=== PATIENT | male | born 1970 | race Caucasian/White ===

== ENCOUNTER → 2020-03-25 | Day surgery (SDC) | payer BC ==
[~2020-03-25] MED LIST: GLUCAGON 1 MG/ML VIAL IM STA
[2020-03-25 09:25] VITALS: BP 141/79; PULSE 79; RESP 16; TEMP 98
--- NOTE | 2020-04-01 14:32 | MR ---
EXAMINATION TYPE: MR Enterography DATE OF EXAM: 03/25/2020 COMPARISON: Outside CT abdomen and pelvis October 10, 2017 HISTORY: History of small bowel resection and fistulotomy with pain. CONTRAST: Standard multiplanar, multisequence imaging of the abdomen is performed without and with IV contrast, patient is injected with 10 mL intravenous Gadavist gadolinium contrast. Oral Volumen and Water was given as per enterography protocol. FINDINGS: Bowel: Satisfactory fluid distention of stomach without suspicious eccentric wall thickening or mural enhancement. Suboptimal fluid distention of duodenal sweep without suspicious eccentric wall thicken ing or mural enhancement. Fairly adequate fluid distention of jejunal and ileal small bowel loops. No suspicious eccentric wall thickening or enhancement identified. There is persistent narrowing of the neoterminal ileum at the colonic anastomosis in the right lower quadrant coronal image 10 series 301 . No significant focal dilatation of the distal ileum is noted. Visualized colon unremarkable. Other: The liver, gallbladder, spleen, pancreas, and both adrenal glands are unremarkable. No concern ing renal mass or hydronephrosis. No intra-abdominal ascites or greater than 1 cm abdominal adenopath y. Visualized osseous structures are intact. Overlying vertical scar extending inferior to the umbili cus. Small fat-containing periumbilical hernia. IMPRESSION: Mild stricturing at the neoterminal ileum. No active inflammatory change. No enhancing fi stulous tract.
== END ==
LOC: RADMRIMAIN 08:47
PROVIDERS: ATTEND Internal Medicine Gastroenterology
DX: K50.90 Crohn's disease, unspecified, without complications (principal)
CPT/HCPCS: 72197; 74183; 96372; J1610; A9585

== ENCOUNTER 2020-10-31 16:51 | Inpatient (IN) | payer BC ==
[2020-10-31] MEDS ORDERED: SODIUM CHLORIDE 0.9% 1,000 ML IV STA (17:15)
[2020-10-31 18:31] LABS: Anisocytosis Slight; Basophils % (A) 1 %; Eosinophils # (A) 0.1 k/uL (0-0.7); Eosinophils % (A) 2 %; Hypochromasia Marked; Lymphocytes # (A) 1.4 k/uL (1.0-4.8); Lymphocytes % (A) 24 %; MCH 21.2 pg (25.0-35.0); MCHC 29.9 g/dL (31.0-37.0); MCV 70.8 fL (80.0-100.0); Mean Platelet Volume 6.8; Microcytosis Moderate; Monocytes # (A) 0.4 k/uL (0-1.0); Monocytes % (A) 7 %; Neutrophils # (A) 3.9 k/uL (1.3-7.7); Neutrophils % (A) 65 %; Platelet Count 460 k/uL (150-450); Poikilocytosis Moderate; RBC 3.25 m/uL (4.30-5.90); RDW 16.9 % (11.5-15.5)
[2020-10-31 18:34] LABS: HGB 6.9 gm/dL (13.0-17.5)
[2020-10-31 18:35] LABS: Appearance,Urine Clear (Clear); Bilirubin,Urine Negative (Negative); Blood,Urine Negative (Negative); Color,Urine Yellow; Glucose,Urine (UA) Negative (Negative); Ketones,Urine Trace (Negative); Leukocyte Esterase,Urine Negative (Negative); Nitrite,Urine Negative (Negative); Protein,Urine Trace (Negative); Specific Gravity,Urine 1.035 (1.001-1.035); Urobilinogen,Urine <2.0 mg/dL (<2.0)
[2020-10-31 18:38] LABS: ALT 16 U/L (4-49); AST 37 U/L (17-59); African American GFR (CKD) >90 (>60 ml/min/1.73 sqM); Albumin 4.1 g/dL (3.5-5.0); Alkaline Phosphatase 66 U/L (38-126); Anion Gap 9 mmol/L; Blood Urea Nitrogen 14 mg/dL (9-20); Carbon Dioxide 24 mmol/L (22-30); Chloride 105 mmol/L (98-107); Glucose 88 mg/dL (74-99); Non-African American GFR(CKD) >90 (>60 ml/min/1.73 sqM); Potassium 4.5 mmol/L (3.5-5.1); Sodium 138 mmol/L (137-145); Total Bilirubin 0.3 mg/dL (0.2-1.3); Total Protein 6.6 g/dL (6.3-8.2)
--- NOTE | 2020-10-31 18:40 | ED ---
General Adult HPI - General Chief complaint: Fall Stated complaint: Weak/dizzy/pain Time Seen by Provider: 10/31/20 17:09 Source: patient Mode of arrival: ambulatory Limitations: no limitations - History of Present Illness Initial comments: Patient is a 50-year-old male that presents to the emergency department complaining of dizziness, fatigue and low hemoglobin. He notes that his hemoglobin on routine lab work as primary care was 7.2. He noted that he's been feeling fatigued and weaker lately. He notes that he does have chronic pain and is not experiencing anything new. He was otherwise well-appearing. He denied any chest pain shortness of breath headache nausea vomiting diarrhea constipation fever chills. - Related Data Home Medications Medication Instructions Recorded Confirmed Dicyclomine [Bentyl] 10 mg PO TID 03/25/20 03/25/20 Diphenox-Atrop 2.5-0.025 mg 1 - 2 tab PO QID PRN 03/25/20 03/25/20 [Lomotil] Omeprazole 20 mg PO BID 03/25/20 03/25/20 azaTHIOprine [Imuran] 100 mg PO DAILY 03/25/20 03/25/20 clonazePAM 1 mg PO TID 03/25/20 03/25/20 lamoTRIgine [LaMICtal] 100 mg PO DAILY 03/25/20 03/25/20 Allergies Allergy/AdvReac Type Severity Reaction Status Date / Time No Known Allergies Allergy Verified 10/31/20 16:59 Review of Systems ROS Statement: Those systems with pertinent positive or pertinent negative responses have been documented in the HPI. ROS Other: All systems not noted in ROS Statement are negative. Past Medical History Additional Past Medical History / Comment(s): Crohn's History of Any Multi-Drug Resistant Organisms: None Reported Additional Past Surgical History / Comment(s): bowel resection. Past Psychological History: Anxiety, Bipolar, Depression, PTSD Smoking Status: Never smoker Past Alcohol Use History: None Reported Past Drug Use History: None Reported General Exam Limitations: no limitations General appearance: alert, in no apparent distress Head exam: Present: atraumatic, normocephalic, normal inspection Eye exam: Present: normal appearance, PERRL, EOMI. Absent: scleral icterus, conjunctival injection, periorbital swelling Neck exam: Present: normal inspection Respiratory exam: Present: normal lung sounds bilaterally. Absent: respiratory distress, wheezes, rales, rhonchi, stridor Cardiovascular Exam: Present: regular rate, normal rhythm, normal heart sounds. Absent: systolic murmur, diastolic murmur, rubs, gallop, clicks GI/Abdominal exam: Present: soft, normal bowel sounds. Absent: distended, tenderness, guarding, rebound, rigid Extremities exam: Present: normal inspection, full ROM, normal capillary refill. Absent: tenderness, pedal edema, joint swelling, calf tenderness Neurological exam: Present: alert, oriented X3 Psychiatric exam: Present: normal affect, normal mood Skin exam: Present: warm, dry, intact, normal color. Absent: rash Course Vital Signs 10/31/20 16:52 Temperature 97.6 F Pulse Rate 78 Respiratory 18 Rate Blood Pressure 142/76 O2 Sat by Pulse 100 Oximetry EKG Findings - EKG Comments: EKG Findings:: Ventricular rate 66 bpm, MN interval 182 ms, QRS duration 86 ms, QTC 450 ms, PRT axes 51/38/35. Normal sinus rhythm. Normal ECG. Medical Decision Making - Medical Decision Making 50-year-old male complaining of fatigue, dizziness with history of Crohn's disease. Labs, 1 L normal saline, EKG, cardiac catheterization technician ordered. Patient states that he was told to get a computed tomography scan by his doctor. So computed tomography scan of the brain was ordered. Labs show a hemoglobin of 6.9, rest of labs unremarkable. Case discussed with Dr. Hartman, patient will be admitted for observation for symptomatic anemia. 1 unit of blood ordered with a type and screen. Miryam Pal was consulted and will accept the admit for Dr. Way. - Lab Data Result diagrams: 10/31/20 18:11 10/31/20 18:11 Lab Results 10/31/20 10/31/20 10/31/20 Range/Units 18:11 18:11 18:11 WBC 6.0 (3.8-10.6) k/uL RBC 3.25 L (4.30-5.90) m/uL Hgb 6.9 L* (13.0-17.5) gm/dL Hct 23.0 L (39.0-53.0) % MCV 70.8 L (80.0-100.0) fL MCH 21.2 L (25.0-35.0) pg MCHC 29.9 L (31.0-37.0) g/dL RDW 16.9 H (11.5-15.5) % Plt Count 460 H (150-450) k/uL MPV 6.8 Neutrophils % 65 % Lymphocytes % 24 % Monocytes % 7 % Eosinophils % 2 % Basophils % 1 % Neutrophils # 3.9 (1.3-7.7) k/uL Lymphocytes # 1.4 (1.0-4.8) k/uL Monocytes # 0.4 (0-1.0) k/uL Eosinophils # 0.1 (0-0.7) k/uL Basophils # 0.0 (0-0.2) k/uL Hypochromasia Marked Poikilocytosis Moderate Anisocytosis Slight Microcytosis Moderate PT 10.2 (9.0-12.0) sec INR 1.0 (<1.2) APTT 21.1 L (22.0-30.0) sec Sodium 138 (137-145) mmol/L Potassium 4.5 (3.5-5.1) mmol/L Chloride 105 (98-107) mmol/L Carbon Dioxide 24 (22-30) mmol/L Anion Gap 9 mmol/L BUN 14 (9-20) mg/dL Creatinine 0.81 (0.66-1.25) mg/dL Est GFR (CKD-EPI)AfAm >90 (>60 ml/min/1.73 sqM) Est GFR (CKD-EPI)NonAf >90 (>60 ml/min/1.73 sqM) Glucose 88 (74-99) mg/dL Calcium 9.0 (8.4-10.2) mg/dL Total Bilirubin 0.3 (0.2-1.3) mg/dL AST 37 (17-59) U/L ALT 16 (4-49) U/L Alkaline Phosphatase 66 (38-126) U/L Troponin I (0.000-0.034) ng/mL Total Protein 6.6 (6.3-8.2) g/dL Albumin 4.1 (3.5-5.0) g/dL Urine Color Urine Appearance (Clear) Urine pH (5.0-8.0) Ur Specific [place] (1.001-1.035) Urine Protein (Negative) Urine Glucose (UA) (Negative) Urine Ketones (Negative) Urine Blood (Negative) Urine Nitrite (Negative) Urine Bilirubin (Negative) Urine Urobilinogen (<2.0) mg/dL Ur Leukocyte Esterase (Negative) 10/31/20 10/31/20 Range/Units 18:11 18:22 WBC (3.8-10.6) k/uL RBC (4.30-5.90) m/uL Hgb (13.0-17.5) gm/dL Hct (39.0-53.0) % MCV (80.0-100.0) fL MCH (25.0-35.0) pg MCHC (31.0-37.0) g/dL RDW (11.5-15.5) % Plt Count (150-450) k/uL MPV Neutrophils % % Lymphocytes % % Monocytes % % Eosinophils % % Basophils % % Neutrophils # (1.3-7.7) k/uL Lymphocytes # (1.0-4.8) k/uL Monocytes # (0-1.0) k/uL Eosinophils # (0-0.7) k/uL Basophils # (0-0.2) k/uL Hypochromasia Poikilocytosis Anisocytosis Microcytosis PT (9.0-12.0) sec INR (<1.2) APTT (22.0-30.0) sec Sodium (137-145) mmol/L Potassium (3.5-5.1) mmol/L Chloride (98-107) mmol/L Carbon Dioxide (22-30) mmol/L Anion Gap mmol/L BUN (9-20) mg/dL Creatinine (0.66-1.25) mg/dL Est GFR (CKD-EPI)AfAm (>60 ml/min/1.73 sqM) Est GFR (CKD-EPI)NonAf (>60 ml/min/1.73 sqM) Glucose (74-99) mg/dL Calcium (8.4-10.2) mg/dL Total Bilirubin (0.2-1.3) mg/dL AST (17-59) U/L ALT (4-49) U/L Alkaline Phosphatase (38-126) U/L Troponin I <0.012 (0.000-0.034) ng/mL Total Protein (6.3-8.2) g/dL Albumin (3.5-5.0) g/dL Urine Color Yellow Urine Appearance Clear (Clear) Urine pH 6.0 (5.0-8.0) Ur Specific [place] 1.035 (1.001-1.035) Urine Protein Trace H (Negative) Urine Glucose (UA) Negative (Negative) Urine Ketones Trace H (Negative) Urine Blood Negative (Negative) Urine Nitrite Negative (Negative) Urine Bilirubin Negative (Negative) Urine Urobilinogen <2.0 (<2.0) mg/dL Ur Leukocyte Esterase Negative (Negative) - EKG Data -: EKG Interpreted by Pr EKG shows normal: sinus rhythm Rate: normal EKG Comments: Ventricular rate 66 bpm, MN interval 182 ms, QRS duration 86 ms, QTC 450 ms, PRT axes 51/38/35. Normal sinus rhythm. Normal ECG. - Radiology Data Radiology results: report reviewed, image reviewed CT of the brain: No acute intracranial abnormality. Disposition Clinical Impression: Syncope, Dizziness Disposition: ADMITTED IP TO THIS HOSP Condition: Stable Is patient prescribed a controlled substance at d/c from ED?: No Referrals: Yenny Carreon MD [Primary Care Provider] - 1-2 days Time of Disposition: 18:56
[2020-10-31] MEDS ORDERED: NALOXONE 0.4 MG/ML 1 ML VIAL IV PRN (18:45)
[2020-10-31 18:46] LABS: Partial Thromboplastin Time 21.1 sec (22.0-30.0); Prothrombin Time 10.2 sec (9.0-12.0)
[2020-10-31] MEDS ORDERED: KETOROLAC 15 MG/ML 1 ML VIAL IVP STA (18:52)
--- NOTE | 2020-10-31 18:53 | CT ---
EXAM: CT brain wo con CLINICAL HISTORY: Low hemoglobin, dizziness and fall. COMPARISON: None TECHNIQUE: Contiguous axial noncontrast images of the brain were obtained. Coronal and sagittal refor mats were generated and reviewed. Automated dose control was used for this exam. FINDINGS: There is no evidence for intracranial hemorrhage, mass effect or midline shift. The white matter is g rossly preserved. Ventricular size and configuration is within normal limits for degree of parenchymal volume. The paranasal sinuses demonstrate a small left maxillary sinus mucus retention cyst, otherwise clear. The mastoid air cells are clear. No evidence for calvarial fracture. IMPRESSION: No acute intracranial abnormality.
[2020-10-31] MEDS: SODIUM CHLORIDE 0.9% 1,000 ML IV SCH ×2 (18:57→23:20)
[2020-10-31] MEDS ORDERED: HYDROmorphone 0.5 MG/0.5 ML SYRINGE IVP PRN (20:48)
[2020-10-31] MEDS: HYDROmorphone 1 MG/ML 1 ML SYRINGE IVP PRN (22:57)
[2020-10-31] MEDS: clonazePAM 1 MG TAB PO SCH (22:57)
[2020-10-31] MEDS: PANTOPRAZOLE 40 MG/10 ML VIAL IVP SCH (22:58)
[2020-11-01] MEDS: HYDROmorphone 1 MG/ML 1 ML SYRINGE IVP PRN ×5 (03:14→21:03)
[2020-11-01 06:15] LABS: Anisocytosis Slight; Basophils # (A) 0.1 k/uL (0-0.2); Basophils % (A) 1 %; Eosinophils # (A) 0.2 k/uL (0-0.7); Eosinophils % (A) 4 %; HCT 24.4 % (39.0-53.0); HGB 7.1 gm/dL (13.0-17.5); Hypochromasia Marked; Lymphocytes # (A) 1.6 k/uL (1.0-4.8); Lymphocytes % (A) 29 %; MCH 21.6 pg (25.0-35.0); MCHC 29.1 g/dL (31.0-37.0); MCV 74.2 fL (80.0-100.0); Microcytosis Moderate; Monocytes # (A) 0.4 k/uL (0-1.0); Monocytes % (A) 7 %; Neutrophils # (A) 3.2 k/uL (1.3-7.7); Neutrophils % (A) 56 %; Platelet Count 421 k/uL (150-450); Poikilocytosis Marked; RBC 3.29 m/uL (4.30-5.90); RDW 18.3 % (11.5-15.5); WBC 5.7 k/uL (3.8-10.6)
[2020-11-01] MEDS: clonazePAM 1 MG TAB PO SCH ×3 (07:51→21:02)
[2020-11-01] MEDS: PANTOPRAZOLE 40 MG/10 ML VIAL IVP SCH ×2 (07:51→21:02)
[2020-11-01] MEDS: SODIUM CHLORIDE 0.9% 1,000 ML IV SCH ×3 (07:51→19:58)
--- NOTE | 2020-11-01 10:34 | P.HPIM ---
History of Present Illness This is a pleasant 50 years old male with past medical history of Crohn's disease, anxiety/bipolar and depression and PTSD Presents because of dizziness and low hemoglobin. Patient states that is been having pounding headache with dizzy spells and pain all over his body with dyspnea with simple exertion even for example going up to stairs only. Sleepy than usual. This has been going on for a few weeks so he went to see his PCP Dr. Yenny villarrealed blood test for him and call him back in 3 days on 10/24 telling him that his hemoglobin was low at 72 and iron was low at 60, he asked him to follow-up with GI service for colonoscopy, to collect stool for occult blood, and get him up appointment on 11/[address] Gipson However yesterday he felt more severe dizziness, when he bent over to reach out for his dog he felt dizzy and on straight and up and almost going to pass out and he hit his head with a cushion furniture with no trauma. Also has been having chest pain and exertional dyspnea. He has no history of heart disease. However he has extensive family history of heart disease. Her has heart attack at age 58-59, and he got another heart attack 2 weeks ago at age 83. Call at age 64 and another uncle got his first heart attack in his 40s before he in 60s as well He denies smoking, alcohol or illicit drugs. Patient has history of Crohn's disease on azathiprine and lomotil And at this line he has 6-12 bowel movements which are brown with no blunt although he has history of hemorrhoids as well Vitals are stable and patient is not tachycardic or febrile. Hemoglobin was low at 6.9 on admission, repeat hemoglobin 7.1. WBC and platelet count are normal. INR is 1.0. BMP and liver enzymes are unremarkable. Urinalysis showing only trace protein and ketones. EKG: Showed normal sinus rhythm at [address]-T changes. QTC is 450. CT of the brain: No acute process. And emergency room patient was started on Protonix IV, 1 L of normal saline 1 L and continue it at 1 30 mL/h. In the emergency patient received 1 unit of blood transfusion GI team were consulted from ED Review of Systems CONSTITUTIONAL: No fever, no malaise, no fatigue. HEENT: No recent visual problems or hearing problems. Denied any sore throat. CARDIOVASCULAR: No orthopnea, PND, no palpitations, no syncope. PULMONARY: no cough, no hemoptysis. GASTROINTESTINAL: No diarrhea, no nausea, no vomiting, no abdominal pain. Normoactive bowel sounds. NEUROLOGICAL: No headaches, no weakness, no numbness. HEMATOLOGICAL: Denies any bleeding or petechiae. GENITOURINARY: Denies any burning micturition, frequency, or urgency. MUSCULOSKELETAL/RHEUMATOLOGICAL: Denies any joint pain, swelling, or any muscle pain. ENDOCRINE: Denies any polyuria or polydipsia. Past Medical History Additional Past Medical History / Comment(s): Crohn's History of Any Multi-Drug Resistant Organisms: None Reported Additional Past Surgical History / Comment(s): bowel resection. Smoking Status: Never smoker Medications and Allergies Home Medications Medication Instructions Recorded Confirmed Type Diphenox-Atrop 2.5-0.025 mg 1 tab PO QID 03/25/20 10/31/20 History [Lomotil] Omeprazole 20 mg PO DAILY 03/25/20 10/31/20 History azaTHIOprine [Imuran] 50 mg PO BID 03/25/20 10/31/20 History clonazePAM 1 mg PO TID 03/25/20 10/31/20 History lamoTRIgine [LaMICtal] 100 mg PO DAILY 03/25/20 10/31/20 History Ascorbic Acid [Vitamin C] 250 mg PO DAILY 10/31/20 10/31/20 History Cholecalciferol [Vitamin D3 (10 10 mcg PO DAILY 10/31/20 10/31/20 History Mcg = 400 Iu)] Cholestyramine (with Sugar) 4 gm PO BID 10/31/20 10/31/20 History [Cholestyramine Packet] Chromium Picolinate 200 mcg PO DAILY 10/31/20 10/31/20 History FLUoxetine HCL [PROzac] 10 mg PO DAILY 10/31/20 10/31/20 History Lidocaine 5% Patch [Lidoderm] 1 patch TOPICAL DAILY 10/31/20 10/31/20 History Meloxicam 15 mg PO DAILY 10/31/20 10/31/20 History Multivitamins, Thera [Multivitamin 1 tab PO DAILY 10/31/20 10/31/20 History (formulary)] [place]-3 Fatty Acids/Fish Oil [Fish 1 cap PO DAILY 10/31/20 10/31/20 History Oil 1,000 mg Softgel] Sucralfate [Carafate] 1 gm PO TID 10/31/20 10/31/20 History Vitamin B Complex 1 cap PO DAILY 10/31/20 10/31/20 History Vitamin E (Dl,Tocopheryl Acet) 400 unit PO DAILY 10/31/20 10/31/20 History [Vitamin E (400 Iu = 180 mg)] hydrOXYzine pamoate [Vistaril] 25 mg PO TID PRN 10/31/20 10/31/20 History Allergies Allergy/AdvReac Type Severity Reaction Status Date / Time No Known Allergies Allergy Verified 10/31/20 19:18 Physical Exam Vitals: Vital Signs Temp Pulse Pulse Resp BP BP Pulse Ox 11/01/20 04:55 97.7 F 67 16 114/70 96 10/31/20 23:15 98.3 F 73 16 141/83 10/31/20 20:59 98.2 F 67 16 142/78 10/31/20 20:50 98.2 F 67 18 142/78 100 10/31/20 20:36 98.4 F 86 18 123/74 100 10/31/20 20:29 98.0 F 68 18 128/67 100 10/31/20 20:19 97.7 F 68 18 138/85 100 10/31/20 20:10 97.7 F 70 18 130/78 100 10/31/20 19:02 75 18 124/70 99 10/31/20 16:52 97.6 F 78 18 142/76 100 Intake and Output 10/31/20 11/01/20 11/01/20 22:59 06:59 14:59 Intake Total 0 310 Output Total 200 Balance 0 110 Intake: Blood Product 0 310 Rc As-1 Unit 0 310 [id number] Output: Urine 200 Other: Voiding Method Toilet Urinal Weight 105.233 kg GENERAL: The patient is alert and oriented x3, not in any acute distress. Well developed, well nourished. -HEENT: Pupils are round and equally reacting to light. EOMI. No scleral icterus. No conjunctival pallor. Normocephalic, atraumatic. No pharyngeal erythema. No thyromegaly. Pale CARDIOVASCULAR: S1 and S2 present. No murmurs, rubs, or gallops. PULMONARY: Chest is clear to auscultation, no wheezing or crackles. ABDOMEN: Soft, nontender, nondistended, normoactive bowel sounds. No palpable organomegaly. MUSCULOSKELETAL: No joint swelling or deformity. EXTREMITIES: No cyanosis, clubbing, or pedal edema. NEUROLOGICAL: Gross neurological examination did not reveal any focal deficits. SKIN: No rashes. No petechiae Results CBC & Chem 7: 11/01/20 05:23 10/31/20 18:11 Labs: Abnormal Lab Results - Last 24 Hours (Table) 10/31/20 10/31/20 10/31/20 Range/Units 18:11 18:11 18:22 RBC 3.25 L (4.30-5.90) m/uL Hgb 6.9 L* (13.0-17.5) gm/dL Hct 23.0 L (39.0-53.0) % MCV 70.8 L (80.0-100.0) fL MCH 21.2 L (25.0-35.0) pg MCHC 29.9 L (31.0-37.0) g/dL RDW 16.9 H (11.5-15.5) % Plt Count 460 H (150-450) k/uL APTT 21.1 L (22.0-30.0) sec Urine Protein Trace H (Negative) Urine Ketones Trace H (Negative) Crossmatch 10/31/20 11/01/20 Range/Units 18:45 05:23 RBC 3.29 L (4.30-5.90) m/uL Hgb 7.1 L (13.0-17.5) gm/dL Hct 24.4 L (39.0-53.0) % MCV 74.2 L (80.0-100.0) fL MCH 21.6 L (25.0-35.0) pg MCHC 29.1 L (31.0-37.0) g/dL RDW 18.3 H (11.5-15.5) % Plt Count (150-450) k/uL APTT (22.0-30.0) sec Urine Protein (Negative) Urine Ketones (Negative) Crossmatch See Detail Assessment and Plan Assessment: Anemia. Low Hemoglobin upon admission, most likely acute blood loss anemia Possible acute GI bleed Dizziness and presyncope, secondary to above chest pain and dyspnea, most likely secondary to anemia. Rule out cardiac causes Crohn's disease , rule out acute exacerbation History of bipolar depression, anxiety and PTSD Plan: this is a pleasant 50 years old male who presents with dizziness and low hemoglobin. He is a status post one unit of blood transfusion Continue monitoring hemoglobin. Anemia workup (I called lap to run test on the first CBC sample on admission in the ER ) Continue with Protonix Follow-up GI team . Check ESR and C-reactive protein Telemetry monitoring, cardiology consult. Also positive troponin and proBNP Check chest x-ray and broughtcalcitonin Labs and medication were reviewed.. Continue same treatment. Continue with symptomatic treatment. Resume home medication. Monitor lytes and vitals. DVT and GI prophylaxis. Further recommendations depends on the clinical course of the patient DVT prophylaxis: No anticoagulation in view of suspected GI bleed GI Prophylaxis: Ppi PT/OT: Pending Prognosis is guarded
--- NOTE | 2020-11-01 11:31 | US ---
EXAMINATION TYPE: US venous doppler duplex LE DATE OF EXAM: 11/01/2020 10:35 AM COMPARISON: NONE CLINICAL HISTORY: Rule out DVT. bilat leg pain, no swelling, no h/o dvt SIDE PERFORMED: Bilateral TECHNIQUE: The lower extremity deep venous system is examined utilizing real time linear array sonog scott with graded compression, doppler sonography and color-flow sonography. VESSELS IMAGED: Common Femoral Vein Deep Femoral Vein Greater Saphenous Vein * Femoral Vein - duplicate vein on the left Popliteal Vein Small Saphenous Vein * Proximal Calf Veins (* superficial vessels) Right Leg: Negative for DVT Left Leg: Negative for DVT IMPRESSION: Grayscale, color doppler, spectral doppler imaging performed of the deep veins of the lo wer extremities. There is normal flow, compressibility, vascular waveforms.
--- NOTE | 2020-11-01 11:39 | XR ---
EXAMINATION TYPE: XR chest 1V DATE OF EXAM: 11/01/2020 COMPARISON: NONE HISTORY: Chest pain TECHNIQUE: Single frontal view of the chest is obtained. FINDINGS: There is no focal air space opacity, pleural effusion, or pneumothorax seen. The heart is enlarged but there is no evidence of overt failure. Mild arthropathy AC joints. IMPRESSION: Cardiomegaly
--- NOTE | 2020-11-01 12:45 | P.CONS ---
History of Present Illness - Reason for Consult Consult date: 11/01/20 Anemia Requesting physician: Karthikeyan E Sheet - Chief Complaint Weakness, low hemoglobin - History of Present Illness This 50-year-old white male who presented to the emergency department with complaints of weakness, fatigue, and reports of outpatient labs showing a low hemoglobin. Patient has a past medical history of Crohn's disease diagnosed in 1997. He is followed with Dr. Dunn in the past and currently under the care of Dr. Gipsno. Patient states he was scheduled for outpatient colonoscopy on 11/12/[address] Gipson. He currently takes Imuran, Carafate, Cholestyramine, hydroxyzine, and Bentyl as needed. He states he has not had any blood in his stool or black stool, no hematemesis or coffee-ground emesis. States he has chronic abdominal pain, nausea but no vomiting, and has 6-12 bowel movements a day that are loose which she states is normal for him. He states he has been getting a lot of acid reflux, he does take omeprazole for it. He states he has prior He denies any regular NSAID use. He has a history of a bowel resection and perforation with repair. Also has an abdominal hernia. He's had multiple bowel obstructions, last one he was hospitalized for was in March 2019. However he does state that he has felt that he has had bowel obstructions throughout Covid, however did not come into the emergency department as he was afraid to contract COVID-19. He states his last EGD and colonoscopy was done by Dr. Dunn in 2019. Admission globin was 6.9, he was transfused with 1 unit of PRBCs. Repeat labs today show WBC 5.7, hemoglobin 7.1, hematocrit 24, 421,000, INR 1.0, total bilirubin 0.3, alkaline phosphatase 66, AST 37, ALT 16. CRP 0.6. Review of Systems REVIEW OF SYSTEMS: CARDIOPULMONARY: No chest pain or shortness of breath. Gastrointestinal: Diffuse abdominal pain, chronic. Nausea, no vomiting. No hematemesis, coffee-ground emesis. No rectal bleeding, or melena. Daily diarrhea, 6-12 bowel movements a day. GENITOURINARY: No dysuria or hematuria. MUSCULOSKELETAL: Reports normal range of motion., Leg pain. SKIN: No rashes. No jaundice. ENDOCRINE: No chills, fevers. No excessive weight gain or loss. No polydipsia or polyuria. PSYCHIATRIC: Unremarkable. NEUROLOGY: No change in mental status. Denies dizziness, headache. ENT: Vision unremarkable. CONSTITUTIONAL: No recent weight loss. No fever, chills, night sweats. Past Medical History Additional Past Medical History / Comment(s): Crohn's History of Any Multi-Drug Resistant Organisms: None Reported Additional Past Surgical History / Comment(s): bowel resection. Smoking Status: Never smoker Medications and Allergies Home Medications Medication Instructions Recorded Confirmed Type Diphenox-Atrop 2.5-0.025 mg 1 tab PO QID 03/25/20 10/31/20 History [Lomotil] Omeprazole 20 mg PO DAILY 03/25/20 10/31/20 History azaTHIOprine [Imuran] 50 mg PO BID 03/25/20 10/31/20 History clonazePAM 1 mg PO TID 03/25/20 10/31/20 History lamoTRIgine [LaMICtal] 100 mg PO DAILY 03/25/20 10/31/20 History Ascorbic Acid [Vitamin C] 250 mg PO DAILY 10/31/20 10/31/20 History Cholecalciferol [Vitamin D3 (10 10 mcg PO DAILY 10/31/20 10/31/20 History Mcg = 400 Iu)] Cholestyramine (with Sugar) 4 gm PO BID 10/31/20 10/31/20 History [Cholestyramine Packet] Chromium Picolinate 200 mcg PO DAILY 10/31/20 10/31/20 History FLUoxetine HCL [PROzac] 10 mg PO DAILY 10/31/20 10/31/20 History Lidocaine 5% Patch [Lidoderm] 1 patch TOPICAL DAILY 10/31/20 10/31/20 History Meloxicam 15 mg PO DAILY 10/31/20 10/31/20 History Multivitamins, Thera [Multivitamin 1 tab PO DAILY 10/31/20 10/31/20 History (formulary)] [place]-3 Fatty Acids/Fish Oil [Fish 1 cap PO DAILY 10/31/20 10/31/20 History Oil 1,000 mg Softgel] Sucralfate [Carafate] 1 gm PO TID 10/31/20 10/31/20 History Vitamin B Complex 1 cap PO DAILY 10/31/20 10/31/20 History Vitamin E (Dl,Tocopheryl Acet) 400 unit PO DAILY 10/31/20 10/31/20 History [Vitamin E (400 Iu = 180 mg)] hydrOXYzine pamoate [Vistaril] 25 mg PO TID PRN 10/31/20 10/31/20 History Allergies Allergy/AdvReac Type Severity Reaction Status Date / Time No Known Allergies Allergy Verified 10/31/20 19:18 Physical Exam Vitals: Vital Signs Temp Pulse Pulse Resp BP BP Pulse Ox 11/01/20 04:55 97.7 F 67 16 114/70 96 10/31/20 23:15 98.3 F 73 16 141/83 10/31/20 20:59 98.2 F 67 16 142/78 10/31/20 20:50 98.2 F 67 18 142/78 100 10/31/20 20:36 98.4 F 86 18 123/74 100 10/31/20 20:29 98.0 F 68 18 128/67 100 10/31/20 20:19 97.7 F 68 18 138/85 100 10/31/20 20:10 97.7 F 70 18 130/78 100 10/31/20 19:02 75 18 124/70 99 10/31/20 16:52 97.6 F 78 18 142/76 100 Intake and Output 10/31/20 11/01/20 11/01/20 22:59 06:59 14:59 Intake Total 0 310 Output Total 200 Balance 0 110 Intake: Blood Product 0 310 Rc As-1 Unit 0 310 [id number] Output: Urine 200 Other: Voiding Method Toilet Urinal Weight 105.233 kg General appearance: The patient is alert, oriented, appears in no acute distress. HET: Head is normocephalic and atraumatic. Conjunctiva pink. Sclera anicteric. Neck: Supple without lymphadenopathy. Trachea midline. Heart: S1 S2. Regular rate and rhythm. Lungs: Clear to auscultation. Abdomen: Soft, diffuse tenderness,, nondistended with bowel sounds. No g uarding or rigidity. Skin: No rashes. No jaundice. Extremities: Normal skin color and turgor. No pedal edema. Neurological: No focal deficits. Alert and oriented 3.. Results CBC & Chem 7: 11/01/20 05:23 10/31/20 18:11 Labs: Abnormal Lab Results - Last 24 Hours (Table) 10/31/20 10/31/20 10/31/20 Range/Units 18:11 18:11 18:22 RBC 3.25 L (4.30-5.90) m/uL Hgb 6.9 L* (13.0-17.5) gm/dL Hct 23.0 L (39.0-53.0) % MCV 70.8 L (80.0-100.0) fL MCH 21.2 L (25.0-35.0) pg MCHC 29.9 L (31.0-37.0) g/dL RDW 16.9 H (11.5-15.5) % Plt Count 460 H (150-450) k/uL APTT 21.1 L (22.0-30.0) sec Urine Protein Trace H (Negative) Urine Ketones Trace H (Negative) Crossmatch 10/31/20 11/01/20 Range/Units 18:45 05:23 RBC 3.29 L (4.30-5.90) m/uL Hgb 7.1 L (13.0-17.5) gm/dL Hct 24.4 L (39.0-53.0) % MCV 74.2 L (80.0-100.0) fL MCH 21.6 L (25.0-35.0) pg MCHC 29.1 L (31.0-37.0) g/dL RDW 18.3 H (11.5-15.5) % Plt Count (150-450) k/uL APTT (22.0-30.0) sec Urine Protein (Negative) Urine Ketones (Negative) Crossmatch See Detail Assessment and Plan (1) Microcytic anemia Narrative/Plan: 50-year-old male who presented to the emergency department with complaints of weakness, fatigue, and outpatient low hemoglobin. He has a past medical history of Crohn's disease which he was diagnosed in 1997, he has also had history of small bowel resection and perforation with repair. He has had multiple bowel obstructions. He used to follow with Dr. Dunn and his last EGD and colonoscopy was done by him in 2019. He currently follows with Dr. Gipson and was supposed to have an outpatient colonoscopy on 11/12/2020. The patient states he has chronic abdominal pain, chronic diarrhea 6-12 times a day, which he reports is loose, nonbloody. He denies any melena, states he has nausea but no vomiting. No recent hematemesis or coffee-ground emesis. He states he does suffer from acid reflux and takes Carafate and omeprazole. She states he has a prior history of peptic ulcer disease. It has been worse lately. On admission he was noted to have a hemoglobin of 6.9, he was transfused with 1 unit of PRBCs. His repeat hemoglobin was 7.1 and another order of PRBC transfusion has been ordered. He was noted to have microcytic anemia on presentation, iron studies have been ordered. Likely dealing with a GI source of bleeding, possible etiologies include peptic ulcer disease, gastritis, esophagitis, AVM, or exacerbation of Crohn's disease. Current Visit: Yes Status: Acute Code(s): D50.9 - IRON DEFICIENCY ANEMIA, UNSPECIFIED SNOMED Code(s): 184838781 (2) Crohn's disease Current Visit: Yes Status: Acute Code(s): K50.90 - CROHN'S DISEASE, UNSPECIFIED, WITHOUT COMPLICATIONS SNOMED Code(s): 35947796 Plan: 1. Clear liquid diet, nothing by mouth after midnight 2. Daily CBC, transfuse for hemoglobin less than 7 3. Agree with PRBC transfusion 4. Protonix 40 mg twice a day 5. Bowel prep this evening 6. Will proceed with EGD and colonoscopy tomorrow, risks and benefits discussed with patient and he is agreeable to proceed Thank you for this consultation, we will continue to follow
[2020-11-01 13:21] LABS: African American GFR (CKD) 114.2 (60.0-200.0); Anion Gap 10.3 mmol/L (4.00-12.00); BUN/Creat Ratio 15.56 Ratio (12.00-20.00); Calcium 8.7 mg/dL (8.7-10.3); Carbon Dioxide 24.7 mmol/L (21.6-31.8); Non-African American GFR(CKD) 98.5 (60.0-200.0); Potassium 4.3 mmol/L (3.5-5.5)
[2020-11-01] MEDS ORDERED: PEG 3350-NA SULF,BICARB,CL/KCL 4,000 ML BOTTLE PO ONE (16:00)
[2020-11-01] MEDS: ONDANSETRON 4 MG/2 ML VIAL IVP PRN (16:53)
[2020-11-01 18:22] LABS: % Iron Saturation 9.18 (15.00-50.00); Iron 36 ug/dL (65-175); Total Iron Binding Capacity 392 ug/dL (228-460)
[2020-11-01 18:33] LABS: Ferritin 2.6 ng/mL (22.0-322.0); Folate, Serum >24.0 ng/mL
[2020-11-01 19:51] VITALS: RESP 16
[2020-11-02] MEDS ORDERED: hydrOXYzine pamoate 25 MG CAP PO PRN (00:25)
[2020-11-02] MEDS: HYDROmorphone 1 MG/ML 1 ML SYRINGE IVP PRN ×2 (01:31→06:14)
[2020-11-02] MEDS: CHOLESTYRAMINE (WITH SUGAR) 4 GM PACKET PO SCH ×2 (07:52→21:12)
[2020-11-02] MEDS: FERROUS SULFATE 325 MG TAB PO SCH ×2 (07:52→17:10)
[2020-11-02] MEDS: CYANOCOBALAMIN 1,000 MCG/ML 1 ML VIAL IM SCH ×2 (07:52→09:05)
[2020-11-02] MEDS: DIPHENOX-ATROP 2.5-0.025 MG 1 EACH TAB PO SCH ×5 (07:53→21:11)
[2020-11-02] MEDS: SUCRALFATE 1 GM TAB PO SCH ×3 (07:55→21:12)
[2020-11-02] MEDS: LIDOCAINE 5% PATCH TOPICAL SCH (08:00)
[2020-11-02] MEDS ORDERED: IV FLUID CONTINUATION 500 ML IV ONE (08:02)
[2020-11-02] MEDS ORDERED: LIDOCAINE 1% INJ 10MG/ML (20 ML MDV) ONE (08:02)
[2020-11-02] MEDS ORDERED: PROPOFOL 10 MG/ML 20 ML VIAL IV ONE (08:02)
[2020-11-02 08:21] LABS: Anisocytosis Slight; Basophils % (A) 1 %; Eosinophils # (A) 0.3 k/uL (0-0.7); Eosinophils % (A) 5 %; HCT 27.9 % (39.0-53.0); HGB 8.3 gm/dL (13.0-17.5); Hypochromasia Marked; Lymphocytes # (A) 1.2 k/uL (1.0-4.8); Lymphocytes % (A) 18 %; MCH 22.5 pg (25.0-35.0); MCHC 29.7 g/dL (31.0-37.0); MCV 75.7 fL (80.0-100.0); Mean Platelet Volume 6.8; Microcytosis Slight; Monocytes # (A) 0.4 k/uL (0-1.0); Monocytes % (A) 6 %; Neutrophils # (A) 4.4 k/uL (1.3-7.7); Neutrophils % (A) 68 %; Platelet Count 420 k/uL (150-450); Poikilocytosis Marked; RBC 3.68 m/uL (4.30-5.90); RDW 18.7 % (11.5-15.5); WBC 6.5 k/uL (3.8-10.6)
--- NOTE | 2020-11-02 08:34 | P.PCN ---
Date of Procedure: 11/02/20 Procedure(s) Performed: Brief history: Patient is a pleasant 50-year-old white male admitted hospital with severe symptomatic anemia and hemoglobin of 6.9 requiring unit of PRBC transfusion. He did have iron indices consistent with iron deficiency anemia. He does have history of Crohn's disease diagnosed in 1997 status post terminal ileal resection in 2011. His last colonoscopy was done by Dr. Dunn at [facility] in 2019 which revealed minimal colitis. He is currently maintained on azathioprine 100 mg daily. He scheduled for Upper Endoscopy As Well As Colonoscopy to Evaluate for Iron Deficiency Anemia Procedure performed: Esophagogastroduodenoscopy with biopsy Colonoscopy with biopsy Preoperative diagnosis: Severe iron deficiency anemia Anesthesia: [facility] [place] Procedure: After informed consent was obtained from the patient was brought into the endoscopy unit and IV sedation was administered by anesthesia under continuous monitoring. Initially upper endoscopy was done. The Olympus GF 160 video endoscope was inserted inserted into the mouth and esophagus intubated without any difficulty and was gradually advanced into the stomach and duodenum and carefully examined. The bulb and second part of the duodenum appeared normal. The scope was then withdrawn into the stomach adequately insufflated with air and upon careful examination the antrum and body, cardia and fundus appeared normal. The scope was then withdrawn into the esophagus. The GE junction was located at 40 cm to the incisors. It appeared regular with no erythema erosions or ulcerations. Rest of the esophagus appeared normal. Patient tolerated the procedure well. At this time the patient continued to remain sedation. Initial digital rectal examination was normal. Olympus CF 160 video colonoscope was then inserted into the rectum and gradually advanced to the right colon with ileocolic anastomosis was visualized without any difficulty. Careful examination was performed as the scope was gradually being withdrawn. The prep was excellent. There was tight anastomotic stricture with deformity noted. Adjacent to this area the mucosa had superficial erosions or ulcerations consistent with recurrent Crohn's disease. I was not able to advance the scope into the distal ileum. Multiple biopsies were done from the anastomosis. The ascending colon, transverse colon, descending colon, sigmoid colon and rectum appeared normal. Retroflexion was performed in the rectum and no lesions were noted. Patient tolerated the procedure well. Impression: 1. Upper endoscopy revealed minimal antral gastritis 2. Colonoscopy revealed tight stricture at the age of chronic anastomosis in the right colon with several erosions and ulcerations with deformity, status post multiple biopsies. Rest of the colon appeared normal Recommendations: Findings of this examination were discussed with the patient. He was advised to follow with the biopsy results. Diet will be advanced as tolerated. He will be started on iron supplements twice daily. Continue Imuran 100 mg daily. He can be discharged home today with outpatient follow-up in one to 2 weeks.
[2020-11-02] MEDS: FLUoxetine HCL 10 MG CAP PO SCH (09:04)
[2020-11-02] MEDS: clonazePAM 1 MG TAB PO SCH ×3 (09:04→21:11)
[2020-11-02] MEDS: PANTOPRAZOLE 40 MG/10 ML VIAL IVP SCH ×2 (09:05→21:11)
[2020-11-02] MEDS: lamoTRIgine 100 MG TAB PO SCH (09:05)
[2020-11-02] MEDS ORDERED: HYDROcodone/APAP 5-325MG 1 EACH TAB PO STA (12:14)
[2020-11-02] MEDS: SODIUM CHLORIDE 0.9% 1,000 ML IV SCH (12:19)
[2020-11-02 12:53] LABS: African American GFR (CKD) 119.9 (60.0-200.0); Anion Gap 6.4 mmol/L (4.00-12.00); Calcium 8.8 mg/dL (8.7-10.3); Carbon Dioxide 27.6 mmol/L (21.6-31.8); Non-African American GFR(CKD) 103.4 (60.0-200.0); Potassium 4.1 mmol/L (3.5-5.5)
[2020-11-02] MEDS: SODIUM FERRIC GLUCONAT-SUCROSE 125 MG in SODIUM CHLORIDE 0.9% 100 ML IVPB SCH (13:34)
[2020-11-02] MEDS: ONDANSETRON 4 MG/2 ML VIAL IVP PRN (14:28)
--- NOTE | 2020-11-02 17:22 | P.CRDCN ---
History of Present Illness History of present illness: HISTORY OF PRESENTING ILLNESS Patient is a pleasant 50-year-old male with a history of Crohn's disease status post bowel resection, multiple bowel obstructions, anxiety, PTSD, family history of coronary artery disease, borderline hyperlipidemia previously on some medications and anemia who presents secondary to increased episodes of feeling short of breath with exertion, lightheadedness, fatigue and feeling his heart beating in his ears. He states this has been gradual over the last few weeks. He therefore had workup with hemoglobin noted to be in the sixes and therefore was recommended to come the emergency department to get workup. He was found to be severely iron deficient and has been told he is iron deficient in the past however has not been able to tolerate iron pills. He has been having chest pain and pressure which normally occurs with exertion is improved with rest. This has been better since getting a blood transfusion. He denies any chest pain or now. He did have workup with EKG showing normal sinus rhythm, no significant ST or T wave abnormalities as well as troponins which are normal 3. He does have a family history of coronary artery disease with his father having MS at the age of 59. REVIEW OF SYSTEMS At the time of my exam: CONSTITUTIONAL: Denies fever or chills. CARDIOVASCULAR: +chest pain, + shortness of breath, no orthopnea, PND or palpitations. RESPIRATORY: Denies cough. GASTROINTESTINAL: Denies abdominal pain, diarrhea, constipation, nausea or vomiting. MUSCULOSKELETAL: Denies myalgias. NEUROLOGIC: Denies numbness, tingling or weakness. ENDOCRINE: Denies fatigue, weight change, polydipsia or polyurina. GENITOURINARY: Denies burning, hematuria or urgency with micturation. HEMATOLOGIC: Denies history of anemia or bleeding. PHYSICAL EXAMINATION Vital signs reviewed. CONSTITUTIONAL: No apparent distress. HEENT: Head is normocephalic. Pupils are equal, round. Sclerae anicteric. Mucous membranes of the mouth are moist. No JVD. +L carotid bruit. CHEST EXAMINATION: Lungs are clear to auscultation. No chest wall tenderness is noted on palpation or with deep breathing. HEART EXAMINATION: Regular rate and rhythm. S1, S2 heard. No murmurs, gallops or rub. ABDOMEN: Soft, nontender. Positive bowel sounds. EXTREMITIES: 2+ peripheral pulses, no lower extremity edema and no calf tenderness. NEUROLOGIC EXAMINATION: Patient is awake, alert and oriented x3. ASSESSMENT 1. Chest pain worse with exertion and improves with rest likely related to anemia. No evidence of acute coronary syndrome, troponin normal 3 2. Iron deficiency anemia 3. History of Crohn's status post bowel resection 4. History of multiple bowel obstructions 5. Left carotid bruit 6. Lightheadedness likely related to anemia PLAN Patient with chest pain most likely consistent with his anemia. Patient not a good interventional candidate with chronic blood loss. He did go a EGD and colonoscopy which showed mild gastritis and ulceration of the ileocecal junction without any active bleeding likely consistent with chronic GI loss. GI recommendations. She rated. Continue iron supplementation. If patient has persistent chest pain may consider outpatient stress test. Follow-up in office in 1 week. No further inpatient workup. Likely perform outpatient carotid ultrasound. Past Medical History Additional Past Medical History / Comment(s): Crohn's History of Any Multi-Drug Resistant Organisms: None Reported Additional Past Surgical History / Comment(s): bowel resection. Smoking Status: Never smoker Medications and Allergies Home Medications Medication Instructions Recorded Confirmed Type Diphenox-Atrop 2.5-0.025 mg 1 tab PO QID 03/25/20 10/31/20 History [Lomotil] Omeprazole 20 mg PO DAILY 03/25/20 10/31/20 History azaTHIOprine [Imuran] 50 mg PO BID 03/25/20 10/31/20 History clonazePAM 1 mg PO TID 03/25/20 10/31/20 History lamoTRIgine [LaMICtal] 100 mg PO DAILY 03/25/20 10/31/20 History Ascorbic Acid [Vitamin C] 250 mg PO DAILY 10/31/20 10/31/20 History Cholecalciferol [Vitamin D3 (10 10 mcg PO DAILY 10/31/20 10/31/20 History Mcg = 400 Iu)] Cholestyramine (with Sugar) 4 gm PO BID 10/31/20 10/31/20 History [Cholestyramine Packet] Chromium Picolinate 200 mcg PO DAILY 10/31/20 10/31/20 History FLUoxetine HCL [PROzac] 10 mg PO DAILY 10/31/20 10/31/20 History Lidocaine 5% Patch [Lidoderm] 1 patch TOPICAL DAILY 10/31/20 10/31/20 History Meloxicam 15 mg PO DAILY 10/31/20 10/31/20 History Multivitamins, Thera [Multivitamin 1 tab PO DAILY 10/31/20 10/31/20 History (formulary)] [place]-3 Fatty Acids/Fish Oil [Fish 1 cap PO DAILY 10/31/20 10/31/20 History Oil 1,000 mg Softgel] Sucralfate [Carafate] 1 gm PO TID 10/31/20 10/31/20 History Vitamin B Complex 1 cap PO DAILY 10/31/20 10/31/20 History Vitamin E (Dl,Tocopheryl Acet) 400 unit PO DAILY 10/31/20 10/31/20 History [Vitamin E (400 Iu = 180 mg)] hydrOXYzine pamoate [Vistaril] 25 mg PO TID PRN 10/31/20 10/31/20 History Allergies Allergy/AdvReac Type Severity Reaction Status Date / Time No Known Allergies Allergy Verified 10/31/20 19:18 Physical Exam Vitals: Vital Signs Temp Pulse Pulse Resp BP BP Pulse Ox 11/02/20 11:33 98.4 F 68 16 119/71 96 11/02/20 05:00 98.2 F 95 16 155/84 100 11/01/20 21:00 98.4 F 70 16 124/72 100 11/01/20 19:49 98.4 F 70 16 124/72 100 11/01/20 17:16 98.1 F 66 18 158/91 100 Intake and Output 11/02/20 11/02/20 11/02/20 06:59 14:59 22:59 Intake Total 5560 300 Balance 5560 300 Intake: IV 300 Intake, IV Titration 1560 Amount Sodium Chloride 0.9% 1, 1560 000 ml @ 130 mls/hr IV . Q7H42M [facility] Rx#:[id number] Oral 4000 Other: # Voids 2 # Bowel Movements 2 Results 11/02/20 07:21 11/02/20 07:21 CBC 11/02/20 Range/Units 07: WBC 6.5 (3.8-10.6) k/uL RBC 3.68 L (4.30-5.90) m/uL Hgb 8.3 L (13.0-17.5) gm/dL Hct 27.9 L (39.0-53.0) % Plt Count 420 (150-450) k/uL Comprehensive Metabolic Panel 11/02/20 Range/Units 07:21 Sodium 137 (135-145) mmol/L Potassium 4.1 (3.5-5.5) mmol/L Chloride 103 (96-109) mmol/L Carbon Dioxide 27.6 (21.6-31.8) mmol/L BUN 8.0 L (9.0-27.0) mg/dL Creatinine 0.8 (0.6-1.5) mg/dL Glucose 92 (70-110) mg/dL Calcium 8.8 (8.7-10.3) mg/dL Current Medications Generic Name Dose Route Start Last Admin Trade Name Freq PRN Reason Stop Dose Admin Hydrocodone Bitart/Acetaminophen 1 each 11/02/20 12:39 Hydrocodone/Apap 5-325mg 1 Each Tab PO Q6HR PRN Pain Cholestyramine Resin 4 gm 11/02/20 09:00 11/02/20 07:52 Cholestyramine (With Sugar) 4 Gm Packet PO Not Given BID JAVIER Clonazepam 1 mg 10/31/20 22:45 11/02/20 17:11 Clonazepam 1 Mg Tab PO 1 mg TID JAVIER Administration Cyanocobalamin 1,000 mcg 11/02/20 09:00 11/02/20 09:05 Cyanocobalamin 1,000 Mcg/Ml 1 Ml Vial IM 1,000 mcg DAILY JAVIER Administration Cyanocobalamin 1,000 mcg 11/03/20 09:00 Cyanocobalamin 1,000 Mcg/Ml 1 Ml Vial IM DAILY JAVIER Diphenoxylate HCl/Atropine 1 each 11/02/20 09:00 11/02/20 17:11 Diphenox-Atrop 2.5-0.025 Mg 1 Each Tab PO 1 each QID JAVIER Administration Ferrous Sulfate 325 mg 11/02/20 07:30 11/02/20 17:10 Ferrous Sulfate 325 Mg Tab PO 325 mg BID-W/MEALS JAVIER Administration Fluoxetine HCl 10 mg 11/02/20 09:00 11/02/20 09:04 Fluoxetine Hcl 10 Mg Cap PO 10 mg DAILY JAVIER Administration Hydromorphone HCl 0.5 mg 10/31/20 20:48 10/31/20 21:03 Hydromorphone 0.5 Mg/0.5 Ml Syringe IVP 0.5 mg Q4HR PRN Administration Pain Hydromorphone HCl 1 mg 10/31/20 22:33 11/02/20 06:14 Hydromorphone 1 Mg/Ml 1 Ml Syringe IVP 1 mg Q4HR PRN Administration Pain Hydroxyzine Pamoate 25 mg 11/02/20 00:25 Hydroxyzine Pamoate 25 Mg Cap PO TID PRN Anxiety Ferric Sodium Gluconate 125 mg 110 mls @ 100 mls/hr 11/02/20 13:30 11/02/20 13:34 / Sodium Chloride IVPB 11/05/20 13:31 100 mls/hr DAILY JAVIER Administration Lamotrigine 100 mg 11/02/20 09:00 11/02/20 09:05 Lamotrigine 100 Mg Tab PO 100 mg DAILY JAVIER Administration Lidocaine 1 patch 11/02/20 09:00 11/02/20 08:00 Lidocaine 5% Patch TOPICAL Not Given DAILY [facility] Protocol Naloxone HCl 0.2 mg 10/31/20 18:45 Naloxone 0.4 Mg/Ml 1 Ml Vial IV Q2M PRN Opioid Reversal Ondansetron HCl 4 mg 10/31/20 22:36 11/02/20 14:28 Ondansetron 4 Mg/2 Ml Vial IVP 4 mg Q6HR PRN Administration Nausea And Vomiting Pantoprazole Sodium 40 mg 10/31/20 22:45 11/02/20 09:05 Pantoprazole 40 Mg/10 Ml Vial IVP 40 mg BID JAVIER Administration Sucralfate 1 gm 11/02/20 09:00 11/02/20 17:10 Sucralfate 1 Gm Tab PO 1 gm TID JAVIER Administration Intake and Output 11/02/20 11/02/20 11/02/20 06:59 14:59 22:59 Intake Total 5560 300 Balance 5560 300 Intake: IV 300 Intake, IV Titration 1560 Amount Sodium Chloride 0.9% 1, 1560 000 ml @ 130 mls/hr IV . Q7H42M [facility] Rx#:[id number] Oral 4000 Other: # Voids 2 # Bowel Movements 2 11/02/20 07:21 11/02/20 07:21
[2020-11-02] MEDS: HYDROcodone/APAP 5-325MG 1 EACH TAB PO PRN (21:17)
--- NOTE | 2020-11-02 23:26 | P.PN ---
Subjective This is a pleasant 50 years old male with past medical history of Crohn's disease, anxiety/bipolar and depression and PTSD Presents because of dizziness and low hemoglobin. Patient states that is been having pounding headache with dizzy spells and pain all over his body with dyspnea with simple exertion even for example going up to stairs only. Sleepy than usual. This has been going on for a few weeks so he went to see his PCP Dr. Yenny villarrealed blood test for him and call him back in 3 days on 10/24 telling him that his hemoglobin was low at 72 and iron was low at 60, he asked him to follow-up with GI service for colonoscopy, to collect stool for occult blood, and get him up appointment on 11/[address] Gipson However yesterday he felt more severe dizziness, when he bent over to reach out for his dog he felt dizzy and on straight and up and almost going to pass out and he hit his head with a cushion furniture with no trauma. Also has been having chest pain and exertional dyspnea. He has no history of heart disease. However he has extensive family history of heart disease. Her has heart attack at age 58-59, and he got another heart attack 2 weeks ago at age 83. Call at age 64 and another uncle got his first heart attack in his 40s before he in 60s as well He denies smoking, alcohol or illicit drugs. Patient has history of Crohn's disease on azathiprine and lomotil And at this line he has 6-12 bowel movements which are brown with no blunt although he has history of hemorrhoids as well Vitals are stable and patient is not tachycardic or febrile. Hemoglobin was low at 6.9 on admission, repeat hemoglobin 7.1. WBC and platelet count are normal. INR is 1.0. BMP and liver enzymes are unremarkable. Urinalysis showing only trace protein and ketones. EKG: Showed normal sinus rhythm at [address]-T changes. QTC is 450. CT of the brain: No acute process. And emergency room patient was started on Protonix IV, 1 L of normal saline 1 L and continue it at 1 30 mL/h. In the emergency patient received 1 unit of blood transfusion GI team were consulted from ED 11/02/2020 Patient still complains from exertional chest pain and dyspnea, could be related to his anemia although his hemoglobin improved to 8.3 today. Given his extensive family history of cardiac disease with consulted cardiology who recommended stress test as an outpatient in 1 week. Today also has been complaining of from some headache with no neurological deficits, no weakness or numbness, no slurred speech or blurred vision. Hemodynamically stable. Patient status post EGD and colonoscopy yesterday showing mild gastritis and stricture at the chronic anastomosis site of the right colon with several erosions and ulceration with deformity. Status post multiple biopsy Patient states that he had surgery in 2011 for small bowel resection and repair related to his Crohn disease -Patient informed about vitamin B12 deficiency and the need to be replaced and checked in 1-2 months with his doctor, risk of vitamin B12 deficiency including but not limited to anemia, neurological deficits which could be permanent and irreversible black dementia, paralysis, numbness or any other neurological deficit, patient verbalized understanding and acceptance. He agrees to take IV vitamin B12 now Patient also says that iron pills give constipation and he prefers to take IV iron Objective - Vital Signs Vital signs: Vital Signs Temp 98.4 F 11/02/20 11:33 Pulse 68 11/02/20 11:33 Resp 16 11/02/20 11:33 BP 119/71 11/02/20 11:33 Pulse Ox 96 11/02/20 11:33 Intake & Output 11/01/20 11/02/20 11/02/20 18:59 06:59 18:59 Intake Total 2760 5870 300 Balance 2760 5870 300 Intake: IV 300 Intake, IV Titration 1560 1560 Amount Sodium Chloride 0.9% 1, 1560 1560 000 ml @ 130 mls/hr IV . Q7H42M [facility] Rx#:[id number] Oral 1200 4000 Blood Product 0 310 Rc As-1 Unit 0 310 [id number] Other: Voiding Method Toilet Urinal # Voids 3 2 # Bowel Movements 2 - Exam GENERAL: The patient is alert and oriented x3, not in any acute distress. Well developed, well nourished. HEENT: Pupils are round and equally reacting to light. EOMI. No scleral icterus. No conjunctival pallor. Normocephalic, atraumatic. No pharyngeal erythema. No thyromegaly. CARDIOVASCULAR: S1 and S2 present. No murmurs, rubs, or gallops. PULMONARY: Chest is clear to auscultation, no wheezing or crackles. ABDOMEN: Soft, nontender, nondistended, normoactive bowel sounds. No palpable organomegaly. MUSCULOSKELETAL: No joint swelling or deformity. EXTREMITIES: No cyanosis, clubbing, or pedal edema. NEUROLOGICAL: Gross neurological examination did not reveal any focal deficits. SKIN: No rashes. no petechiae. - Labs CBC & Chem 7: 11/02/20 07:21 11/02/20 07:21 Labs: Abnormal Lab Results - Last 24 Hours (Table) 10/31/20 11/01/20 11/02/20 Range/Units 18:45 05:23 07:21 RBC 3.68 L (4.30-5.90) m/uL Hgb 8.3 L (13.0-17.5) gm/dL Hct 27.9 L (39.0-53.0) % MCV 75.7 L (80.0-100.0) fL MCH 22.5 L (25.0-35.0) pg MCHC 29.7 L (31.0-37.0) g/dL RDW 18.7 H (11.5-15.5) % BUN (9.0-27.0) mg/dL BUN/Creatinine Ratio (12.00-20.00) Ratio Iron 36 L (65-175) ug/dL % Saturation 9.18 L (15.00-50.00) Ferritin 2.6 L (22.0-322.0) ng/mL Vitamin B12 195.0 L (200.0-944.0) pg/mL Crossmatch See Detail 11/02/20 Range/Units 07:21 RBC (4.30-5.90) m/uL Hgb (13.0-17.5) gm/dL Hct (39.0-53.0) % MCV (80.0-100.0) fL MCH (25.0-35.0) pg MCHC (31.0-37.0) g/dL RDW (11.5-15.5) % BUN 8.0 L (9.0-27.0) mg/dL BUN/Creatinine Ratio 10.00 L (12.00-20.00) Ratio Iron (65-175) ug/dL % Saturation (15.00-50.00) Ferritin (22.0-322.0) ng/mL Vitamin B12 (200.0-944.0) pg/mL Crossmatch Assessment and Plan Assessment: Anemia. Low Hemoglobin upon admission, most likely acute blood loss anemia Possible acute GI bleed Multiple erosions at the right colonic stricture from previous surgery. Follow- up: Biopsy Vitamin B12 deficiency Iron deficiency anemia Dizziness and presyncope, secondary to above chest pain and dyspnea, most likely secondary to anemia. 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 He is a status post one unit of blood transfusion Continue monitoring hemoglobin. Anemia workup (I called lap to run test on the first CBC sample on admission in the ER ) Continue with Protonix GI team. The patient for discharge and follow-up in one week [employer] Mixer recommended stress test as an outpatient Continue with IV iron, Patient prefers IV iron over oral iron as it gives him more constipation. Vitamin B-12 for placement, continue with injection while inpatient Labs and medication were reviewed.. Continue same treatment. Continue with symptomatic treatment. Resume home medication. Monitor lytes and vitals. DVT and GI prophylaxis. Further recommendations depends on the clinical course of the patient DVT prophylaxis: No anticoagulation in view of suspected GI bleed GI Prophylaxis: Ppi
[2020-11-03 06:29] LABS: Anisocytosis Slight; HCT 27.1 % (39.0-53.0); Hypochromasia Marked; MCH 22.2 pg (25.0-35.0); MCHC 29.7 g/dL (31.0-37.0); MCV 74.9 fL (80.0-100.0); Mean Platelet Volume 6.8; Microcytosis Moderate; Platelet Count 412 k/uL (150-450); Poikilocytosis Marked; RBC 3.62 m/uL (4.30-5.90); RDW 19.1 % (11.5-15.5); WBC 7.1 k/uL (3.8-10.6)
[2020-11-03 06:59] LABS: Anisocytosis (M) Present; Eosinophils # (M) 0.21 k/uL (0-0.7); Lymphocytes # (M) 1.56 k/uL (1.0-4.8); Monocytes # (M) 0.57 k/uL (0-1.0); Neutrophils # (M) 4.76 k/uL (1.3-7.7); Neutrophils % (M) 67 %; Nucleated Red Blood Cells 0 /100 WBC (0-0); Ovalocytes Present; Poikilocytosis (M) Present; Polychromasia Present; Total Cells Counted 100
[2020-11-03 07:00] LABS: Stomatocytes Present
[2020-11-03] MEDS: CHOLESTYRAMINE (WITH SUGAR) 4 GM PACKET PO SCH ×2 (08:14→21:31)
[2020-11-03] MEDS: LIDOCAINE 5% PATCH TOPICAL SCH (08:14)
[2020-11-03] MEDS: SUCRALFATE 1 GM TAB PO SCH ×3 (08:15→21:31)
[2020-11-03] MEDS: CYANOCOBALAMIN 1,000 MCG/ML 1 ML VIAL IM SCH (08:15)
[2020-11-03] MEDS: lamoTRIgine 100 MG TAB PO SCH (08:15)
[2020-11-03] MEDS: clonazePAM 1 MG TAB PO SCH ×3 (08:15→21:31)
[2020-11-03] MEDS: PANTOPRAZOLE 40 MG/10 ML VIAL IVP SCH ×2 (08:15→21:32)
[2020-11-03] MEDS: DIPHENOX-ATROP 2.5-0.025 MG 1 EACH TAB PO SCH ×4 (08:15→21:31)
[2020-11-03] MEDS: FLUoxetine HCL 10 MG CAP PO SCH (08:15)
[2020-11-03] MEDS: HYDROcodone/APAP 5-325MG 1 EACH TAB PO PRN ×3 (08:22→21:31)
[2020-11-03] MEDS ORDERED: CYANOCOBALAMIN 1,000 MCG/ML 1 ML VIAL IM SCH (09:00)
[2020-11-03] MEDS: SODIUM FERRIC GLUCONAT-SUCROSE 125 MG in SODIUM CHLORIDE 0.9% 100 ML IVPB SCH (09:16)
[2020-11-03] MEDS ORDERED: traMADol 50 MG TAB PO STA (12:12)
--- NOTE | 2020-11-03 12:36 | PN ---
PROGRESS NOTE DATE OF SERVICE: 11/03/2020. HISTORY: Patient is a 50-year-old pleasant white male with history of Crohn's ileitis, admitted to hospital with iron deficiency anemia. He underwent an EGD and colonoscopy yesterday. Upper endoscopy showed mild gastritis. Colonoscopy revealed erosions and ulcerations at the ileocolic anastomosis with significant narrowing of the anastomosis noted. Biopsies were done which are still pending. The patient denies any new complaints. He is complaining of severe headaches. He has 1-2 bowel movements daily. No blood or mucus in the stool. PHYSICAL EXAMINATION: GENERAL: Appears comfortable. VITAL SIGNS: Stable, blood pressure is 154/74, pulse rate 80, temperature 98.7. HEENT: Examination unremarkable. Conjunctivae pink. Sclerae anicteric. Oral cavity no lesions. NECK: No JVD or lymph node enlargement. CHEST: Clear auscultation. HEART: Regular rate and rhythm. ABDOMEN: Soft, bowel sounds are positive. No organomegaly. EXTREMITIES: No pedal edema. NEURO: He is alert and oriented x3. No focal deficits. LABS: WBC 7.1, hemoglobin 8, platelets 412. IMPRESSION: 1. Iron deficiency anemia, status post EGD and colonoscopy yesterday. Colonoscopy revealed narrowing of the ileocolic anastomosis with superficial erosions and ulcerations consistent with recurrent Crohn disease. The patient is maintained on Imuran 100 mg daily on outpatient basis. Currently has no GI symptoms. 2. Severe headaches. 3. History of anxiety. RECOMMENDATIONS: I had a lengthy discussion with the patient regarding EGD and colonoscopy findings. At this time we will await the biopsy results. He will continue on Imuran 100 mg daily. Advance diet as tolerated. Continue with iron supplements. He can be discharged home. He was advised to follow up in the office in 1 week and patient has an appointment on November 12. We will discuss about biologic therapy as part of treatment for active Crohn disease. The patient understands and he is agreeable with the plan. Thank you for this consultation. MMODL / JUJUN: [id number] /
--- NOTE | 2020-11-03 14:06 | XR ---
EXAMINATION TYPE: XR ankle complete RT DATE OF EXAM: 11/03/2020 COMPARISON: NONE HISTORY: FINDINGS: Three views of the ankle demonstrate the ankle mortise to be intact and symmetric. The joint spaces are preserved. The osseous structures are intact. IMPRESSION: 1. No definite acute fracture or dislocation, if symptoms persist follow-up study in 7 to 10 days wou ld be suggested.
--- NOTE | 2020-11-03 15:54 | P.PN ---
Subjective HISTORY OF PRESENTING ILLNESS Patient is a pleasant 50-year-old male with a history of Crohn's disease status post bowel resection, multiple bowel obstructions, anxiety, PTSD, family history of coronary artery disease, borderline hyperlipidemia previously on some medications and anemia who presents secondary to increased episodes of feeling short of breath with exertion, lightheadedness, fatigue and feeling his heart beating in his ears. He states this has been gradual over the last few weeks. He therefore had workup with hemoglobin noted to be in the sixes and therefore was recommended to come the emergency department to get workup. He was found to be severely iron deficient and has been told he is iron deficient in the past however has not been able to tolerate iron pills. He has been having chest pain and pressure which normally occurs with exertion is improved with rest. This has been better since getting a blood transfusion. He denies any chest pain or now. He did have workup with EKG showing normal sinus rhythm, no significant ST or T wave abnormalities as well as troponins which are normal 3. He does have a family history of coronary artery disease with his father having [place] at the age of 59. 11/03 Patient states he was discharged and had his Cozaar and getting ready to go when he was standing and became lightheaded and fell. This is somewhat similar to his prior episode of department of the hospital. He admits to normally not feeling lightheaded. He was not hooked up to the telemetry at this time. Orthostatic vitals were checked without any significant change. He denies any chest pain other than old bit of pain from swallowing likely related to the EGD he performed. REVIEW OF SYSTEMS At the time of my exam: CONSTITUTIONAL: Denies fever or chills. CARDIOVASCULAR: +chest pain, + shortness of breath, no orthopnea, PND or palpitations. RESPIRATORY: Denies cough. GASTROINTESTINAL: Denies abdominal pain, diarrhea, constipation, nausea or vomiting. MUSCULOSKELETAL: Denies myalgias. NEUROLOGIC: Denies numbness, tingling or weakness. ENDOCRINE: Denies fatigue, weight change, polydipsia or polyurina. GENITOURINARY: Denies burning, hematuria or urgency with micturation. HEMATOLOGIC: Denies history of anemia or bleeding. PHYSICAL EXAMINATION Vital signs reviewed. CONSTITUTIONAL: No apparent distress. HEENT: Head is normocephalic. Pupils are equal, round. Sclerae anicteric. Mucous membranes of the mouth are moist. No JVD. +L carotid bruit. CHEST EXAMINATION: Lungs are clear to auscultation. No chest wall tenderness is noted on palpation or with deep breathing. HEART EXAMINATION: Regular rate and rhythm. S1, S2 heard. No murmurs, gallops or rub. ABDOMEN: Soft, nontender. Positive bowel sounds. EXTREMITIES: 2+ peripheral pulses, no lower extremity edema and no calf tenderness. NEUROLOGIC EXAMINATION: Patient is awake, alert and oriented x3. ASSESSMENT 1. Chest pain worse with exertion and improves with rest likely related to anemia. No evidence of acute coronary syndrome, troponin normal 3 2. Iron deficiency anemia 3. History of Crohn's status post bowel resection 4. History of multiple bowel obstructions 5. Left carotid bruit 6. Lightheadedness likely related to anemia PLAN Patient with another fall of unclear etiology. May be related to his anemia. He was not hooked up to telemetry however monitor telemetry for another 24 hours. Check repeat blood work. His only chest pain is chest pain with swallowing, throat pain. Does not appear typical of angina. Check 2-D echo tomorrow and if normal, patient may likely be discharged from a cardiology standpoint. Objective - Vital Signs Vital signs: Vital Signs Temp 97.8 F 11/03/20 11:23 Pulse 63 11/03/20 14:24 Resp 16 11/03/20 13:34 BP 131/73 11/03/20 14:24 Pulse Ox 100 11/03/20 13:34 Intake & Output 11/02/20 11/03/20 11/03/20 18:59 06:59 18:59 Intake Total 660 480 Balance 660 480 Intake: IV 300 Intake, IV Titration 360 Amount Sodium Chloride 0.9% 1, 260 000 ml @ 130 mls/hr IV . Q7H42M [facility] Rx#:[id number] Sodium Ferric Gluconat- 100 Sucrose 125 mg In Sodium Chloride 0.9% 100 ml @ 100 mls/hr IVPB DAILY [facility] Rx#:[id number] Oral 480 Other: # Voids 3 # Bowel Movements 2 - Labs CBC & Chem 7: 11/03/20 05:36 11/02/20 07:21 Labs: Abnormal Lab Results - Last 24 Hours (Table) 11/03/20 Range/Units 05:36 RBC 3.62 L (4.30-5.90) m/uL Hgb 8.0 L (13.0-17.5) gm/dL Hct 27.1 L (39.0-53.0) % MCV 74.9 L (80.0-100.0) fL MCH 22.2 L (25.0-35.0) pg MCHC 29.7 L (31.0-37.0) g/dL RDW 19.1 H (11.5-15.5) %
--- NOTE | 2020-11-03 22:20 | P.PN ---
Subjective This is a pleasant 50 years old male with past medical history of Crohn's disease, anxiety/bipolar and depression and PTSD Presents because of dizziness and low hemoglobin. Patient states that is been having pounding headache with dizzy spells and pain all over his body with dyspnea with simple exertion even for example going up to stairs only. Sleepy than usual. This has been going on for a few weeks so he went to see his PCP Dr. Yenny villarrealed blood test for him and call him back in 3 days on 10/24 telling him that his hemoglobin was low at 72 and iron was low at 60, he asked him to follow-up with GI service for colonoscopy, to collect stool for occult blood, and get him up appointment on 11/[address] Gipson However yesterday he felt more severe dizziness, when he bent over to reach out for his dog he felt dizzy and on straight and up and almost going to pass out and he hit his head with a cushion furniture with no trauma. Also has been having chest pain and exertional dyspnea. He has no history of heart disease. However he has extensive family history of heart disease. Her has heart attack at age 58-59, and he got another heart attack 2 weeks ago at age 82. Call at age 64 and another uncle got his first heart attack in his 40s before he in 60s as well He denies smoking, alcohol or illicit drugs. Patient has history of Crohn's disease on azathiprine and lomotil And at this line he has 6-12 bowel movements which are brown with no blunt although he has history of hemorrhoids as well Vitals are stable and patient is not tachycardic or febrile. Hemoglobin was low at 6.9 on admission, repeat hemoglobin 7.1. WBC and platelet count are normal. INR is 1.0. BMP and liver enzymes are unremarkable. Urinalysis showing only trace protein and ketones. EKG: Showed normal sinus rhythm at [address]-T changes. QTC is 450. CT of the brain: No acute process. And emergency room patient was started on Protonix IV, 1 L of normal saline 1 L and continue it at 1 30 mL/h. In the emergency patient received 1 unit of blood transfusion GI team were consulted from ED 11/02/2020 Patient still complains from exertional chest pain and dyspnea, could be related to his anemia although his hemoglobin improved to 8.3 today. Given his extensive family history of cardiac disease with consulted cardiology who recommended stress test as an outpatient in 1 week. Today also has been complaining of from some headache with no neurological deficits, no weakness or numbness, no slurred speech or blurred vision. Hemodynamically stable. Patient status post EGD and colonoscopy yesterday showing mild gastritis and stricture at the chronic anastomosis site of the right colon with several erosions and ulceration with deformity. Status post multiple biopsy Patient states that he had surgery in 2011 for small bowel resection and repair related to his Crohn disease -Patient informed about vitamin B12 deficiency and the need to be replaced and checked in 1-2 months with his doctor, risk of vitamin B12 deficiency including but not limited to anemia, neurological deficits which could be permanent and irreversible black dementia, paralysis, numbness or any other neurological deficit, patient verbalized understanding and acceptance. He agrees to take IV vitamin B12 now Patient also says that iron pills give constipation and he prefers to take IV iron 11/03/2020 Patient today was feeling better with minimal chest pain ATYPICAL and some headache with no stroke symptoms, no weakness or numbness. Hemodynamically was stable, hemoglobin was 8. I talked to the patient if he wants to stay sensitive given IV vitamin B12 and IV iron, however he wanted to leave and follow-up outpatient after discussing the discharge recommendation with him, before he leaves he felt dizzy and he was on his knees and sprained his ankle, then discharge was canceled and telemetry initiated, Actonel x-ray was negative. Orthostatic vitals were negative. Brushing Operator evaluated the patient and recommended repeat echocardiogram Repeat labs in the morning Continue with vitamin B12 and iron intravenously Also I have elected discussion with the patient and at bedside upon his request about the importance of proper placement of vitamin B12, with close monitoring in one month with his PCP. Risk of low vitamin B12 including but not limited to anemia, reversible nerve damage are explained to him extensively, he verbalized understanding and acceptance Patient also intestinal surgical consult which can be done as inpatient or outpatient for his ongoing colon problem, as per discussion with Dr. Gipson will give him up for off continue medical treatment or significant surgical consult for possible colectomy, he told me he tried all the medication and his more interested with surgery, I explained for him the need for follow-up with Dr. Gipson, PCP and the surgeon as outpatient and he agrees Objective - Vital Signs Vital signs: Vital Signs Temp 97.8 F 11/03/20 11:23 Pulse 63 11/03/20 14:24 Resp 16 11/03/20 13:34 BP 131/73 11/03/20 14:24 Pulse Ox 100 11/03/20 13:34 Intake & Output 11/02/20 11/03/20 11/03/20 18:59 06:59 18:59 Intake Total 660 480 Balance 660 480 Intake: IV 300 Intake, IV Titration 360 Amount Sodium Chloride 0.9% 1, 260 000 ml @ 130 mls/hr IV . Q7H42M [facility] Rx#:[id number] Sodium Ferric Gluconat- 100 Sucrose 125 mg In Sodium Chloride 0.9% 100 ml @ 100 mls/hr IVPB DAILY [facility] Rx#:[id number] Oral 480 Other: # Voids 3 # Bowel Movements 2 - Exam GENERAL: The patient is alert and oriented x3, not in any acute distress. Well developed, well nourished. HEENT: Pupils are round and equally reacting to light. EOMI. No scleral icterus. No conjunctival pallor. Normocephalic, atraumatic. No pharyngeal erythema. No thyromegaly. CARDIOVASCULAR: S1 and S2 present. No murmurs, rubs, or gallops. PULMONARY: Chest is clear to auscultation, no wheezing or crackles. ABDOMEN: Soft, nontender, nondistended, normoactive bowel sounds. No palpable organomegaly. MUSCULOSKELETAL: No joint swelling or deformity. EXTREMITIES: No cyanosis, clubbing, or pedal edema. NEUROLOGICAL: Gross neurological examination did not reveal any focal deficits. SKIN: No rashes. no petechiae. - Labs CBC & Chem 7: 11/03/20 05:36 11/02/20 07:21 Labs: Abnormal Lab Results - Last 24 Hours (Table) 11/03/20 Range/Units 05:36 RBC 3.62 L (4.30-5.90) m/uL Hgb 8.0 L (13.0-17.5) gm/dL Hct 27.1 L (39.0-53.0) % MCV 74.9 L (80.0-100.0) fL MCH 22.2 L (25.0-35.0) pg MCHC 29.7 L (31.0-37.0) g/dL RDW 19.1 H (11.5-15.5) % Assessment and Plan Assessment: Anemia. Low Hemoglobin upon admission, most likely acute blood loss anemia Possible acute GI bleed Multiple erosions at the right colonic stricture from previous surgery. Follow- up: Biopsy Vitamin B12 deficiency Iron deficiency anemia Dizziness and presyncope, secondary to above chest pain and dyspnea, most likely secondary to anemia. Brushing Operator recommended stress test as an outpatient Crohn's disease , acute exacerbation ruled out History of bipolar depression, anxiety and PTSD, no connective tissue Plan: this is a pleasant 50 years old male who presents with dizziness and low hemoglobin. He is a status post one unit of blood transfusion Continue monitoring hemoglobin. Continue with Protonix GI tea cleared The patient for discharge and follow-up in one week Brushing Operator recommended stress test as an outpatient Continue with IV iron, Patient prefers IV iron over oral iron as it gives him more constipation. Intravenous Vitamin B-12 for placement, continue with injection while inpatient Patient wants to follow up with his surgeon as an outpatient rather than inpatient regarding his recurrent/ongoing colon disease Labs and medication were reviewed.. Continue same treatment. Continue with symptomatic treatment. Resume home medication. Monitor lytes and vitals. DVT and GI prophylaxis. Further recommendations depends on the clinical course of the patient DVT prophylaxis: No anticoagulation in view of suspected GI bleed GI Prophylaxis: Ppi
[2020-11-03] MEDS ORDERED: amLODIPine 5 MG TAB PO SCH (22:45)
[2020-11-04 05:25] LABS: Anisocytosis Moderate; HCT 28.1 % (39.0-53.0); HGB 8.3 gm/dL (13.0-17.5); Hypochromasia Marked; MCH 22.5 pg (25.0-35.0); MCHC 29.4 g/dL (31.0-37.0); MCV 76.6 fL (80.0-100.0); Microcytosis Slight; Platelet Count 414 k/uL (150-450); Poikilocytosis Marked; RBC 3.67 m/uL (4.30-5.90); RDW 20.1 % (11.5-15.5); WBC 6.9 k/uL (3.8-10.6)
[2020-11-04 05:34] LABS: ALT 19 U/L (4-49); AST 21 U/L (17-59); African American GFR (CKD) >90 (>60 ml/min/1.73 sqM); Albumin 3.8 g/dL (3.5-5.0); Albumin/Globulin Ratio 1.7; Alkaline Phosphatase 57 U/L (38-126); Anion Gap 7 mmol/L; Blood Urea Nitrogen 10 mg/dL (9-20); Calcium 9.5 mg/dL (8.4-10.2); Carbon Dioxide 30 mmol/L (22-30); Chloride 105 mmol/L (98-107); Globulin 2.3 g/dL; Glucose 109 mg/dL (74-99); Non-African American GFR(CKD) >90 (>60 ml/min/1.73 sqM); Potassium 4.5 mmol/L (3.5-5.1); Sodium 142 mmol/L (137-145); Total Bilirubin 0.2 mg/dL (0.2-1.3); Total Protein 6.1 g/dL (6.3-8.2)
[2020-11-04] MEDS: SUCRALFATE 1 GM TAB PO SCH (07:52)
[2020-11-04] MEDS: SODIUM FERRIC GLUCONAT-SUCROSE 125 MG in SODIUM CHLORIDE 0.9% 100 ML IVPB SCH (07:53)
[2020-11-04] MEDS: lamoTRIgine 100 MG TAB PO SCH (07:53)
[2020-11-04] MEDS: clonazePAM 1 MG TAB PO SCH (07:53)
[2020-11-04] MEDS: DIPHENOX-ATROP 2.5-0.025 MG 1 EACH TAB PO SCH ×2 (07:53→15:02)
[2020-11-04] MEDS: FLUoxetine HCL 10 MG CAP PO SCH (07:53)
[2020-11-04] MEDS: CYANOCOBALAMIN 1,000 MCG/ML 1 ML VIAL IM SCH (07:53)
[2020-11-04] MEDS: CHOLESTYRAMINE (WITH SUGAR) 4 GM PACKET PO SCH (07:53)
[2020-11-04] MEDS: PANTOPRAZOLE 40 MG/10 ML VIAL IVP SCH (07:54)
[2020-11-04] MEDS: LIDOCAINE 5% PATCH TOPICAL SCH (07:54)
[2020-11-04] MEDS: HYDROcodone/APAP 5-325MG 1 EACH TAB PO PRN (08:06)
[2020-11-04 12:24] VITALS: BP 119/75; PULSE 66; TEMP 98
--- NOTE | 2020-11-04 12:48 | ECHOF ---
Referral Reason:re: LV function MEASUREMENTS -------- HEIGHT: 180.3 cm WEIGHT: 105.2 kg BP: RVIDd: 2.8 cm (< 3.3) IVSd: 1.3 cm (0.6 - 1.1) LVIDd: 3.9 cm (3.9 - 5.3) LVPWd: 1.6 cm (0.6 - 1.1) IVSs: 1.8 cm LVIDs: 2.4 cm LVPWs: 1.8 cm LAESV Index (A-L): 29.03 ml/m Ao Diam: 3.1 cm (2.0 - 3.7) AV Cusp: 2.4 cm (1.5 - 2.6) LA Diam: 3.4 cm (2.7 - 3.8) MV EXCURSION: 14.577 mm (> 18.000) MV EF SLOPE: 148 mm/s (70 - 150) EPSS: 0.9 cm MV E Claus: 0.87 m/s MV DecT: 177 ms MV A Claus: 0.68 m/s MV E/A Ratio: 1.27 RAP: 5.00 mmHg RVSP: 9.94 mmHg FINDINGS -------- Sinus rhythm. This was a technically adequate study. The left ventricular size is normal. There is mild concentric left ventricular hypertrophy. Overa ll left ventricular systolic function is normal with, an EF between 55 - 60 %. The diastolic fillin g pattern is normal for the age of the patient 11.63. The right ventricle is normal in size. Normal LA size by volume 22+/-6 ml/m2. The right atrial size is normal. The aortic valve is trileaflet, and appears structurally normal. No aortic stenosis or regurgitation. The mitral valve is normal. There is trace mitral regurgitation. The tricuspid valve appears structurally normal. Trace tricuspid regurgitation present. Right mo tricular systolic pressure is normal at < 35 mmHg. There is no pulmonic regurgitation present. The aortic root size is normal. Normal inferior vena cava with normal inspiratory collapse consistent with estimated right atrial pre ssure of 5 mmHg. There is no pericardial effusion. CONCLUSIONS -------- 1. There is mild concentric left ventricular hypertrophy. 2. Overall left ventricular systolic function is normal with, an EF between 55 - 60 %. 3. Normal LA size by volume 22+/-6 ml/m2. 4. The aortic valve is trileaflet, and appears structurally normal. No aortic stenosis or regurgitati on. 5. There is trace mitral regurgitation. 6. Trace tricuspid regurgitation present. 7. There is no pericardial effusion. IT APPLICATIONS DEVELOPER: Karla Lemus RDCS
--- NOTE | 2020-11-04 14:04 | P.PN ---
Subjective Progress Note Date: 11/04/20 HISTORY OF PRESENT ILLNESS: Patient is a pleasant 50-year-old male with a history of Crohn's disease status post bowel resection, multiple bowel obstructions, anxiety, PTSD, family history of coronary artery disease, borderline hyperlipidemia previously on some medications and anemia who presents secondary to increased episodes of feeling short of breath with exertion, lightheadedness, fatigue and feeling his heart beating in his ears. He states this has been gradual over the last few weeks. He therefore had workup with hemoglobin noted to be in the sixes and therefore was recommended to come the emergency department to get workup. He was found to be severely iron deficient and has been told he is iron deficient in the past however has not been able to tolerate iron pills. He has been having chest pain and pressure which normally occurs with exertion is improved with rest. This has been better since getting a blood transfusion. He denies any chest pain or now. He did have workup with EKG showing normal sinus rhythm, no significant ST or T wave abnormalities as well as troponins which are normal 3. He does have a family history of coronary artery disease with his father having IL at the age of 59. 11/03 Patient states he was discharged and had his Cozaar and getting ready to go when he was standing and became lightheaded and fell. This is somewhat similar to his prior episode of department of the hospital. He admits to normally not feeling lightheaded. He was not hooked up to the telemetry at this time. Orthostatic vitals were checked without any significant change. He denies any chest pain other than old bit of pain from swallowing likely related to the EGD he performed. 11/04/2020 Patient examined at the bedside. Patient denies chest pain or pressure. He denies shortness of breath. Vital signs are stable. Blood pressure 119/75. Heart rate in the 60s. Echocardiogram completed reveals ejection fraction 55- 60%. Trace mitral regurgitation. Trace tricuspid regurgitation. PHYSICAL EXAM: VITAL SIGNS: Reviewed. GENERAL: Well-developed in no acute distress. NECK: Supple. No JVD or thyromegaly LUNGS: Respirations even and unlabored. Lungs essentially clear to auscultation bilaterally. HEART: Regular rate and rhythm. S1 and S2 heard. EXTREMITIES: Normal range of motion. No clubbing or cyanosis. Peripheral pulses intact. No lower extremity edema ASSESSMENT: 1. Chest pain worse with exertion and improves with rest likely related to anemia. No evidence of acute coronary syndrome, troponin normal 3 2. Iron deficiency anemia 3. History of Crohn's status post bowel resection 4. History of multiple bowel obstructions 5. Left carotid bruit 6. Lightheadedness likely related to anemia PLAN: Patient is currently stable from a cardiac standpoint He is to follow up on an outpatient basis with Dr. Lopes Will consider outpatient stress testing We will sign off. Please reconsult if needed Nurse practitioner note has been reviewed by physician. Signing provider agrees with the documented findings, assessment, and plan of care. Objective - Vital Signs Vital signs: Vital Signs Temp 98.0 F 11/04/20 12:02 Pulse 66 11/04/20 12:02 Resp 16 11/04/20 12:02 BP 119/75 11/04/20 12:02 Pulse Ox 92 L 11/04/20 12:02 Intake & Output 11/03/20 11/04/20 11/04/20 18:59 06:59 18:59 Intake Total 360 Output Total 600 Balance -240 Intake: Oral 360 Output: Urine 600 Other: Voiding Method Toilet Toilet Urinal Urinal # Voids 4 2 # Bowel Movements 1 - Labs CBC & Chem 7: 11/04/20 04:51 11/04/20 04:51 Labs: Abnormal Lab Results - Last 24 Hours (Table) 11/04/20 11/04/20 Range/Units 04:51 04:51 RBC 3.67 L (4.30-5.90) m/uL Hgb 8.3 L (13.0-17.5) gm/dL Hct 28.1 L (39.0-53.0) % MCV 76.6 L (80.0-100.0) fL MCH 22.5 L (25.0-35.0) pg MCHC 29.4 L (31.0-37.0) g/dL RDW 20.1 H (11.5-15.5) % Glucose 109 H (74-99) mg/dL Total Protein 6.1 L (6.3-8.2) g/dL
--- NOTE | 2020-11-04 21:42 | P.DS ---
Providers Date of admission: 11/02/20 17:38 Attending physician: Ilya Way Consults: 10/31/20 18:45 Consult Physician Stat Consulting Provider: Martha Gipson Consult Reason/Comments: symptomatic anemia, hx of crohns Do you want consulting provider notified?: Yes Primary care physician: Yenny Carreon MD Hospital Course: Diagnoses Anemia. 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 Follow- up: Biopsy Vitamin B12 deficiency Iron deficiency anemia Dizziness and presyncope, secondary to above, resolved chest pain and dyspnea, most likely secondary to anemia. Currently resolved. Yard Supervisor Cotton Gin recommended stress test as an outpatient dizziness and lying on his knee on with sprain to the right ankle. X-ray is negative for fracture Crohn's disease , acute exacerbation ruled out History of bipolar depression, anxiety and PTSD, no connective tissue Hospital course: This is a pleasant 50 years old male with past medical history of Crohn's disease, anxiety/bipolar and depression and PTSD Presents because of dizziness and low hemoglobin. Some chest pain and dyspnea on exertion. Patient was found to have low hemoglobin at 6.8, he received 2 units of blood transfusion and his hemoglobin improved to 8.3 upon discharge. Anemia workup showed iron deficiency anemia and vitamin B12 deficiency. This has been replaced parenterally and pills a provided for the patient upon discharge with recommendation to recheck levels as an outpatient and he agrees. GI team evaluated the patient. He underwent EGD and colonoscopy yesterday showing mild gastritis and stricture at the chronic anastomosis site of the ri ght colon with several erosions and ulceration with deformity. Status post multiple biopsies. Patient was instructed to follow up with biopsies and he agrees. Risk of cancer explained to him and he understands Because of strong family history of premature coronary artery disease, tie tape machine operator evaluated the patient with no strong evidence of coronary artery disease and echocardiogram was normal. Recommended outpatient stress test with close outpatient follow-up in one week. Patient instructed and he agrees to call and make appointment Crohn's disease activity was checked with ESR and C-reactive protein are not elevated. Imuran was resumed per GI team. She was instructed to follow up as an outpatient Importance of checking vitamin B12 level is discussed with the patient several times, risk of reversible and permanent nerve damage is explained to the patient extensively and he agrees with these recommendations. On the day of discharge patient denies chest pain or dyspnea, he has mild chronic lower abdominal pain from his Crohn's disease, no nausea vomiting. No diarrhea. No fever. He walks with physical therapy team today and found he can go home. Patient feels that her and agrees to him being discharged today. Patient was cleared for discharge by all consultants including GI and cardiology services Problems and management plan were discussed with the patient and he verbalized understanding and acceptance Patient was found stable and can be discharged home however he needs follow-up as an outpatient. Patient was instructed to follow up with PCP Dr. Diaz within one week and patient agrees And he agrees with the appointments made for him on 11/06. Also I called Dr. Kirkland discussed the case with him including the need to recheck vitamin B12 level, check and supple, may need parenteral replacement of vitamin B12, stress test as an outpatient and follow-up with colonic biopsy and he kindly took note of these. Also patient was instructed to follow up with tie tape machine operator Dr. Lopes in 1 week and he agrees, and with Dr. napoleon MATHEWS on 12/[address] Gipson since patient has chronic colonic pain and erosions and problems he May be considered for surgery evaluation, patient asked me to provide him with need for surgeons, trending suggested for him Dr. Santos and Dr. Dela Cruz to follow up as an outpatient upon his request Physical exam Gen: patient is a AAOx3, no distress CVS: S1-S2, RRR, no murmur Lungs: B/L CTA, no wheezing Abdomen: soft, no distention, no tenderness, positive bowel sounds -Extremity: no leg edema or induration. Right ankle sprain wrapped in Mikey bandage Time spent more than 35 minutes Patient Condition at Discharge: Stable Plan - Discharge Summary New Discharge Prescriptions: New Pantoprazole Sodium [Protonix] 40 mg PO BID #60 tablet. Ferrous Sulfate [Feosol] 325 mg PO DAILY 15 Days #15 tab Cyanocobalamin [Vitamin B-12] 1,000 mcg PO DAILY #60 tablet Pantoprazole Sodium [Protonix] 40 mg PO BID 14 Days #28 tablet. Continue Diphenox-Atrop 2.5-0.025 mg [Lomotil] 1 tab PO QID azaTHIOprine [Imuran] 50 mg PO BID lamoTRIgine [LaMICtal] 100 mg PO DAILY clonazePAM 1 mg PO TID Vitamin E (Dl,Tocopheryl Acet) [Vitamin E (400 Iu = 180 mg)] 400 unit PO DAILY Vitamin B Complex 1 cap PO DAILY Multivitamins, Thera [Multivitamin (formulary)] 1 tab PO DAILY hydrOXYzine pamoate [Vistaril] 25 mg PO TID PRN PRN Reason: Anxiety Lidocaine 5% Patch [Lidoderm 5% Patch] 1 patch TOPICAL DAILY Chromium Picolinate 200 mcg PO DAILY Cholecalciferol [Vitamin D3 (10 Mcg = 400 Iu)] 10 mcg PO DAILY Bruce-3 Fatty Acids/Fish Oil [Fish Oil 1,000 mg Softgel] 1 cap PO DAILY Cholestyramine (with Sugar) [Cholestyramine Packet] 4 gm PO BID Sucralfate [Carafate] 1 gm PO TID FLUoxetine HCL [PROzac] 10 mg PO DAILY Ascorbic Acid [Vitamin C] 250 mg PO DAILY Discontinued Omeprazole 20 mg PO DAILY Meloxicam 15 mg PO DAILY Discharge Medication List Diphenox-Atrop 2.5-0.025 mg [Lomotil] 1 tab PO QID 03/25/20 [History] azaTHIOprine [Imuran] 50 mg PO BID 03/25/20 [History] clonazePAM 1 mg PO TID 03/25/20 [History] lamoTRIgine [LaMICtal] 100 mg PO DAILY 03/25/20 [History] Ascorbic Acid [Vitamin C] 250 mg PO DAILY 10/31/20 [History] Cholecalciferol [Vitamin D3 (10 Mcg = 400 Iu)] 10 mcg PO DAILY 10/31/20 [History] Cholestyramine (with Sugar) [Cholestyramine Packet] 4 gm PO BID 10/31/20 [History] Chromium Picolinate 200 mcg PO DAILY 10/31/20 [History] FLUoxetine HCL [PROzac] 10 mg PO DAILY 10/31/20 [History] Lidocaine 5% Patch [Lidoderm 5% Patch] 1 patch TOPICAL DAILY 10/31/20 [History] Multivitamins, Thera [Multivitamin (formulary)] 1 tab PO DAILY 10/31/20 [History] Bruce-3 Fatty Acids/Fish Oil [Fish Oil 1,000 mg Softgel] 1 cap PO DAILY 10/31/20 [History] Sucralfate [Carafate] 1 gm PO TID 10/31/20 [History] Vitamin B Complex 1 cap PO DAILY 10/31/20 [History] Vitamin E (Dl,Tocopheryl Acet) [Vitamin E (400 Iu = 180 mg)] 400 unit PO DAILY 10/31/20 [History] hydrOXYzine pamoate [Vistaril] 25 mg PO TID PRN 10/31/20 [History] Cyanocobalamin [Vitamin B-12] 1,000 mcg PO DAILY #60 tablet 11/03/20 [Rx] Ferrous Sulfate [Feosol] 325 mg PO DAILY 15 Days #15 tab 11/03/20 [Rx] Pantoprazole Sodium [Protonix] 40 mg PO BID #60 tablet. 11/04/20 [Rx] Pantoprazole Sodium [Protonix] 40 mg PO BID 14 Days #28 tablet. 11/04/20 [Rx] Follow up Appointment(s)/Referral(s): Stuart Lopes DO [STAFF PHYSICIAN] - 1 Week (patient to call on Wednesday for follow up appt) Martha Gipson MD [STAFF PHYSICIAN] - 12/10/20 3:00 pm () Goyo Santos DO [Doctor of Osteopathic Medicine] - 1 Week ( surgeon) Yenny Carreon MD [Primary Care Provider] - 11/06/20 11:00 am () Vel Dela Cruz MD [STAFF PHYSICIAN] - 1 Week (surgeon) Patient Instructions/Handouts: Iron Supplements (By mouth), Vitamin B-12 (By mouth), Gastritis (DC), Syncope (DC), Anemia (DC) Activity/Diet/Wound Care/Special Instructions: heart healthy diet , recommend iron rich food activity is restricted till you see your doctor we recommend to recheck your vitamin B12 level in one month after keep taking vitamin B12 prescription for your Vitamin B12, iron pills, and protonix pills were called to your pharmacy at the number you provided [phone] Discharge Disposition: HOME SELF-CARE
== END 2020-11-04 16:30 | disposition home or self-care (01) | DRG 386 ==
LOC: EC 16:51 → 6NMEDSUR 19:09 → 5NMEDONC 20:04 → OBSVTOIN 11-02 17:38
PROVIDERS: ADMIT Hospitalist; ATTEND Hospitalist
PROC: 30233N1 Transfusion of Nonautologous Red Blood Cells into Peripheral Vein, Percutaneous Approach (ICD-10-PCS; 2020-10-31)
PROC: 0DBF8ZX Excision of Right Large Intestine, Via Natural or Artificial Opening Endoscopic, Diagnostic (ICD-10-PCS; principal; 2020-11-02 07:45)
PROC: 0DB78ZX Excision of Stomach, Pylorus, Via Natural or Artificial Opening Endoscopic, Diagnostic (ICD-10-PCS; principal; 2020-11-02 07:45)
PROC: 0DB98ZX Excision of Duodenum, Via Natural or Artificial Opening Endoscopic, Diagnostic (ICD-10-PCS; principal; 2020-11-02 07:45)
DX: K50.018 Crohn's disease of small intestine with other complication (principal); K63.3 Ulcer of intestine; K92.2 Gastrointestinal hemorrhage, unspecified; D62 Acute posthemorrhagic anemia; F31.30 Bipolar disorder, current episode depressed, mild or moderate severity, unspecified; D50.9 Iron deficiency anemia, unspecified; K29.70 Gastritis, unspecified, without bleeding; K46.9 Unspecified abdominal hernia without obstruction or gangrene; E53.8 Deficiency of other specified B group vitamins; F43.10 Post-traumatic stress disorder, unspecified; F41.9 Anxiety disorder, unspecified; G89.29 Other chronic pain; K59.00 Constipation, unspecified; K21.9 Gastro-esophageal reflux disease without esophagitis; E78.5 Hyperlipidemia, unspecified; R51.9 Headache, unspecified; M79.606 Pain in leg, unspecified; R09.89 Other specified symptoms and signs involving the circulatory and respiratory systems; I25.2 Old myocardial infarction; Z79.1 Long term (current) use of non-steroidal anti-inflammatories (NSAID); Z79.899 Other long term (current) drug therapy; Z87.11 Personal history of peptic ulcer disease; Z87.19 Personal history of other diseases of the digestive system; Z82.49 Family history of ischemic heart disease and other diseases of the circulatory system
CPT/HCPCS: 36415; 43239; 45380; 70450; 71045; 80048; 80053; 81003; 82607; 82728; 82746; 83540; 83550; 83880; 84145; 84484; 85025; 85027; 85610; 85652; 85730; 86140; 86850; 86900; 86901; 86920; 88305; 93005; 93306; 93970; 99285

== ENCOUNTER 2021-01-15 04:52 | Inpatient (IN) | payer BC ==
[2021-01-15 05:51] LABS: Anisocytosis Marked; Basophils % (A) 0 %; Eosinophils # (A) 0.1 k/uL (0-0.7); Eosinophils % (A) 1 %; HGB 12.4 gm/dL (13.0-17.5); Hypochromasia Marked; Lymphocytes # (A) 0.7 k/uL (1.0-4.8); Lymphocytes % (A) 8 %; MCHC 30.4 g/dL (31.0-37.0); MCV 85.7 fL (80.0-100.0); Mean Platelet Volume 7.2; Microcytosis Slight; Monocytes # (A) 0.4 k/uL (0-1.0); Monocytes % (A) 5 %; Neutrophils # (A) 7.4 k/uL (1.3-7.7); Neutrophils % (A) 85 %; Platelet Count 470 k/uL (150-450); Poikilocytosis Slight; RBC 4.78 m/uL (4.30-5.90); RDW 24.7 % (11.5-15.5); WBC 8.7 k/uL (3.8-10.6)
--- NOTE | 2021-01-15 06:03 | XR ---
EXAMINATION TYPE: XR KUB DATE OF EXAM: 01/15/2021 COMPARISON: NONE HISTORY: Abdominal pain TECHNIQUE: 2 views FINDINGS: 2 views upright show no sign of intestinal obstruction or pneumoperitoneum. Fecal pattern i s normal. There is no evidence of a mass. Lung bases are clear. There are no pathologic calcification s. IMPRESSION: Nonacute abdomen.
[2021-01-15 06:14] LABS: ALT 21 U/L (4-49); AST 26 U/L (17-59); African American GFR (CKD) >90 (>60 ml/min/1.73 sqM); Albumin 4.8 g/dL (3.5-5.0); Alkaline Phosphatase 71 U/L (38-126); Amylase 63 U/L (30-110); Anion Gap 8 mmol/L; Blood Urea Nitrogen 16 mg/dL (9-20); Calcium 10.3 mg/dL (8.4-10.2); Carbon Dioxide 29 mmol/L (22-30); Chloride 102 mmol/L (98-107); Glucose 134 mg/dL (74-99); Lipase 76 U/L (23-300); Non-African American GFR(CKD) >90 (>60 ml/min/1.73 sqM); Potassium 4.5 mmol/L (3.5-5.1); Sodium 139 mmol/L (137-145); Total Bilirubin 0.5 mg/dL (0.2-1.3); Total Protein 7.7 g/dL (6.3-8.2)
[2021-01-15] MEDS ORDERED: HYDROmorphone 1 MG/ML 1 ML SYRINGE IVP STA ×2 (06:16→07:13)
[2021-01-15] MEDS ORDERED: SODIUM CHLORIDE 0.9% 1,000 ML IV STA (06:17)
[2021-01-15 06:35] LABS: Appearance,Urine Clear (Clear); Bilirubin,Urine Negative (Negative); Blood,Urine Negative (Negative); Color,Urine Yellow; Glucose,Urine (UA) Negative (Negative); Ketones,Urine Negative (Negative); Leukocyte Esterase,Urine Negative (Negative); Nitrite,Urine Negative (Negative); PH, Urine 5.5 (5.0-8.0); Protein,Urine Trace (Negative); Specific Gravity,Urine 1.035 (1.001-1.035); Urobilinogen,Urine <2.0 mg/dL (<2.0)
--- NOTE | 2021-01-15 06:44 | ED ---
Abdominal Pain HPI - General Chief Complaint: Abdominal Pain Stated Complaint: Abd Pain Time Seen by Provider: 01/15/21 06:01 Source: patient, RN notes reviewed Mode of arrival: ambulatory Limitations: no limitations - History of Present Illness Initial Comments: Patient is a 50-year-old male that presents to emergency room complaining of abdominal pain and distention. He notes that he does have a history of bowel obstructions. He notes that he was seen approximately 4 months ago at the same facility for different complaints. He notes that he does have a surgeon Dr. shaw that he follows up with out of trouble moderate. He notes that this morni ng he became increasingly more painful and distended. He noted that movement was negative factory noted that his pain was approximately a 10 out of 10 with no relief. He noted no alleviating factors at home. He notes the pain is constant. He notes that he has decreased appetite. He denied any chest pain shortness of breath headache vomiting diarrhea constipation fever fatigue chills. - Related Data Home Medications Medication Instructions Recorded Confirmed Diphenox-Atrop 2.5-0.025 mg 1 tab PO QID 03/25/20 10/31/20 [Lomotil] azaTHIOprine [Imuran] 50 mg PO BID 03/25/20 10/31/20 clonazePAM 1 mg PO TID 03/25/20 10/31/20 lamoTRIgine [LaMICtal] 100 mg PO DAILY 03/25/20 10/31/20 Ascorbic Acid [Vitamin C] 250 mg PO DAILY 10/31/20 10/31/20 Cholecalciferol [Vitamin D3 (10 10 mcg PO DAILY 10/31/20 10/31/20 Mcg = 400 Iu)] Cholestyramine (with Sugar) 4 gm PO BID 10/31/20 10/31/20 [Cholestyramine Packet] Chromium Picolinate 200 mcg PO DAILY 10/31/20 10/31/20 FLUoxetine HCL [PROzac] 10 mg PO DAILY 10/31/20 10/31/20 Lidocaine 5% Patch [Lidoderm 5% 1 patch TOPICAL DAILY 10/31/20 10/31/20 Patch] Multivitamins, Thera [Multivitamin 1 tab PO DAILY 10/31/20 10/31/20 (formulary)] Casco-3 Fatty Acids/Fish Oil [Fish 1 cap PO DAILY 10/31/20 10/31/20 Oil 1,000 mg Softgel] Sucralfate [Carafate] 1 gm PO TID 10/31/20 10/31/20 Vitamin B Complex 1 cap PO DAILY 10/31/20 10/31/20 Vitamin E (Dl,Tocopheryl Acet) 400 unit PO DAILY 10/31/20 10/31/20 [Vitamin E (400 Iu = 180 mg)] hydrOXYzine pamoate [Vistaril] 25 mg PO TID PRN 10/31/20 10/31/20 Previous Rx's Medication Instructions Recorded Cyanocobalamin [Vitamin B-12] 1,000 mcg PO DAILY #60 tablet 11/03/20 Ferrous Sulfate [Feosol] 325 mg PO DAILY 15 Days #15 tab 11/03/20 Pantoprazole Sodium [Protonix] 40 mg PO BID #60 tablet. 11/04/20 Pantoprazole Sodium [Protonix] 40 mg PO BID 14 Days #28 tablet. 11/04/20 Allergies Allergy/AdvReac Type Severity Reaction Status Date / Time No Known Allergies Allergy Verified 01/15/21 05:02 Review of Systems ROS Statement: Those systems with pertinent positive or pertinent negative responses have been documented in the HPI. ROS Other: All systems not noted in ROS Statement are negative. Past Medical History Additional Past Medical History / Comment(s): Crohn's History of Any Multi-Drug Resistant Organisms: None Reported Additional Past Surgical History / Comment(s): bowel resection. Past Psychological History: Anxiety, Bipolar, Depression, PTSD Smoking Status: Never smoker Past Alcohol Use History: None Reported Past Drug Use History: None Reported General Exam Limitations: no limitations General appearance: alert, in no apparent distress Head exam: Present: atraumatic, normocephalic, normal inspection Eye exam: Present: normal appearance, PERRL, EOMI. Absent: scleral icterus, conjunctival injection, periorbital swelling ENT exam: Present: normal exam, mucous membranes moist Neck exam: Present: normal inspection Respiratory exam: Present: normal lung sounds bilaterally. Absent: respiratory distress, wheezes, rales, rhonchi, stridor Cardiovascular Exam: Present: regular rate, normal rhythm, normal heart sounds. Absent: systolic murmur, diastolic murmur, rubs, gallop, clicks GI/Abdominal exam: Present: soft, distended, tenderness (All quadrants), hyperactive bowel sounds. Absent: guarding, rebound, rigid Extremities exam: Present: normal inspection, full ROM, normal capillary refill. Absent: tenderness, pedal edema, joint swelling, calf tenderness Neurological exam: Present: alert, oriented X3 Psychiatric exam: Present: normal affect, normal mood Skin exam: Present: warm, dry, intact, normal color. Absent: rash Course Vital Signs 01/15/21 01/15/21 01/15/21 04:59 08:00 09:00 Temperature 98.3 F Pulse Rate 80 Respiratory 18 18 18 Rate Blood Pressure 136/86 O2 Sat by Pulse 96 Oximetry Medical Decision Making - Medical Decision Making 50-year-old male complaining of abdominal distention and pain, history of bowel obstructions per patient. Labs, 1 mg of Dilaudid, 1 L normal saline, CT of the abdomen and pelvis, KUB ordered. Labs: Improved from previous baseline studies. KUB shows nonacute abdomen. Due to patient's discomfort and distention CT the abdomen and pelvis ordered. Computed tomography scan of the abdomen shows mechanical small bowel obstruction at the ileocecal valve unchanged from 3 years ago. Case discussed with Dr. Lopez, given patient's level of discomfort distention and computed tomography scan results patient will be admitted with surgical consult. - Lab Data Result diagrams: 01/15/21 05:20 01/15/21 05:20 Lab Results 01/15/21 01/15/21 01/15/21 Range/Units 05:20 05:20 06:15 WBC 8.7 (3.8-10.6) k/uL RBC 4.78 (4.30-5.90) m/uL Hgb 12.4 L (13.0-17.5) gm/dL Hct 41.0 (39.0-53.0) % MCV 85.7 (80.0-100.0) fL MCH 26.0 (25.0-35.0) pg MCHC 30.4 L (31.0-37.0) g/dL RDW 24.7 H (11.5-15.5) % Plt Count 470 H (150-450) k/uL MPV 7.2 Neutrophils % 85 % Lymphocytes % 8 % Monocytes % 5 % Eosinophils % 1 % Basophils % 0 % Neutrophils # 7.4 (1.3-7.7) k/uL Lymphocytes # 0.7 L (1.0-4.8) k/uL Monocytes # 0.4 (0-1.0) k/uL Eosinophils # 0.1 (0-0.7) k/uL Basophils # 0.0 (0-0.2) k/uL Hypochromasia Marked Poikilocytosis Slight Anisocytosis Marked Microcytosis Slight Sodium 139 (137-145) mmol/L Potassium 4.5 (3.5-5.1) mmol/L Chloride 102 (98-107) mmol/L Carbon Dioxide 29 (22-30) mmol/L Anion Gap 8 mmol/L BUN 16 (9-20) mg/dL Creatinine 0.80 (0.66-1.25) mg/dL Est GFR (CKD-EPI)AfAm >90 (>60 ml/min/1.73 sqM) Est GFR (CKD-EPI)NonAf >90 (>60 ml/min/1.73 sqM) Glucose 134 H (74-99) mg/dL Calcium 10.3 H (8.4-10.2) mg/dL Total Bilirubin 0.5 (0.2-1.3) mg/dL AST 26 (17-59) U/L ALT 21 (4-49) U/L Alkaline Phosphatase 71 (38-126) U/L Total Protein 7.7 (6.3-8.2) g/dL Albumin 4.8 (3.5-5.0) g/dL Amylase 63 (30-110) U/L Lipase 76 (23-300) U/L Urine Color Yellow Urine Appearance Clear (Clear) Urine pH 5.5 (5.0-8.0) Ur Specific Wayne 1.035 (1.001-1.035) Urine Protein Trace H (Negative) Urine Glucose (UA) Negative (Negative) Urine Ketones Negative (Negative) Urine Blood Negative (Negative) Urine Nitrite Negative (Negative) Urine Bilirubin Negative (Negative) Urine Urobilinogen <2.0 (<2.0) mg/dL Ur Leukocyte Esterase Negative (Negative) - Radiology Data Radiology results: report reviewed, image reviewed CT of the abdomen and pelvis: There is a mechanical small bowel obstruction due to an apparent stricture at the ileocecal valve. I do not see a mass this is chronic and appears not significantly different than the exam 3 years ago. There is previous small bowel surgery follow-up is recommended. KUB overall nonacute abdomen. Disposition Clinical Impression: Small bowel obstruction, Abdominal distention, Abdominal pain Disposition: ADMITTED IP TO THIS HOSP Condition: Stable Is patient prescribed a controlled substance at d/c from ED?: No Referrals: Yenny Carreon MD [Medical Doctor] - 1-2 days Time of Disposition: 09:10
--- NOTE | 2021-01-15 06:59 | CT ---
EXAMINATION TYPE: CT abdomen pelvis w con DATE OF EXAM: 01/15/2021 COMPARISON: 10/10/2017 HISTORY: Abd pain CT DLP: 1725.2 mGycm Automated exposure control for dose reduction was used. CONTRAST: Performed with IV Contrast, patient injected with 100 mL of Isovue 300. Images obtained from the diaphragm to the floor the pelvis with IV contrast. Lung bases are clear. There is no pleural effusion. Heart size is normal. There is no pericardial eff usion. Liver spleen stomach pancreas gallbladder appear intact. Bile ducts are not dilated. There is probabl y a tiny gallstone. There is no adrenal mass. Kidneys show satisfactory contrast opacification. There is no hydronephrosi s. Ureters are not dilated. There is no retroperitoneal adenopathy. Appendix appears normal. There is dilated terminal ileum with fecal material. Terminal ileum measures 5.5 cm in diameter. The cecum is empty. There are multiple dilated fluid and air-filled small bowel loops in the mid abdomen. Lumbar vertebra have normal alignment. Posterior elements are intact. The bony pelvis is intact. Hip joints are intact. There is previous small bowel surgery with surgical clips in the lower mid abdomen . IMPRESSION: There is a mechanical small bowel obstruction due to an apparent stricture at the ileocecal valve. I do not see a mass. This is chronic and appears not significantly different than the exam 3 years ago. There is previous small bowel surgery. Follow-up is recommended.
[2021-01-15] MEDS: ONDANSETRON 4 MG/2 ML VIAL IVP PRN ×3 (07:59→20:03)
[2021-01-15] MEDS ORDERED: NALOXONE 0.4 MG/ML 1 ML VIAL IV PRN (08:00)
--- NOTE | 2021-01-15 09:03 | XR ---
Abdomen HISTORY: NG tube placement Single frontal view the abdomen correlated to prior KUB 01/15/2021 There is been interval NG tube placement. The NG tube is overlying the stomach. Probable calcificatio ns are present in the kidneys. Lung bases are clear. No pneumoperitoneum. There are air-fluid levels without bowel distention. Entire abdomen is not included on exam. IMPRESSION: NG tube placement in appropriate position. Correlate for arthritis or ileus. Bilateral ne phrolithiasis.
[2021-01-15] MEDS: HYDROmorphone 1 MG/ML 1 ML SYRINGE IVP SCH ×5 (09:48→20:03)
[2021-01-15] MEDS: SODIUM CHLORIDE 0.9% 1,000 ML IV SCH ×3 (10:11→20:03)
[2021-01-15] MEDS ORDERED: TEMAZEPAM 15 MG CAP PO PRN (15:41)
[2021-01-15] MEDS: clonazePAM 1 MG TAB PO SCH ×2 (16:44→21:40)
--- NOTE | 2021-01-15 17:35 | HP ---
HISTORY AND PHYSICAL DATE OF SERVICE: 01/15/2021 CHIEF COMPLAINT: Abdominal pain. HISTORY OF PRESENT ILLNESS: This 50-year-old gentleman with a past medical history of multiple medical problems including Crohn's disease, history of anxiety, bipolar depression, PTSD, history of previous bowel obstruction, bowel surgery, was living in [place]. The patient has been followed by surgery elsewhere and was scheduled for surgery soon for distal small- bowel obstruction with some stricture and the currently the patient has significant abdominal pain and abdominal distention with severe pain 10 out of 10 with no relief. Patient came to [facility] and admitted for further evaluation and treatment. There is no history of any fever, rigors or chills. No history of headache, loss of consciousness, seizures. A CT scan of the abdomen and pelvis was done which showed evidence of small bowel obstruction with possibly transition point with stricture at the ileocecal valve and the patient admitted for further evaluation and treatment. There is no history of fever, rigors or chills. No history of headache, loss of consciousness, seizures. PAST MEDICAL HISTORY: History of Crohn's disease with multiple bowel obstructions, history of bowel resection, anxiety, bipolar depression and PTSD. MEDICATIONS: Home medications are vitamin E, omega-3, multivitamins, vitamin B12, chromium, calciferol, vitamin C, Protonix, Vistaril, Lamictal, Imuran, Prozac, Lomotil, and Ecotrin. ALLERGIES: None. FAMILY HISTORY: No history of heart disease or strokes in the family. SOCIAL HISTORY: No history of smoking. No history of alcohol. REVIEW OF SYSTEMS: ENT: No diminished vision. No diminished hearing. CARDIOVASCULAR: No angina or palpitations. RESPIRATION: As mentioned earlier. GI: As mentioned earlier. : No dysuria. NERVOUS SYSTEM: No numbness, weakness. ALLERGY/IMMUNOLOGY: No asthma or hayfever. MUSCULOSKELETAL as mentioned earlier. HEMATOLOGY/ONCOLOGY: No history of anemia. ENDOCRINE: No history of diabetes or hypothyroidism. CONSTITUTIONAL: As mentioned earlier. DERMATOLOGY: Negative. RHEUMATOLOGY: Negative. PSYCHIATRIC: As mentioned earlier. PHYSICAL EXAMINATION: Alert and oriented times three. Pulse 80. Blood pressure 133/86. Respiration 18. Temperature 98.4. Pulse ox 97% on room air. HEENT: Conjunctivae normal. NECK: No JVD. CARDIOVASCULAR: S1, S2. RESPIRATION: Breath sounds diminished in the bases. A few scattered rhonchi and crackles. ABDOMEN: Soft, nontender. No mass palpable. LEGS are no edema. No swelling. NERVOUS SYSTEM: Higher functions as mentioned earlier. Moves all 4 limbs. No focal motor or sensory deficits. LYMPHATICS: No lymph nodes palpable in the neck, axillae or groin. SKIN: No ulcer. No rash. No bleeding. JOINTS: No active deforming arthropathy. LABS: WBC 8.6, hemoglobin 12.4, otherwise calcium is 10.3. ASSESSMENT: 1. Abdominal pain with acute small-bowel obstruction possibly secondary to stricture at the ileocecal valve. 2. History of previous bowel resection. 3. History of previous bowel obstruction. 4. History of Crohn's disease. 5. Anxiety, bipolar depression, PTSD. RECOMMENDATIONS AND DISCUSSION: This 50-year-old gentleman who presented with multiple complex medical issues, we will monitor the patient closely. I would recommend surgical evaluation. The patient will resume the home medications. The patient has NG tube inserted at this time. Symptomatic treatment will be provided. Prognosis guarded because of multiple complex medical issues. Further recommendations to follow. MMODL / IJN: [id number] / [email or web address]
--- NOTE | 2021-01-15 19:58 | P.GSCN ---
History of Present Illness Consult date: 01/15/21 Reason for Consult: Small bowel obstruction History of present illness: Is a 50-year-old male admitted through the emergency room with complaints of small bowel obstruction. Patient has a history of chronic small obstruction. He was recently here in November with the same problem. His CAT scan shows a stricture of the small bowel near the ileocecal valve. Past Medical History Additional Past Medical History / Comment(s): Crohn's History of Any Multi-Drug Resistant Organisms: None Reported Past Surgical History: Bowel Resection Additional Past Surgical History / Comment(s): bowel resection. Past Psychological History: Anxiety, Bipolar, Depression, PTSD Smoking Status: Never smoker Past Alcohol Use History: None Reported Past Drug Use History: None Reported Medications and Allergies Home Medications Medication Instructions Recorded Confirmed Type azaTHIOprine [Imuran] 50 mg PO BID 03/25/20 01/15/21 History clonazePAM 1 mg PO TID 03/25/20 01/15/21 History lamoTRIgine [LaMICtal] 100 mg PO DAILY 03/25/20 01/15/21 History Ascorbic Acid [Vitamin C] 250 mg PO DAILY 10/31/20 01/15/21 History Cholecalciferol [Vitamin D3 (10 10 mcg PO DAILY 10/31/20 01/15/21 History Mcg = 400 Iu)] Chromium Picolinate 200 mcg PO DAILY 10/31/20 01/15/21 History FLUoxetine HCL [PROzac] 10 mg PO DAILY 10/31/20 01/15/21 History Multivitamins, Thera [Multivitamin 1 tab PO DAILY 10/31/20 01/15/21 History (formulary)] [place]-3 Fatty Acids/Fish Oil [Fish 1 cap PO DAILY 10/31/20 01/15/21 History Oil 1,000 mg Softgel] Vitamin B Complex 1 cap PO DAILY 10/31/20 01/15/21 History hydrOXYzine pamoate [Vistaril] 25 mg PO TID PRN 10/31/20 01/15/21 History Cyanocobalamin [Vitamin B-12] 1,000 mcg PO DAILY #60 tablet 11/03/20 01/15/21 Rx Pantoprazole Sodium [Protonix] 40 mg PO BID 14 Days #28 tablet. 11/04/20 01/15/21 Rx Aspirin EC [Ecotrin] 325 mg PO DAILY 01/15/21 01/15/21 History Diphenoxylate HCl/Atropine 1 tab PO QID PRN MDD 8 tabs 01/15/21 01/15/21 History [Lomotil 2.5-0.025 mg Tablet] Vitamin E 400 unit PO DAILY 01/15/21 01/15/21 History Allergies Allergy/AdvReac Type Severity Reaction Status Date / Time No Known Allergies Allergy Verified 01/15/21 11:45 Surgical - Exam Vital Signs Temp Pulse Resp BP Pulse Ox 98.3 F 80 18 136/86 96 01/15/21 04:59 01/15/21 04:59 01/15/21 04:59 01/15/21 04:59 01/15/21 04:59 - General well developed, well nourished, no distress - Eyes PERRL - ENT normal pinna - Neck no masses - Respiratory normal expansion - Cardiovascular Rhythm: regular - Abdomen Abdomen: soft, tender, distended Results - Labs 01/15/21 05:20 01/15/21 05:20 Abnormal Lab Results - Last 24 Hours (Table) 01/15/21 01/15/21 01/15/21 Range/Units 05:20 05:20 06:15 Hgb 12.4 L (13.0-17.5) gm/dL MCHC 30.4 L (31.0-37.0) g/dL RDW 24.7 H (11.5-15.5) % Plt Count 470 H (150-450) k/uL Lymphocytes # 0.7 L (1.0-4.8) k/uL Glucose 134 H (74-99) mg/dL Calcium 10.3 H (8.4-10.2) mg/dL Urine Protein Trace H (Negative) Diabetes panel 01/15/21 Range/Units 05:20 Sodium 139 (137-145) mmol/L Potassium 4.5 (3.5-5.1) mmol/L Chloride 102 (98-107) mmol/L Carbon Dioxide 29 (22-30) mmol/L BUN 16 (9-20) mg/dL Creatinine 0.80 (0.66-1.25) mg/dL Glucose 134 H (74-99) mg/dL Calcium 10.3 H (8.4-10.2) mg/dL AST 26 (17-59) U/L ALT 21 (4-49) U/L Alkaline Phosphatase 71 (38-126) U/L Total Protein 7.7 (6.3-8.2) g/dL Albumin 4.8 (3.5-5.0) g/dL Calcium panel 01/15/21 Range/Units 05:20 Calcium 10.3 H (8.4-10.2) mg/dL Albumin 4.8 (3.5-5.0) g/dL Pituitary panel 01/15/21 Range/Units 05:20 Sodium 139 (137-145) mmol/L Potassium 4.5 (3.5-5.1) mmol/L Chloride 102 (98-107) mmol/L Carbon Dioxide 29 (22-30) mmol/L BUN 16 (9-20) mg/dL Creatinine 0.80 (0.66-1.25) mg/dL Glucose 134 H (74-99) mg/dL Calcium 10.3 H (8.4-10.2) mg/dL Adrenal panel 01/15/21 Range/Units 05:20 Sodium 139 (137-145) mmol/L Potassium 4.5 (3.5-5.1) mmol/L Chloride 102 (98-107) mmol/L Carbon Dioxide 29 (22-30) mmol/L BUN 16 (9-20) mg/dL Creatinine 0.80 (0.66-1.25) mg/dL Glucose 134 H (74-99) mg/dL Calcium 10.3 H (8.4-10.2) mg/dL Total Bilirubin 0.5 (0.2-1.3) mg/dL AST 26 (17-59) U/L ALT 21 (4-49) U/L Alkaline Phosphatase 71 (38-126) U/L Total Protein 7.7 (6.3-8.2) g/dL Albumin 4.8 (3.5-5.0) g/dL Assessment and Plan Assessment: Chronic small bowel obstruction. Patient will have nasogastric tube decompression. He will be closely observed.
[2021-01-15] MEDS: HEPARIN SODIUM,PORCINE/PF 5,000 UNIT/0.5 ML SYRINGE SQ SCH (20:04)
[2021-01-16] MEDS ORDERED: HYDROmorphone 1 MG/ML 1 ML SYRINGE ONE (00:30)
[2021-01-16] MEDS: HYDROmorphone 1 MG/ML 1 ML SYRINGE IVP SCH ×8 (03:50→21:53)
[2021-01-16] MEDS: ONDANSETRON 4 MG/2 ML VIAL IVP PRN ×3 (03:52→18:11)
[2021-01-16 08:02] LABS: Anisocytosis Marked; Basophils % (A) 0 %; Eosinophils # (A) 0.1 k/uL (0-0.7); Eosinophils % (A) 2 %; HCT 40.1 % (39.0-53.0); HGB 11.6 gm/dL (13.0-17.5); Hypochromasia Marked; Lymphocytes # (A) 0.8 k/uL (1.0-4.8); Lymphocytes % (A) 15 %; MCH 25.9 pg (25.0-35.0); MCHC 28.9 g/dL (31.0-37.0); MCV 89.4 fL (80.0-100.0); Macrocytosis Slight; Microcytosis Slight; Monocytes # (A) 0.5 k/uL (0-1.0); Monocytes % (A) 9 %; Neutrophils # (A) 3.9 k/uL (1.3-7.7); Neutrophils % (A) 71 %; Platelet Count 380 k/uL (150-450); RBC 4.48 m/uL (4.30-5.90); RDW 24.2 % (11.5-15.5); WBC 5.4 k/uL (3.8-10.6)
[2021-01-16 08:23] LABS: African American GFR (CKD) >90 (>60 ml/min/1.73 sqM); Anion Gap 4 mmol/L; Blood Urea Nitrogen 12 mg/dL (9-20); Calcium 8.8 mg/dL (8.4-10.2); Carbon Dioxide 29 mmol/L (22-30); Chloride 106 mmol/L (98-107); Glucose 100 mg/dL (74-99); Non-African American GFR(CKD) >90 (>60 ml/min/1.73 sqM); Potassium 4.1 mmol/L (3.5-5.1); Sodium 139 mmol/L (137-145)
[2021-01-16] MEDS: HEPARIN SODIUM,PORCINE/PF 5,000 UNIT/0.5 ML SYRINGE SQ SCH ×3 (09:32→21:50)
[2021-01-16] MEDS: clonazePAM 1 MG TAB PO SCH ×3 (09:33→21:51)
[2021-01-16] MEDS: lamoTRIgine 100 MG TAB PO SCH (09:33)
[2021-01-16] MEDS: FLUoxetine HCL 10 MG CAP PO SCH (09:33)
[2021-01-16] MEDS ORDERED: PANTOPRAZOLE 40 MG/10 ML VIAL IVP SCH (12:30)
--- NOTE | 2021-01-16 14:27 | P.PN ---
Subjective Progress Note Date: 01/16/21 CHIEF COMPLAINT: Abdominal pain HISTORY OF PRESENT ILLNESS: Surgical service is following for patient's small bowel obstruction. He has history of chronic small bowel obstruction. CAT scan shows stricture of small bowel near ileocecal valve. Patient has had bowel resection in the past. Patient's NG tube has small amount of blood present in it. However, patient has been adjusting the NG tube himself. He is having flatus. He reports as abdominal pain is getting better. He denies any bowel movement. Patient is very eager to have the NG tube removed. Afebrile. WBC is 5.4 PHYSICAL EXAM: VITAL SIGNS: Reviewed. GENERAL: Well-developed in no acute distress. HEENT: No sclera icterus. Extraocular movements grossly intact. Moist buccal mucosa. Head is atraumatic, normocephalic. ABDOMEN: Soft. Mildly distended. NEUROLOGIC: Alert and oriented. Cranial nerves II through XII grossly intact. ASSESSMENT: 1. 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 Signing provider agrees with the documented findings, assessment, and plan of care. Objective - Vital Signs Vital signs: Vital Signs Temp 98.7 F 01/16/21 12:41 Pulse 83 01/16/21 12:41 Resp 18 01/16/21 12:41 BP 155/77 01/16/21 12:41 Pulse Ox 97 01/16/21 12:41 Intake & Output 01/15/21 01/16/21 01/16/21 18:59 06:59 18:59 Output Total 300 Balance -300 Weight 106.594 kg Output: Urine 300 Other: Voiding Method Toilet Toilet Urinal Urinal # Voids 1 - Labs CBC & Chem 7: 01/16/21 07:42 01/16/21 07:42 Labs: Abnormal Lab Results - Last 24 Hours (Table) 01/16/21 01/16/21 Range/Units 07:42 07:42 Hgb 11.6 L (13.0-17.5) gm/dL MCHC 28.9 L (31.0-37.0) g/dL RDW 24.2 H (11.5-15.5) % Lymphocytes # 0.8 L (1.0-4.8) k/uL Glucose 100 H (74-99) mg/dL
[2021-01-16] MEDS: SODIUM CHLORIDE 0.9% 1,000 ML IV SCH ×3 (15:42→18:11)
[2021-01-16 16:45] LABS: Prothrombin Time 10.7 sec (9.0-12.0)
--- NOTE | 2021-01-16 17:11 | PN ---
PROGRESS NOTE DATE OF SERVICE: 01/16/2021. This 50-year-old gentleman admitted with acute small-bowel obstruction is being closely monitored. Surgery is following the patient closely. The patient apparently was scheduled to have surgery elsewhere. No chest pain. No palpitations. No fever. PHYSICAL EXAMINATION: Alert and oriented x3. Pulse 83, blood pressure 155/77, respiration 18, temperature 98.7, pulse ox 97% on room air. HEENT: Conjunctivae normal. NECK: No jugular venous distention. CARDIOVASCULAR: S1, S2 muffled. RESPIRATION: Breath sounds diminished at the bases. A few scattered rhonchi and crackles. ABDOMEN: Soft, nontender. No mass palpable. Mildly distended. Mild diffuse discomfort. No guarding. No rigidity. Bowel sounds present. LEGS: No edema. No swelling. NERVOUS SYSTEM: No focal deficit. LYMPHATICS: No lymph node palpable in neck, axillae or groin. LABS: WBC 5.5, hemoglobin 11.6. Other labs are noted. ASSESSMENT: 1. Abdominal pain with acute small-bowel obstruction, possibly secondary to stricture of the ileocecal valve area. 2. History of previous bowel resection. 3. History of previous bowel obstruction. 4. History of Crohn's disease. 5. Anemia, normocytic. 6. Anxiety, bipolar, depression, posttraumatic stress disorder. RECOMMENDATIONS AND DISCUSSION: I recommend to continue current medications, continue with symptomatic treatment. Continue with NG tube. Closely follow with Surgery. Guarded prognosis because of multiple complex medical issues. Further recommendations to follow. MMODL / IJN: [id number] /
[2021-01-17] MEDS: HYDROmorphone 1 MG/ML 1 ML SYRINGE IVP SCH ×8 (02:07→21:09)
[2021-01-17] MEDS: ONDANSETRON 4 MG/2 ML VIAL IVP PRN ×3 (02:22→21:12)
[2021-01-17] MEDS: HEPARIN SODIUM,PORCINE/PF 5,000 UNIT/0.5 ML SYRINGE SQ SCH ×2 (08:39→21:09)
[2021-01-17] MEDS: FLUoxetine HCL 10 MG CAP PO SCH (08:39)
[2021-01-17] MEDS: lamoTRIgine 100 MG TAB PO SCH (08:39)
[2021-01-17] MEDS: clonazePAM 1 MG TAB PO SCH ×3 (08:39→21:09)
[2021-01-17] MEDS: PANTOPRAZOLE 40 MG TABLET PO SCH (08:39)
[2021-01-17] MEDS: DOCUSATE 100 MG CAP PO SCH ×2 (13:41→21:12)
--- NOTE | 2021-01-17 14:49 | P.PN ---
Subjective Progress Note Date: 01/17/21 CHIEF COMPLAINT: Abdominal pain HISTORY OF PRESENT ILLNESS: Surgical service is following for patient's small bowel obstruction. He has history of chronic small bowel obstruction. CAT scan shows stricture of small bowel near ileocecal valve. Patient is scheduled for small bowel resection on 01/28/2021 with physician at [facility]. Patient did contact his physician at [facility]. Per patient at this time they're unable to move up his surgical date. Patient did start having bowel movements. He reports it is very hard. He is having some flatus. Still having a lot of nausea and using the Zofran. Complaining of left sided abdominal pain. NG tube was discontinued yesterday. Afebrile. Patient seen and examined with Dr. callaway PHYSICAL EXAM: VITAL SIGNS: Reviewed. GENERAL: Well-developed in no acute distress. HEENT: No sclera icterus. Extraocular movements grossly intact. Moist buccal mucosa. Head is atraumatic, normocephalic. ABDOMEN: Soft. Mildly distended. Tenderness on palpation of the left side of the abdomen NEUROLOGIC: Alert and oriented. Cranial nerves II through XII grossly intact. ASSESSMENT: 1. 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 If patient has increase in abdominal pain recommend to go back to nothing by mouth -Start Colace 100 mg twice a day -Continue pain medication as needed -Continue to observe patient -Encourage patient to ambulate Physician [employer] note has been reviewed by physician. Signing provider agrees with the documented findings, assessment, and plan of care. Objective - Vital Signs Vital signs: Vital Signs Temp 98.8 F 01/17/21 12:24 Pulse 72 01/17/21 12:24 Resp 17 01/17/21 12:24 BP 114/74 01/17/21 12:24 Pulse Ox 94 L 01/17/21 12:24 Intake & Output 01/16/21 01/17/21 01/17/21 18:59 06:59 18:59 Intake Total 60 1610 Balance 60 1610 Intake: Intake, IV Titration 60 660 Amount Sodium Chloride 0.9% 1, 60 660 000 ml @ 60 mls/hr IV . [id number] Rx#:[id number] Oral 950 Other: Voiding Method Toilet Toilet Urinal Urinal # Voids 2 - Labs CBC & Chem 7: 01/16/21 07:42 01/16/21 07:42
--- NOTE | 2021-01-17 16:56 | PN ---
PROGRESS NOTE DATE OF SERVICE: 01/17/2021 This 50-year-old gentleman who was admitted with abdominal pain, acute small-bowel obstruction possibly secondary to stricture of the terminal ileum is being closely monitored. NG tube is out. The patient is closely monitored at this time. Surgery is following the patient closely. PHYSICAL EXAMINATION: Alert and oriented times three. Pulse 72. Blood pressure 114/75, respiration 17, temperature 98.8, pulse ox 94% on room air. HEENT: Conjunctivae normal. Neck: No JVD. Cardiovascular: S1, S2 muffled. Respiration: Breath sounds diminished in the bases. No rhonchi. No crackles. Abdomen: Soft, nontender. Nervous system: No focal deficits. LABORATORY DATA: WBC 5.7, hemoglobin 11.6. Other labs are noted and glucose 100. ASSESSMENT: 1. Abdominal pain with acute small-bowel obstruction possibly secondary to stricture of the ileocecal valve area. 2. History of previous bowel resection. 3. History of previous bowel obstruction. 4. History of Crohn's disease. 5. Anemia, normocytic. 6. Anxiety, bipolar depression, PTSD history. 7. History of anemia, was on iron transfusions previously. RECOMMENDATIONS AND DISCUSSION: Recommend to continue medications, management and symptomatic treatment. Otherwise, at this time, closely follow with surgery. We will repeat the labs. Guarded prognosis. Further recommendations to follow. MMODL / IJN: [id number] /
[2021-01-17] MEDS: SODIUM CHLORIDE 0.9% 1,000 ML IV SCH (17:03)
[2021-01-18] MEDS: HYDROmorphone 1 MG/ML 1 ML SYRINGE IVP SCH ×5 (00:09→12:24)
[2021-01-18] MEDS: SODIUM CHLORIDE 0.9% 1,000 ML IV SCH ×2 (00:11→23:57)
[2021-01-18 06:02] LABS: Anisocytosis Moderate; Basophils # (A) 0.1 k/uL (0-0.2); Basophils % (A) 1 %; Eosinophils # (A) 0.3 k/uL (0-0.7); Eosinophils % (A) 5 %; HCT 37.1 % (39.0-53.0); HGB 10.9 gm/dL (13.0-17.5); Hypochromasia Marked; Lymphocytes # (A) 1.1 k/uL (1.0-4.8); Lymphocytes % (A) 23 %; MCH 26.3 pg (25.0-35.0); MCHC 29.5 g/dL (31.0-37.0); MCV 89.2 fL (80.0-100.0); Macrocytosis Slight; Mean Platelet Volume 7.4; Microcytosis Slight; Monocytes # (A) 0.5 k/uL (0-1.0); Monocytes % (A) 9 %; Neutrophils # (A) 2.9 k/uL (1.3-7.7); Neutrophils % (A) 59 %; Platelet Count 311 k/uL (150-450); Poikilocytosis Slight; RBC 4.16 m/uL (4.30-5.90); RDW 23.3 % (11.5-15.5)
[2021-01-18 07:14] LABS: African American GFR (CKD) >90 (>60 ml/min/1.73 sqM); Anion Gap 8 mmol/L; Blood Urea Nitrogen 5 mg/dL (9-20); Calcium 8.9 mg/dL (8.4-10.2); Carbon Dioxide 25 mmol/L (22-30); Chloride 101 mmol/L (98-107); Glucose 85 mg/dL (74-99); Non-African American GFR(CKD) >90 (>60 ml/min/1.73 sqM); Potassium 4.3 mmol/L (3.5-5.1); Sodium 134 mmol/L (137-145)
[2021-01-18] MEDS: HEPARIN SODIUM,PORCINE/PF 5,000 UNIT/0.5 ML SYRINGE SQ SCH ×2 (08:26→22:41)
[2021-01-18] MEDS: PANTOPRAZOLE 40 MG TABLET PO SCH (08:33)
[2021-01-18] MEDS: DOCUSATE 100 MG CAP PO SCH ×2 (08:33→22:44)
[2021-01-18] MEDS: clonazePAM 1 MG TAB PO SCH ×3 (08:33→22:44)
[2021-01-18] MEDS: lamoTRIgine 100 MG TAB PO SCH (08:33)
[2021-01-18] MEDS: FLUoxetine HCL 10 MG CAP PO SCH (08:33)
[2021-01-18] MEDS: ONDANSETRON 4 MG/2 ML VIAL IVP PRN ×2 (08:34→22:44)
[2021-01-18] MEDS ORDERED: HYDROcodone/APAP 10-325MG 1 EACH TAB PO PRN (13:02)
[2021-01-18] MEDS: methylPREDNISolone SOD SUCCI 40 MG/ML 1 ML VIAL IV SCH ×3 (13:56→23:56)
[2021-01-18] MEDS: HYDROcodone/APAP 10-325MG 1 EACH TAB PO PRN ×2 (14:05→22:44)
--- NOTE | 2021-01-18 15:03 | PN ---
PROGRESS NOTE DATE OF SERVICE: 01/18/2021 This 50-year-old gentleman admitted with abdominal pain, distention, has abdominal obstruction, had possibly narrowing of the ileocecal valve. Patient has multiple episodes of previous bowel obstruction similarly and the patient has responded to IV steroids according to him. The patient is scheduled to have surgery in the near future. PAST MEDICAL HISTORY: Reviewed. REVIEW OF SYSTEMS: Cardiovascular: No angina. No palpitations. Respiration: As mentioned earlier. GI: No nausea or vomiting. : No nausea or vomiting. Nervous system: No numbness, weakness. CURRENT MEDICATIONS: Reviewed and include: Robert Lee 10 mg, Klonopin, Colace, Prozac, Dilaudid, NovoLog, doses reviewed. PHYSICAL EXAMINATION: Patient is alert and oriented times three. Pulse 72. Blood pressure 111/69, respirations 16, temperature 99 degrees, pulse ox 94% on room air. HEENT: Conjunctivae normal. NECK: No JVD. CARDIOVASCULAR: S1, S2 muffled. RESPIRATORY: Breath sounds diminished in the bases. A few scattered rhonchi. ABDOMEN: Soft, mild diffuse distention. Mild diffuse discomfort also. No guarding. No rebound. No mass palpable. Bowel sounds diminished. LEGS: No edema. NERVOUS SYSTEM: Higher functions as mentioned earlier. Moves all four extremities. No focal deficits. LYMPHATICS: No lymph nodes palpable in the neck, axillae or groin. SKIN: No ulcer, rash or bleeding. JOINTS: No active deforming arthropathy. LABS: WBC 5, hemoglobin 10.9, sodium 132, potassium 4.3. UA noted. Covid 19 negative. ASSESSMENT: 1. Abdominal pain and acute small-bowel obstruction possibly secondary to stricture of the ileocecal valve secondary to Crohn's disease. 2. History of previous bowel resection. 3. History of previous bowel obstruction. 4. History of Crohn's disease. 5. Anemia, normocytic. 6. Anxiety, bipolar depression, PTSD history. 7. History of anemia, was on iron transfusion previously. 8. Hyponatremia. RECOMMENDATIONS AND DISCUSSION: I recommend to continue current medications, symptomatic treatment. I recommend repeat labs tomorrow. I would also recommend a sedimentation rate and CRP. Otherwise, initiate IV steroids empirically and monitor blood sugars closely. Closely follow with surgery. There is no evidence of any infection currently. The prognosis guarded. Further recommendations to follow. See orders for details. MMODL / IJN: [id number] / JOE
--- NOTE | 2021-01-18 16:13 | P.PN ---
Subjective Progress Note Date: 01/18/21 CHIEF COMPLAINT: Small bowel obstruction due to Crohn HISTORY OF PRESENT ILLNESS: The patient is a 50-year-old male with complications of Crohn's disease including small bowel stricture at the ileocecal valve who is scheduled for elective resection at [facility]. Patient was admitted due to abdominal pain. He is resting comfortably. ROS: No reports of nausea and vomiting. No bowel movements. No fevers or chills. No new chest pain. No productive sputum PHYSICAL EXAM: VITAL SIGNS: Reviewed CONSTITUTIONAL: Well developed and in no acute distress. HEAD, EARS, NOSE, THROAT: Moist buccal mucosa. Head is atraumatic, normocephalic. No nasal drainage. NECK: No gross thyroidomegaly. No jugular venous distention. RESPIRATORY: Non-labored respirations and equal bilateral excursions. CARDIOVASCULAR: Regular rate. Regular rhythm. ABDOMEN: No peritonitis. MUSCULOSKELETAL: No clubbing. No cyanosis. SKIN: Well perfused. NEUROLOGIC: Cranial nerves II through XII grossly intact. No focal or lateralizing signs. PSYCH: Appropriate affect. Alert and oriented to person, place and time. CLINICAL LABS: Reviewed. WBC normal at 5.0. Hemoglobin with anemia at 10.6 down from 11.6 STUDIES: CT of the abdomen and pelvis with IV contrast in the peritoneal reviewed demonstrating presence of gallstones. Fecal his age along the small bowel at the right lower quadrant identified consistent with chronic stricture. Small bowel including stomach dilation identified consistent with small bowel obstruction. This is my independent interpretation ASSESSMENT: 1. Crohn's disease with stricture 2. Gallstones PLAN: 1. Recommend conservative management with transfer to [facility] patient is scheduled to undergo elective surgery with his provider. 2. In the interim, management of Crohn's flare per medicine team Objective - Vital Signs Vital signs: Vital Signs Temp 99 F 01/18/21 11:33 Pulse 72 01/18/21 11:33 Resp 16 01/18/21 11:33 BP 111/69 01/18/21 11:33 Pulse Ox 94 L 01/18/21 11:33 Intake & Output 01/17/21 01/18/21 01/18/21 18:59 06:59 18:59 Intake Total 1680 Balance 1680 Intake: Intake, IV Titration 720 Amount Sodium Chloride 0.9% 1, 720 000 ml @ 60 mls/hr IV . [id number] [facility] Rx#:[id number] Oral 960 Other: Voiding Method Toilet Urinal # Voids 3 2 2 - Labs CBC & Chem 7: 01/18/21 04:54 01/18/21 04:54 Labs: Abnormal Lab Results - Last 24 Hours (Table) 01/18/21 01/18/21 Range/Units 04:54 04:54 RBC 4.16 L (4.30-5.90) m/uL Hgb 10.9 L (13.0-17.5) gm/dL Hct 37.1 L (39.0-53.0) % MCHC 29.5 L (31.0-37.0) g/dL RDW 23.3 H (11.5-15.5) % Sodium 134 L (137-145) mmol/L BUN 5 L (9-20) mg/dL Assessment and Plan (1) Abdominal pain Current Visit: Yes Status: Acute Code(s): R10.9 - UNSPECIFIED ABDOMINAL PAIN SNOMED Code(s): 98641676 (2) Small bowel obstruction Current Visit: Yes Status: Acute Code(s): K56.609 - UNSP INTESTNL OBST, UNSP TO PARTIAL VERSUS COMPLETE OBST SNOMED Code(s): 085627386 (3) Crohn's disease Current Visit: No Status: Acute Code(s): K50.90 - CROHN'S DISEASE, UNSPECIFIED, WITHOUT COMPLICATIONS SNOMED Code(s): 95338391 (4) Microcytic anemia Current Visit: No Status: Acute Code(s): D50.9 - IRON DEFICIENCY ANEMIA, UNSPECIFIED SNOMED Code(s): 557215426
[2021-01-18 18:24] LABS: Glucose,Whole Blood 124 mg/dL (75-99)
[2021-01-18] MEDS: INSULIN ASPART (NovoLOG) 100 UNIT/ML VIAL SQ SCH ×2 (18:25→22:41)
[2021-01-18 21:15] LABS: Glucose,Whole Blood 137 mg/dL (75-99)
[2021-01-19 05:12] LABS: Anisocytosis Moderate; Basophils % (A) 0 %; Eosinophils % (A) 0 %; HCT 37.3 % (39.0-53.0); HGB 11.2 gm/dL (13.0-17.5); Hypochromasia Marked; Lymphocytes # (A) 0.3 k/uL (1.0-4.8); Lymphocytes % (A) 11 %; MCH 26.4 pg (25.0-35.0); MCHC 30.1 g/dL (31.0-37.0); MCV 87.7 fL (80.0-100.0); Mean Platelet Volume 7.8; Microcytosis Slight; Monocytes # (A) 0.1 k/uL (0-1.0); Monocytes % (A) 2 %; Neutrophils # (A) 2.5 k/uL (1.3-7.7); Neutrophils % (A) 85 %; Platelet Count 391 k/uL (150-450); RBC 4.25 m/uL (4.30-5.90); RDW 22.9 % (11.5-15.5)
[2021-01-19] MEDS: HYDROcodone/APAP 10-325MG 1 EACH TAB PO PRN ×2 (06:01→14:21)
[2021-01-19] MEDS: methylPREDNISolone SOD SUCCI 40 MG/ML 1 ML VIAL IV SCH ×3 (06:02→17:37)
[2021-01-19] MEDS: HEPARIN SODIUM,PORCINE/PF 5,000 UNIT/0.5 ML SYRINGE SQ SCH ×2 (07:19→20:40)
[2021-01-19] MEDS: clonazePAM 1 MG TAB PO SCH ×3 (07:23→20:44)
[2021-01-19] MEDS: DOCUSATE 100 MG CAP PO SCH ×2 (07:23→20:44)
[2021-01-19] MEDS: lamoTRIgine 100 MG TAB PO SCH (07:23)
[2021-01-19] MEDS: FLUoxetine HCL 10 MG CAP PO SCH (07:23)
[2021-01-19] MEDS: PANTOPRAZOLE 40 MG TABLET PO SCH (07:23)
[2021-01-19] MEDS: INSULIN ASPART (NovoLOG) 100 UNIT/ML VIAL SQ SCH ×4 (07:24→20:44)
[2021-01-19 07:26] LABS: Glucose,Whole Blood 135 mg/dL (75-99)
[2021-01-19 08:44] LABS: Erythrocyte Sedimentation Rate 8 mm/hr (0-15)
[2021-01-19 10:48] LABS: African American GFR (CKD) 134.9 (60.0-200.0); Anion Gap 11.4 mmol/L (4.00-12.00); BUN/Creat Ratio 9.33 Ratio (12.00-20.00); Blood Urea Nitrogen 5.6 mg/dL (9.0-27.0); Calcium 9.6 mg/dL (8.7-10.3); Carbon Dioxide 24.6 mmol/L (21.6-31.8); Non-African American GFR(CKD) 116.4 (60.0-200.0); Potassium 4.7 mmol/L (3.5-5.5)
[2021-01-19] MEDS: HYDROmorphone 1 MG/ML 1 ML SYRINGE IVP PRN ×3 (12:09→20:45)
--- NOTE | 2021-01-19 12:29 | P.PN ---
Subjective Progress Note Date: 01/19/21 CHIEF COMPLAINT: Small bowel obstruction due to Crohn HISTORY OF PRESENT ILLNESS: The patient is a 50-year-old male with complications of Crohn's disease including small bowel stricture at the ileocecal valve who is scheduled for elective resection at [facility]. He reports his abdominal pain has improved from yesterday was limited to needs for pain meds. Reports at home being placed on a high fiber diet with spinach which is contraindicated for Crohn's with stricture. He is tolerating clear liquid diet. ROS: No reports of nausea and vomiting. No fevers or chills. No new chest pain. No productive sputum PHYSICAL EXAM: VITAL SIGNS: Reviewed CONSTITUTIONAL: Well developed and in no acute distress. HEAD, EARS, NOSE, THROAT: Moist buccal mucosa. Head is atraumatic, normocephal ic. No nasal drainage. NECK: No gross thyroidomegaly. No jugular venous distention. RESPIRATORY: Non-labored respirations and equal bilateral excursions. CARDIOVASCULAR: Regular rate. Regular rhythm. ABDOMEN: No peritonitis. Palpable hernia along the epigastrium reducible. Well-healed lower midline incision. MUSCULOSKELETAL: No clubbing. No cyanosis. SKIN: Well perfused. NEUROLOGIC: Cranial nerves II through XII grossly intact. No focal or lateralizing signs. PSYCH: Appropriate affect. Alert and oriented to person, place and time. CLINICAL LABS: Reviewed. WBC normal at 5.0 now 3.0. Hemoglobin with anemia at 10.6 down from 11.6, increased to 11.2 today. ASSESSMENT: 1. Crohn's disease with stricture 2. Gallstones PLAN: 1. I had extensive discussion including dietary restrictions with stricture due to Crohn's. May have full liquid diet and be discharged on full liquid diet. Avoiding vegetables including spinach and broccoli reviewed. 2. Patient advised that any additional recurrence is best treated at his institution at [place] where he is scheduled for elective surgery. Objective - Vital Signs Vital signs: Vital Signs Temp 97.7 F 01/19/21 04:40 Pulse 60 01/19/21 08:00 Resp 18 01/19/21 08:00 BP 128/72 01/19/21 04:40 Pulse Ox 93 L 01/19/21 04:40 Intake & Output 01/18/21 01/19/21 01/19/21 18:59 06:59 18:59 Intake Total 2160 1160 360 Output Total 300 Balance 2160 1160 60 Intake: Intake, IV Titration 720 720 Amount Sodium Chloride 0.9% 1, 720 720 000 ml @ 60 mls/hr IV . [id number] [facility] Rx#:[id number] Oral 1440 440 360 Output: Urine 300 Other: Voiding Method Toilet Toilet Toilet Urinal Urinal Urinal # Voids 4 1 1 - Labs CBC & Chem 7: 01/19/21 03:57 01/19/21 03:57 Labs: Abnormal Lab Results - Last 24 Hours (Table) 01/18/21 01/18/21 01/18/21 Range/Units 15:17 18:22 21:10 WBC (3.8-10.6) k/uL RBC (4.30-5.90) m/uL Hgb (13.0-17.5) gm/dL Hct (39.0-53.0) % MCHC (31.0-37.0) g/dL RDW (11.5-15.5) % Lymphocytes # (1.0-4.8) k/uL BUN (9.0-27.0) mg/dL BUN/Creatinine Ratio (12.00-20.00) Ratio Glucose (70-110) mg/dL POC Glucose (mg/dL) 124 H 137 H (75-99) mg/dL C-Reactive Protein 2.4 H (<1.0) mg/dL 01/19/21 01/19/21 01/19/21 Range/Units 03:57 03:57 07:24 WBC 3.0 L (3.8-10.6) k/uL RBC 4.25 L (4.30-5.90) m/uL Hgb 11.2 L (13.0-17.5) gm/dL Hct 37.3 L (39.0-53.0) % MCHC 30.1 L (31.0-37.0) g/dL RDW 22.9 H (11.5-15.5) % Lymphocytes # 0.3 L (1.0-4.8) k/uL BUN 5.6 L (9.0-27.0) mg/dL BUN/Creatinine Ratio 9.33 L (12.00-20.00) Ratio Glucose 126 H (70-110) mg/dL POC Glucose (mg/dL) 135 H (75-99) mg/dL C-Reactive Protein (<1.0) mg/dL Assessment and Plan (1) Abdominal pain Current Visit: Yes Status: Acute Code(s): R10.9 - UNSPECIFIED ABDOMINAL PAIN SNOMED Code(s): 42012766 (2) Small bowel obstruction Current Visit: Yes Status: Acute Code(s): K56.609 - UNSP INTESTNL OBST, UNSP TO PARTIAL VERSUS COMPLETE OBST SNOMED Code(s): 906030924 (3) Crohn's disease Current Visit: No Status: Acute Code(s): K50.90 - CROHN'S DISEASE, UNSPECIFIED, WITHOUT COMPLICATIONS SNOMED Code(s): 20038428 (4) Microcytic anemia Current Visit: No Status: Acute Code(s): D50.9 - IRON DEFICIENCY ANEMIA, UNSPECIFIED SNOMED Code(s): 512099591
[2021-01-19 12:53] LABS: Glucose,Whole Blood 109 mg/dL (75-99)
[2021-01-19] MEDS: SODIUM CHLORIDE 0.9% 1,000 ML IV SCH ×2 (16:37→21:40)
[2021-01-19 17:20] LABS: Glucose,Whole Blood 111 mg/dL (75-99)
[2021-01-19] MEDS: ONDANSETRON 4 MG/2 ML VIAL IVP PRN (17:38)
--- NOTE | 2021-01-19 18:51 | PN ---
PROGRESS NOTE DATE OF SERVICE: 01/19/2021 This 50-year-old gentleman who was admitted with acute bowel obstruction is improving significantly. No chest pain. No palpitations. No fever. The patient is complaining of hard stools. PHYSICAL EXAMINATION: Alert and oriented x3. Pulse 80, blood pressure 126/34, respirations 13, temperature 98.2, pulse ox 98% on room air. HEENT: Conjunctivae normal. Oral mucosa moist. NECK: No jugular venous distention. No lymph node enlargement. CARDIOVASCULAR: S1, S2, muffled. No S3, no S4, RESPIRATORY: Diminished breath sounds at the bases. No rhonchi, no crackles. ABDOMEN: Soft. No guarding, no rigidity. No mass palpable.. LEGS: No edema, no swelling. NERVOUS SYSTEM: No focal deficits. LAB STUDIES: Hemoglobin 11.2. ASSESSMENT: 1. Abdominal pain with acute small-bowel obstruction possibly secondary to stricture of the ileocecal valve secondary to Crohn's disease, on empiric IV steroids. 2. History of previous bowel resection. 3. History of previous bowel obstruction. 4. History of Crohn's disease. 5. History anemia, normocytic. 6. Anxiety, bipolar depression, PTSD. 7. History of anemia on transfusion previously. 8. Hyponatremia. 9. Leukopenia. RECOMMENDATION: Continue current management, continue symptomatic treatment. The patient has responded to IV steroids previously according to him and will be monitored closely. Closely follow with surgery. Pain medications. Repeat labs tomorrow. The patient has minimal leukopenia of undetermined significance. Continue to monitor. The patient would like to go back to the patient's own surgeons which has been scheduled for definitive procedure. MMODL / IJN: [id number] /
[2021-01-19 20:23] LABS: Glucose,Whole Blood 158 mg/dL (75-99)
[2021-01-20] MEDS: methylPREDNISolone SOD SUCCI 40 MG/ML 1 ML VIAL IV SCH ×3 (00:42→12:15)
[2021-01-20] MEDS: HYDROmorphone 1 MG/ML 1 ML SYRINGE IVP PRN ×6 (00:42→22:05)
[2021-01-20] MEDS: HYDROcodone/APAP 10-325MG 1 EACH TAB PO PRN ×3 (02:43→22:08)
[2021-01-20 07:31] LABS: Glucose,Whole Blood 113 mg/dL (75-99)
[2021-01-20] MEDS: INSULIN ASPART (NovoLOG) 100 UNIT/ML VIAL SQ SCH ×4 (07:42→20:17)
[2021-01-20 07:43] LABS: Anisocytosis Moderate; Basophils % (A) 0 %; Eosinophils % (A) 0 %; HCT 35.4 % (39.0-53.0); HGB 10.6 gm/dL (13.0-17.5); Hypochromasia Marked; Lymphocytes # (A) 0.5 k/uL (1.0-4.8); Lymphocytes % (A) 7 %; MCH 26.5 pg (25.0-35.0); MCV 88.3 fL (80.0-100.0); Mean Platelet Volume 7.2; Microcytosis Slight; Monocytes # (A) 0.3 k/uL (0-1.0); Monocytes % (A) 5 %; Neutrophils # (A) 6.1 k/uL (1.3-7.7); Neutrophils % (A) 87 %; Platelet Count 398 k/uL (150-450); RBC 4.01 m/uL (4.30-5.90); RDW 23.2 % (11.5-15.5)
[2021-01-20] MEDS: PANTOPRAZOLE 40 MG TABLET PO SCH (07:59)
[2021-01-20] MEDS: clonazePAM 1 MG TAB PO SCH ×3 (07:59→20:39)
[2021-01-20] MEDS: lamoTRIgine 100 MG TAB PO SCH (08:00)
[2021-01-20] MEDS: FLUoxetine HCL 10 MG CAP PO SCH (08:00)
[2021-01-20] MEDS: HEPARIN SODIUM,PORCINE/PF 5,000 UNIT/0.5 ML SYRINGE SQ SCH ×2 (08:00→20:17)
[2021-01-20] MEDS: DOCUSATE 100 MG CAP PO SCH ×2 (08:00→20:39)
[2021-01-20] MEDS: ONDANSETRON 4 MG/2 ML VIAL IVP PRN ×3 (08:12→22:04)
--- NOTE | 2021-01-20 11:08 | P.PN ---
Subjective Progress Note Date: 01/20/21 CHIEF COMPLAINT: Abdominal pain HISTORY OF PRESENT ILLNESS: Surgical service is following for patient's small bowel obstruction. He has history of chronic small bowel obstruction. CAT scan shows stricture of small bowel near ileocecal valve. Patient is scheduled for small bowel resection on 01/28/2021 with physician at [facility]. Patient did contact his physician at [facility]. Patient is complaining of very hard stools and painful bowel movements. Yesterday he had 5 BMs and the last bowel movement had blood with mucus. He is currently on a full liquid diet. Afebrile. He has been having nausea. No vomiting. WBC is 7 hemoglobin down from 11.2-10.6 Patient is on steroids for his Crohn's disease PHYSICAL EXAM: VITAL SIGNS: Reviewed. GENERAL: Well-developed in no acute distress. HEENT: No sclera icterus. Extraocular movements grossly intact. Moist buccal mucosa. Head is atraumatic, normocephalic. ABDOMEN: Soft. Mildly distended. Palpable hernia along the epigastrium. Reducible. NEUROLOGIC: Alert and oriented. Cranial nerves II through XII grossly intact. ASSESSMENT: 1. 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 Crohn's disease PLAN: -Continue full liquid diet -Continue Colace 100 mg twice a day -Continue pain medication as needed -Encourage patient to ambulate -Patient has elective surgery scheduled on 01/28/2021 for bowel resection at [facility] Physician Cable Splicer Assistant note has been reviewed by physician. Signing provider agrees with the documented findings, assessment, and plan of care. Objective - Vital Signs Vital signs: Vital Signs Temp 97.4 F L 01/20/21 05:00 Pulse 65 01/20/21 07:56 Resp 16 01/20/21 05:00 BP 117/74 01/20/21 07:56 Pulse Ox 100 01/20/21 07:56 Intake & Output 01/19/21 01/20/21 01/20/21 18:59 06:59 18:59 Intake Total 2040 720 Output Total 300 Balance 1740 720 Intake: Intake, IV Titration 720 720 Amount Sodium Chloride 0.9% 1, 720 720 000 ml @ 60 mls/hr IV . [id number] [facility] Rx#:[id number] Oral 1320 Output: Urine 300 Other: Voiding Method Toilet Toilet Urinal # Voids 5 - Labs CBC & Chem 7: 01/20/21 07:16 01/20/21 07:16 Labs: Abnormal Lab Results - Last 24 Hours (Table) 01/19/21 01/19/21 01/19/21 Range/Units 12:51 17:17 20:21 RBC (4.30-5.90) m/uL Hgb (13.0-17.5) gm/dL Hct (39.0-53.0) % MCHC (31.0-37.0) g/dL RDW (11.5-15.5) % Lymphocytes # (1.0-4.8) k/uL POC Glucose (mg/dL) 109 H 111 H 158 H (75-99) mg/dL 01/20/21 01/20/21 Range/Units 07:16 07:29 RBC 4.01 L (4.30-5.90) m/uL Hgb 10.6 L (13.0-17.5) gm/dL Hct 35.4 L (39.0-53.0) % MCHC 30.0 L (31.0-37.0) g/dL RDW 23.2 H (11.5-15.5) % Lymphocytes # 0.5 L (1.0-4.8) k/uL POC Glucose (mg/dL) 113 H (75-99) mg/dL
[2021-01-20 11:49] LABS: African American GFR (CKD) 126.6 (60.0-200.0); Anion Gap 10.4 mmol/L (4.00-12.00); BUN/Creat Ratio 13.43 Ratio (12.00-20.00); Blood Urea Nitrogen 9.4 mg/dL (9.0-27.0); Calcium 9.7 mg/dL (8.7-10.3); Carbon Dioxide 24.6 mmol/L (21.6-31.8); Non-African American GFR(CKD) 109.3 (60.0-200.0); Potassium 4.5 mmol/L (3.5-5.5)
[2021-01-20 12:11] LABS: Glucose,Whole Blood 111 mg/dL (75-99)
[2021-01-20 18:01] LABS: Glucose,Whole Blood 111 mg/dL (75-99)
[2021-01-20 20:01] LABS: Glucose,Whole Blood 139 mg/dL (75-99)
--- NOTE | 2021-01-21 00:04 | P.PN ---
<Miryam Pal - Last Filed: 01/20/21 23:40> Subjective Progress Note Date: 01/20/21 This is a 50-year-old male who was recently admitted with acute bowel obstruction and being closely monitored. Surgery following closely and patient is maintained on full liquid diet and tolerating with no reports of nausea or vomiting noted. Hemoglobin is 10.6 today. Surgery is planned at [place] next week on 01/29 for possible resection and possible colostomy per patient. Patient is continued on large dose IV steroids. Review of systems: Constitutional: reports of fatigue, no reports of fever, or chills Cardiovascular: No reports of chest pain or palpitations Respiratory: no reports of shortness of breath GI: No reports of nausea, vomiting, or diarrhea, reporting continued abdominal pain and blood in stools this morning : No reports of dysuria or retention Neurovascular: no reports of weakness Labs: White blood count is 7.0, hemoglobin is 10.6, platelets are 398 All medications have been reviewed Active Medications Hydrocodone Bitart/Acetaminophen (Hydrocodone/Apap 10-325mg 1 Each Tab) 1 each PO Q6H PRN PRN Reason: Pain 1-5 Clonazepam (Clonazepam 1 Mg Tab) 1 mg PO TID [facility] Last Admin: 01/20/21 07:59 Dose: 1 mg Documented by: Docusate Sodium (Docusate 100 Mg Cap) 100 mg PO BID [facility] Last Admin: 01/20/21 08:00 Dose: 100 mg Documented by: Fluoxetine HCl (Fluoxetine Hcl 10 Mg Cap) 10 mg PO DAILY [facility] Last Admin: 01/20/21 08:00 Dose: 10 mg Documented by: Heparin Sodium (Porcine) (Heparin Sodium,Porcine/Pf 5,000 Unit/0.5 Ml Syringe) 5,000 unit SQ Q12HR [facility] Last Admin: 01/20/21 08:00 Dose: Not Given Documented by: Hydromorphone HCl (Hydromorphone 1 Mg/Ml 1 Ml Syringe) 1 mg IVP Q3HR PRN PRN Reason: Pain Scale 6 to 10 Last Admin: 01/20/21 12:14 Dose: 1 mg Documented by: Sodium Chloride (Saline 0.9%) 1,000 mls @ 60 mls/hr IV .[id number] [facility] Last Admin: 01/19/21 21:40 Dose: 60 mls/hr Documented by: Insulin Aspart (Insulin Aspart (Novolog) 100 Unit/Ml Vial) 0 unit SQ ACHS [facility]; Protocol Last Admin: 01/20/21 12:18 Dose: Not Given Documented by: Lamotrigine (Lamotrigine 100 Mg Tab) 100 mg PO DAILY [facility] Last Admin: 01/20/21 08:00 Dose: 100 mg Documented by: Methylprednisolone Sodium Succinate (Methylprednisolone Sod Succi 40 Mg/Ml 1 Ml Vial) 40 mg IV Q6HR [facility] Last Admin: 01/20/21 12:15 Dose: 40 mg Documented by: Naloxone HCl (Naloxone 0.4 Mg/Ml 1 Ml Vial) 0.2 mg IV Q2M PRN PRN Reason: Opioid Reversal Ondansetron HCl (Ondansetron 4 Mg/2 Ml Vial) 4 mg IVP Q6HR PRN PRN Reason: Nausea And Vomiting Last Admin: 01/20/21 08:12 Dose: 4 mg Documented by: Pantoprazole Sodium (Pantoprazole 40 Mg Tablet) 40 mg PO [id number]-[id number] [facility] Last Admin: 01/20/21 07:59 Dose: 40 mg Documented by: Temazepam (Temazepam 15 Mg Cap) 15 mg PO HS PRN PRN Reason: Insomnia Physical exam: Gen: This is a 50-year-old male awake, alert and oriented 3, no acute distress. Currently sitting up in the chair HEENT: Head is atraumatic, normocephalic. Pupils equal, round. Sclerae is anicteric. NECK: Supple. No JVD. No lymphadenopathy. No thyromegaly. LUNGS: Chest is clear to auscultation with no wheezing or rhonchi noted. No intercostal retractions. HEART: S1, S2 are muffled ABDOMEN: Soft. mildly tender on palpation. Bowel sounds are present. No masses. some guarding noted on the lower abdomen on palpation. EXTREMITIES: No pedal edema. No calf tenderness. NEUROLOGICAL: Patient is awake, alert and oriented x3. no focal deficits noted Assessment: Abdominal pain with acute small bowel obstruction possibly secondary to stricture of the ileocecal valve secondary to Crohn's disease, on empiric IV steroids History of previous bowel resection History of previous bowel obstruction history of Crohn's disease history of anemia, normocytic Anxiety, bipolar depression, PTSD History of anemia requiring transfusion previously hyponatremia Leukopenia Full code Plan: Recommend to continue with current medications, management, and symptomatic treatment. Patient continued on high dose IV steroids and being discontinued. Patient continues to require IV pain medication and discussed with him in detail about avoiding IV pain medications if possible and continue with oral medications. Patient continues to have lower abdominal pain and pain at the umbilicial site and states he had blood in the stool this morning after sitting on the toilet for about an hour. Patient states he has history of hemorrhoid in the past and sees GI Dr. Gipson. No coverage for GI for two weeks here and will attempt transfer to [facility] for GI evaluation and patient is also tentatively scheduled for surgery there on January 29. Hemoglobin is stable at 10.6 today. Encouraged increased activity as tolerated. Patient maintained on full liquid diet with surgery recommending continuing until surgical follow up with [place]. Due to the multiple complex medical issues, prognosis is guarded. Will repeat labs in continue to monitor closely. Objective - Vital Signs Vital signs: Vital Signs Temp 97.4 F L 01/20/21 05:00 Pulse 65 01/20/21 07:56 Resp 16 01/20/21 05:00 BP 117/74 01/20/21 07:56 Pulse Ox 100 01/20/21 07:56 Intake & Output 01/19/21 01/20/21 01/20/21 18:59 06:59 18:59 Intake Total 2040 720 Output Total 300 Balance 1740 720 Intake: Intake, IV Titration 720 720 Amount Sodium Chloride 0.9% 1, 720 720 000 ml @ 60 mls/hr IV . [id number] [facility] Rx#:[id number] Oral 1320 Output: Urine 300 Other: Voiding Method Toilet Toilet Urinal # Voids 5 - Labs CBC & Chem 7: 01/20/21 07:16 01/20/21 07:16 Labs: Abnormal Lab Results - Last 24 Hours (Table) 01/19/21 01/19/21 01/19/21 Range/Units 03:57 12:51 17:17 RBC (4.30-5.90) m/uL Hgb (13.0-17.5) gm/dL Hct (39.0-53.0) % MCHC (31.0-37.0) g/dL RDW (11.5-15.5) % Lymphocytes # (1.0-4.8) k/uL BUN 5.6 L (9.0-27.0) mg/dL BUN/Creatinine Ratio 9.33 L (12.00-20.00) Ratio Glucose 126 H (70-110) mg/dL POC Glucose (mg/dL) 109 H 111 H (75-99) mg/dL 01/19/21 01/20/21 01/20/21 Range/Units 20:21 07:16 07:29 RBC 4.01 L (4.30-5.90) m/uL Hgb 10.6 L (13.0-17.5) gm/dL Hct 35.4 L (39.0-53.0) % MCHC 30.0 L (31.0-37.0) g/dL RDW 23.2 H (11.5-15.5) % Lymphocytes # 0.5 L (1.0-4.8) k/uL BUN (9.0-27.0) mg/dL BUN/Creatinine Ratio (12.00-20.00) Ratio Glucose (70-110) mg/dL POC Glucose (mg/dL) 158 H 113 H (75-99) mg/dL <Sheet,Karthikeyan E - Last Filed: 01/21/21 08:08> Subjective I have reviewed the note and plan with the nurse practitioner Miryam and agree with it except was mentioned below Patient is seen and examined by me at bedside Although The patient is been evaluated by surgery team, no surgical intervention. However today patient is still have continued symptoms. He still has abdominal pain and tenderness on the right side, patient was on Dilaudid on admission 68, however yesterday he is back to IV Dilaudid. He still reports bl oody stool. There is no GI service the hospital during this week. Because of this I talked to the patient to be transferred to [facility], after lengthy discussion with the patient and risks and benefits he agreed for the transfer. I spoke with his surgeon Dr. Ware at [facility] who currently accepted the patient, also he asked me to stop IV steroids will keep monitoring for now. Patient updated and still agrees with the plan. Continue with Dilaudid and pain management Patient is medically stable for transfer to [facility] in guarded prognosis Objective - Vital Signs Vital signs: Vital Signs Temp 97.4 F L 01/21/21 04:55 Pulse 58 L 01/21/21 07:46 Resp 16 01/21/21 04:55 BP 115/70 01/21/21 04:55 Pulse Ox 98 01/21/21 04:55 Intake & Output 01/20/21 01/21/21 01/21/21 18:59 06:59 18:59 Other: Voiding Method Toilet Toilet # Voids 2 2 - Labs CBC & Chem 7: 01/20/21 07:16 01/20/21 07:16 Labs: Abnormal Lab Results - Last 24 Hours (Table) 01/20/21 01/20/21 01/20/21 Range/Units 07:16 12:10 17:57 Glucose 118 H (70-110) mg/dL POC Glucose (mg/dL) 111 H 111 H (75-99) mg/dL 01/20/21 Range/Units 19:59 Glucose (70-110) mg/dL POC Glucose (mg/dL) 139 H (75-99) mg/dL
[2021-01-21] MEDS: SODIUM CHLORIDE 0.9% 1,000 ML IV SCH (04:50)
[2021-01-21 04:58] VITALS: RESP 16
[2021-01-21] MEDS: HYDROcodone/APAP 10-325MG 1 EACH TAB PO PRN ×2 (05:33→14:25)
[2021-01-21] MEDS: HYDROmorphone 1 MG/ML 1 ML SYRINGE IVP PRN ×4 (05:34→16:26)
[2021-01-21] MEDS: ONDANSETRON 4 MG/2 ML VIAL IVP PRN ×2 (05:38→12:23)
[2021-01-21 07:03] LABS: Glucose,Whole Blood 83 mg/dL (75-99)
[2021-01-21] MEDS: INSULIN ASPART (NovoLOG) 100 UNIT/ML VIAL SQ SCH (07:26)
[2021-01-21] MEDS: PANTOPRAZOLE 40 MG TABLET PO SCH (07:48)
[2021-01-21] MEDS: lamoTRIgine 100 MG TAB PO SCH (07:48)
[2021-01-21] MEDS: clonazePAM 1 MG TAB PO SCH ×2 (07:48→16:30)
[2021-01-21] MEDS: DOCUSATE 100 MG CAP PO SCH (07:48)
[2021-01-21] MEDS: FLUoxetine HCL 10 MG CAP PO SCH (07:48)
[2021-01-21] MEDS: HEPARIN SODIUM,PORCINE/PF 5,000 UNIT/0.5 ML SYRINGE SQ SCH (07:49)
--- NOTE | 2021-01-21 11:31 | P.PN ---
Subjective Progress Note Date: 01/21/21 CHIEF COMPLAINT: Abdominal pain HISTORY OF PRESENT ILLNESS: Surgical service is following for patient's small bowel obstruction. He has history of chronic small bowel obstruction. CAT scan shows stricture of small bowel near ileocecal valve. Patient is scheduled for small bowel resection on 01/28/2021 with physician at [facility]. Patient has been having bowel movements. He reports that there is still very painful and occasionally has blood present. He denies any nausea or vomiting. He is tolerating full liquid diet. He is awaiting transfer to [facility] when bed is available. Afebrile. No new labs for today PHYSICAL EXAM: VITAL SIGNS: Reviewed. GENERAL: Well-developed in no acute distress. HEENT: No sclera icterus. Extraocular movements grossly intact. Moist buccal mucosa. Head is atraumatic, normocephalic. ABDOMEN: Soft. Mildly distended. Palpable hernia along the epigastrium. Reducible. NEUROLOGIC: Alert and oriented. Cranial nerves II through XII grossly intact. ASSESSMENT: 1. 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 Crohn's disease PLAN: -Awaiting transfer to [facility] -Continue full liquid diet -Continue Colace 100 mg twice a day -Continue pain medication as needed -Encourage patient to ambulate Physician Research Environmental Engineer note has been reviewed by physician. Signing provider agrees with the documented findings, assessment, and plan of care. Objective - Vital Signs Vital signs: Vital Signs Temp 97.4 F L 01/21/21 04:55 Pulse 58 L 01/21/21 07:46 Resp 16 01/21/21 04:55 BP 115/70 01/21/21 04:55 Pulse Ox 98 01/21/21 04:55 Intake & Output 01/20/21 01/21/21 01/21/21 18:59 06:59 18:59 Other: Voiding Method Toilet Toilet # Voids 2 2 - Labs CBC & Chem 7: 01/20/21 07:16 01/20/21 07:16 Labs: Abnormal Lab Results - Last 24 Hours (Table) 01/20/21 01/20/21 01/20/21 Range/Units 07:16 12:10 17:57 Glucose 118 H (70-110) mg/dL POC Glucose (mg/dL) 111 H 111 H (75-99) mg/dL 01/20/21 Range/Units 19:59 Glucose (70-110) mg/dL POC Glucose (mg/dL) 139 H (75-99) mg/dL
[2021-01-21 12:12] VITALS: TEMP 97.5
[2021-01-21 12:58] VITALS: BMI 32.8
--- NOTE | 2021-01-21 12:59 | P.PN ---
<Mckenna Palica - Last Filed: 01/21/21 12:47> Subjective Progress Note Date: 01/21/21 This is a 50-year-old male who was recently admitted with acute bowel obstruction and being closely monitored. Surgery following closely and patient is maintained on full liquid diet and tolerating with no reports of nausea or vomiting noted. Hemoglobin is 10.6 today. Surgery is planned at [place] next week on 01/29 for possible resection and possible colostomy per patient. Patient is continued on large dose IV steroids. 01/21/2021 Patient was seen and evaluated and follow-up continues to have abdominal discomfort and pain with bowel movements and states his bowel movements continue to be hard although is having them daily. Patient states he had another episode blood noted in the stool and this morning's bowel movements had no blood in them. Patient is continued on IV pain medications and continue to encourage limited use. Encouraged ambulation and patient states he has been walking the halls. Case management following closely and working on transfer to [facility] for GI evaluation and also as patient is scheduled to have surgery there. IV steroids have been discontinued and we'll discontinue insulin and sliding scale as blood sugars have been within normal limits. Patient has no history of diabetes. Review of systems: Constitutional: reports of fatigue, no reports of fever, or chills Cardiovascular: No reports of chest pain or palpitations Respiratory: no reports of shortness of breath GI: No reports of nausea, vomiting, or diarrhea, reporting continued abdominal pain and blood in stools last night and none so far this morning : No reports of dysuria or retention Neurovascular: no reports of weakness All medications have been reviewed Active Medications Hydrocodone Bitart/Acetaminophen (Hydrocodone/Apap 10-325mg 1 Each Tab) 1 each PO Q6H PRN PRN Reason: Pain 1-5 Last Admin: 01/21/21 05:33 Dose: 1 each Documented by: Clonazepam (Clonazepam 1 Mg Tab) 1 mg PO TID [facility] Last Admin: 01/21/21 07:48 Dose: 1 mg Documented by: Docusate Sodium (Docusate 100 Mg Cap) 100 mg PO BID [facility] Last Admin: 01/21/21 07:48 Dose: 100 mg Documented by: Fluoxetine HCl (Fluoxetine Hcl 10 Mg Cap) 10 mg PO DAILY [facility] Last Admin: 01/21/21 07:48 Dose: 10 mg Documented by: Heparin Sodium (Porcine) (Heparin Sodium,Porcine/Pf 5,000 Unit/0.5 Ml Syringe) 5,000 unit SQ Q12HR [facility] Last Admin: 01/21/21 07:49 Dose: Not Given Documented by: Hydromorphone HCl (Hydromorphone 1 Mg/Ml 1 Ml Syringe) 1 mg IVP Q3HR PRN PRN Reason: Pain Scale 6 to 10 Last Admin: 01/21/21 12:23 Dose: 1 mg Documented by: Sodium Chloride (Saline 0.9%) 1,000 mls @ 60 mls/hr IV .[id number] [facility] Last Admin: 01/21/21 04:50 Dose: 60 mls/hr Documented by: Lamotrigine (Lamotrigine 100 Mg Tab) 100 mg PO DAILY [facility] Last Admin: 01/21/21 07:48 Dose: 100 mg Documented by: Naloxone HCl (Naloxone 0.4 Mg/Ml 1 Ml Vial) 0.2 mg IV Q2M PRN PRN Reason: Opioid Reversal Ondansetron HCl (Ondansetron 4 Mg/2 Ml Vial) 4 mg IVP Q6HR PRN PRN Reason: Nausea And Vomiting Last Admin: 01/21/21 12:23 Dose: 4 mg Documented by: Pantoprazole Sodium (Pantoprazole 40 Mg Tablet) 40 mg PO -BRKFST [facility] Last Admin: 01/21/21 07:48 Dose: 40 mg Documented by: Temazepam (Temazepam 15 Mg Cap) 15 mg PO HS PRN PRN Reason: Insomnia Physical exam: Gen: This is a 50-year-old male awake, alert and oriented 3, no acute distress. Currently sitting up in the chair HEENT: Head is atraumatic, normocephalic. Pupils equal, round. Sclerae is anicteric. NECK: Supple. No JVD. No lymphadenopathy. No thyromegaly. LUNGS: Chest is clear to auscultation with no wheezing or rhonchi noted. No intercostal retractions. HEART: S1, S2 are muffled ABDOMEN: Soft. mildly tender on palpation. Bowel sounds are present. No masses. some guarding noted on the lower abdomen on palpation. EXTREMITIES: No pedal edema. No calf tenderness. NEUROLOGICAL: Patient is awake, alert and oriented x3. no focal deficits noted Assessment: Abdominal pain with acute small bowel obstruction possibly secondary to stricture of the ileocecal valve secondary to Crohn's disease History of previous bowel resection History of previous bowel obstruction history of Crohn's disease history of anemia, normocytic Anxiety, bipolar depression, PTSD History of anemia requiring transfusion previously hyponatremia, improved Leukopenia Full code Plan: Recommend to continue with current medications, management, and symptomatic treatment. Patient high dose IV steroids discontinued and was maintained on insulin sliding scale along with Accu-Cheks and have been within normal limits and patient has no history of diabetes and will discontinue. Patient continues to require IV pain medication and discussed with him again in detail about avoiding IV pain medications if possible and continue with oral medications. Patient continues to have lower abdominal pain and pain at the umbilicial site and states he had another episode of blood in the stool last night and no further episodes this morning. Patient states he has history of hemorrhoid in the past and sees GI Dr. Gipson. No coverage for GI for two weeks here and will continue to attempt transfer to [facility] for GI evaluation and patient is also tentatively scheduled for surgery there on January 29 and once a bed becomes available. Encouraged increased activity as tolerated. Patient maintained on full liquid diet with surgery recommending continuing until surgical follow up with [place]. Due to the multiple complex medical issues, prognosis is guarded. Will repeat labs in continue to monitor closely. Objective - Vital Signs Vital signs: Vital Signs Temp 97.4 F L 01/21/21 04:55 Pulse 58 L 01/21/21 07:46 Resp 16 01/21/21 04:55 BP 115/70 01/21/21 04:55 Pulse Ox 98 01/21/21 04:55 Intake & Output 01/20/21 01/21/21 01/21/21 18:59 06:59 18:59 Other: Voiding Method Toilet Toilet # Voids 2 2 - Labs CBC & Chem 7: 01/20/21 07:16 01/20/21 07:16 Labs: Abnormal Lab Results - Last 24 Hours (Table) 01/20/21 01/20/21 01/20/21 Range/Units 07:16 12:10 17:57 Glucose 118 H (70-110) mg/dL POC Glucose (mg/dL) 111 H 111 H (75-99) mg/dL 01/20/21 Range/Units 19:59 Glucose (70-110) mg/dL POC Glucose (mg/dL) 139 H (75-99) mg/dL <Karthikeyan Jefferson - Last Filed: 01/21/21 21:46> Subjective Attestation: Please consider this note as discharge summary I have discussed the plan and I have reviewed the notes with BIJAN Witt and I agree with it except was mentioned below Patient is seen and examined by me at bedside Patient today was walking in the room, fully awake and oriented, no abdominal pain or tenderness however his abdomen is still distended and hard. Patient states that still have difficulty during defecation and it is painful requiring Dilaudid. Patient agrees to be transferred to [facility], and he told me this morning he thinks he needs to be evaluated by the surgeon at [facility] so he agreed for transfer. Patient is medically stable for transport Sacha gutierrez. Case or the discussed with his surgeon Dr. Ware yesterday and he accepted the patient. Prognosis remains guarded Objective - Vital Signs Vital signs: Vital Signs Temp 97.5 F L 01/21/21 12:11 Pulse 64 01/21/21 14:25 Resp 16 01/21/21 12:11 BP 132/75 01/21/21 14:25 Pulse Ox 95 01/21/21 14:25 Intake & Output 01/21/21 01/21/21 01/22/21 06:59 18:59 06:59 Weight 106.594 kg Other: Voiding Method Toilet Toilet # Voids 2 - Labs CBC & Chem 7: 01/20/21 07:16 01/20/21 07:16
[2021-01-21 14:25] VITALS: BP 132/75; PULSE 64
--- NOTE | 2021-01-21 21:47 | P.DS ---
Providers Date of admission: 01/15/21 07:08 Attending physician: Ilya Way Consults: 01/15/21 08:01 Consult Physician Urgent Consulting Provider: Vel Dela Cruz Consult Reason/Comments: small bowel obstruction Do you want consulting provider notified?: Yes Primary care physician: AUNDREA [facility] Hospital Course: Please refer to progress note from today Patient Condition at Discharge: Stable Plan - Discharge Summary Discharge Rx Participant: No New Discharge Prescriptions: No Action RX: azaTHIOprine [Imuran] 50 mg PO BID RX: lamoTRIgine [LaMICtal] 100 mg PO DAILY RX: clonazePAM 1 mg PO TID RX: Vitamin B Complex 1 cap PO DAILY RX: Multivitamins, Thera [Multivitamin (formulary)] 1 tab PO DAILY RX: hydrOXYzine pamoate [Vistaril] 25 mg PO TID PRN PRN Reason: sleep/itching RX: Chromium Picolinate 200 mcg PO DAILY RX: Cholecalciferol [Vitamin D3 (10 Mcg = 400 Iu)] 10 mcg PO DAILY RX: [place]-3 Fatty Acids/Fish Oil [Fish Oil 1,000 mg Softgel] 1 cap PO DAILY RX: Vitamin E 400 unit PO DAILY Diphenoxylate HCl/Atropine [Lomotil 2.5-0.025 mg Tablet] 1 tab PO QID PRN MDD 8 tabs PRN Reason: Diarrhea Aspirin EC [Ecotrin] 325 mg PO DAILY RX: FLUoxetine HCL [PROzac] 10 mg PO DAILY RX: Ascorbic Acid [Vitamin C] 250 mg PO DAILY RX: Cyanocobalamin [Vitamin B-12] 1,000 mcg PO DAILY #60 tablet Pantoprazole Sodium [Protonix] 40 mg PO BID 14 Days #28 tablet.dr Discharge Medication List RX: azaTHIOprine [Imuran] 50 mg PO BID 03/25/20 [History] RX: clonazePAM 1 mg PO TID 03/25/20 [History] RX: lamoTRIgine [LaMICtal] 100 mg PO DAILY 03/25/20 [History] RX: Ascorbic Acid [Vitamin C] 250 mg PO DAILY 10/31/20 [History] RX: Cholecalciferol [Vitamin D3 (10 Mcg = 400 Iu)] 10 mcg PO DAILY 10/31/20 [History] RX: Chromium Picolinate 200 mcg PO DAILY 10/31/20 [History] RX: FLUoxetine HCL [PROzac] 10 mg PO DAILY 10/31/20 [History] RX: Multivitamins, Thera [Multivitamin (formulary)] 1 tab PO DAILY 10/31/20 [History] RX: [place]-3 Fatty Acids/Fish Oil [Fish Oil 1,000 mg Softgel] 1 cap PO DAILY 10/31/20 [History] RX: Vitamin B Complex 1 cap PO DAILY 10/31/20 [History] RX: hydrOXYzine pamoate [Vistaril] 25 mg PO TID PRN 10/31/20 [History] RX: Cyanocobalamin [Vitamin B-12] 1,000 mcg PO DAILY #60 tablet 11/03/20 [Rx] Pantoprazole Sodium [Protonix] 40 mg PO BID 14 Days #28 tablet. 11/04/20 [Rx] Aspirin EC [Ecotrin] 325 mg PO DAILY 01/15/21 [History] Diphenoxylate HCl/Atropine [Lomotil 2.5-0.025 mg Tablet] 1 tab PO QID PRN MDD 8 tabs 01/15/21 [History] RX: Vitamin E 400 unit PO DAILY 01/15/21 [History] Follow up Appointment(s)/Referral(s): Danielle Adamson NPC [Primary Care Provider] - 1-2 Days [facility] [REFERRING] - 1 Week Discharge Disposition: TRANSFER TO [facility]
== END 2021-01-21 18:25 | disposition short-term general hospital (02) | DRG 386 ==
LOC: EC 04:52 → 5NMEDONC 07:08 → 1SOBS 18:11 → 5NMEDONC 01-16 16:10
PROVIDERS: ADMIT Hospitalist; ATTEND Hospitalist
DX: K50.012 Crohn's disease of small intestine with intestinal obstruction (principal); F31.30 Bipolar disorder, current episode depressed, mild or moderate severity, unspecified; E87.1 Hypo-osmolality and hyponatremia; K80.20 Calculus of gallbladder without cholecystitis without obstruction; F43.10 Post-traumatic stress disorder, unspecified; Z90.49 Acquired absence of other specified parts of digestive tract; Z79.899 Other long term (current) drug therapy; Z20.822 Contact with and (suspected) exposure to COVID-19; D72.819 Decreased white blood cell count, unspecified; D50.9 Iron deficiency anemia, unspecified; Z79.82 Long term (current) use of aspirin
CPT/HCPCS: 36415; 74018; 74177; 80048; 80053; 81003; 82150; 83690; 85025; 85610; 85652; 86140; 87635; 96374; 96376; 99285

== ENCOUNTER 2021-01-27 12:38 | Inpatient (IN) | payer BC ==
[2021-01-27] MEDS ORDERED: IOPAMIDOL CONTRAST (ORAL USE) VIAL PO PRN (14:08)
[2021-01-27 15:04] LABS: Anisocytosis Moderate; Basophils % (A) 1 %; Eosinophils # (A) 0.1 k/uL (0-0.7); Eosinophils % (A) 1 %; HCT 42.9 % (39.0-53.0); HGB 13.2 gm/dL (13.0-17.5); Hypochromasia Moderate; Lymphocytes % (A) 14 %; MCH 26.2 pg (25.0-35.0); MCHC 30.8 g/dL (31.0-37.0); Mean Platelet Volume 7.4; Microcytosis Slight; Monocytes # (A) 0.4 k/uL (0-1.0); Monocytes % (A) 6 %; Neutrophils % (A) 77 %; Platelet Count 334 k/uL (150-450); Poikilocytosis Slight; RBC 5.05 m/uL (4.30-5.90); RDW 21.8 % (11.5-15.5); WBC 6.6 k/uL (3.8-10.6)
[2021-01-27 15:09] LABS: ALT 14 U/L (4-49); AST 20 U/L (17-59); African American GFR (CKD) >90 (>60 ml/min/1.73 sqM); Albumin 4.7 g/dL (3.5-5.0); Alkaline Phosphatase 57 U/L (38-126); Amylase 52 U/L (30-110); Anion Gap 9 mmol/L; Blood Urea Nitrogen 8 mg/dL (9-20); Calcium 10.1 mg/dL (8.4-10.2); Carbon Dioxide 26 mmol/L (22-30); Chloride 105 mmol/L (98-107); Glucose 100 mg/dL (74-99); Lipase 134 U/L (23-300); Non-African American GFR(CKD) >90 (>60 ml/min/1.73 sqM); Potassium 4.3 mmol/L (3.5-5.1); Sodium 140 mmol/L (137-145); Total Bilirubin 0.4 mg/dL (0.2-1.3); Total Protein 7.5 g/dL (6.3-8.2)
[2021-01-27 15:13] LABS: Partial Thromboplastin Time 23.3 sec (22.0-30.0); Prothrombin Time 10.4 sec (9.0-12.0)
[2021-01-27] MEDS ORDERED: HYDROmorphone 1 MG/ML 1 ML SYRINGE IVP STA (16:36)
[2021-01-27] MEDS ORDERED: FAMOTIDINE 20 MG/2 ML VIAL IV STA (16:36)
[2021-01-27] MEDS ORDERED: SODIUM CHLORIDE 0.9% 1,000 ML IV STA (16:36)
[2021-01-27] MEDS ORDERED: ONDANSETRON 4 MG/2 ML VIAL IVP STA (16:36)
--- NOTE | 2021-01-27 16:38 | ED ---
General Adult HPI - General Chief complaint: Recheck/Abnormal Lab/Rx Stated complaint: bowel problems-sent by Jhonathan Time Seen by Provider: 01/27/21 16:04 Source: patient, RN notes reviewed Mode of arrival: ambulatory Limitations: no limitations - History of Present Illness Initial comments: Patient is a pleasant 50-year-old male presenting to the emergency department with concerns for follow-up suction. Patient has had similar symptoms 3 times previously. Patient has known ileocecal stricture. Patient was recently in the hospital and decided not to have surgery however now he believes he does want to have it done. He did speak with the surgeon who recommended he come back to the emergency department. Patient states discomfort is currently 6/10. Patient does have associated nausea. No fevers. - Related Data Home Medications Medication Instructions Recorded Confirmed azaTHIOprine [Imuran] 50 mg PO BID 03/25/20 01/15/21 clonazePAM 1 mg PO TID 03/25/20 01/15/21 lamoTRIgine [LaMICtal] 100 mg PO DAILY 03/25/20 01/15/21 Ascorbic Acid [Vitamin C] 250 mg PO DAILY 10/31/20 01/15/21 Cholecalciferol [Vitamin D3 (10 10 mcg PO DAILY 10/31/20 01/15/21 Mcg = 400 Iu)] Chromium Picolinate 200 mcg PO DAILY 10/31/20 01/15/21 FLUoxetine HCL [PROzac] 10 mg PO DAILY 10/31/20 01/15/21 Multivitamins, Thera [Multivitamin 1 tab PO DAILY 10/31/20 01/15/21 (formulary)] [place]-3 Fatty Acids/Fish Oil [Fish 1 cap PO DAILY 10/31/20 01/15/21 Oil 1,000 mg Softgel] Vitamin B Complex 1 cap PO DAILY 10/31/20 01/15/21 hydrOXYzine pamoate [Vistaril] 25 mg PO TID PRN 10/31/20 01/15/21 Aspirin EC [Ecotrin] 325 mg PO DAILY 01/15/21 01/15/21 Diphenoxylate HCl/Atropine 1 tab PO QID PRN MDD 8 tabs 01/15/21 01/15/21 [Lomotil 2.5-0.025 mg Tablet] Vitamin E 400 unit PO DAILY 01/15/21 01/15/21 Previous Rx's Medication Instructions Recorded Cyanocobalamin [Vitamin B-12] 1,000 mcg PO DAILY #60 tablet 11/03/20 Pantoprazole Sodium [Protonix] 40 mg PO BID 14 Days #28 tablet. 11/04/20 Allergies Allergy/AdvReac Type Severity Reaction Status Date / Time No Known Allergies Allergy Verified 01/27/21 14:31 Review of Systems ROS Statement: Those systems with pertinent positive or pertinent negative responses have been documented in the HPI. ROS Other: All systems not noted in ROS Statement are negative. Constitutional: Denies: fever Eyes: Denies: eye pain ENT: Denies: ear pain Respiratory: Denies: cough Cardiovascular: Denies: chest pain Endocrine: Denies: fatigue Gastrointestinal: Reports: abdominal pain, nausea Musculoskeletal: Denies: back pain Skin: Denies: rash Neurological: Denies: weakness Past Medical History Additional Past Medical History / Comment(s): Crohn's History of Any Multi-Drug Resistant Organisms: None Reported Past Surgical History: Bowel Resection Additional Past Surgical History / Comment(s): bowel resection. Past Psychological History: Anxiety, Bipolar, Depression, PTSD Smoking Status: Never smoker Past Alcohol Use History: None Reported Past Drug Use History: None Reported General Exam Limitations: no limitations General appearance: alert, in no apparent distress Head exam: Present: normocephalic Eye exam: Present: normal appearance Neck exam: Present: normal inspection Respiratory exam: Present: normal lung sounds bilaterally Cardiovascular Exam: Present: regular rate, normal rhythm GI/Abdominal exam: Present: soft, tenderness (Mild diffuse tenderness), diminished bowel sounds. Absent: distended, pulsatile mass Extremities exam: Present: normal inspection Neurological exam: Present: alert Psychiatric exam: Present: normal affect, normal mood Skin exam: Present: normal color Course Vital Signs 01/27/21 14:31 Temperature 97.7 F Pulse Rate 74 Respiratory 18 Rate Blood Pressure 121/75 O2 Sat by Pulse 99 Oximetry Medical Decision Making - Medical Decision Making Patient was updated on plan. Case was discussed with Dr. Rice who is familiar with this patient and made aware of CT results. Patient would like to move forward having surgery done. Dr. Dela Cruz is also aware of this and states patient has had multiple previous bowel obstructions like patient admitted for procedure. - Lab Data Result diagrams: 01/27/21 14:56 01/27/21 14:56 Lab Results 01/27/21 01/27/21 01/27/21 Range/Units 14:56 14:56 14:56 WBC 6.6 (3.8-10.6) k/uL RBC 5.05 (4.30-5.90) m/uL Hgb 13.2 (13.0-17.5) gm/dL Hct 42.9 (39.0-53.0) % MCV 85.0 (80.0-100.0) fL MCH 26.2 (25.0-35.0) pg MCHC 30.8 L (31.0-37.0) g/dL RDW 21.8 H (11.5-15.5) % Plt Count 334 (150-450) k/uL MPV 7.4 Neutrophils % 77 % Lymphocytes % 14 % Monocytes % 6 % Eosinophils % 1 % Basophils % 1 % Neutrophils # 5.0 (1.3-7.7) k/uL Lymphocytes # 1.0 (1.0-4.8) k/uL Monocytes # 0.4 (0-1.0) k/uL Eosinophils # 0.1 (0-0.7) k/uL Basophils # 0.0 (0-0.2) k/uL Hypochromasia Moderate Poikilocytosis Slight Anisocytosis Moderate Microcytosis Slight PT 10.4 (9.0-12.0) sec INR 1.0 (<1.2) APTT 23.3 (22.0-30.0) sec Sodium 140 (137-145) mmol/L Potassium 4.3 (3.5-5.1) mmol/L Chloride 105 (98-107) mmol/L Carbon Dioxide 26 (22-30) mmol/L Anion Gap 9 mmol/L BUN 8 L (9-20) mg/dL Creatinine 0.76 (0.66-1.25) mg/dL Est GFR (CKD-EPI)AfAm >90 (>60 ml/min/1.73 sqM) Est GFR (CKD-EPI)NonAf >90 (>60 ml/min/1.73 sqM) Glucose 100 H (74-99) mg/dL Plasma Lactic Acid Sukumar (0.7-2.0) mmol/L Calcium 10.1 (8.4-10.2) mg/dL Total Bilirubin 0.4 (0.2-1.3) mg/dL AST 20 (17-59) U/L ALT 14 (4-49) U/L Alkaline Phosphatase 57 (38-126) U/L Total Protein 7.5 (6.3-8.2) g/dL Albumin 4.7 (3.5-5.0) g/dL Amylase 52 (30-110) U/L Lipase 134 (23-300) U/L 01/27/ Range/Units 14:56 WBC (3.8-10.6) k/uL RBC (4.30-5.90) m/uL Hgb (13.0-17.5) gm/dL Hct (39.0-53.0) % MCV (80.0-100.0) fL MCH (25.0-35.0) pg MCHC (31.0-37.0) g/dL RDW (11.5-15.5) % Plt Count (150-450) k/uL MPV Neutrophils % % Lymphocytes % % Monocytes % % Eosinophils % % Basophils % % Neutrophils # (1.3-7.7) k/uL Lymphocytes # (1.0-4.8) k/uL Monocytes # (0-1.0) k/uL Eosinophils # (0-0.7) k/uL Basophils # (0-0.2) k/uL Hypochromasia Poikilocytosis Anisocytosis Microcytosis PT (9.0-12.0) sec INR (<1.2) APTT (22.0-30.0) sec Sodium (137-145) mmol/L Potassium (3.5-5.1) mmol/L Chloride (98-107) mmol/L Carbon Dioxide (22-30) mmol/L Anion Gap mmol/L BUN (9-20) mg/dL Creatinine (0.66-1.25) mg/dL Est GFR (CKD-EPI)AfAm (>60 ml/min/1.73 sqM) Est GFR (CKD-EPI)NonAf (>60 ml/min/1.73 sqM) Glucose (74-99) mg/dL Plasma Lactic Acid Sukumar 1.1 (0.7-2.0) mmol/L Calcium (8.4-10.2) mg/dL Total Bilirubin (0.2-1.3) mg/dL AST (17-59) U/L ALT (4-49) U/L Alkaline Phosphatase (38-126) U/L Total Protein (6.3-8.2) g/dL Albumin (3.5-5.0) g/dL Amylase (30-110) U/L Lipase (23-300) U/L - Radiology Data Radiology results: report reviewed (Ct scan does not show evidence of acute bowel obstruction) Disposition Clinical Impression: Abdominal pain Disposition: ADMITTED IP TO THIS HOSP Is patient prescribed a controlled substance at d/c from ED?: No Referrals: John Cevallos DO [Primary Care Provider] - 1-2 days Decision Time: 17:15
[2021-01-27] MEDS ORDERED: LIDOCAINE 1% (10MG/ML) FOR IV START INTRADERMA PRN (16:44)
--- NOTE | 2021-01-27 16:48 | CT ---
EXAMINATION TYPE: CT abdomen pelvis w con DATE OF EXAM: 01/27/2021 COMPARISON: 01/15/2021 INDICATION: generalized abdominal pain, history of recent bowel blockage DLP: 1588.2 mGycm, Automated exposure control for dose reduction was used. CONTRAST: 100 mL of Isovue 300. Study performed with Oral Contrast TECHNIQUE: Axial images were obtained from above the diaphragm to the pubic rami in the axial plane a t 5 mm thick sections. Reconstructed images are reviewed on the computer in the coronal plane. FINDINGS: Limited CT sections are obtained the lung bases. The lung bases are clear. CT ABDOMEN: Liver: Normal Spleen: Normal Pancreas: Normal Adrenal glands: The adrenal glands are normal. Gallbladder: Normal Kidneys: No masses are evident. No hydronephrosis is present. No cysts are present. Delayed images were obtained through the kidneys, which remain unremarkable. Aorta: Vascular calcification is within the aorta. Inferior vena cava: Normal. CT PELVIS: Loops of bowel within the abdomen and pelvis are normal. Terminal ileum appears somewhat prominent. N o adjacent inflammatory change evident. There are loops of bowel which are incompletely distended or lack oral contrast limiting their evaluation. Appendix: Normal as visualized Urinary bladder: Normal. Genitourinary structures: Prostate appears normal Osseous structures: No suspicious lytic or sclerotic lesions. IMPRESSIONS: 1. No suspicious changes to suggest bowel obstruction. Oral contrast extends to the distal transvers e colon.
[2021-01-27] MEDS: ONDANSETRON 4 MG/2 ML VIAL IVP ONE (16:57)
[2021-01-27] MEDS: DEXAMETHASONE SOD PHOSPHATE 4 MG/ML 1 ML VIAL IV ONE (16:59)
[2021-01-27] MEDS ORDERED: NALOXONE 0.4 MG/ML 1 ML VIAL IV PRN (17:15)
[2021-01-27] MEDS: LACTATED RINGERS 1,000 ML IV SCH (17:50)
[2021-01-27] MEDS: SODIUM CHLORIDE 0.9% 1,000 ML IV SCH (20:41)
[2021-01-27] MEDS: HYDROmorphone 1 MG/ML 1 ML SYRINGE IVP PRN ×2 (20:42→23:45)
[2021-01-28] MEDS: SODIUM CHLORIDE 0.9% 1,000 ML IV SCH ×3 (03:45→21:13)
[2021-01-28] MEDS: HYDROmorphone 1 MG/ML 1 ML SYRINGE IVP PRN ×2 (03:46→07:11)
[2021-01-28] MEDS: ONDANSETRON 4 MG/2 ML VIAL IVP PRN (03:54)
[2021-01-28] MEDS ORDERED: HYDROmorphone 0.5 MG/0.5 ML SYRINGE IVP PRN ×2 (07:00→07:26)
[2021-01-28] MEDS: PANTOPRAZOLE 40 MG/10 ML VIAL IV SCH (07:13)
[2021-01-28] MEDS ORDERED: DEXAMETHASONE SOD PHOSPHATE 4 MG/ML 1 ML VIAL IV ONE (07:26)
[2021-01-28] MEDS ORDERED: LACTATED RINGERS 1,000 ML IV SCH (07:26)
[2021-01-28] MEDS ORDERED: ONDANSETRON 4 MG/2 ML VIAL IVP ONE (07:26)
[2021-01-28] MEDS ORDERED: LIDOCAINE 1% (10MG/ML) FOR IV START INTRADERMA PRN (07:26)
--- NOTE | 2021-01-28 09:46 | P.GSHP ---
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 Patient was just recently hospitalized earlier in January for small bowel obstruction. Patient initially scheduled to have surgery at [facility] tomorrow. However, his surgery date is postponed again. Patient chronically has been doing with this right l ower quadrant abdominal pain. He reports that it's painful to have bowel movements. He is no longer having the blood in his stools. He denies any nausea or vomiting. CAT scan of the abdomen shows no evidence of bowel obstruction at this time. Patient presents to the hospital for surgical interv ention. Denies any fever chills or sweats. 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 ALLERGIES: See list. SOCIAL HISTORY: No illicit drug use. REVIEW OF SYSTEMS: CONSTITUTIONAL: Denies fever or chills. HEENT: Denies blurred vision, vision changes, or eye pain. Denies hemoptysis CARDIOVASCULAR: Denies chest pain or pressure. RESPIRATORY: No shortness of breath. GASTROINTESTINAL: See HPI for pertinent findings HEMATOLOGIC: Denies bleeding disorders. GENITOURINARY: Denies any blood in urine or increased urinary frequency. SKIN: Denies pruitis. Denies rash. PHYSICAL EXAM: VITAL SIGNS: Reviewed GENERAL: Well-developed in no acute distress. HEENT: No sclera icterus. Extraocular movements grossly intact. Moist buccal mucosa. Head is atraumatic, normocephalic. No nasal drainage. ABDOMEN: Soft. Nondistended. Right lower quadrant tenderness NEUROLOGIC: Alert and oriented. Cranial nerves II through XII grossly intact. LABORATORY DATA: WBC 6.6 hemoglobin 13.2 platelets 334 Sodium 140 potassium 4.3 BUN 8 creatinine 0.76 Lactic 1.1 IMAGING: Computed tomography scan no suspicious changes suggest bowel obstruction. Oral contrast extends to the distal transverse colon. ASSESSMENT: 1. Ilealocecal valve stricture with history of recurrent small bowel obstruction PLAN: -Patient scheduled for exploratory laparotomy today with Dr. callaway -Keep patient nothing by mouth -Continue IV fluids -Continue pain medication as needed Physician Voice Over Artist note has been reviewed by physician. Signing provider agrees with the documented findings, assessment, and plan of care. Past Medical History Additional Past Medical History / Comment(s): Crohn's History of Any Multi-Drug Resistant Organisms: None Reported Past Surgical History: Bowel Resection Additional Past Surgical History / Comment(s): bowel resection. Past Anesthesia/Blood Transfusion Reactions: No Reported Reaction Past Psychological History: Anxiety, Bipolar, Depression, PTSD Smoking Status: Never smoker Past Alcohol Use History: None Reported Past Drug Use History: None Reported Medications and Allergies Home Medications Medication Instructions Recorded Confirmed Type azaTHIOprine [Imuran] 50 mg PO BID 03/25/20 01/27/21 History clonazePAM 1 mg PO TID 03/25/20 01/27/21 History lamoTRIgine [LaMICtal] 100 mg PO DAILY 03/25/20 01/27/21 History Ascorbic Acid [Vitamin C] 250 mg PO DAILY 10/31/20 01/27/21 History Cholecalciferol [Vitamin D3 (10 10 mcg PO DAILY 10/31/20 01/27/21 History Mcg = 400 Iu)] Chromium Picolinate 200 mcg PO DAILY 10/31/20 01/27/21 History FLUoxetine HCL [PROzac] 10 mg PO DAILY 10/31/20 01/27/21 History Multivitamins, Thera [Multivitamin 1 tab PO DAILY 10/31/20 01/27/21 History (formulary)] [place]-3 Fatty Acids/Fish Oil [Fish 1 cap PO DAILY 10/31/20 01/27/21 History Oil 1,000 mg Softgel] Vitamin B Complex 1 cap PO DAILY 10/31/20 01/27/21 History hydrOXYzine pamoate [Vistaril] 25 mg PO TID PRN 10/31/20 01/27/21 History Cyanocobalamin [Vitamin B-12] 1,000 mcg PO DAILY #60 tablet 11/03/20 01/27/21 Rx Pantoprazole Sodium [Protonix] 40 mg PO BID 14 Days #28 tablet.dr 11/04/20 01/27/21 Rx Aspirin EC [Ecotrin] 325 mg PO DAILY 01/15/21 01/27/21 History Diphenoxylate HCl/Atropine 1 tab PO QID PRN MDD 8 tabs 01/15/21 01/27/21 History [Lomotil 2.5-0.025 mg Tablet] Vitamin E 400 unit PO DAILY 01/15/21 01/27/21 History Acetaminophen Tab [Tylenol Tab] 500 mg PO Q6H PRN 01/27/21 01/27/21 History Dicyclomine HCl 20 mg PO TID PRN 01/27/21 01/27/21 History Ondansetron [Zofran] 4 mg PO QID PRN 01/27/21 01/27/21 History Sucralfate [Carafate] 1 gm PO ACHS PRN 01/27/21 01/27/21 History Allergies Allergy/AdvReac Type Severity Reaction Status Date / Time No Known Allergies Allergy Verified 01/27/21 18:42 Surgical - Exam Vital Signs Temp Pulse Resp BP Pulse Ox 97.7 F 74 18 121/75 99 01/27/21 14:31 01/27/21 14:31 01/27/21 14:31 01/27/21 14:31 01/27/21 14:31 Results - Labs 01/27/21 14:56 01/27/21 14:56 Abnormal Lab Results - Last 24 Hours (Table) 01/27/21 01/27/21 Range/Units 14:56 14:56 MCHC 30.8 L (31.0-37.0) g/dL RDW 21.8 H (11.5-15.5) % BUN 8 L (9-20) mg/dL Glucose 100 H (74-99) mg/dL Diabetes panel 01/27/21 Range/Units 14:56 Sodium 140 (137-145) mmol/L Potassium 4.3 (3.5-5.1) mmol/L Chloride 105 (98-107) mmol/L Carbon Dioxide 26 (22-30) mmol/L BUN 8 L (9-20) mg/dL Creatinine 0.76 (0.66-1.25) mg/dL Glucose 100 H (74-99) mg/dL Calcium 10.1 (8.4-10.2) mg/dL AST 20 (17-59) U/L ALT 14 (4-49) U/L Alkaline Phosphatase 57 (38-126) U/L Total Protein 7.5 (6.3-8.2) g/dL Albumin 4.7 (3.5-5.0) g/dL Calcium panel 01/27/21 Range/Units 14:56 Calcium 10.1 (8.4-10.2) mg/dL Albumin 4.7 (3.5-5.0) g/dL Pituitary panel 01/27/21 Range/Units 14:56 Sodium 140 (137-145) mmol/L Potassium 4.3 (3.5-5.1) mmol/L Chloride 105 (98-107) mmol/L Carbon Dioxide 26 (22-30) mmol/L BUN 8 L (9-20) mg/dL Creatinine 0.76 (0.66-1.25) mg/dL Glucose 100 H (74-99) mg/dL Calcium 10.1 (8.4-10.2) mg/dL Adrenal panel 01/27/21 Range/Units 14:56 Sodium 140 (137-145) mmol/L Potassium 4.3 (3.5-5.1) mmol/L Chloride 105 (98-107) mmol/L Carbon Dioxide 26 (22-30) mmol/L BUN 8 L (9-20) mg/dL Creatinine 0.76 (0.66-1.25) mg/dL Glucose 100 H (74-99) mg/dL Calcium 10.1 (8.4-10.2) mg/dL Total Bilirubin 0.4 (0.2-1.3) mg/dL AST 20 (17-59) U/L ALT 14 (4-49) U/L Alkaline Phosphatase 57 (38-126) U/L Total Protein 7.5 (6.3-8.2) g/dL Albumin 4.7 (3.5-5.0) g/dL <Vel Callaway - Last Filed: 01/28/21 11:15> History of Present Illness The patient has had persistent problems of abdominal pain cramping nausea and some vomiting. Patient will undergo exploratory laparotomy with resection of ileocolonic anastomosis due to stricture. He also has an incisional hernia which will be repaired incidentally Surgical - Exam Vital Signs Temp Pulse Resp BP Pulse Ox 97.7 F 74 18 121/75 99 01/27/21 14:31 01/27/21 14:31 01/27/21 14:31 01/27/21 14:31 01/27/21 14:31 Results - Labs 01/27/21 14:56 01/27/21 14:56 Abnormal Lab Results - Last 24 Hours (Table) 01/27/21 01/27/21 Range/Units 14:56 14:56 MCHC 30.8 L (31.0-37.0) g/dL RDW 21.8 H (11.5-15.5) % BUN 8 L (9-20) mg/dL Glucose 100 H (74-99) mg/dL Diabetes panel 01/27/21 Range/Units 14:56 Sodium 140 (137-145) mmol/L Potassium 4.3 (3.5-5.1) mmol/L Chloride 105 (98-107) mmol/L Carbon Dioxide 26 (22-30) mmol/L BUN 8 L (9-20) mg/dL Creatinine 0.76 (0.66-1.25) mg/dL Glucose 100 H (74-99) mg/dL Calcium 10.1 (8.4-10.2) mg/dL AST 20 (17-59) U/L ALT 14 (4-49) U/L Alkaline Phosphatase 57 (38-126) U/L Total Protein 7.5 (6.3-8.2) g/dL Albumin 4.7 (3.5-5.0) g/dL Calcium panel 01/27/21 Range/Units 14:56 Calcium 10.1 (8.4-10.2) mg/dL Albumin 4.7 (3.5-5.0) g/dL Pituitary panel 01/27/21 Range/Units 14:56 Sodium 140 (137-145) mmol/L Potassium 4.3 (3.5-5.1) mmol/L Chloride 105 (98-107) mmol/L Carbon Dioxide 26 (22-30) mmol/L BUN 8 L (9-20) mg/dL Creatinine 0.76 (0.66-1.25) mg/dL Glucose 100 H (74-99) mg/dL Calcium 10.1 (8.4-10.2) mg/dL Adrenal panel 01/27/21 Range/Units 14:56 Sodium 140 (137-145) mmol/L Potassium 4.3 (3.5-5.1) mmol/L Chloride 105 (98-107) mmol/L Carbon Dioxide 26 (22-30) mmol/L BUN 8 L (9-20) mg/dL Creatinine 0.76 (0.66-1.25) mg/dL Glucose 100 H (74-99) mg/dL Calcium 10.1 (8.4-10.2) mg/dL Total Bilirubin 0.4 (0.2-1.3) mg/dL AST 20 (17-59) U/L ALT 14 (4-49) U/L Alkaline Phosphatase 57 (38-126) U/L Total Protein 7.5 (6.3-8.2) g/dL Albumin 4.7 (3.5-5.0) g/dL
[2021-01-28] MEDS ORDERED: HEPARIN SODIUM,PORCINE/PF 5,000 UNIT/0.5 ML SYRINGE SQ ONE (09:53)
[2021-01-28] MEDS ORDERED: IV FLUID CONTINUATION 1,000 ML IV ONE (10:01)
[2021-01-28 10:23] LABS: Glucose,Whole Blood 80 mg/dL (75-99)
[2021-01-28] MEDS: ONDANSETRON 4 MG/2 ML VIAL IVP ONE (10:25)
[2021-01-28] MEDS: DEXAMETHASONE SOD PHOSPHATE 4 MG/ML 1 ML VIAL IV ONE (10:25)
[2021-01-28] MEDS ORDERED: HYDROCORTISONE SUCCINATE 100 MG/2 ML VIAL IVP ONE (10:58)
[2021-01-28] MEDS ORDERED: MIDAZOLAM 2 MG/2 ML VIAL IVP ONE ×3 (11:14→14:17)
[2021-01-28] MEDS: LACTATED RINGERS 1,000 ML IV SCH ×2 (11:35→11:51)
[2021-01-28] MEDS ORDERED: GLYCOPYRROLATE 0.2 MG/ML 2 ML VIAL ONE (11:49)
[2021-01-28] MEDS ORDERED: HEPARIN SODIUM,PORCINE 5,000 UNIT/ML 1 ML VIAL ONE (11:49)
[2021-01-28] MEDS ORDERED: PROPOFOL 10 MG/ML 20 ML VIAL IV ONE (11:49)
[2021-01-28] MEDS ORDERED: MIDAZOLAM 2 MG/2 ML VIAL ONE (11:49)
[2021-01-28] MEDS ORDERED: LIDOCAINE 1% INJ 10MG/ML (20 ML MDV) ONE (11:49)
[2021-01-28] MEDS ORDERED: SUCCINYLCHOLINE CHLORIDE 100 MG/5 ML SYR IV ONE (11:49)
[2021-01-28] MEDS ORDERED: ROCURONIUM 10 MG/ML (5 ML VIAL) IV ONE (11:49)
[2021-01-28] MEDS ORDERED: fentaNYL (PF) 50 MCG/ML 2 ML AMP ONE (11:49)
[2021-01-28] MEDS ORDERED: NEOSTIGMINE 1 MG/ML 10 ML VIAL ONE (11:49)
[2021-01-28] MEDS ORDERED: ePHEDrine 50 MG/ML 1 ML AMP ONE (11:49)
[2021-01-28] MEDS ORDERED: NALOXONE 0.4 MG/ML 1 ML VIAL IV PRN (12:15)
[2021-01-28] MEDS ORDERED: SODIUM CHLORIDE 0.9% 100 ML with ceFAZolin 2,000 MG IV ONE ×2 (12:16)
--- NOTE | 2021-01-28 12:18 | P.ANPRN ---
Procedure Note - Anesthesia - Epidural/Spinal Epidural Continuous Time Out Performed: Yes Date of Procedure: 01/28/21 Procedure Start Time: 11:13 Procedure Stop Time: 11:20 Location of Patient: PreOp Indication: Acute Post-Operative Pain Sedation Type: Sedate with meaningful contact maintained Preparation: Sterile Dressing Position: Sitting Catheter: Indwelling Needle Guage: 18 Blood Aspirated: No Pain Paresthesia on Injection Noted: No Events: Uneventful and Well Tolerated (test dose xylo with epi 3cc given no adverse effects)
[2021-01-28] MEDS ORDERED: ROPIVACAINE 250 MG, HYDROMORPHONE (PF) 5 MG in SODIUM CHLORIDE 0.9% 200 ML EPIDURAL PRN (13:00)
[2021-01-28] MEDS ORDERED: METOCLOPRAMIDE 5 MG/ML 2 ML VIAL IVP PRN (13:11)
[2021-01-28] MEDS ORDERED: ONDANSETRON 4 MG/2 ML VIAL IVP PRN (13:11)
[2021-01-28] MEDS ORDERED: BENZOCAINE/MENTHOL LOZENG 1 EACH LOZENGE MUCOUS MEM PRN (13:11)
--- NOTE | 2021-01-28 13:14 | P.OP ---
Date of Procedure: 01/28/21 Preoperative Diagnosis: Small bowel obstruction due to ileocolonic anastomosis stricture Postoperative Diagnosis: Same Procedure(s) Performed: Right colectomy Omentectomy Repair of incisional hernia Lysis of adhesions Anesthesia: GUMARO Surgeon: Vel Dela Cruz Estimated Blood Loss (ml): 50 Pathology: other (Colon, small bowel) Condition: stable Disposition: PACU
[2021-01-28] MEDS ORDERED: LACTATED RINGERS 1,000 ML IV ONE ×2 (13:31)
[2021-01-28 13:34] VITALS: BMI 30.5
[2021-01-28] MEDS ORDERED: fentaNYL (PF) 50 MCG/ML 2 ML AMP MISCELLANE ONE (13:56)
[2021-01-29] MEDS: SODIUM CHLORIDE 0.9% 1,000 ML IV SCH ×4 (04:15→20:00)
[2021-01-29] MEDS: HYDROmorphone 1 MG/ML 1 ML SYRINGE IVP PRN ×6 (05:12→21:05)
[2021-01-29 06:22] LABS: Anisocytosis Moderate; Basophils % (A) 0 %; Eosinophils % (A) 0 %; HGB 10.8 gm/dL (13.0-17.5); Hypochromasia Marked; Lymphocytes # (A) 1.2 k/uL (1.0-4.8); Lymphocytes % (A) 13 %; MCH 26.7 pg (25.0-35.0); MCHC 29.9 g/dL (31.0-37.0); MCV 89.1 fL (80.0-100.0); Mean Platelet Volume 7.9; Microcytosis Slight; Monocytes # (A) 0.7 k/uL (0-1.0); Monocytes % (A) 8 %; Neutrophils # (A) 7.1 k/uL (1.3-7.7); Neutrophils % (A) 78 %; Platelet Count 267 k/uL (150-450); RBC 4.04 m/uL (4.30-5.90); RDW 21.8 % (11.5-15.5); WBC 9.1 k/uL (3.8-10.6)
[2021-01-29] MEDS: PANTOPRAZOLE 40 MG/10 ML VIAL IV SCH (07:57)
[2021-01-29] MEDS: ONDANSETRON 4 MG/2 ML VIAL IVP PRN ×2 (08:33→18:05)
[2021-01-29 09:42] LABS: African American GFR (CKD) 119.9 (60.0-200.0); Anion Gap 10.1 mmol/L (4.00-12.00); BUN/Creat Ratio 11.88 Ratio (12.00-20.00); Blood Urea Nitrogen 9.5 mg/dL (9.0-27.0); Calcium 8.7 mg/dL (8.7-10.3); Carbon Dioxide 23.9 mmol/L (21.6-31.8); Non-African American GFR(CKD) 103.4 (60.0-200.0); Potassium 4.1 mmol/L (3.5-5.5)
[2021-01-29] MEDS: clonazePAM 1 MG TAB PO SCH ×3 (10:08→21:05)
[2021-01-29] MEDS: KETOROLAC 15 MG/ML 1 ML VIAL IVP SCH ×3 (10:08→23:14)
[2021-01-29] MEDS: FLUoxetine HCL 10 MG CAP PO SCH (10:08)
[2021-01-29] MEDS: lamoTRIgine 100 MG TAB PO SCH (10:11)
--- NOTE | 2021-01-29 11:55 | P.PN ---
Subjective Progress Note Date: 01/29/21 CHIEF COMPLAINT: Small bowel obstruction due to ileocolonic anastomosis stricture HISTORY OF PRESENT ILLNESS: Patient is status post right colectomy, omentectomy, repair of incisional hernia and lysis of adhesions. Postop day #1. Per nursing staff patient pulled out his epidural. He had some confusion during the night. Currently he is sitting at bedside chair. He reports that the Dilaudid does not last long enough. He has been having some nausea. No vomiting. No flatus or BM. Afebrile. WBC is 9.1 hemoglobin is down from 13-10.8. Creatinine 0.8 PHYSICAL EXAM: VITAL SIGNS: Reviewed. GENERAL: Well-developed in no acute distress. HEENT: No sclera icterus. Extraocular movements grossly intact. Moist buccal mucosa. Head is atraumatic, normocephalic. ABDOMEN: Soft. Distended. In's incisional dressing does have blood saturation NEUROLOGIC: Alert and oriented. Cranial nerves II through XII grossly intact. ASSESSMENT: 1. Small bowel obstruction due to ileocolonic anastomosis stricture status post right colectomy, omentectomy, repair of incisional hernia and lysis of adhesions PLAN: -Continue clear liquid diet. Patient educated to go slowly with diet -Continue IV Dilaudid when necessary for pain control. -Add IV Toradol to help with pain control -Encouraged patient to increase activity -Encouraged patient to use incentive spirometer -Resume home psychiatric medication -Medical service consults for medical management -Nursing staff to change incisional dressing -GI prophylaxis Protonix and DVT prophylaxis subcu heparin Physician Rotor Casting Machine Setup Operator note has been reviewed by physician. Signing provider agrees with the documented findings, assessment, and plan of care. Objective - Vital Signs Vital signs: Vital Signs Temp 98.1 F 01/29/21 04:30 Pulse 76 01/29/21 04:30 Resp 16 01/29/21 04:30 BP 102/62 01/29/21 04:30 Pulse Ox 98 01/29/21 04:30 Intake & Output 01/28/21 01/29/21 01/29/21 18:59 06:59 18:59 Intake Total 1657 1420 Output Total 625 900 Balance 1032 520 Weight 99.337 kg Intake: IV 1657 Intake, IV Titration 1420 Amount Ropivacaine 250 mg 120 Hydromorphone (Pf) 5 mg In Sodium Chloride 0.9% 200 ml @ Per Protocol EPIDURAL .Q0M PRN Rx#: [id number] Sodium Chloride 0.9% 1, 1300 000 ml @ 130 mls/hr IV . Q7H42M [facility] Rx#:[id number] Output: Urine 475 900 Uretheral ([place]iera) 900 Estimated Blood Loss 150 Other: Voiding Method Indwelling Catheter Indwelling Catheter - Labs CBC & Chem 7: 01/29/21 05:36 01/29/21 05:36 Labs: Abnormal Lab Results - Last 24 Hours (Table) 01/29/21 01/29/21 Range/Units 05:36 05:36 RBC 4.04 L (4.30-5.90) m/uL Hgb 10.8 L (13.0-17.5) gm/dL Hct 36.0 L (39.0-53.0) % MCHC 29.9 L (31.0-37.0) g/dL RDW 21.8 H (11.5-15.5) % BUN/Creatinine Ratio 11.88 L (12.00-20.00) Ratio
--- NOTE | 2021-01-29 15:40 | P.CONS ---
History of Present Illness - Reason for Consult Consult date: 01/29/21 Medical management - Chief Complaint Right colectomy, omentectomy, repair of incisional hernia with lysis of adh - History of Present Illness This is a 50-year-old male who was recently admitted under surgical services and presented to the ER with continued abdominal pain and concern for possible bowel obstruction. CT of the abdomen is showing no suspicious changes to suggest bowel obstruction. Patient was recently admitted with this and ultimately transferred to [place] for further surgical evaluation as he was scheduled on 01/29/2021. Reportedly patient left [place] AGAINST MEDICAL ADVICE as he felt his pain was not being managed properly and also opted to not have surgery. Patient continued with abdominal discomfort and was instructed to report to the ER for further evaluation. She does have an extensive past medical history of Crohn's disease along with known ileocecal stricture and per patient has had multiple bowel surgeries. Patient was admitted to surgery and underwent right colectomy, omentectomy, repair of incisional hernia, and lysis of adhesions with Dr. Dela Cruz. We are consulted for medical management. Review of Systems Constitutional: Denies chills, Denies fever Ears, nose, mouth and throat: Denies headache, Denies sore throat Cardiovascular: Denies chest pain, Denies shortness of breath Respiratory: Reports dyspnea Gastrointestinal: Reports abdominal pain, Reports bloating, Reports nausea, Reports vomiting Musculoskeletal: Denies myalgias Integumentary: Denies pruritus, Denies rash Neurological: Denies numbness, Denies weakness Psychiatric: Denies anxiety, Denies depression Endocrine: Denies fatigue, Denies weight change Past Medical History Additional Past Medical History / Comment(s): Crohn's History of Any Multi-Drug Resistant Organisms: None Reported Past Surgical History: Bowel Resection Additional Past Surgical History / Comment(s): bowel resection. Past Anesthesia/Blood Transfusion Reactions: No Reported Reaction Past Psychological History: Anxiety, Bipolar, Depression, PTSD Smoking Status: Never smoker Past Alcohol Use History: None Reported Past Drug Use History: None Reported Medications and Allergies Home Medications Medication Instructions Recorded Confirmed Type azaTHIOprine [Imuran] 50 mg PO BID 03/25/20 01/27/21 History clonazePAM 1 mg PO TID 03/25/20 01/27/21 History lamoTRIgine [LaMICtal] 100 mg PO DAILY 03/25/20 01/27/21 History Ascorbic Acid [Vitamin C] 250 mg PO DAILY 10/31/20 01/27/21 History Cholecalciferol [Vitamin D3 (10 10 mcg PO DAILY 10/31/20 01/27/21 History Mcg = 400 Iu)] Chromium Picolinate 200 mcg PO DAILY 10/31/20 01/27/21 History FLUoxetine HCL [PROzac] 10 mg PO DAILY 10/31/20 01/27/21 History Multivitamins, Thera [Multivitamin 1 tab PO DAILY 10/31/20 01/27/21 History (formulary)] [place]-3 Fatty Acids/Fish Oil [Fish 1 cap PO DAILY 10/31/20 01/27/21 History Oil 1,000 mg Softgel] Vitamin B Complex 1 cap PO DAILY 10/31/20 01/27/21 History hydrOXYzine pamoate [Vistaril] 25 mg PO TID PRN 10/31/20 01/27/21 History Cyanocobalamin [Vitamin B-12] 1,000 mcg PO DAILY #60 tablet 11/03/20 01/27/21 Rx Pantoprazole Sodium [Protonix] 40 mg PO BID 14 Days #28 tablet. 11/04/20 01/27/21 Rx Aspirin EC [Ecotrin] 325 mg PO DAILY 01/15/21 01/27/21 History Diphenoxylate HCl/Atropine 1 tab PO QID PRN MDD 8 tabs 01/15/21 01/27/21 History [Lomotil 2.5-0.025 mg Tablet] Vitamin E 400 unit PO DAILY 01/15/21 01/27/21 History Acetaminophen Tab [Tylenol Tab] 500 mg PO Q6H PRN 01/27/21 01/27/21 History Dicyclomine HCl 20 mg PO TID PRN 01/27/21 01/27/21 History Ondansetron [Zofran] 4 mg PO QID PRN 01/27/21 01/27/21 History Sucralfate [Carafate] 1 gm PO ACHS PRN 01/27/21 01/27/21 History Allergies Allergy/AdvReac Type Severity Reaction Status Date / Time No Known Allergies Allergy Verified 01/27/21 18:42 Physical Exam Vitals: Vital Signs Temp Pulse Pulse Resp BP Pulse Ox 01/29/21 04:30 98.1 F 76 16 102/62 98 01/28/21 20:18 98.5 F 101 H 16 115/71 97 01/28/21 19:03 100 16 01/28/21 15:47 98.1 F 78 18 147/74 96 01/28/21 15:00 74 16 126/68 99 01/28/21 14:45 75 16 124/73 99 01/28/21 14:30 78 18 123/77 100 01/28/21 14:11 79 18 128/65 100 01/28/21 13:56 72 20 156/84 100 01/28/21 13:41 70 20 152/66 100 01/28/21 13:26 97.2 F L 66 18 170/87 100 01/28/21 11:36 65 18 132/71 99 Intake and Output 01/28/21 01/29/21 01/29/21 22:59 06:59 14:59 Intake Total 1420 Output Total 275 900 Balance -275 520 Intake: Intake, IV Titration 1420 Amount Ropivacaine 250 mg 120 Hydromorphone (Pf) 5 mg In Sodium Chloride 0.9% 200 ml @ Per Protocol EPIDURAL .Q0M PRN Rx#: [id number] Sodium Chloride 0.9% 1, 1300 000 ml @ 130 mls/hr IV . Q7H42M [facility] Rx#:[id number] Output: Urine 275 900 Uretheral ([place]iera) 900 Other: Voiding Method Indwelling Catheter Indwelling Catheter Weight 99.337 kg Gen: This is a 50 year old male, awake, alert and oriented x3. sitting up in the chair HEENT: Head is atraumatic, normocephalic. Pupils equal, round. Sclerae is anicte rayne. NECK: Supple. No JVD. No lymphadenopathy. No thyromegaly. LUNGS: Clear to auscultation. No wheezes or rhonchi. No intercostal retractions. HEART: Regular rate and rhythm. No murmur. ABDOMEN: Soft. extremely tender on palpation. surgical site is currently covered with surgical dressing EXTREMITIES: No pedal edema. No calf tenderness. NEUROLOGICAL: Patient is awake, alert and oriented x3. Cranial nerves 2 through 12 are grossly intact. Results Results: abdominal pain status post right colectomy, omentectomy, repair of incisional hernia, and lysis of adhesions Crohns disease History of ileocolonic anastomosis stricture History of anxiety/depression, bipolar, PTSD GI prophylaxis DVT prophylaxis Full code Plan: Recommend to continue with current medications. Apparently patient had some agitation and confusion after the surgery yesterday on the epidural pain pump was compromised and discontinued by anesthesia and patient quite upset. Patient continues to request IV pain medications and asking for it to be more frequently and a higher dosage. Pain management per primary service. Toradol added for pain. Patient is continued on clear liquids with no reports of passing flatus or bowel movements. Patient having some mild nausea and will continue Zofran. Patient also takes antidepressants and will resume and consider oral narcotics once less nauseated and passing gas with bowel activity. CBC and BMP within normal limits and will repeat labs and continue to monitor closely along with surgery. Thank you for this consultation. CBC & Chem 7: 01/29/21 05:36 01/29/21 05:36 Labs: Abnormal Lab Results - Last 24 Hours (Table) 01/29/21 01/29/21 Range/Units 05:36 05:36 RBC 4.04 L (4.30-5.90) m/uL Hgb 10.8 L (13.0-17.5) gm/dL Hct 36.0 L (39.0-53.0) % MCHC 29.9 L (31.0-37.0) g/dL RDW 21.8 H (11.5-15.5) % BUN/Creatinine Ratio 11.88 L (12.00-20.00) Ratio
[2021-01-29] MEDS: HEPARIN SODIUM,PORCINE/PF 5,000 UNIT/0.5 ML SYRINGE SQ SCH (21:07)
[2021-01-30] MEDS: HYDROmorphone 1 MG/ML 1 ML SYRINGE IVP PRN ×8 (00:14→22:19)
[2021-01-30] MEDS: ONDANSETRON 4 MG/2 ML VIAL IVP PRN ×3 (03:09→21:15)
[2021-01-30] MEDS: SODIUM CHLORIDE 0.9% 1,000 ML IV SCH ×3 (05:04→19:02)
[2021-01-30] MEDS: KETOROLAC 15 MG/ML 1 ML VIAL IVP SCH ×4 (05:04→23:31)
[2021-01-30] MEDS: lamoTRIgine 100 MG TAB PO SCH (08:10)
[2021-01-30] MEDS: FLUoxetine HCL 10 MG CAP PO SCH (08:13)
[2021-01-30] MEDS: clonazePAM 1 MG TAB PO SCH ×3 (08:14→21:10)
[2021-01-30] MEDS: PANTOPRAZOLE 40 MG/10 ML VIAL IV SCH (08:46)
[2021-01-30] MEDS: HEPARIN SODIUM,PORCINE/PF 5,000 UNIT/0.5 ML SYRINGE SQ SCH ×3 (08:46→21:10)
[2021-01-30 09:04] LABS: Anisocytosis Moderate; Basophils % (A) 1 %; Eosinophils # (A) 0.2 k/uL (0-0.7); Eosinophils % (A) 3 %; HCT 35.4 % (39.0-53.0); HGB 10.5 gm/dL (13.0-17.5); Hypochromasia Marked; Lymphocytes % (A) 14 %; MCH 26.5 pg (25.0-35.0); MCHC 29.5 g/dL (31.0-37.0); MCV 89.8 fL (80.0-100.0); Mean Platelet Volume 7.7; Microcytosis Slight; Monocytes # (A) 0.5 k/uL (0-1.0); Monocytes % (A) 8 %; Neutrophils # (A) 4.9 k/uL (1.3-7.7); Neutrophils % (A) 74 %; Platelet Count 211 k/uL (150-450); RBC 3.94 m/uL (4.30-5.90); RDW 21.2 % (11.5-15.5); WBC 6.7 k/uL (3.8-10.6)
--- NOTE | 2021-01-30 12:38 | P.PN ---
Subjective Progress Note Date: 01/30/21 - Reason for Consult Consult date: 01/29/21 Medical management - Chief Complaint Right colectomy, omentectomy, repair of incisional hernia with lysis of adh - History of Present Illness This is a 50-year-old male who was recently admitted under surgical services and presented to the ER with continued abdominal pain and concern for possible bowel obstruction. CT of the abdomen is showing no suspicious changes to suggest bowel obstruction. Patient was recently admitted with this and ultimately transferred to [place] for further surgical evaluation as he was scheduled on 01/29/2021. Reportedly patient left [place] AGAINST MEDICAL ADVICE as he felt his pain was not being managed properly and also opted to not have surgery. Patient continued with abdominal discomfort and was instructed to report to the ER for further evaluation. She does have an extensive past medical history of Crohn's disease along with known ileocecal stricture and per patient has had multiple bowel surgeries. Patient was admitted to surgery and underwent right colectomy, omentectomy, repair of incisional hernia, and lysis of adhesions with Dr. Dela Cruz. We are consulted for medical management. 01/30/2021 Patient is seen and evaluated and follow-up this morning currently walking the halls and appears to be in no acute distress. Patient continues on clear liquids as he denies passing gas or having bowel movements as of yet. Patient reports to rumbling in the abdomen this morning. No further reports of nausea or vomiting noted. Denies chest pain or shortness of breath. Patient is afebrile. Labs: White blood count is 6.7, hemoglobin is 10.5, platelets are 211 Review of systems: Constitutional: No reports of fatigue, fever, or chills Cardiovascular: No reports of chest pain or palpitations Respiratory: No reports of shortness of breath or cough GI: No reports of nausea, vomiting, no reports of passing gas or bowel movements as of yet and continues with some abdominal tenderness : No reports of dysuria or retention Neurovascular: No reports of weakness or numbness All medications have been reviewed Active Medications Benzocaine/Menthol (Benzocaine/Menthol Lozeng 1 Each Lozenge) 1 each MUCOUS MEM Q1HR PRN PRN Reason: Sore Throat Clonazepam (Clonazepam 1 Mg Tab) 1 mg PO TID [facility] Last Admin: 01/30/21 08:14 Dose: 1 mg Documented by: Fluoxetine HCl (Fluoxetine Hcl 10 Mg Cap) 10 mg PO DAILY [facility] Last Admin: 01/30/21 08:13 Dose: 10 mg Documented by: Heparin Sodium (Porcine) (Heparin Sodium,Porcine/Pf 5,000 Unit/0.5 Ml Syringe) 5,000 unit SQ Q12HR [facility] Last Admin: 01/30/21 08:50 Dose: Not Given Documented by: Hydromorphone HCl (Hydromorphone 0.5 Mg/0.5 Ml Syringe) 0.5 mg IVP Q3HR PRN PRN Reason: Moderate Pain Stop: 02/26/21 17:16 Hydromorphone HCl (Hydromorphone 1 Mg/Ml 1 Ml Syringe) 1 mg IVP Q3HR PRN PRN Reason: Severe Pain Stop: 02/26/21 17:16 Last Admin: 01/30/21 09:39 Dose: 1 mg Documented by: Sodium Chloride (Saline 0.9%) 1,000 mls @ 130 mls/hr IV .Q7H42M [facility] Stop: 02/26/21 17:16 Last Admin: 01/30/21 12:03 Dose: 130 mls/hr Documented by: Ropivacaine 250 mg/Hydromorphone HCl 5 mg/ Sodium Chloride 250 mls @ 0 mls/hr EPIDURAL .Q0M PRN; Protocol PRN Reason: Pain Control Last Admin: 01/28/21 14:15 Dose: 7 mls Documented by: Ketorolac Tromethamine (Ketorolac 15 Mg/Ml 1 Ml Vial) 15 mg IVP Q6HR [facility] Stop: 02/01/21 09:27 Last Admin: 01/30/21 12:01 Dose: 15 mg Documented by: Lamotrigine (Lamotrigine 100 Mg Tab) 100 mg PO DAILY [facility] Last Admin: 01/30/21 08:10 Dose: 100 mg Documented by: Naloxone HCl (Naloxone 0.4 Mg/Ml 1 Ml Vial) 0.2 mg IV Q2M PRN PRN Reason: Opioid Reversal Ondansetron HCl (Ondansetron 4 Mg/2 Ml Vial) 4 mg IVP Q8HR PRN PRN Reason: Nausea And Vomiting Stop: 02/26/21 17:16 Last Admin: 01/30/21 12:00 Dose: 4 mg Documented by: Pantoprazole Sodium (Pantoprazole 40 Mg/10 Ml Vial) 40 mg IV DAILY [facility] Stop: 02/27/21 09:01 Last Admin: 01/30/21 08:46 Dose: 40 mg Documented by: Physical exam: Gen: This is a 50 year old male, awake, alert and oriented x3. sitting up in the chair HEENT: Head is atraumatic, normocephalic. Pupils equal, round. Sclerae is anicteric. NECK: Supple. No JVD. No lymphadenopathy. No thyromegaly. LUNGS: Clear to auscultation. No wheezes or rhonchi. No intercostal retractions. HEART: Regular rate and rhythm. No murmur. ABDOMEN: Soft. extremely tender on palpation. surgical site is currently covered with surgical dressing EXTREMITIES: No pedal edema. No calf tenderness. NEUROLOGICAL: Patient is awake, alert and oriented x3. Cranial nerves 2 through 12 are grossly intact. Assessment: abdominal pain status post right colectomy, omentectomy, repair of incisional hernia, and lysis of adhesions Crohns disease History of ileocolonic anastomosis stricture History of anxiety/depression, bipolar, PTSD GI prophylaxis DVT prophylaxis Full code Plan: Recommend to continue with current medications. Pain management per primary service. Per nursing staff patient was able to change surgical dressings and current are dry and intact. Patient is up and walking the halls multiple times with no reports of passing gas or bowel movements as of yet. Patient continued on clear liquids and to advance per surgery recommendations. Patient is wearing 2 L of oxygen at 99% oxygen saturation and does not wear oxygen in the outpatient setting. Discussed with nursing staff about weaning and apparently patient places the oxygen back on himself. Patient states it helps him. Patient encouraged to continue with incentive spirometer at least 10 times every hour while awake and encouraged increased activity as tolerated. Will continue to monitor closely along with surgery. Thank you for this consultation. Objective - Vital Signs Vital signs: Vital Signs Temp 98.8 F 01/30/21 04:32 Pulse 79 01/30/21 04:32 Resp 18 01/30/21 04:32 BP 121/74 01/30/21 04:32 Pulse Ox 100 01/30/21 04:32 Intake & Output 01/29/21 01/30/21 01/30/21 18:59 06:59 18:59 Intake Total 1800 Balance 1800 Intake: Intake, IV Titration 1500 Amount Sodium Chloride 0.9% 1, 1500 000 ml @ 130 mls/hr IV . Q7H42M [facility] Rx#:[id number] Oral 300 Other: Voiding Method Indwelling Catheter Toilet Urinal # Voids 2 - Labs CBC & Chem 7: 01/30/21 08:30 01/29/21 05:36 Labs: Abnormal Lab Results - Last 24 Hours (Table) 01/29/21 Range/Units 05:36 BUN/Creatinine Ratio 11.88 L (12.00-20.00) Ratio
--- NOTE | 2021-01-30 14:57 | P.PN ---
Subjective Progress Note Date: 01/30/21 CHIEF COMPLAINT: Small bowel obstruction due to ileocolonic anastomosis stricture HISTORY OF PRESENT ILLNESS: Patient is status post right colectomy, omentectomy, repair of incisional hernia and lysis of adhesions. Postop day #2. Patient is sitting in bedside chair. He does report abdominal pain. His pain is controlled pain medication. He has had some nausea no vomiting. Denies any flatus or bowel movement. He is tolerating clear liquids. Afebrile. WBC is 6.7 hemoglobin 10.5 platelets 211 PHYSICAL EXAM: VITAL SIGNS: Reviewed. GENERAL: Well-developed in no acute distress. HEENT: No sclera icterus. Extraocular movements grossly intact. Moist buccal mucosa. Head is atraumatic, normocephalic. ABDOMEN: Soft. Distended. Incisional dressing clean dry and intact NEUROLOGIC: Alert and oriented. Cranial nerves II through XII grossly intact. ASSESSMENT: 1. Small bowel obstruction due to ileocolonic anastomosis stricture status post right colectomy, omentectomy, repair of incisional hernia and lysis of adhesions PLAN: -Continue clear liquid diet. Patient educated to go slowly with diet -Pain medication as needed -Encouraged patient to ambulate -Encouraged patient to use incentive spirometer -GI prophylaxis Protonix and DVT prophylaxis subcu heparin Physician Classified Copy Control Clerk note has been reviewed by physician. Signing provider agrees with the documented findings, assessment, and plan of care. Objective - Vital Signs Vital signs: Vital Signs Temp 98.8 F 01/30/21 12:28 Pulse 91 01/30/21 12:28 Resp 17 01/30/21 12:28 BP 125/83 01/30/21 12:28 Pulse Ox 97 01/30/21 12:28 Intake & Output 01/29/21 01/30/21 01/30/21 18:59 06:59 18:59 Intake Total 1800 Balance 1800 Intake: Intake, IV Titration 1500 Amount Sodium Chloride 0.9% 1, 1500 000 ml @ 130 mls/hr IV . Q7H42M [facility] Rx#:[id number] Oral 300 Other: Voiding Method Indwelling Catheter Toilet Toilet Urinal # Voids 2 - Labs CBC & Chem 7: 01/30/21 08:30 01/29/21 05:36 Labs: Abnormal Lab Results - Last 24 Hours (Table) 01/30/21 Range/Units 08:30 RBC 3.94 L (4.30-5.90) m/uL Hgb 10.5 L (13.0-17.5) gm/dL Hct 35.4 L (39.0-53.0) % MCHC 29.5 L (31.0-37.0) g/dL RDW 21.2 H (11.5-15.5) %
[2021-01-31] MEDS: HYDROmorphone 1 MG/ML 1 ML SYRINGE IVP PRN ×6 (01:41→21:10)
[2021-01-31] MEDS: SODIUM CHLORIDE 0.9% 1,000 ML IV SCH ×3 (01:43→23:35)
[2021-01-31] MEDS: ONDANSETRON 4 MG/2 ML VIAL IVP PRN ×3 (04:56→21:18)
[2021-01-31] MEDS: KETOROLAC 15 MG/ML 1 ML VIAL IVP SCH ×4 (06:09→23:32)
[2021-01-31] MEDS: PANTOPRAZOLE 40 MG/10 ML VIAL IV SCH (09:12)
[2021-01-31] MEDS: HEPARIN SODIUM,PORCINE/PF 5,000 UNIT/0.5 ML SYRINGE SQ SCH ×2 (09:12→18:48)
[2021-01-31] MEDS: FLUoxetine HCL 10 MG CAP PO SCH (10:06)
[2021-01-31] MEDS: clonazePAM 1 MG TAB PO SCH ×3 (10:06→21:10)
[2021-01-31] MEDS: lamoTRIgine 100 MG TAB PO SCH (10:06)
--- NOTE | 2021-01-31 13:30 | P.PN ---
Subjective Progress Note Date: 01/31/21 CHIEF COMPLAINT: Small bowel obstruction due to ileocolonic anastomosis stricture HISTORY OF PRESENT ILLNESS: Patient is status post right colectomy, omentectomy, repair of incisional hernia and lysis of adhesions. Postop day #3. Patient reports that his abdominal pain is about the same. He reports that pain medication does help but does not last long enough. However, patient does always appear comfortable in the room. He is up and ambulating. Tolerating diet. He is having flatus. No bowel movement. Denies any nausea or vomiting. Afebrile. WBC 6.7 hemoglobin 10.5 platelets 211 Patient seen and examined with Dr. Dela Cruz PHYSICAL EXAM: VITAL SIGNS: Reviewed. GENERAL: Well-developed in no acute distress. HEENT: No sclera icterus. Extraocular movements grossly intact. Moist buccal mucosa. Head is atraumatic, normocephalic. ABDOMEN: Soft. Distended. Incisional dressing clean dry and intact NEUROLOGIC: Alert and oriented. Cranial nerves II through XII grossly intact. ASSESSMENT: 1. Small bowel obstruction due to ileocolonic anastomosis stricture status post right colectomy, omentectomy, repair of incisional hernia and lysis of adhesions PLAN: -Advance diet to full liquids -Add [place] to help with pain control -Pain medication as needed -Encouraged patient to ambulate -Encouraged patient to use incentive spirometer -GI prophylaxis Protonix and DVT prophylaxis subcu heparin Physician Human Relations Professor note has been reviewed by physician. Signing provider agrees with the documented findings, assessment, and plan of care. Objective - Vital Signs Vital signs: Vital Signs Temp 99.1 F 01/31/21 12:27 Pulse 81 01/31/21 12:27 Resp 18 01/31/21 12:27 BP 127/74 01/31/21 12:27 Pulse Ox 96 01/31/21 12:27 Intake & Output 01/30/21 01/31/21 01/31/21 18:59 06:59 18:59 Intake Total 1560 1800 Balance 1560 1800 Weight 99.337 kg Intake: Intake, IV Titration 1560 1500 Amount Sodium Chloride 0.9% 1, 1500 000 ml @ 130 mls/hr IV . Q7H42M [facility] Rx#:[id number] Sodium Chloride 0.9% 100 1560 ml @ 0 mls/hr IV .STK-MED ONE with ceFAZolin 2,000 mg Rx#:[id number] Oral 300 Other: Voiding Method Toilet Toilet Toilet # Voids 2 - Labs CBC & Chem 7: 01/30/21 08:30 01/29/21 05:36
--- NOTE | 2021-01-31 13:52 | P.PN ---
Subjective Progress Note Date: 01/31/21 - Reason for Consult Consult date: 01/29/21 Medical management - Chief Complaint Right colectomy, omentectomy, repair of incisional hernia with lysis of adh - History of Present Illness This is a 50-year-old male who was recently admitted under surgical services and presented to the ER with continued abdominal pain and concern for possible bowel obstruction. CT of the abdomen is showing no suspicious changes to suggest bowel obstruction. Patient was recently admitted with this and ultimately transferred to [place] for further surgical evaluation as he was scheduled on 01/29/2021. Reportedly patient left [place] AGAINST MEDICAL ADVICE as he felt his pain was not being managed properly and also opted to not have surgery. Patient continued with abdominal discomfort and was instructed to report to the ER for further evaluation. She does have an extensive past medical history of Crohn's disease along with known ileocecal stricture and per patient has had multiple bowel surgeries. Patient was admitted to surgery and underwent right colectomy, omentectomy, repair of incisional hernia, and lysis of adhesions with Dr. Dela Cruz. We are consulted for medical management. 01/30/2021 Patient is seen and evaluated and follow-up this morning currently walking the halls and appears to be in no acute distress. Patient continues on clear liquids as he denies passing gas or having bowel movements as of yet. Patient reports to rumbling in the abdomen this morning. No further reports of nausea or vomiting noted. Denies chest pain or shortness of breath. Patient is afebrile. 01/31/2021 Patient is seen and evaluated and follow-up this morning again walking the halls stating that he feels better when he is up and about and continues to have rumbling noted in the abdomen and possibly could've had some flatus although not sure and denies bowel movement. Patient continues to request IV pain medication and nausea medication [id number] and will add oral [place] and discussed with the patient about limiting use of Dilaudid as he is not being sent home on this. Surgery has also made this known. Encouraged incentive spirometer use along with increased activity as tolerated. Patient is tolerating diet and being advanced to full liquids. Will repeat labs in the a.m. Review of systems: Constitutional: No reports of fatigue, fever, or chills Cardiovascular: No reports of chest pain or palpitations Respiratory: No reports of shortness of breath or cough GI: No reports of nausea, vomiting, reports might have been passing gas during sleep but no reports of bowel movements as of yet : No reports of dysuria or retention Neurovascular: No reports of weakness or numbness All medications have been reviewed Active Medications Hydrocodone Bitart/Acetaminophen (Hydrocodone/Apap 5-325mg 1 Each Tab) 1 each PO Q4HR PRN PRN Reason: Pain Benzocaine/Menthol (Benzocaine/Menthol Lozeng 1 Each Lozenge) 1 each MUCOUS MEM Q1HR PRN PRN Reason: Sore Throat Clonazepam (Clonazepam 1 Mg Tab) 1 mg PO TID REPLACED BY [facility] Last Admin: 01/31/21 10:06 Dose: 1 mg Documented by: Fluoxetine HCl (Fluoxetine Hcl 10 Mg Cap) 10 mg PO DAILY [facility] Last Admin: 01/31/21 10:06 Dose: 10 mg Documented by: Heparin Sodium (Porcine) (Heparin Sodium,Porcine/Pf 5,000 Unit/0.5 Ml Syringe) 5,000 unit SQ Q12HR REPLACED [facility] Last Admin: 01/31/21 09:12 Dose: Not Given Documented by: Hydromorphone HCl (Hydromorphone 0.5 Mg/0.5 Ml Syringe) 0.5 mg IVP Q3HR PRN PRN Reason: Moderate Pain Stop: 02/26/21 17:16 Hydromorphone HCl (Hydromorphone 1 Mg/Ml 1 Ml Syringe) 1 mg IVP Q3HR PRN PRN Reason: Severe Pain Stop: 02/26/21 17:16 Last Admin: 01/31/21 12:29 Dose: 1 mg Documented by: Sodium Chloride (Saline 0.9%) 1,000 mls @ 130 mls/hr IV .Q7H42M REPLACED BY [facility] Stop: 02/26/21 17:16 Last Admin: 01/31/21 01:43 Dose: 130 mls/hr Documented by: Ropivacaine 250 mg/Hydromorphone HCl 5 mg/ Sodium Chloride 250 mls @ 0 mls/hr EPIDURAL .Q0M PRN; Protocol PRN Reason: Pain Control Last Admin: 01/28/21 14:15 Dose: 7 mls Documented by: Ketorolac Tromethamine (Ketorolac 15 Mg/Ml 1 Ml Vial) 15 mg IVP Q6HR [facility]PLACED [facility] Stop: 02/01/21 09:27 Last Admin: 01/31/21 12:29 Dose: 15 mg Documented by: Lamotrigine (Lamotrigine 100 Mg Tab) 100 mg PO DAILY [facility]PL[facility] Last Admin: 01/31/21 10:06 Dose: 100 mg Documented by: Naloxone HCl (Naloxone 0.4 Mg/Ml 1 Ml Vial) 0.2 mg IV Q2M PRN PRN Reason: Opioid Reversal Ondansetron HCl (Ondansetron 4 Mg/2 Ml Vial) 4 mg IVP Q8HR PRN PRN Reason: Nausea And Vomiting Stop: 02/26/21 17:16 Last Admin: 01/31/21 12:29 Dose: 4 mg Documented by: Pantoprazole Sodium (Pantoprazole 40 Mg/10 Ml Vial) 40 mg IV DAILY [facility] Stop: 02/27/21 09:01 Last Admin: 01/31/21 09:12 Dose: 40 mg Documented by: Physical exam: Gen: This is a 50 year old male, awake, alert and oriented x3. Currently walking the halls HEENT: Head is atraumatic, normocephalic. Pupils equal, round. Sclerae is anicteric. NECK: Supple. No JVD. No lymphadenopathy. No thyromegaly. LUNGS: Clear to auscultation. No wheezes or rhonchi. No intercostal retractions. HEART: Regular rate and rhythm. No murmur. ABDOMEN: Soft. Mildly tender on palpation. surgical site is currently covered with surgical dressing EXTREMITIES: No pedal edema. No calf tenderness. NEUROLOGICAL: Patient is awake, alert and oriented x3. Cranial nerves 2 through 12 are grossly intact. Assessment: abdominal pain status post right colectomy, omentectomy, repair of incisional hernia, and lysis of adhesions Crohns disease History of ileocolonic anastomosis stricture History of anxiety/depression, bipolar, PTSD GI prophylaxis DVT prophylaxis Full code Plan: Recommend to continue with current medications. Pain management per primary service. Oral narcotics being added and discussed with the patient about limiting use of IV Dilaudid. Patient is up and walking the halls multiple times with no reports of passing gas or bowel movements as of yet. Patient states he may have passed some gas at night although unsure as he was dreaming. Patient continued on full liquids and to advance per surgery recommendations. Patient encouraged to continue with incentive spirometer at least 10 times every hour while awake and encouraged increased activity as tolerated. Will continue to monitor closely along with surgery. Repeat a.m. labs. Thank you for this consultation. Objective - Vital Signs Vital signs: Vital Signs Temp 98.8 F 01/31/21 04:46 Pulse 69 01/31/21 04:46 Resp 18 01/31/21 06:13 BP 120/70 01/31/21 06:13 Pulse Ox 95 01/31/21 06:13 Intake & Output 01/30/21 01/31/21 01/31/21 18:59 06:59 18:59 Intake Total 1560 1800 Balance 1560 1800 Intake: Intake, IV Titration 1560 1500 Amount Sodium Chloride 0.9% 1, 1500 000 ml @ 130 mls/hr IV . Q7H42M REPLACED BY [facility] Rx#:[id number] Sodium Chloride 0.9% 100 1560 ml @ 0 mls/hr IV .STK-MED ONE with ceFAZolin 2,000 mg Rx#:[id number] Oral 300 Other: Voiding Method Toilet Toilet # Voids 2 - Labs CBC & Chem 7: 01/30/21 08:30 01/29/21 05:36 Labs: Abnormal Lab Results - Last 24 Hours (Table) 01/30/21 Range/Units 08:30 RBC 3.94 L (4.30-5.90) m/uL Hgb 10.5 L (13.0-17.5) gm/dL Hct 35.4 L (39.0-53.0) % MCHC 29.5 L (31.0-37.0) g/dL RDW 21.2 H (11.5-15.5) %
[2021-01-31] MEDS: HYDROcodone/APAP 5-325MG 1 EACH TAB PO PRN ×2 (18:20→23:33)
[2021-02-01] MEDS: HYDROmorphone 1 MG/ML 1 ML SYRINGE IVP PRN ×5 (03:16→23:37)
[2021-02-01] MEDS: KETOROLAC 15 MG/ML 1 ML VIAL IVP SCH (05:17)
[2021-02-01] MEDS: HYDROcodone/APAP 5-325MG 1 EACH TAB PO PRN ×2 (05:18→12:55)
[2021-02-01] MEDS: SODIUM CHLORIDE 0.9% 1,000 ML IV SCH ×3 (05:19→19:26)
[2021-02-01 08:39] LABS: Anisocytosis Moderate; Basophils % (A) 1 %; Eosinophils # (A) 0.2 k/uL (0-0.7); Eosinophils % (A) 4 %; HCT 31.7 % (39.0-53.0); Hypochromasia Marked; Lymphocytes # (A) 0.5 k/uL (1.0-4.8); Lymphocytes % (A) 13 %; MCHC 31.6 g/dL (31.0-37.0); MCV 88.8 fL (80.0-100.0); Mean Platelet Volume 7.7; Microcytosis Slight; Monocytes # (A) 0.4 k/uL (0-1.0); Monocytes % (A) 9 %; Neutrophils % (A) 73 %; Platelet Count 193 k/uL (150-450); RBC 3.58 m/uL (4.30-5.90); RDW 20.9 % (11.5-15.5); WBC 4.2 k/uL (3.8-10.6)
[2021-02-01] MEDS: HEPARIN SODIUM,PORCINE/PF 5,000 UNIT/0.5 ML SYRINGE SQ SCH ×2 (08:47→19:26)
[2021-02-01] MEDS: FLUoxetine HCL 10 MG CAP PO SCH (08:48)
[2021-02-01] MEDS: lamoTRIgine 100 MG TAB PO SCH (08:48)
[2021-02-01] MEDS: clonazePAM 1 MG TAB PO SCH ×3 (08:48→21:23)
[2021-02-01] MEDS: ONDANSETRON 4 MG/2 ML VIAL IVP PRN ×2 (09:09→18:21)
[2021-02-01] MEDS: PANTOPRAZOLE 40 MG/10 ML VIAL IV SCH (09:10)
[2021-02-01 13:14] LABS: African American GFR (CKD) 134.9 (60.0-200.0); Anion Gap 10.6 mmol/L (4.00-12.00); BUN/Creat Ratio 9.5 Ratio (12.00-20.00); Blood Urea Nitrogen 5.7 mg/dL (9.0-27.0); Calcium 8.4 mg/dL (8.7-10.3); Carbon Dioxide 24.4 mmol/L (21.6-31.8); Non-African American GFR(CKD) 116.4 (60.0-200.0); Potassium 3.8 mmol/L (3.5-5.5)
--- NOTE | 2021-02-01 16:07 | P.PN ---
Subjective Progress Note Date: 02/01/21 CHIEF COMPLAINT: Crohn's disease HISTORY OF PRESENT ILLNESS: The patient is a 50-year-old male status post ileocolectomy for obstructive Crohn's disease, 01/28/2021. He complains of moderate distention of the abdomen. "They fed me too fast." He reports abdominal pain. His dressing was changed earlier from moderate drainage. He complains of abrupt change in pain medications. "I was having bowel movements and passing gas, now its stopped/" ROS: He reports decreased appetite. No fevers or chills. No new chest pain. No productive sputum PHYSICAL EXAM: VITAL SIGNS: Reviewed CONSTITUTIONAL: Well developed and in no acute distress. EYES: Conjuctivae without sclera icterus. Extraocular movements grossly intact. HEAD, EARS, NOSE, THROAT: Moist buccal mucosa. Head is atraumatic, normocepha lic. Hears conversational speech. No nasal drainage. NECK: No gross thyroidomegaly. No jugular venous distention. RESPIRATORY: Non-labored respirations and equal bilateral excursions. CARDIOVASCULAR: Palpable 2+ radial pulses. ABDOMEN: Moderate abdominal distention. New midline dressing with shadowing lower abdomen, 4-cm. MUSCULOSKELETAL: No clubbing. No cyanosis. SKIN: Good skin turgor. Well perfused. NEUROLOGIC: Cranial nerves II through XII grossly intact. No focal or lateralizing signs. PSYCH: Appropriate affect. Alert and oriented to person, place and time. CLINICAL LABS: Reviewed. WBC normal at 4.2. Hemoglobin stable 10.5 to 10.0. ASSESSMENT: 1. Crohn's disease with obstruction status post ileocolectomy PLAN: 1. Will obtain stat AXR for acute clinical change, likely ileus. 2. NGT placement for acute abdominal distention. 3. Simethicone gas drops for distention. 4. Downgrade diet to ice chips and popsicles. Objective - Vital Signs Vital signs: Vital Signs Temp 98.6 F 02/01/21 12:44 Pulse 72 02/01/21 12:44 Resp 16 02/01/21 12:44 BP 130/81 02/01/21 12:44 Pulse Ox 97 02/01/21 12:44 Intake & Output 01/31/21 02/01/21 02/01/21 18:59 06:59 18:59 Intake Total 2300 1900 Output Total 700 Balance 1600 1900 Weight 99.337 kg Intake: Intake, IV Titration 1500 1500 Amount Sodium Chloride 0.9% 1, 1500 1500 000 ml @ 130 mls/hr IV . Q7H42M [facility] Rx#:[id number] Oral 800 400 Output: Urine 700 Other: Voiding Method Toilet Toilet Toilet # Voids 3 # Bowel Movements 2 - Labs CBC & Chem 7: 02/01/21 07:19 02/01/21 07:19 Labs: Abnormal Lab Results - Last 24 Hours (Table) 02/01/21 02/01/21 Range/Units 07:19 07:19 RBC 3.58 L (4.30-5.90) m/uL Hgb 10.0 L (13.0-17.5) gm/dL Hct 31.7 L (39.0-53.0) % RDW 20.9 H (11.5-15.5) % Lymphocytes # 0.5 L (1.0-4.8) k/uL BUN 5.7 L (9.0-27.0) mg/dL BUN/Creatinine Ratio 9.50 L (12.00-20.00) Ratio Calcium 8.4 L (8.7-10.3) mg/dL Assessment and Plan (1) Crohn's disease Current Visit: No Status: Acute Code(s): K50.90 - CROHN'S DISEASE, UNSPECIFIED, WITHOUT COMPLICATIONS SNOMED Code(s): 72637441 (2) Small bowel obstruction Current Visit: No Status: Acute Code(s): K56.609 - UNSP INTESTNL OBST, UNSP TO PARTIAL VERSUS COMPLETE OBST SNOMED Code(s): 530971997 (3) Ileus following gastrointestinal surgery Current Visit: Yes Status: Acute Code(s): K91.89 - OTH POSTPROCEDURAL COMPLICATIONS AND DISORDERS OF DGSTV SYS; K56.7 - ILEUS, UNSPECIFIED SNOMED Code(s): 914645530
--- NOTE | 2021-02-01 17:30 | XR ---
EXAMINATION TYPE: XR abdomen 2V DATE OF EXAM: 02/01/2021 COMPARISON: 01/15/2021 HISTORY: Abdominal pain TECHNIQUE: 2 views supine FINDINGS: There is no sign of intestinal obstruction or pneumoperitoneum. Fecal pattern is normal. Th ere is no evidence of a mass. There is some contrast material in the large bowel. Lung bases are amanda r. IMPRESSION: Nonacute abdomen.
--- NOTE | 2021-02-01 21:45 | P.PN ---
Subjective Progress Note Date: 02/01/21 This is a 50-year-old male who was recently admitted under surgical services and presented to the ER with continued abdominal pain and concern for possible bowel obstruction. CT of the abdomen is showing no suspicious changes to suggest bowel obstruction. Patient was recently admitted with this and ultimately transferred to [place] for further surgical evaluation as he was scheduled on 01/29/2021. Reportedly patient left [place] AGAINST MEDICAL ADVICE as he felt his pain was not being managed properly and also opted to not have surgery. Patient continued with abdominal discomfort and was instructed to report to the ER for further evaluation. She does have an extensive past medical history of Crohn's disease along with known ileocecal stricture and per patient has had multiple bowel surgeries. Patient was admitted to surgery and underwent right colectomy, omentectomy, repair of incisional hernia, and lysis of adhesions with Dr. Dela Cruz. We are consulted for medical management. 01/30/2021 Patient is seen and evaluated and follow-up this morning currently walking the halls and appears to be in no acute distress. Patient continues on clear liquids as he denies passing gas or having bowel movements as of yet. Patient reports to rumbling in the abdomen this morning. No further reports of nausea or vomiting noted. Denies chest pain or shortness of breath. Patient is afebrile. 01/31/2021 Patient is seen and evaluated and follow-up this morning again walking the halls stating that he feels better when he is up and about and continues to have rumbling noted in the abdomen and possibly could've had some flatus although not sure and denies bowel movement. Patient continues to request IV pain medication and nausea medication [id number] and will add oral [place] and discussed with the patient about limiting use of Dilaudid as he is not being sent home on this. Surgery has also made this known. Encouraged incentive spirometer use along with increased activity as tolerated. Patient is tolerating diet and being advanced to full liquids. Will repeat labs in the a.m. 02/01/2021 Patient states that he has never been in a situation where he has never had his pain controlled before. He is requesting an increase in his dilaudid. Patient is tolerating a full liquid diet. He denies any nausea, vomiting. Reports looser stools. He states that his abdomen is increasing in pain around his surgical incisional daily. There is some distention, what appears to be some purulent drainage shadowing from the surgical incisional dressing with some surrounding erythema. Pt states that he is only able to ambulate and use the IS shortly after receiving pain medication. He is receiving dilaudid 1 mg q3, norco 5 mg q4hr and toradol every 6 hours. Vital signs are stable today. WBC count within normal limits as well. Awaiting surgical input today. Review of systems: Constitutional: No reports of fatigue, fever, or chills Cardiovascular: No reports of chest pain or palpitations Respiratory: No reports of shortness of breath or cough GI: No reports of nausea, vomiting, reports abdominal pain, has had 2 bowel movements, loose. denies blood in the stool. : No reports of dysuria or retention Neurovascular: No reports of weakness or numbness All medications have been reviewed PHYSICAL EXAMINATION: GENERAL: The patient is alert and oriented x3, not in any acute distress. Well developed, well nourished. HEENT: Pupils are round and equally reacting to light. EOMI. No scleral icterus. No conjunctival pallor. Normocephalic, atraumatic. No pharyngeal erythema. No thyromegaly. CARDIOVASCULAR: S1 and S2 present. No murmurs, rubs, or gallops. PULMONARY: Chest is clear to auscultation, no wheezing or crackles. ABDOMEN: Soft, tender, distended, normoactive bowel sounds. No palpable organomegaly. MUSCULOSKELETAL: No joint swelling or deformity. EXTREMITIES: No cyanosis, clubbing, or pedal edema. NEUROLOGICAL: Gross neurological examination did not reveal any focal deficits. SKIN: No rashes. Assessment: abdominal pain status post right colectomy, omentectomy, repair of incisional hernia, and lysis of adhesions Crohns disease History of ileocolonic anastomosis stricture History of anxiety/depression, bipolar, PTSD GI prophylaxis DVT prophylaxis Full code Plan: Recommend to continue with current medications. Pain management per primary service. Oral narcotics being added and discussed with the patient about limiting use of IV Dilaudid. Although he is stating that his abdominal pain is increasing. Patient is up and walking the halls multiples times and is having bowel movements. Patient continued on full liquids and to advance per surgery recommendations. Patient encouraged to continue with incentive spirometer at least 10 times every hour while awake and encouraged increased activity as tolerated. Will continue to monitor closely along with surgery. Repeat a.m. labs. Thank you for this consultation. Objective - Vital Signs Vital signs: Vital Signs Temp 99 F 02/01/21 05:00 Pulse 85 02/01/21 08:40 Resp 20 02/01/21 08:40 BP 122/72 02/01/21 05:00 Pulse Ox 96 02/01/21 05:00 Intake & Output 01/31/21 02/01/21 02/01/21 18:59 06:59 18:59 Intake Total 2300 1900 Output Total 700 Balance 1600 1900 Weight 99.337 kg Intake: Intake, IV Titration 1500 1500 Amount Sodium Chloride 0.9% 1, 1500 1500 000 ml @ 130 mls/hr IV . Q7H42M [facility] Rx#:[id number] Oral 800 400 Output: Urine 700 Other: Voiding Method Toilet Toilet Toilet # Voids 3 # Bowel Movements 2 - Gastrointestinal General gastrointestinal: Present: decreased bowel sounds, distended, tenderness - Integumentary Integumentary Comment(s): midline surgical dressing displays some shadowing, appears purulent in color with some surrounding erythema - Labs CBC & Chem 7: 02/01/21 07:19 02/01/21 07:19 Labs: Abnormal Lab Results - Last 24 Hours (Table) 02/01/21 Range/Units 07:19 RBC 3.58 L (4.30-5.90) m/uL Hgb 10.0 L (13.0-17.5) gm/dL Hct 31.7 L (39.0-53.0) % RDW 20.9 H (11.5-15.5) % Lymphocytes # 0.5 L (1.0-4.8) k/uL Assessment and Plan Time with Patient: Greater than 30
[2021-02-01] MEDS: SIMETHICONE 40 MG/0.6 ML DROPS 2,000 MG/30 ML BOTTLE PO SCH (22:37)
[2021-02-02] MEDS: HYDROmorphone 1 MG/ML 1 ML SYRINGE IVP PRN ×7 (03:01→22:58)
[2021-02-02] MEDS: ONDANSETRON 4 MG/2 ML VIAL IVP PRN ×3 (03:01→19:53)
[2021-02-02] MEDS: SODIUM CHLORIDE 0.9% 1,000 ML IV SCH ×2 (03:05→11:16)
--- NOTE | 2021-02-02 08:26 | XR ---
Abdomen HISTORY: Ileus Frontal view the abdomen submitted on 2 images, correlation prior exam 02/01/2021 Contrast material is present within the colon. Surgical kenny are present over the midline. Phlebol iths are noted in the pelvis. Is no evident bowel obstruction or pneumoperitoneum. IMPRESSION: Nonobstructive bowel gas pattern.
[2021-02-02] MEDS: clonazePAM 1 MG TAB PO SCH ×3 (09:38→21:46)
[2021-02-02] MEDS: HEPARIN SODIUM,PORCINE/PF 5,000 UNIT/0.5 ML SYRINGE SQ SCH ×2 (09:38→19:50)
[2021-02-02] MEDS: lamoTRIgine 100 MG TAB PO SCH (09:38)
[2021-02-02] MEDS: SIMETHICONE 40 MG/0.6 ML DROPS 2,000 MG/30 ML BOTTLE PO SCH ×4 (09:38→21:46)
[2021-02-02] MEDS: PANTOPRAZOLE 40 MG/10 ML VIAL IV SCH (09:38)
[2021-02-02] MEDS: FLUoxetine HCL 10 MG CAP PO SCH (09:38)
--- NOTE | 2021-02-02 11:43 | P.PN ---
Subjective Progress Note Date: 02/02/21 This is a 50-year-old male who was recently admitted under surgical services and presented to the ER with continued abdominal pain and concern for possible bowel obstruction. CT of the abdomen is showing no suspicious changes to suggest bowel obstruction. Patient was recently admitted with this and ultimately transferred to [place] for further surgical evaluation as he was scheduled on 01/29/2021. Reportedly patient left [place] AGAINST MEDICAL ADVICE as he felt his pain was not being managed properly and also opted to not have surgery. Patient continued with abdominal discomfort and was instructed to report to the ER for further evaluation. She does have an extensive past medical history of Crohn's disease along with known ileocecal stricture and per patient has had multiple bowel surgeries. Patient was admitted to surgery and underwent right colectomy, omentectomy, repair of incisional hernia, and lysis of adhesions with Dr. Dela Cruz. We are consulted for medical management. 01/30/2021 Patient is seen and evaluated and follow-up this morning currently walking the halls and appears to be in no acute distress. Patient continues on clear liquids as he denies passing gas or having bowel movements as of yet. Patient reports to rumbling in the abdomen this morning. No further reports of nausea or vomiting noted. Denies chest pain or shortness of breath. Patient is afebrile. 01/31/2021 Patient is seen and evaluated and follow-up this morning again walking the halls stating that he feels better when he is up and about and continues to have rumbling noted in the abdomen and possibly could've had some flatus although not sure and denies bowel movement. Patient continues to request IV pain medication and nausea medication [id number] and will add oral [place] and discussed with the patient about limiting use of Dilaudid as he is not being sent home on this. Surgery has also made this known. Encouraged incentive spirometer use along with increased activity as tolerated. Patient is tolerating diet and being advanced to full liquids. Will repeat labs in the a.m. 02/01/2021 Patient states that he has never been in a situation where he has never had his pain controlled before. He is requesting an increase in his dilaudid. Patient is tolerating a full liquid diet. He denies any nausea, vomiting. Reports looser stools. He states that his abdomen is increasing in pain around his surgical incisional daily. There is some distention, what appears to be some purulent drainage shadowing from the surgical incisional dressing with some surrounding erythema. Pt states that he is only able to ambulate and use the IS shortly after receiving pain medication. He is receiving dilaudid 1 mg q3, norco 5 mg q4hr and toradol every 6 hours. Vital signs are stable today. WBC count within normal limits as well. Awaiting surgical input today. 02/02/2021 Patient is evaluated today, sitting in the chair. Toradol has been discontinued from surgical services. He had a acute abdominal x-ray yesterday and today which revealed nonobstructive bowel gas pattern. Patient denied an NG tube yesterday evening, however states today that he would try anything at this point to have some pain relief. He is still complaining of some severe abdominal pain around the incision. 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 My[place] was added from surgical services. Diet was downgraded to ice chips and popsicles. Review of systems: Constitutional: No reports of fatigue, fever, or chills Cardiovascular: No reports of chest pain or palpitations Respiratory: No reports of shortness of breath or cough GI: No reports of nausea, vomiting, reports abdominal pain. Denies BM Denies passing gas. : No reports of dysuria or retention Neurovascular: No reports of weakness or numbness All medications have been reviewed PHYSICAL EXAMINATION: GENERAL: The patient is alert and oriented x3, not in any acute distress. Well developed, well nourished. HEENT: Pupils are round and equally reacting to light. EOMI. No scleral icterus. No conjunctival pallor. Normocephalic, atraumatic. No pharyngeal erythema. No thyromegaly. CARDIOVASCULAR: S1 and S2 present. No murmurs, rubs, or gallops. PULMONARY: Chest is clear to auscultation, no wheezing or crackles. ABDOMEN: Soft, tender, distended, normoactive bowel sounds. No palpable organomegaly. MUSCULOSKELETAL: No joint swelling or deformity. EXTREMITIES: No cyanosis, clubbing, or pedal edema. NEUROLOGICAL: Gross neurological examination did not reveal any focal deficits. SKIN: No rashes. Assessment: abdominal pain with abdominal distention - Xray shows nonobstrucive gas patter status post right colectomy, omentectomy, repair of incisional hernia, and lysis of adhesions Crohns disease History of ileocolonic anastomosis stricture History of anxiety/depression, bipolar, PTSD GI prophylaxis DVT prophylaxis Full code Plan: Ambulate Encourge incentive spirometer [place] drops for gas Downgraded diet to ice chips and popsicles by surgery [place] and Dilaudid for pain GI Prophylaxis: Protonix Thank You for this consultation. Objective - Vital Signs Vital signs: Vital Signs Temp 98.6 F 02/02/21 03:08 Pulse 72 02/02/21 03:08 Resp 18 02/02/21 03:08 BP 142/86 02/02/21 03:08 Pulse Ox 98 02/02/21 09:04 Intake & Output 02/01/21 02/02/21 02/02/21 18:59 06:59 18:59 Intake Total 160 1500 Output Total 1200 Balance 160 300 Intake: Intake, IV Titration 1500 Amount Sodium Chloride 0.9% 1, 1500 000 ml @ 130 mls/hr IV . Q7H42M [facility] Rx#:[id number] Oral 160 Output: Urine 1200 Other: Voiding Method Toilet Toilet # Voids 3 - Labs CBC & Chem 7: 02/01/21 07:19 02/01/21 07:19 Labs: Abnormal Lab Results - Last 24 Hours (Table) 02/01/21 Range/Units 07:19 BUN 5.7 L (9.0-27.0) mg/dL BUN/Creatinine Ratio 9.50 L (12.00-20.00) Ratio Calcium 8.4 L (8.7-10.3) mg/dL
--- NOTE | 2021-02-02 14:49 | P.PN ---
Subjective Progress Note Date: 02/02/21 CHIEF COMPLAINT: Crohn's disease HISTORY OF PRESENT ILLNESS: The patient is a 50-year-old male status post ileocolectomy for obstructive Crohn's disease, 01/28/2021. He complains of chronic abdominal pain. Yesterday, patient reported increased abdominal distention. He reports his abdomen is more soft today. Multiple abdominal films were obtained. He has chosen to be nothing by mouth. He is nothing by mouth except ice chips and popsicles. ROS: No fevers or chills. No new chest pain. No productive sputum PHYSICAL EXAM: VITAL SIGNS: Reviewed CONSTITUTIONAL: Well developed and in no acute distress. EYES: Conjuctivae without sclera icterus. Extraocular movements grossly intact. HEAD, EARS, NOSE, THROAT: Moist buccal mucosa. Head is atraumatic, normocephalic. Hears conversational speech. No nasal drainage. NECK: No gross thyroidomegaly. No jugular venous distention. RESPIRATORY: Non-labored respirations and equal bilateral excursions. CARDIOVASCULAR: Palpable 2+ radial pulses. ABDOMEN: Decreased abdominal distention. Midline dressing intact. No active drainage. MUSCULOSKELETAL: No clubbing. No cyanosis. SKIN: Good skin turgor. Well perfused. NEUROLOGIC: Cranial nerves II through XII grossly intact. No focal or lateralizing signs. PSYCH: Appropriate affect. Alert and oriented to person, place and time. CLINICAL LABS: Reviewed. No new labs. STUDIES: Abdominal x-ray 02/01/2021 demonstrates gas throughout the colon. This is my independent interpretation. Abdominal x-ray 02/02/2021 reviewed without bowel obstruction pattern. It is my independent interpretation. ASSESSMENT: 1. Crohn's disease with obstruction status post ileocolectomy 2. Chronic abdominal pain PLAN: 1. Continuation of of limited diet ice chips and popsicles. 2. Adjustment of pain management. Objective - Vital Signs Vital signs: Vital Signs Temp 98.4 F 02/02/21 13:00 Pulse 80 02/02/21 13:00 Resp 19 02/02/21 13:00 BP 124/77 02/02/21 13:00 Pulse Ox 96 02/02/21 13:00 Intake & Output 02/01/21 02/02/21 02/02/21 18:59 06:59 18:59 Intake Total 160 1500 Output Total 1200 Balance 160 300 Intake: Intake, IV Titration 1500 Amount Sodium Chloride 0.9% 1, 1500 000 ml @ 130 mls/hr IV . Q7H42M [facility] Rx#:[id number] Oral 160 Output: Urine 1200 Other: Voiding Method Toilet Toilet Toilet # Voids 3 - Labs CBC & Chem 7: 02/01/21 07:19 02/01/21 07:19 Assessment and Plan (1) Crohn's disease Current Visit: No Status: Acute Code(s): K50.90 - CROHN'S DISEASE, UNSPECIFIED, WITHOUT COMPLICATIONS SNOMED Code(s): 10364772 (2) Small bowel obstruction Current Visit: No Status: Acute Code(s): K56.609 - UNSP INTESTNL OBST, UNSP TO PARTIAL VERSUS COMPLETE OBST SNOMED Code(s): 292336600 (3) Ileus following gastrointestinal surgery Current Visit: Yes Status: Acute Code(s): K91.89 - OTH POSTPROCEDURAL COMPLICATIONS AND DISORDERS OF DGSTV SYS; K56.7 - ILEUS, UNSPECIFIED SNOMED Code(s): 628118164 (4) Chronic abdominal pain Current Visit: Yes Status: Acute Code(s): R10.9 - UNSPECIFIED ABDOMINAL PAIN; G89.29 - OTHER CHRONIC PAIN SNOMED Code(s): 204733883
[2021-02-03] MEDS: HYDROmorphone 1 MG/ML 1 ML SYRINGE IVP PRN ×7 (01:51→23:43)
[2021-02-03] MEDS: SODIUM CHLORIDE 0.9% 1,000 ML IV SCH ×4 (01:52→22:28)
[2021-02-03] MEDS: ONDANSETRON 4 MG/2 ML VIAL IVP PRN ×3 (05:04→23:37)
[2021-02-03] MEDS: FLUoxetine HCL 10 MG CAP PO SCH (08:29)
[2021-02-03] MEDS: clonazePAM 1 MG TAB PO SCH ×3 (08:29→20:00)
[2021-02-03] MEDS: SIMETHICONE 40 MG/0.6 ML DROPS 2,000 MG/30 ML BOTTLE PO SCH ×4 (08:30→22:28)
[2021-02-03] MEDS: lamoTRIgine 100 MG TAB PO SCH (08:30)
[2021-02-03] MEDS: PANTOPRAZOLE 40 MG/10 ML VIAL IV SCH (08:30)
[2021-02-03] MEDS: HEPARIN SODIUM,PORCINE/PF 5,000 UNIT/0.5 ML SYRINGE SQ SCH ×2 (08:30→20:01)
[2021-02-03 09:05] LABS: Anisocytosis Moderate; Basophils % (A) 1 %; Eosinophils # (A) 0.2 k/uL (0-0.7); Eosinophils % (A) 3 %; HCT 36.1 % (39.0-53.0); HGB 10.7 gm/dL (13.0-17.5); Hypochromasia Marked; Lymphocytes # (A) 0.5 k/uL (1.0-4.8); Lymphocytes % (A) 8 %; MCH 26.6 pg (25.0-35.0); MCHC 29.5 g/dL (31.0-37.0); MCV 90.3 fL (80.0-100.0); Mean Platelet Volume 7.7; Monocytes # (A) 0.4 k/uL (0-1.0); Monocytes % (A) 5 %; Neutrophils # (A) 5.4 k/uL (1.3-7.7); Neutrophils % (A) 82 %; Platelet Count 234 k/uL (150-450); RBC 4.01 m/uL (4.30-5.90); RDW 20.4 % (11.5-15.5); WBC 6.6 k/uL (3.8-10.6)
--- NOTE | 2021-02-03 13:26 | P.PN ---
Subjective Progress Note Date: 02/03/21 CHIEF COMPLAINT: Small bowel obstruction due to ileocolonic anastomosis stricture HISTORY OF PRESENT ILLNESS: Patient is status post right colectomy, omentectomy, repair of incisional hernia and lysis of adhesions. Postop day #6. Patient continues to complain of abdominal pain. He has been using the IV Dilaudid every 3 hours. Patient reports having difficulty getting out of bed. However, he is able to ambulate in the hallways. He is having flatus. He reports no bowel movement. Nursing staff did report a bowel movement on 02/01/2021. Abdominal x-rays have been negative. Showing a nonspecific small bowel gas pattern. Afebrile. WBC is 6.6 hemoglobin 10.7 platelets 234 patient has been nothing by mouth. Patient seen and examined with Dr. Dela Cruz PHYSICAL EXAM: VITAL SIGNS: Reviewed. GENERAL: Well-developed in no acute distress. HEENT: No sclera icterus. Extraocular movements grossly intact. Moist buccal mucosa. Head is atraumatic, normocephalic. ABDOMEN: Soft. Distended. Incisional dressing area of saturation noted at the distal aspect of the dressing NEUROLOGIC: Alert and oriented. Cranial nerves II through XII grossly intact. ASSESSMENT: 1. Small bowel obstruction due to ileocolonic anastomosis stricture status post right colectomy, omentectomy, repair of incisional hernia and lysis of adhesions PLAN: -Advance diet to clear liquids -Encouraged patient to use [place] -Consult physical therapy -Encouraged patient to ambulate -Encouraged patient to use incentive spirometer -GI prophylaxis Protonix and DVT prophylaxis subcu heparin Physician Repairer Shoe Sticks note has been reviewed by physician. Signing provider agrees with the documented findings, assessment, and plan of care. Objective - Vital Signs Vital signs: Vital Signs Temp 98.3 F 02/03/21 13:00 Pulse 78 02/03/21 13:00 Resp 19 02/03/21 13:00 BP 154/79 02/03/21 13:00 Pulse Ox 100 02/03/21 13:00 Intake & Output 02/02/21 02/03/21 02/03/21 18:59 06:59 18:59 Intake Total 60 100 Balance 60 100 Intake: Oral 60 100 Other: Voiding Method Toilet Toilet Toilet # Voids 3 3 - Labs CBC & Chem 7: 02/03/21 08:29 02/01/21 07:19 Labs: Abnormal Lab Results - Last 24 Hours (Table) 02/03/21 Range/Units 08:29 RBC 4.01 L (4.30-5.90) m/uL Hgb 10.7 L (13.0-17.5) gm/dL Hct 36.1 L (39.0-53.0) % MCHC 29.5 L (31.0-37.0) g/dL RDW 20.4 H (11.5-15.5) % Lymphocytes # 0.5 L (1.0-4.8) k/uL
--- NOTE | 2021-02-03 23:44 | P.PN ---
Subjective Progress Note Date: 02/03/21 - Reason for Consult Consult date: 01/29/21 Medical management - Chief Complaint Right colectomy, omentectomy, repair of incisional hernia with lysis of adh - History of Present Illness This is a 50-year-old male who was recently admitted under surgical services and presented to the ER with continued abdominal pain and concern for possible bowel obstruction. CT of the abdomen is showing no suspicious changes to suggest bowel obstruction. Patient was recently admitted with this and ultimately transferred to [place] for further surgical evaluation as he was scheduled on 01/29/2021. Reportedly patient left [place] AGAINST MEDICAL ADVICE as he felt his pain was not being managed properly and also opted to not have surgery. Patient continued with abdominal discomfort and was instructed to report to the ER for further evaluation. She does have an extensive past medical history of Crohn's disease along with known ileocecal stricture and per patient has had multiple bowel surgeries. Patient was admitted to surgery and underwent right colectomy, omentectomy, repair of incisional hernia, and lysis of adhesions with Dr. Dela Cruz. We are consulted for medical management. 01/30/2021 Patient is seen and evaluated and follow-up this morning currently walking the halls and appears to be in no acute distress. Patient continues on clear liquids as he denies passing gas or having bowel movements as of yet. Patient reports to rumbling in the abdomen this morning. No further reports of nausea or vomiting noted. Denies chest pain or shortness of breath. Patient is afebrile. 01/31/2021 Patient is seen and evaluated and follow-up this morning again walking the halls stating that he feels better when he is up and about and continues to have rumbling noted in the abdomen and possibly could've had some flatus although not sure and denies bowel movement. Patient continues to request IV pain medication and nausea medication [id number] and will add oral [place] and discussed with the patient about limiting use of Dilaudid as he is not being sent home on this. Surgery has also made this known. Encouraged incentive spirometer use along with increased activity as tolerated. Patient is tolerating diet and being advanced to full liquids. Will repeat labs in the a.m. 02/01/2021 Patient states that he has never been in a situation where he has never had his pain controlled before. He is requesting an increase in his dilaudid. Patient is tolerating a full liquid diet. He denies any nausea, vomiting. Reports looser stools. He states that his abdomen is increasing in pain around his surgical incisional daily. There is some distention, what appears to be some purulent drainage shadowing from the surgical incisional dressing with some surrounding erythema. Pt states that he is only able to ambulate and use the IS shortly after receiving pain medication. He is receiving dilaudid 1 mg q3, norco 5 mg q4hr and toradol every 6 hours. Vital signs are stable today. WBC count within normal limits as well. Awaiting surgical input today. 02/02/2021 Patient is evaluated today, sitting in the chair. Toradol has been discontinued from surgical services. He had a acute abdominal x-ray yesterday and today which revealed nonobstructive bowel gas pattern. Patient denied an NG tube y evening, however states today that he would try anything at this point to have some pain relief. He is still complaining of some severe abdominal pain around the incision. Yesterday he did tell the RN and writing AIRCRAFT MAINTENANCE DIRECTOR that he was having bowel movements, however he denies any BMs today and states that he has not had any in 3 days. Mylicon was added from surgical services. Diet was downgraded to ice chips and popsicles. 02/03/2021 Patient is seen and evaluated today and continues with abdominal pain and requesting an increase in medications. Patient states he is not having any bowel movements although staff reported him having BM x2. Patient's pain and increase in abdominal distention is causing him to have trouble getting up from the bed. Patient continues to walk the halls. PT/OT consulted. CBC within normal limits and will repeat labs. Patient diet being advanced to clear liquids. Review of systems: Constitutional: No reports of fatigue, fever, or chills Cardiovascular: No reports of chest pain or palpitations Respiratory: No reports of shortness of breath or cough GI: No reports of nausea, vomiting, reports passing gas but denies bowel movements, increase in abdominal incisional site pain : No reports of dysuria or retention Neurovascular: reports of weakness getting up from lying or sitting All medications have been reviewed Active Medications Hydrocodone Bitart/Acetaminophen (Hydrocodone/Apap 5-325mg 1 Each Tab) 1 each PO Q4HR PRN PRN Reason: Pain Last Admin: 02/01/21 12:55 Dose: 1 each Documented by: Benzocaine/Menthol (Benzocaine/Menthol Lozeng 1 Each Lozenge) 1 each MUCOUS MEM Q1HR PRN PRN Reason: Sore Throat Clonazepam (Clonazepam 1 Mg Tab) [address] [facility] Last Admin: 02/03/21 08:29 Dose: 1 mg Documented by: Fluoxetine HCl (Fluoxetine Hcl 10 Mg Cap) [address] [facility] Last Admin: 02/03/21 08:29 Dose: 10 mg Documented by: Heparin Sodium (Porcine) (Heparin Sodium,Porcine/Pf 5,000 Unit/0.5 Ml Syringe) 5,[address] [facility] Last Admin: 02/03/21 08:30 Dose: Not Given Documented by: Hydromorphone HCl (Hydromorphone 0.5 Mg/0.5 Ml Syringe) 0.5 mg IVP Q3HR PRN PRN Reason: Moderate Pain Stop: 02/26/21 17:16 Hydromorphone HCl (Hydromorphone 1 Mg/Ml 1 Ml Syringe) 1 mg IVP Q3HR PRN PRN Reason: Severe Pain Stop: 02/26/21 17:16 Last Admin: 02/03/21 12:14 Dose: 1 mg Documented by: Sodium Chloride (Saline 0.9%) 1,000 mls @ 130 mls/hr IV .Q7H42M [facility] Stop: 02/26/21 17:16 Last Admin: 02/03/21 07:57 Dose: 130 mls/hr Documented by: Ropivacaine 250 mg/Hydromorphone HCl 5 mg/ Sodium Chloride 250 mls @ 0 mls/hr EPIDURAL .Q0M PRN; Protocol PRN Reason: Pain Control Last Admin: 01/28/21 14:15 Dose: 7 mls Documented by: Lamotrigine (Lamotrigine 100 Mg Tab) [address] [facility] Last Admin: 02/03/21 08:30 Dose: 100 mg Documented by: Naloxone HCl (Naloxone 0.4 Mg/Ml 1 Ml Vial) 0.2 mg IV Q2M PRN PRN Reason: Opioid Reversal Ondansetron HCl (Ondansetron 4 Mg/2 Ml Vial) 4 mg IVP Q8HR PRN PRN Reason: Nausea And Vomiting Stop: 02/26/21 17:16 Last Admin: 02/03/21 05:04 Dose: 4 mg Documented by: Pantoprazole Sodium (Pantoprazole 40 Mg/10 Ml Vial) [address] [facility] Stop: 02/27/21 09:01 Last Admin: 02/03/21 08:30 Dose: 40 mg Documented by: Simethicone (Simethicone 40 Mg/0.6 Ml Drops 2,000 Mg/30 Ml Bottle) [address] [facility] Last Admin: 02/03/21 13:40 Dose: 40 mg Documented by: Physical exam: Gen: This is a 50 year old male, awake, alert and oriented x3. sitting up in bed HEENT: Head is atraumatic, normocephalic. Pupils equal, round. Sclerae is ani cteric. NECK: Supple. No JVD. No lymphadenopathy. No thyromegaly. LUNGS: Clear to auscultation. No wheezes or rhonchi. No intercostal retractions. HEART: Regular rate and rhythm. No murmur. ABDOMEN: Soft. Mildly tender on palpation. surgical site is currently covered with surgical dressing EXTREMITIES: No pedal edema. No calf tenderness. NEUROLOGICAL: Patient is awake, alert and oriented x3. Cranial nerves 2 through 12 are grossly intact. Assessment: abdominal pain with abdominal distention, x-ray showed non-obstructive bowel gas pattern status post right colectomy, omentectomy, repair of incisional hernia, and lysis of adhesions Crohns disease History of ileocolonic anastomosis stricture History of anxiety/depression, bipolar, PTSD GI prophylaxis DVT prophylaxis Full code Plan: Recommend to continue with current medications. Pain management per primary service. Patient reports of passing gas but no bowel movements. Nursing staff reports bowel movements. Patient to have PT/OT evaluate the patient as he is stating he is having difficulty getting up. Patient diet being advanced to clear liquids and to advance per surgery recommendations. Patient encouraged to continue with incentive spirometer at least 10 times every hour while awake and encouraged increased activity as tolerated. Will continue to monitor closely along with surgery. Repeat a.m. labs. Thank you for this consultation. Objective - Vital Signs Vital signs: Vital Signs Temp 97.8 F 02/03/21 05:00 Pulse 77 02/03/21 08:28 Resp 20 02/03/21 05:00 BP 148/81 02/03/21 08:28 Pulse Ox 96 02/03/21 08:28 Intake & Output 02/02/21 02/03/21 02/03/21 18:59 06:59 18:59 Intake Total 60 100 Balance 60 100 Intake: Oral 60 100 Other: Voiding Method Toilet Toilet # Voids 3 3 - Labs CBC & Chem 7: 02/03/21 08:29 02/01/21 07:19
[2021-02-04 04:34] LABS: Anisocytosis Moderate; Basophils % (A) 0 %; Eosinophils # (A) 0.1 k/uL (0-0.7); Eosinophils % (A) 3 %; HCT 30.9 % (39.0-53.0); HGB 9.5 gm/dL (13.0-17.5); Hypochromasia Moderate; Lymphocytes # (A) 0.8 k/uL (1.0-4.8); Lymphocytes % (A) 15 %; MCH 26.9 pg (25.0-35.0); MCHC 30.8 g/dL (31.0-37.0); MCV 87.3 fL (80.0-100.0); Microcytosis Slight; Monocytes # (A) 0.5 k/uL (0-1.0); Monocytes % (A) 9 %; Neutrophils # (A) 3.9 k/uL (1.3-7.7); Neutrophils % (A) 73 %; Platelet Count 259 k/uL (150-450); Poikilocytosis Slight; RBC 3.55 m/uL (4.30-5.90); RDW 20.4 % (11.5-15.5); WBC 5.3 k/uL (3.8-10.6)
[2021-02-04] MEDS: SODIUM CHLORIDE 0.9% 1,000 ML IV SCH ×2 (05:44→13:39)
[2021-02-04] MEDS: HYDROmorphone 1 MG/ML 1 ML SYRINGE IVP PRN (05:46)
[2021-02-04] MEDS: lamoTRIgine 100 MG TAB PO SCH (08:10)
[2021-02-04] MEDS: HEPARIN SODIUM,PORCINE/PF 5,000 UNIT/0.5 ML SYRINGE SQ SCH ×2 (08:10→20:50)
[2021-02-04] MEDS: SIMETHICONE 40 MG/0.6 ML DROPS 2,000 MG/30 ML BOTTLE PO SCH ×4 (08:10→20:50)
[2021-02-04] MEDS: PANTOPRAZOLE 40 MG/10 ML VIAL IV SCH (08:10)
[2021-02-04] MEDS: FLUoxetine HCL 10 MG CAP PO SCH (08:10)
[2021-02-04] MEDS: clonazePAM 1 MG TAB PO SCH ×3 (08:10→20:50)
[2021-02-04] MEDS: HYDROcodone/APAP 5-325MG 1 EACH TAB PO PRN (08:34)
[2021-02-04 10:22] LABS: Magnesium 1.7 mg/dL (1.5-2.4)
[2021-02-04] MEDS: HYDROcodone/APAP 7.5-325MG 1 EACH TAB PO PRN ×3 (12:16→20:49)
[2021-02-04] MEDS: PIPERACILLIN-TAZOBACTAM 3.375 GM in SODIUM CHLORIDE 0.9% 100 ML IVPB SCH ×2 (12:17→18:19)
--- NOTE | 2021-02-04 12:31 | P.PN ---
Subjective Progress Note Date: 02/04/21 - Reason for Consult Consult date: 01/29/21 Medical management - Chief Complaint Right colectomy, omentectomy, repair of incisional hernia with lysis of adh - History of Present Illness This is a 50-year-old male who was recently admitted under surgical services and presented to the ER with continued abdominal pain and concern for possible bowel obstruction. CT of the abdomen is showing no suspicious changes to suggest bowel obstruction. Patient was recently admitted with this and ultimately transferred to [place] for further surgical evaluation as he was scheduled on 01/29/2021. Reportedly patient left [place] AGAINST MEDICAL ADVICE as he felt his pain was not being managed properly and also opted to not have surgery. Patient continued with abdominal discomfort and was instructed to report to the ER for further evaluation. She does have an extensive past medical history of Crohn's disease along with known ileocecal stricture and per patient has had multiple bowel surgeries. Patient was admitted to surgery and underwent right colectomy, omentectomy, repair of incisional hernia, and lysis of adhesions with Dr. Dela Cruz. We are consulted for medical management. 01/30/2021 Patient is seen and evaluated and follow-up this morning currently walking the halls and appears to be in no acute distress. Patient continues on clear liquids as he denies passing gas or having bowel movements as of yet. Patient reports to rumbling in the abdomen this morning. No further reports of nausea or vomiting noted. Denies chest pain or shortness of breath. Patient is afebrile. 01/31/2021 Patient is seen and evaluated and follow-up this morning again walking the halls stating that he feels better when he is up and about and continues to have rumbling noted in the abdomen and possibly could've had some flatus although not sure and denies bowel movement. Patient continues to request IV pain medication and nausea medication [id number] and will add oral [place] and discussed with the patient about limiting use of Dilaudid as he is not being sent home on this. Surgery has also made this known. Encouraged incentive spirometer use along with increased activity as tolerated. Patient is tolerating diet and being advanced to full liquids. Will repeat labs in the a.m. 02/01/2021 Patient states that he has never been in a situation where he has never had his pain controlled before. He is requesting an increase in his dilaudid. Patient is tolerating a full liquid diet. He denies any nausea, vomiting. Reports looser stools. He states that his abdomen is increasing in pain around his surgical incisional daily. There is some distention, what appears to be some purulent drainage shadowing from the surgical incisional dressing with some surrounding erythema. Pt states that he is only able to ambulate and use the IS shortly after receiving pain medication. He is receiving dilaudid 1 mg q3, norco 5 mg q4hr and toradol every 6 hours. Vital signs are stable today. WBC count within normal limits as well. Awaiting surgical input today. 02/02/2021 Patient is evaluated today, sitting in the chair. Toradol has been discontinued from surgical services. He had a acute abdominal x-ray yesterday and today which revealed nonobstructive bowel gas pattern. Patient denied an NG tube y ester evening, however states today that he would try anything at this point to have some pain relief. He is still complaining of some severe abdominal pain around the incision. Yesterday he did tell the RN and writing SCOURING TRAIN OPERATOR that he was having bowel movements, however he denies any BMs today and states that he has not had any in 3 days. Mylicon was added from surgical services. Diet was downgraded to ice chips and popsicles. 02/03/2021 Patient is seen and evaluated today and continues with abdominal pain and requesting an increase in medications. Patient states he is not having any bowel movements although staff reported him having BM x2. Patient's pain and increase in abdominal distention is causing him to have trouble getting up from the bed. Patient continues to walk the halls. PT/OT consulted. CBC within normal limits and will repeat labs. Patient diet being advanced to clear liquids. 02/04/2021 Patient is seen and evaluated this morning states he had a bowel movement and is passing gas. Patient has been up and walking and continues to have some discomfort noted at the site with surrounding tenderness and being placed on IV Zosyn and will monitor for improvement. Patient strongly encouraged to avoid IV narcotics and states he is attempting to continue with oral pain medications and avoid IV Dilaudid if possible. Patient is currently tolerating diet with no reports of increasing abdominal pain and diet being advanced to full liquids. Patient remains afebrile and will monitor closely with possible discharge in 24 hours per surgery recommendations. Labs: White blood count is 5.3, hemoglobin is 9.5, platelets are 259, repeat potassium is 4.0, magnesium is 1.7. Review of systems: Constitutional: No reports of fatigue, fever, or chills Cardiovascular: No reports of chest pain or palpitations Respiratory: No reports of shortness of breath or cough GI: No reports of nausea, vomiting, reports passing gas and had a bowel movement. Increased abdominal tenderness at the surgical site with some redness and surrounding inflammation noted at the site : No reports of dysuria or retention Neurovascular: reports of generalized weakness All medications have been reviewed Active Medications Hydrocodone Bitart/Acetaminophen (Hydrocodone/Apap 7.5-325mg 1 Each Tab) 1 each PO Q4HR PRN PRN Reason: MILD Pain Benzocaine/Menthol (Benzocaine/Menthol Lozeng 1 Each Lozenge) 1 each MUCOUS MEM Q1HR PRN PRN Reason: Sore Throat Clonazepam (Clonazepam 1 Mg Tab) 1 mg PO TID [facility] Last Admin: 02/04/21 08:10 Dose: 1 mg Documented by: Fluoxetine HCl (Fluoxetine Hcl 10 Mg Cap) 10 mg PO DAILY [facility] Last Admin: 02/04/21 08:10 Dose: 10 mg Documented by: Heparin Sodium (Porcine) (Heparin Sodium,Porcine/Pf 5,000 Unit/0.5 Ml Syringe) 5,000 unit SQ Q12HR [facility] Last Admin: 02/04/21 08:10 Dose: Not Given Documented by: Hydromorphone HCl (Hydromorphone 0.5 Mg/0.5 Ml Syringe) 0.5 mg IVP Q3HR PRN PRN Reason: Moderate Pain Stop: 02/26/21 17:16 Hydromorphone HCl (Hydromorphone 1 Mg/Ml 1 Ml Syringe) 1 mg IVP Q3HR PRN PRN Reason: Severe Pain Stop: 02/26/21 17:16 Last Admin: 02/04/21 05:46 Dose: 1 mg Documented by: Sodium Chloride (Saline 0.9%) 1,000 mls @ 130 mls/hr IV .Q7H42M [facility] Stop: 02/26/21 17:16 Last Admin: 02/04/21 05:44 Dose: Not Given Documented by: Ropivacaine 250 mg/Hydromorphone HCl 5 mg/ Sodium Chloride 250 mls @ 0 mls/hr EPIDURAL .Q0M PRN; Protocol PRN Reason: Pain Control Last Admin: 01/28/21 14:15 Dose: 7 mls Documented by: Piperacillin Sod/Tazobactam (Sod 3.375 gm/ Sodium Chloride) 100 mls @ 25 mls/hr IVPB Q8H [facility] Lamotrigine (Lamotrigine 100 Mg Tab) 100 mg PO DAILY [facility] Last Admin: 02/04/21 08:10 Dose: 100 mg Documented by: Naloxone HCl (Naloxone 0.4 Mg/Ml 1 Ml Vial) 0.2 mg IV Q2M PRN PRN Reason: Opioid Reversal Ondansetron HCl (Ondansetron 4 Mg/2 Ml Vial) 4 mg IVP Q8HR PRN PRN Reason: Nausea And Vomiting Stop: 02/26/21 17:16 Last Admin: 02/03/21 23:37 Dose: 4 mg Documented by: Pantoprazole Sodium (Pantoprazole 40 Mg/10 Ml Vial) 40 mg IV DAILY [facility] Stop: 02/27/21 09:01 Last Admin: 02/04/21 08:10 Dose: 40 mg Documented by: Simethicone (Simethicone 40 Mg/0.6 Ml Drops 2,000 Mg/30 Ml Bottle) 40 mg PO QID [facility] Last Admin: 02/04/21 08:10 Dose: 40 mg Documented by: Physical exam: Gen: This is a 50 year old male, awake, alert and oriented x3. sitting up in the chair HEENT: Head is atraumatic, normocephalic. Pupils equal, round. Sclerae is anicteric. NECK: Supple. No JVD. No lymphadenopathy. No thyromegaly. LUNGS: Clear to auscultation. No wheezes or rhonchi. No intercostal retractions. HEART: Regular rate and rhythm. No murmur. ABDOMEN: Soft. Mildly tender on palpation. surgical site is currently covered with surgical dressing EXTREMITIES: No pedal edema. No calf tenderness. NEUROLOGICAL: Patient is awake, alert and oriented x3. Cranial nerves 2 through 12 are grossly intact. Assessment: abdominal pain with abdominal distention, x-ray showed non-obstructive bowel gas pattern, patient is having bowel movements and passing gas status post right colectomy, omentectomy, repair of incisional hernia, and lysis of adhesions Crohns disease History of ileocolonic anastomosis stricture History of anxiety/depression, bipolar, PTSD GI prophylaxis DVT prophylaxis Full code Plan: Recommend to continue with current medications. Pain management per primary service. Patient strongly encouraged to avoid Dilaudid use and surgery services have increased [place]. Patient is having some tenderness with increased redness and swelling at the surgical site and being started on IV Zosyn. Patient is afebrile and white blood count is 5.3. Patient states he is passing gas and had a bowel movement this morning. Patient continues to walk the halls and is ambulatory and hopeful for possible discharge in 24 hours. Diet being advanced to full liquids per surgical services and will monitor for tolerance. Patient encouraged to continue with incentive spirometer at least 10 times every hour while awake and encouraged increased activity as tolerated. Will continue to monitor closely along with surgery. Repeat a.m. labs. Thank you for this consultation. Objective - Vital Signs Vital signs: Vital Signs Temp 98.9 F 02/04/21 04:44 Pulse 69 02/04/21 04:44 Resp 18 02/04/21 04:44 BP 150/86 02/04/21 04:44 Pulse Ox 99 02/04/21 04:44 Intake & Output 02/03/21 02/04/21 02/04/21 18:59 06:59 18:59 Intake Total 1560 Balance 1560 Intake: Intake, IV Titration 1560 Amount Sodium Chloride 0.9% 1, 1560 000 ml @ 130 mls/hr IV . Q7H42M [facility] Rx#:[id number] Other: Voiding Method Toilet Toilet # Voids 1 3 # Bowel Movements 1 - Labs CBC & Chem 7: 02/04/21 03:24 02/04/21 03:24 Labs: Abnormal Lab Results - Last 24 Hours (Table) 02/04/21 Range/Units 03:24 RBC 3.55 L (4.30-5.90) m/uL Hgb 9.5 L (13.0-17.5) gm/dL Hct 30.9 L (39.0-53.0) % MCHC 30.8 L (31.0-37.0) g/dL RDW 20.4 H (11.5-15.5) % Lymphocytes # 0.8 L (1.0-4.8) k/uL
[2021-02-04] MEDS: ONDANSETRON 4 MG/2 ML VIAL IVP PRN (13:39)
--- NOTE | 2021-02-04 14:51 | P.PN ---
Subjective Progress Note Date: 02/04/21 CHIEF COMPLAINT: Small bowel obstruction due to ileocolonic anastomosis stricture HISTORY OF PRESENT ILLNESS: Patient is status post right colectomy, omentectomy, repair of incisional hernia and lysis of adhesions. Postop day #7. Patient continues to complain of abdominal pain. Patient reports that he would like something stronger than [place] 5. He reports that he is no longer taking the IV Dilaudid. But per nursing staff he did receive a dose at 6:00 this morning. Patient is having bowel movements and flatus. He feels ready to advance his diet. He has been up and ambulating. He does have some redness along the incision site. There is minimal drainage noted on the bandage. He is afebrile. White count normal at 5.3 hemoglobin 9.5. Patient seen and examined with Dr. Dela Cruz PHYSICAL EXAM: VITAL SIGNS: Reviewed. GENERAL: Well-developed in no acute distress. HEENT: No sclera icterus. Extraocular movements grossly intact. Moist buccal mucosa. Head is atraumatic, normocephalic. ABDOMEN: Soft. Distended. Incision with erythema around the edges NEUROLOGIC: Alert and oriented. Cranial nerves II through XII grossly intact. ASSESSMENT: 1. 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 Incisional cellulitis PLAN: -Advance diet to full liquids -Patient can have a chopped diet at dinner -Increase [place] to 7.5 every 4 hours as needed for pain -Zosyn added for incisional cellulitis -Encouraged patient to ambulate -Encouraged patient to use incentive spirometer -GI prophylaxis Protonix and DVT prophylaxis subcu heparin Physician Cancellation Clerk note has been reviewed by physician. Signing provider agrees with the documented findings, assessment, and plan of care. Objective - Vital Signs Vital signs: Vital Signs Temp 98.5 F 02/04/21 12:25 Pulse 69 02/04/21 12:25 Resp 20 02/04/21 12:25 BP 140/98 02/04/21 12:25 Pulse Ox 99 02/04/21 12:25 Intake & Output 02/03/21 02/04/21 02/04/21 18:59 06:59 18:59 Intake Total 1560 Balance 1560 Weight 99.337 kg Intake: Intake, IV Titration 1560 Amount Sodium Chloride 0.9% 1, 1560 000 ml @ 130 mls/hr IV . Q7H42M [facility] Rx#:[id number] Other: Voiding Method Toilet Toilet # Voids 1 3 # Bowel Movements 1 - Labs CBC & Chem 7: 02/04/21 03:24 02/04/21 03:24 Labs: Abnormal Lab Results - Last 24 Hours (Table) 02/04/21 Range/Units 03:24 RBC 3.55 L (4.30-5.90) m/uL Hgb 9.5 L (13.0-17.5) gm/dL Hct 30.9 L (39.0-53.0) % MCHC 30.8 L (31.0-37.0) g/dL RDW 20.4 H (11.5-15.5) % Lymphocytes # 0.8 L (1.0-4.8) k/uL
[2021-02-05] MEDS: SODIUM CHLORIDE 0.9% 1,000 ML IV SCH ×3 (00:39→14:21)
[2021-02-05] MEDS: PIPERACILLIN-TAZOBACTAM 3.375 GM in SODIUM CHLORIDE 0.9% 100 ML IVPB SCH ×3 (02:02→18:10)
[2021-02-05] MEDS: HYDROcodone/APAP 7.5-325MG 1 EACH TAB PO PRN ×2 (03:58→09:10)
[2021-02-05 07:22] LABS: Anisocytosis Moderate; Basophils % (A) 1 %; Eosinophils # (A) 0.2 k/uL (0-0.7); Eosinophils % (A) 3 %; HCT 34.3 % (39.0-53.0); HGB 10.7 gm/dL (13.0-17.5); Hypochromasia Marked; Lymphocytes # (A) 0.6 k/uL (1.0-4.8); Lymphocytes % (A) 12 %; MCH 27.5 pg (25.0-35.0); MCHC 31.3 g/dL (31.0-37.0); MCV 87.9 fL (80.0-100.0); Mean Platelet Volume 7.5; Microcytosis Slight; Monocytes # (A) 0.3 k/uL (0-1.0); Monocytes % (A) 6 %; Neutrophils # (A) 4.1 k/uL (1.3-7.7); Neutrophils % (A) 76 %; Platelet Count 296 k/uL (150-450); Poikilocytosis Slight; RDW 20.1 % (11.5-15.5); WBC 5.4 k/uL (3.8-10.6)
[2021-02-05] MEDS: PANTOPRAZOLE 40 MG/10 ML VIAL IV SCH (08:52)
[2021-02-05] MEDS: clonazePAM 1 MG TAB PO SCH ×3 (09:09→22:02)
[2021-02-05] MEDS: lamoTRIgine 100 MG TAB PO SCH (09:09)
[2021-02-05] MEDS: FLUoxetine HCL 10 MG CAP PO SCH (09:10)
[2021-02-05] MEDS: SIMETHICONE 40 MG/0.6 ML DROPS 2,000 MG/30 ML BOTTLE PO SCH ×3 (09:11→18:09)
[2021-02-05] MEDS: HEPARIN SODIUM,PORCINE/PF 5,000 UNIT/0.5 ML SYRINGE SQ SCH ×2 (09:11→22:02)
[2021-02-05] MEDS: ONDANSETRON 4 MG/2 ML VIAL IVP PRN ×2 (10:09→18:14)
[2021-02-05] MEDS: HYDROmorphone 1 MG/ML 1 ML SYRINGE IVP PRN ×3 (13:30→22:01)
--- NOTE | 2021-02-05 15:02 | P.PN ---
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 Postop day #8. Patient continues to complain of abdominal pain. Patient's pain is mostly along the incision site. He is having erythema at the incision and was started on antibiotics yesterday. Dr. callaway did remove a few kenny at bedside. There was no significant drainage noted. Patient's white count remains normal at 5.4 he is afebrile. He is tolerating a chopped diet. Patient seen and examined with Dr. Callaway PHYSICAL EXAM: VITAL SIGNS: Reviewed. GENERAL: Well-developed in no acute distress. HEENT: No sclera icterus. Extraocular movements grossly intact. Moist buccal mucosa. Head is atraumatic, normocephalic. ABDOMEN: Soft. Distended. Incision with erythema around the edges and swelling at incision site NEUROLOGIC: Alert and oriented. Cranial nerves II through XII grossly intact. ASSESSMENT: 1. 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 Incisional cellulitis, unexpected PLAN: -Continue chopped diet -Continue [place] 7.5 -Continue Zosyn for incisional cellulitis -Encouraged patient to ambulate -Encouraged patient to use incentive spirometer -GI prophylaxis Protonix and DVT prophylaxis subcu heparin Physician Creel Selector note has been reviewed by physician. Signing provider agrees with the documented findings, assessment, and plan of care. Objective - Vital Signs Vital signs: Vital Signs Temp 98.1 F 02/05/21 13:18 Pulse 56 L 02/05/21 13:18 Resp 18 02/05/21 13:18 BP 167/80 02/05/21 13:18 Pulse Ox 95 02/05/21 13:18 Intake & Output 02/04/21 02/05/21 02/05/21 18:59 06:59 18:59 Intake Total 580 2060 Output Total 1400 Balance 580 660 Weight 99.337 kg Intake: Intake, IV Titration 1560 Amount Sodium Chloride 0.9% 1, 1560 000 ml @ 130 mls/hr IV . Q7H42M [facility] Rx#:[id number] Oral 580 500 Output: Urine 1400 Other: Voiding Method Toilet # Voids 2 - Labs CBC & Chem 7: 02/05/21 06:44 02/04/21 03:24 Labs: Abnormal Lab Results - Last 24 Hours (Table) 02/05/21 Range/Units 06:44 RBC 3.90 L (4.30-5.90) m/uL Hgb 10.7 L (13.0-17.5) gm/dL Hct 34.3 L (39.0-53.0) % RDW 20.1 H (11.5-15.5) % Lymphocytes # 0.6 L (1.0-4.8) k/uL
--- NOTE | 2021-02-05 15:28 | P.PN ---
Subjective Progress Note Date: 02/05/21 - Reason for Consult Consult date: 01/29/21 Medical management - Chief Complaint Right colectomy, omentectomy, repair of incisional hernia with lysis of adh - History of Present Illness This is a 50-year-old male who was recently admitted under surgical services and presented to the ER with continued abdominal pain and concern for possible bowel obstruction. CT of the abdomen is showing no suspicious changes to suggest bowel obstruction. Patient was recently admitted with this and ultimately transferred to [place] for further surgical evaluation as he was scheduled on 01/29/2021. Reportedly patient left [place] AGAINST MEDICAL ADVICE as he felt his pain was not being managed properly and also opted to not have surgery. Patient continued with abdominal discomfort and was instructed to report to the ER for further evaluation. She does have an extensive past medical history of Crohn's disease along with known ileocecal stricture and per patient has had multiple bowel surgeries. Patient was admitted to surgery and underwent right colectomy, omentectomy, repair of incisional hernia, and lysis of adhesions with Dr. Dela Cruz. We are consulted for medical management. 01/30/2021 Patient is seen and evaluated and follow-up this morning currently walking the halls and appears to be in no acute distress. Patient continues on clear liquids as he denies passing gas or having bowel movements as of yet. Patient reports to rumbling in the abdomen this morning. No further reports of nausea or vomiting noted. Denies chest pain or shortness of breath. Patient is afebrile. 01/31/2021 Patient is seen and evaluated and follow-up this morning again walking the halls stating that he feels better when he is up and about and continues to have rumbling noted in the abdomen and possibly could've had some flatus although not sure and denies bowel movement. Patient continues to request IV pain medication and nausea medication [id number] and will add oral Farson and discussed with the patient about limiting use of Dilaudid as he is not being sent home on this. Surgery has also made this known. Encouraged incentive spirometer use along with increased activity as tolerated. Patient is tolerating diet and being advanced to full liquids. Will repeat labs in the a.m. 02/01/2021 Patient states that he has never been in a situation where he has never had his pain controlled before. He is requesting an increase in his dilaudid. Patient is tolerating a full liquid diet. He denies any nausea, vomiting. Reports looser stools. He states that his abdomen is increasing in pain around his surgical incisional daily. There is some distention, what appears to be some purulent drainage shadowing from the surgical incisional dressing with some surrounding erythema. Pt states that he is only able to ambulate and use the IS shortly after receiving pain medication. He is receiving dilaudid 1 mg q3, norco 5 mg q4hr and toradol every 6 hours. Vital signs are stable today. WBC count within normal limits as well. Awaiting surgical input today. 02/02/2021 Patient is evaluated today, sitting in the chair. Toradol has been discontinued from surgical services. He had a acute abdominal x-ray yesterday and today which revealed nonobstructive bowel gas pattern. Patient denied an NG tube y ester evening, however states today that he would try anything at this point to have some pain relief. He is still complaining of some severe abdominal pain around the incision. Yesterday he did tell the RN and writing SENIOR MECHANICAL DESIGNER that he was having bowel movements, however he denies any BMs today and states that he has not had any in 3 days. Mylicon was added from surgical services. Diet was downgraded to ice chips and popsicles. 02/03/2021 Patient is seen and evaluated today and continues with abdominal pain and requesting an increase in medications. Patient states he is not having any bowel movements although staff reported him having BM x2. Patient's pain and increase in abdominal distention is causing him to have trouble getting up from the bed. Patient continues to walk the halls. PT/OT consulted. CBC within normal limits and will repeat labs. Patient diet being advanced to clear liquids. 02/04/2021 Patient is seen and evaluated this morning states he had a bowel movement and is passing gas. Patient has been up and walking and continues to have some discomfort noted at the site with surrounding tenderness and being placed on IV Zosyn and will monitor for improvement. Patient strongly encouraged to avoid IV narcotics and states he is attempting to continue with oral pain medications and avoid IV Dilaudid if possible. Patient is currently tolerating diet with no reports of increasing abdominal pain and diet being advanced to full liquids. Patient remains afebrile and will monitor closely with possible discharge in 24 hours per surgery recommendations. 02/05/2021 Patient is seen this morning continues to have some redness and tenderness with some drainage noted on the dressing changes and continued on IV Zosyn. Patient is afebrile and white blood count within normal limits at 5.4. Encouraged increased activity and continued oral intake with diet being advanced by surgery. Will repeat some a.m. labs and continue to follow along with surgery. Patient states he is not receiving adequate pain control and has been trying to avoid Dilaudid but the pain is unbearable. Labs: White blood count is 5.3, hemoglobin is 10.7, platelets are 296 Review of systems: Constitutional: No reports of fatigue, fever, or chills Cardiovascular: No reports of chest pain or palpitations Respiratory: No reports of shortness of breath or cough GI: No reports of nausea, vomiting, reports passing gas and having bowel movements. Increased abdominal tenderness at the surgical site with some redness and surrounding inflammation noted at the site, purulent drainage noted on the dressing : No reports of dysuria or retention Neurovascular: reports of generalized weakness All medications have been reviewed Active Medications Hydrocodone Bitart/Acetaminophen (Hydrocodone/Apap 7.5-325mg 1 Each Tab) 1 each PO Q4HR PRN PRN Reason: MILD Pain Last Admin: 02/05/21 09:10 Dose: 1 each Documented by: Benzocaine/Menthol (Benzocaine/Menthol Lozeng 1 Each Lozenge) 1 each MUCOUS MEM Q1HR PRN PRN Reason: Sore Throat Clonazepam (Clonazepam 1 Mg Tab) 1 mg PO TID [facility] Last Admin: 02/05/21 09:09 Dose: 1 mg Documented by: Fluoxetine HCl (Fluoxetine Hcl 10 Mg Cap) 10 mg PO DAILY [facility] Last Admin: 02/05/21 09:10 Dose: 10 mg Documented by: Heparin Sodium (Porcine) (Heparin Sodium,Porcine/Pf 5,000 Unit/0.5 Ml Syringe) 5,000 unit SQ Q12HR [facility] Last Admin: 02/05/21 09:11 Dose: Not Given Documented by: Hydromorphone HCl (Hydromorphone 0.5 Mg/0.5 Ml Syringe) 0.5 mg IVP Q3HR PRN PRN Reason: Moderate Pain Stop: 02/26/21 17:16 Hydromorphone HCl (Hydromorphone 1 Mg/Ml 1 Ml Syringe) 1 mg IVP Q3HR PRN PRN Reason: Severe Pain Stop: 02/26/21 17:16 Last Admin: 02/05/21 13:30 Dose: 1 mg Documented by: Sodium Chloride (Saline 0.9%) 1,000 mls @ 130 mls/hr IV .Q7H42M [facility] Stop: 02/26/21 17:16 Last Admin: 02/05/21 14:21 Dose: Not Given Documented by: Ropivacaine 250 mg/Hydromorphone HCl 5 mg/ Sodium Chloride 250 mls @ 0 mls/hr EPIDURAL .Q0M PRN; Protocol PRN Reason: Pain Control Last Admin: 01/28/21 14:15 Dose: 7 mls Documented by: Piperacillin Sod/Tazobactam (Sod 3.375 gm/ Sodium Chloride) 100 mls @ 25 mls/hr IVPB Q8H [facility] Last Admin: 02/05/21 08:42 Dose: 25 mls/hr Documented by: Lamotrigine (Lamotrigine 100 Mg Tab) 100 mg PO DAILY [facility] Last Admin: 02/05/21 09:09 Dose: 100 mg Documented by: Naloxone HCl (Naloxone 0.4 Mg/Ml 1 Ml Vial) 0.2 mg IV Q2M PRN PRN Reason: Opioid Reversal Ondansetron HCl (Ondansetron 4 Mg/2 Ml Vial) 4 mg IVP Q8HR PRN PRN Reason: Nausea And Vomiting Stop: 02/26/21 17:16 Last Admin: 02/05/21 10:09 Dose: 4 mg Documented by: Pantoprazole Sodium (Pantoprazole 40 Mg/10 Ml Vial) 40 mg IV DAILY [facility] Stop: 02/27/21 09:01 Last Admin: 02/05/21 08:52 Dose: 40 mg Documented by: Simethicone (Simethicone 40 Mg/0.6 Ml Drops 2,000 Mg/30 Ml Bottle) 40 mg PO QID [facility] Last Admin: 02/05/21 14:26 Dose: 40 mg Documented by: Physical exam: Gen: This is a 50 year old male, awake, alert and oriented x3. sitting up in the chair HEENT: Head is atraumatic, normocephalic. Pupils equal, round. Sclerae is anicteric. NECK: Supple. No JVD. No lymphadenopathy. No thyromegaly. LUNGS: Clear to auscultation. No wheezes or rhonchi. No intercostal retractions. HEART: Regular rate and rhythm. No murmur. ABDOMEN: Soft. Mildly tender on palpation. surgical site is has some surrounding redness at the kenny with some swelling and purulent drainage noted on the dressing EXTREMITIES: No pedal edema. No calf tenderness. NEUROLOGICAL: Patient is awake, alert and oriented x3. Cranial nerves 2 through 12 are grossly intact. Assessment: abdominal pain with abdominal distention, x-ray showed non-obstructive bowel gas pattern, patient is having bowel movements and passing gas status post right colectomy, omentectomy, repair of incisional hernia, and lysis of adhesions Possible surgical site cellulitis with some surrounding redness and swelling and purulent drainage noted, patient remains afebrile and white blood count is within normal limits and patient is maintained on IV Zosyn Crohns disease History of ileocolonic anastomosis stricture History of anxiety/depression, bipolar, PTSD GI prophylaxis DVT prophylaxis Full code Plan: Recommend to continue with current medications. Pain management per primary service. Patient strongly encouraged to avoid Dilaudid use and surgery services have increased Farson. Patient is having some tenderness with increased redness and swelling at the surgical site with some surrounding cellulitis and maintained on IV Zosyn. Patient remains afebrile and white blood count is 5.4. Patient states he is passing gas and having bowel movements and tolerating diet which is being advanced to dysphagia chopped diet per surgical services. Patient encouraged to continue with incentive spirometer at least 10 times every hour while awake and encouraged increased activity as tolerated. Will continue to monitor closely along with surgery. Repeat a.m. labs. Thank you for this consultation. Objective - Vital Signs Vital signs: Vital Signs Temp 97.8 F 02/05/21 04:51 Pulse 68 02/05/21 04:51 Resp 16 02/05/21 04:51 BP 144/78 02/05/21 04:51 Pulse Ox 98 02/05/21 04:51 Intake & Output 02/04/21 02/05/21 02/05/21 18:59 06:59 18:59 Intake Total 580 2060 Output Total 1400 Balance 580 660 Weight 99.337 kg Intake: Intake, IV Titration 1560 Amount Sodium Chloride 0.9% 1560 000 ml @ 130 mls/hr IV . Q7H42M [facility] Rx#:[id number] Oral 580 500 Output: Urine 1400 Other: Voiding Method Toilet # Voids 2 - Labs CBC & Chem 7: 02/05/21 06:44 02/04/21 03:24 Labs: Abnormal Lab Results - Last 24 Hours (Table) 02/05/21 Range/Units 06:44 RBC 3.90 L (4.30-5.90) m/uL Hgb 10.7 L (13.0-17.5) gm/dL Hct 34.3 L (39.0-53.0) % RDW 20.1 H (11.5-15.5) % Lymphocytes # 0.6 L (1.0-4.8) k/uL
[2021-02-06] MEDS: SODIUM CHLORIDE 0.9% 1,000 ML IV SCH ×2 (00:36→13:26)
[2021-02-06] MEDS: SIMETHICONE 40 MG/0.6 ML DROPS 2,000 MG/30 ML BOTTLE PO SCH ×5 (00:36→23:26)
[2021-02-06] MEDS: PIPERACILLIN-TAZOBACTAM 3.375 GM in SODIUM CHLORIDE 0.9% 100 ML IVPB SCH ×3 (02:26→18:03)
[2021-02-06] MEDS: HYDROmorphone 1 MG/ML 1 ML SYRINGE IVP PRN ×4 (02:46→21:13)
[2021-02-06] MEDS: ONDANSETRON 4 MG/2 ML VIAL IVP PRN ×3 (03:37→21:13)
[2021-02-06] MEDS: HYDROmorphone 0.5 MG/0.5 ML SYRINGE IVP PRN ×2 (03:37→13:11)
[2021-02-06 06:16] LABS: Anisocytosis Moderate; Basophils % (A) 0 %; Eosinophils # (A) 0.2 k/uL (0-0.7); Eosinophils % (A) 5 %; HCT 31.7 % (39.0-53.0); HGB 9.4 gm/dL (13.0-17.5); Hypochromasia Marked; Lymphocytes # (A) 0.7 k/uL (1.0-4.8); Lymphocytes % (A) 16 %; MCH 26.3 pg (25.0-35.0); MCHC 29.5 g/dL (31.0-37.0); Mean Platelet Volume 7.2; Monocytes # (A) 0.3 k/uL (0-1.0); Monocytes % (A) 7 %; Neutrophils # (A) 3.2 k/uL (1.3-7.7); Neutrophils % (A) 69 %; Platelet Count 302 k/uL (150-450); RBC 3.56 m/uL (4.30-5.90); RDW 20.1 % (11.5-15.5); WBC 4.6 k/uL (3.8-10.6)
[2021-02-06] MEDS: PANTOPRAZOLE 40 MG/10 ML VIAL IV SCH (08:23)
[2021-02-06] MEDS: HYDROcodone/APAP 7.5-325MG 1 EACH TAB PO PRN ×3 (09:53→18:03)
[2021-02-06] MEDS: FLUoxetine HCL 10 MG CAP PO SCH (10:03)
[2021-02-06] MEDS: lamoTRIgine 100 MG TAB PO SCH (10:03)
[2021-02-06] MEDS: clonazePAM 1 MG TAB PO SCH ×3 (10:04→23:26)
[2021-02-06] MEDS: HEPARIN SODIUM,PORCINE/PF 5,000 UNIT/0.5 ML SYRINGE SQ SCH ×3 (10:05→22:02)
--- NOTE | 2021-02-06 11:19 | P.PN ---
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 Postop day #9. Patient continues to complain of abdominal pain. Patient reports that he did have to take IV Dilaudid yesterday. He is trying again today did not take it. He is having flatus. He denies any nausea or vomiting. Tolerating a chopped diet. Afebrile. WBC 4.6 hemoglobin 9.4 He does have yellowish drainage from his incision. Dr. Loza did remove a few kenny yesterday from the incision. PHYSICAL EXAM: VITAL SIGNS: Reviewed. GENERAL: Well-developed in no acute distress. HEENT: No sclera icterus. Extraocular movements grossly intact. Moist buccal mucosa. Head is atraumatic, normocephalic. ABDOMEN: Soft. Distended. Incision with decreased erythema around the edges. Patient does have swelling at the incision site. There is yellowish drainage noted at the middle of the incision. NEUROLOGIC: Alert and oriented. Cranial nerves II through XII grossly intact. ASSESSMENT: 1. 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 Incisional cellulitis, unexpected 3. Crohns history PLAN: -Continue chopped diet -Continue [place] 7.5 -Continue Zosyn for incisional cellulitis -Encouraged patient to ambulate -Encouraged patient to use incentive spirometer -Continue to observe -GI prophylaxis Protonix and DVT prophylaxis subcu heparin Physician Wraparound Facilitator note has been reviewed by physician. Signing provider agrees with the documented findings, assessment, and plan of care. Objective - Vital Signs Vital signs: Vital Signs Temp 97.8 F 02/06/21 07:25 Pulse 64 02/06/21 07:25 Resp 15 02/06/21 07:25 BP 164/85 02/06/21 07:25 Pulse Ox 97 02/06/21 07:25 Intake & Output 02/05/21 02/06/21 02/06/21 18:59 06:59 18:59 Intake Total 100 400 Balance 100 400 Intake: Intake, IV Titration 100 Amount Piperacillin-Tazobactam 3 100 .375 gm In Sodium Chloride 0.9% 100 ml @ 25 mls/hr IVPB Q8H [facility] Rx#: [id number] Oral 400 Other: Voiding Method Toilet # Voids 2 - Labs CBC & Chem 7: 02/06/21 05:42 02/04/21 03:24 Labs: Abnormal Lab Results - Last 24 Hours (Table) 02/06/21 Range/Units 05:42 RBC 3.56 L (4.30-5.90) m/uL Hgb 9.4 L (13.0-17.5) gm/dL Hct 31.7 L (39.0-53.0) % MCHC 29.5 L (31.0-37.0) g/dL RDW 20.1 H (11.5-15.5) % Lymphocytes # 0.7 L (1.0-4.8) k/uL <Hima Jolly - Last Filed: 02/06/21 13:58> Subjective As above. Patient is afebrile with normal white blood cell count. Small amount of erythema along the incision. Some serosanguineous drainage noted. Continue antibiotics. Reevaluate incision tomorrow. Objective - Vital Signs Vital signs: Vital Signs Temp 98.5 F 02/06/21 12:58 Pulse 60 02/06/21 12:58 Resp 18 02/06/21 12:58 BP 167/62 02/06/21 12:58 Pulse Ox 98 02/06/21 12:58 Intake & Output 02/05/21 02/06/21 02/06/21 18:59 06:59 18:59 Intake Total 100 400 Balance 100 400 Weight 99.337 kg Intake: Intake, IV Titration 100 Amount Piperacillin-Tazobactam 3 100 .375 gm In Sodium Chloride 0.9% 100 ml @ 25 mls/hr IVPB Q8H [facility] Rx#: [id number] Oral 400 Other: Voiding Method Toilet # Voids 2 - Labs CBC & Chem 7: 02/06/21 05:42 02/04/21 03:24 Labs: Abnormal Lab Results - Last 24 Hours (Table) 02/06/21 Range/Units 05:42 RBC 3.56 L (4.30-5.90) m/uL Hgb 9.4 L (13.0-17.5) gm/dL Hct 31.7 L (39.0-53.0) % MCHC 29.5 L (31.0-37.0) g/dL RDW 20.1 H (11.5-15.5) % Lymphocytes # 0.7 L (1.0-4.8) k/uL
--- NOTE | 2021-02-06 14:35 | P.PN ---
Subjective Progress Note Date: 02/06/21 - Reason for Consult Consult date: 01/29/21 Medical management - Chief Complaint Right colectomy, omentectomy, repair of incisional hernia with lysis of adh - History of Present Illness This is a 50-year-old male who was recently admitted under surgical services and presented to the ER with continued abdominal pain and concern for possible bowel obstruction. CT of the abdomen is showing no suspicious changes to suggest bowel obstruction. Patient was recently admitted with this and ultimately transferred to [facility] for further surgical evaluation as he was scheduled on 01/29/2021. Reportedly patient left [facility] AGAINST MEDICAL ADVICE as he felt his pain was not being managed properly and also opted to not have surgery. Patient continued with abdominal discomfort and was instructed to report to the ER for further evaluation. She does have an extensive past medical history of Crohn's disease along with known ileocecal stricture and per patient has had multiple bowel surgeries. Patient was admitted to surgery and underwent right colectomy, omentectomy, repair of incisional hernia, and lysis of adhesions with Dr. Dela Cruz. We are consulted for medical management. 01/30/2021 Patient is seen and evaluated and follow-up this morning currently walking the halls and appears to be in no acute distress. Patient continues on clear liquids as he denies passing gas or having bowel movements as of yet. Patient reports to rumbling in the abdomen this morning. No further reports of nausea or vomiting noted. Denies chest pain or shortness of breath. Patient is afebrile. 01/31/2021 Patient is seen and evaluated and follow-up this morning again walking the halls stating that he feels better when he is up and about and continues to have rumbling noted in the abdomen and possibly could've had some flatus although not sure and denies bowel movement. Patient continues to request IV pain medication and nausea medication [id number] and will add oral [place] and discussed with the patient about limiting use of Dilaudid as he is not being sent home on this. Surgery has also made this known. Encouraged incentive spirometer use along with increased activity as tolerated. Patient is tolerating diet and being advanced to full liquids. Will repeat labs in the a.m. 02/01/2021 Patient states that he has never been in a situation where he has never had his pain controlled before. He is requesting an increase in his dilaudid. Patient is tolerating a full liquid diet. He denies any nausea, vomiting. Reports looser stools. He states that his abdomen is increasing in pain around his surgical incisional daily. There is some distention, what appears to be some purulent drainage shadowing from the surgical incisional dressing with some surrounding erythema. Pt states that he is only able to ambulate and use the IS shortly after receiving pain medication. He is receiving dilaudid 1 mg q3, norco 5 mg q4hr and toradol every 6 hours. Vital signs are stable today. WBC count within normal limits as well. Awaiting surgical input today. 02/02/2021 Patient is evaluated today, sitting in the chair. Toradol has been discontinued from surgical services. He had a acute abdominal x-ray yesterday and today which revealed nonobstructive bowel gas pattern. Patient denied an NG tube y ester evening, however states today that he would try anything at this point to have some pain relief. He is still complaining of some severe abdominal pain around the incision. Yesterday he did tell the RN and writing [employer] that he was having bowel movements, however he denies any BMs today and states that he has not had any in 3 days. Mylicon was added from surgical services. Diet was downgraded to ice chips and popsicles. 02/03/2021 Patient is seen and evaluated today and continues with abdominal pain and requesting an increase in medications. Patient states he is not having any bowel movements although staff reported him having BM x2. Patient's pain and increase in abdominal distention is causing him to have trouble getting up from the bed. Patient continues to walk the halls. PT/OT consulted. CBC within normal limits and will repeat labs. Patient diet being advanced to clear liquids. 02/04/2021 Patient is seen and evaluated this morning states he had a bowel movement and is passing gas. Patient has been up and walking and continues to have some discomfort noted at the site with surrounding tenderness and being placed on IV Zosyn and will monitor for improvement. Patient strongly encouraged to avoid IV narcotics and states he is attempting to continue with oral pain medications and avoid IV Dilaudid if possible. Patient is currently tolerating diet with no reports of increasing abdominal pain and diet being advanced to full liquids. Patient remains afebrile and will monitor closely with possible discharge in 24 hours per surgery recommendations. 02/05/2021 Patient is seen this morning continues to have some redness and tenderness with some drainage noted on the dressing changes and continued on IV Zosyn. Patient is afebrile and white blood count within normal limits at 5.4. Encouraged increased activity and continued oral intake with diet being advanced by surgery. Will repeat some a.m. labs and continue to follow along with surgery. Patient states he is not receiving adequate pain control and has been trying to avoid Dilaudid but the pain is unbearable. 02/06/2021 Patient is seen and evaluated this morning continues on IV Zosyn with some minimal redness and sensitivity noted at the surgical site. Surgery removed some kenny and small amount of purulent drainage noted. Per nursing staff during dressing change no drainage was noted on the dressings. Patient to continue with abdominal binder. Patient reports passing gas today although no bowel movement. Patient remains afebrile and white blood count is normal at 4.6. Labs: White blood count is 4.6, hemoglobin is 9.4, platelets are 302 Review of systems: Constitutional: No reports of fatigue, fever, or chills Cardiovascular: No reports of chest pain or palpitations Respiratory: No reports of shortness of breath or cough GI: No reports of nausea, vomiting, reports passing gas no bowel movement today. Continued abdominal tenderness at the surgical site with some redness and noted at the site, some kenny were removed : No reports of dysuria or retention Neurovascular: reports of generalized weakness All medications have been reviewed Active Medications Hydrocodone Bitart/Acetaminophen (Hydrocodone/Apap 7.5-325mg 1 Each Tab) 1 each PO Q4HR PRN PRN Reason: MILD Pain Last Admin: 02/06/21 14:05 Dose: 1 each Documented by: Benzocaine/Menthol (Benzocaine/Menthol Lozeng 1 Each Lozenge) 1 each MUCOUS MEM Q1HR PRN PRN Reason: Sore Throat Clonazepam (Clonazepam 1 Mg Tab) 1 mg PO TID [facility] Last Admin: 02/06/21 10:04 Dose: 1 mg Documented by: Fluoxetine HCl (Fluoxetine Hcl 10 Mg Cap) 10 mg PO DAILY [facility] Last Admin: 02/06/21 10:03 Dose: 10 mg Documented by: Heparin Sodium (Porcine) (Heparin Sodium,Porcine/Pf 5,000 Unit/0.5 Ml Syringe) 5,000 unit SQ Q12HR [facility] Last Admin: 02/06/21 10:05 Dose: Not Given Documented by: Hydromorphone HCl (Hydromorphone 0.5 Mg/0.5 Ml Syringe) 0.5 mg IVP Q3HR PRN PRN Reason: Moderate Pain Stop: 02/26/21 17:16 Last Admin: 02/06/21 13:11 Dose: 0.5 mg Documented by: Hydromorphone HCl (Hydromorphone 1 Mg/Ml 1 Ml Syringe) 1 mg IVP Q3HR PRN PRN Reason: Severe Pain Stop: 02/26/21 17:16 Last Admin: 02/06/21 05:59 Dose: 1 mg Documented by: Ropivacaine 250 mg/Hydromorphone HCl 5 mg/ Sodium Chloride 250 mls @ 0 mls/hr EPIDURAL .Q0M PRN; Protocol PRN Reason: Pain Control Last Admin: 01/28/21 14:15 Dose: 7 mls Documented by: Piperacillin Sod/Tazobactam (Sod 3.375 gm/ Sodium Chloride) 100 mls @ 25 mls/hr IVPB Q8H [facility] Last Admin: 02/06/21 10:41 Dose: 25 mls/hr Documented by: Lamotrigine (Lamotrigine 100 Mg Tab) 100 mg PO DAILY [facility] Last Admin: 02/06/21 10:03 Dose: 100 mg Documented by: Naloxone HCl (Naloxone 0.4 Mg/Ml 1 Ml Vial) 0.2 mg IV Q2M PRN PRN Reason: Opioid Reversal Ondansetron HCl (Ondansetron 4 Mg/2 Ml Vial) 4 mg IVP Q8HR PRN PRN Reason: Nausea And Vomiting Stop: 02/26/21 17:16 Last Admin: 02/06/21 13:11 Dose: 4 mg Documented by: Pantoprazole Sodium (Pantoprazole 40 Mg/10 Ml Vial) 40 mg IV DAILY [facility] Stop: 02/27/21 09:01 Last Admin: 02/06/21 08:23 Dose: 40 mg Documented by: Simethicone (Simethicone 40 Mg/0.6 Ml Drops 2,000 Mg/30 Ml Bottle) 40 mg PO QID [facility] Last Admin: 02/06/21 13:05 Dose: 40 mg Documented by: Physical exam: Gen: This is a 50 year old male, awake, alert and oriented x3. Walking around the room HEENT: Head is atraumatic, normocephalic. Pupils equal, round. Sclerae is anicteric. NECK: Supple. No JVD. No lymphadenopathy. No thyromegaly. LUNGS: Clear to auscultation. No wheezes or rhonchi. No intercostal retractions. HEART: Regular rate and rhythm. No murmur. ABDOMEN: Soft. Mildly tender on palpation. surgical site has some surrounding redness at the kenny with some minimal swelling and a few lower kenny were removed surgery yesterday EXTREMITIES: No pedal edema. No calf tenderness. NEUROLOGICAL: Patient is awake, alert and oriented x3. Cranial nerves 2 through 12 are grossly intact. Assessment: abdominal pain with abdominal distention, x-ray showed non-obstructive bowel gas pattern, patient is having bowel movements and passing gas status post right colectomy, omentectomy, repair of incisional hernia, and lysis of adhesions Possible surgical site cellulitis with some surrounding redness and swelling, patient remains afebrile and white blood count is within normal limits and patient is maintained on IV Zosyn, recommend to continue to observe for another 24 hours Crohns disease History of ileocolonic anastomosis stricture History of anxiety/depression, bipolar, PTSD GI prophylaxis DVT prophylaxis Full code Plan: Recommend to continue with current medications. Pain management per primary service. Patient strongly encouraged to avoid Dilaudid use and surgery services have increased [place]. Patient is having some tenderness with increased redness and swelling at the surgical site with some surrounding cellulitis and maintained on IV Zosyn. A few kenny were removed from surgery yesterday with no increasing reports of drainage noted. Patient remains afebrile and white blood count is 4.6. Patient states he is passing gas and has not had a bowel movement today and tolerating diet which is being advanced to low fiber diet per surgical services. Patient encouraged to continue with incentive spirometer at least 10 times every hour while awake and encouraged increased activity as tolerated. Will continue to monitor closely along with surgery. Repeat a.m. labs. Thank you for this consultation. Objective - Vital Signs Vital signs: Vital Signs Temp 97.8 F 02/06/21 07:25 Pulse 64 02/06/21 07:25 Resp 15 02/06/21 07:25 BP 164/85 02/06/21 07:25 Pulse Ox 97 02/06/21 07:25 Intake & Output 02/05/21 02/06/21 02/06/21 18:59 06:59 18:59 Intake Total 100 400 Balance 100 400 Intake: Intake, IV Titration 100 Amount Piperacillin-Tazobactam 3 100 .375 gm In Sodium Chloride 0.9% 100 ml @ 25 mls/hr IVPB Q8H [facility] Rx#: [id number] Oral 400 Other: Voiding Method Toilet # Voids 2 - Labs CBC & Chem 7: 02/06/21 05:42 02/04/21 03:24 Labs: Abnormal Lab Results - Last 24 Hours (Table) 02/06/21 Range/Units 05:42 RBC 3.56 L (4.30-5.90) m/uL Hgb 9.4 L (13.0-17.5) gm/dL Hct 31.7 L (39.0-53.0) % MCHC 29.5 L (31.0-37.0) g/dL RDW 20.1 H (11.5-15.5) % Lymphocytes # 0.7 L (1.0-4.8) k/uL
[2021-02-06 15:18] LABS: African American GFR (CKD) 119.9 (60.0-200.0); Anion Gap 12.9 mmol/L (4.00-12.00); BUN/Creat Ratio 3.88 Ratio (12.00-20.00); Blood Urea Nitrogen 3.1 mg/dL (9.0-27.0); Carbon Dioxide 28.1 mmol/L (21.6-31.8); Magnesium 1.8 mg/dL (1.5-2.4); Non-African American GFR(CKD) 103.4 (60.0-200.0); Potassium 3.8 mmol/L (3.5-5.5)
[2021-02-07] MEDS: HYDROcodone/APAP 7.5-325MG 1 EACH TAB PO PRN ×4 (00:20→21:11)
[2021-02-07] MEDS: PIPERACILLIN-TAZOBACTAM 3.375 GM in SODIUM CHLORIDE 0.9% 100 ML IVPB SCH ×3 (02:11→18:00)
[2021-02-07] MEDS: HYDROmorphone 1 MG/ML 1 ML SYRINGE IVP PRN ×5 (02:18→22:32)
[2021-02-07] MEDS: ONDANSETRON 4 MG/2 ML VIAL IVP PRN ×3 (06:26→22:42)
[2021-02-07] MEDS: clonazePAM 1 MG TAB PO SCH ×3 (08:13→21:08)
[2021-02-07] MEDS: FLUoxetine HCL 10 MG CAP PO SCH (08:13)
[2021-02-07] MEDS: HEPARIN SODIUM,PORCINE/PF 5,000 UNIT/0.5 ML SYRINGE SQ SCH ×3 (08:13→21:08)
[2021-02-07] MEDS: lamoTRIgine 100 MG TAB PO SCH (08:13)
[2021-02-07] MEDS: PANTOPRAZOLE 40 MG/10 ML VIAL IV SCH (08:13)
[2021-02-07] MEDS: SIMETHICONE 40 MG/0.6 ML DROPS 2,000 MG/30 ML BOTTLE PO SCH ×4 (08:13→21:12)
--- NOTE | 2021-02-07 11:19 | P.PN ---
<Qian Ladd - Last Filed: 02/07/21 11:16> Subjective Progress Note Date: 02/07/21 CHIEF COMPLAINT: Small bowel obstruction due to ileocolonic anastomosis stricture HISTORY OF PRESENT ILLNESS: Patient is status post right colectomy, omentectomy, repair of incisional hernia and lysis of adhesions. Postop day #10. Patient still complaining of pain at the incision site. He is the redness at the incision site has shown some improvement. He still has a serosanguineous drainage. He is up and ambulating. He is having bowel movements and flatus. Tolerating regular diet. Afebrile. WBC 4.6 PHYSICAL EXAM: VITAL SIGNS: Reviewed. GENERAL: Well-developed in no acute distress. HEENT: No sclera icterus. Extraocular movements grossly intact. Moist buccal mucosa. Head is atraumatic, normocephalic. ABDOMEN: Soft. Distended. Incision with decreased erythema around the edges. Patient does have swelling at the incision site. There is serosanguineous drainage noted at the middle of the incision. NEUROLOGIC: Alert and oriented. Cranial nerves II through XII grossly intact. ASSESSMENT: 1. 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 Incisional cellulitis, unexpected 3. Crohns history PLAN: -Continue regular diet -Continue pain medication as needed -Continue Zosyn for incisional cellulitis -Encouraged patient to ambulate -Encouraged patient to use incentive spirometer -Continue to observe -GI prophylaxis Protonix and DVT prophylaxis subcu heparin Physician Sorority Supervisor note has been reviewed by physician. Signing provider agrees with the documented findings, assessment, and plan of care. Objective - Vital Signs Vital signs: Vital Signs Temp 97.5 F L 02/07/21 04:17 Pulse 58 L 02/07/21 04:17 Resp 16 02/07/21 04:17 BP 139/85 02/07/21 04:17 Pulse Ox 91 L 02/07/21 04:17 Intake & Output 02/06/21 02/07/21 02/07/21 18:59 06:59 18:59 Intake Total 100 Balance 100 Weight 99.337 kg Intake: Intake, IV Titration 100 Amount Piperacillin-Tazobactam 3 100 .375 gm In Sodium Chloride 0.9% 100 ml @ 25 mls/hr IVPB Q8H [facility] Rx#: [id number] Other: Voiding Method Toilet # Voids 2 # Bowel Movements 1 1 - Labs CBC & Chem 7: 02/06/21 05:42 02/06/21 05:42 Labs: Abnormal Lab Results - Last 24 Hours (Table) 02/06/21 Range/Units 05:42 Anion Gap 12.90 H (4.00-12.00) mmol/L BUN 3.1 L (9.0-27.0) mg/dL BUN/Creatinine Ratio 3.88 L (12.00-20.00) Ratio <Hima Jolly - Last Filed: 02/07/21 15:00> Subjective As above. Patient says he is having slight pain right lower quadrant today. Incision still with mild erythema around the area of the umbilicus. One more staple removal. Small amount of serous fluid evacuated. Continue local wound care. Continue diet as tolerated. Possible discharge over weekend. Objective - Vital Signs Vital signs: Vital Signs Temp 97.8 F 02/07/21 12:06 Pulse 72 02/07/21 12:06 Resp 17 02/07/21 12:06 BP 115/49 02/07/21 12:06 Pulse Ox 95 02/07/21 12:06 Intake & Output 02/06/21 02/07/21 02/07/21 18:59 06:59 18:59 Intake Total 100 Balance 100 Weight 99.337 kg Intake: Intake, IV Titration 100 Amount Piperacillin-Tazobactam 3 100 .375 gm In Sodium Chloride 0.9% 100 ml @ 25 mls/hr IVPB Q8H [facility] Rx#: [id number] Other: Voiding Method Toilet # Voids 2 # Bowel Movements 1 1 - Labs CBC & Chem 7: 02/06/21 05:42 02/06/21 05:42 Labs: Abnormal Lab Results - Last 24 Hours (Table) 02/06/21 Range/Units 05:42 Anion Gap 12.90 H (4.00-12.00) mmol/L BUN 3.1 L (9.0-27.0) mg/dL BUN/Creatinine Ratio 3.88 L (12.00-20.00) Ratio
--- NOTE | 2021-02-07 13:51 | P.PN ---
Subjective Progress Note Date: 02/07/21 - Reason for Consult Consult date: 01/29/21 Medical management - Chief Complaint Right colectomy, omentectomy, repair of incisional hernia with lysis of adh - History of Present Illness This is a 50-year-old male who was recently admitted under surgical services and presented to the ER with continued abdominal pain and concern for possible bowel obstruction. CT of the abdomen is showing no suspicious changes to suggest bowel obstruction. Patient was recently admitted with this and ultimately transferred to [facility] for further surgical evaluation as he was scheduled on 01/29/2021. Reportedly patient left [facility] AGAINST MEDICAL ADVICE as he felt his pain was not being managed properly and also opted to not have surgery. Patient continued with abdominal discomfort and was instructed to report to the ER for further evaluation. She does have an extensive past medical history of Crohn's disease along with known ileocecal stricture and per patient has had multiple bowel surgeries. Patient was admitted to surgery and underwent right colectomy, omentectomy, repair of incisional hernia, and lysis of adhesions with Dr. Dela Cruz. We are consulted for medical management. 01/30/2021 Patient is seen and evaluated and follow-up this morning currently walking the halls and appears to be in no acute distress. Patient continues on clear liquids as he denies passing gas or having bowel movements as of yet. Patient reports to rumbling in the abdomen this morning. No further reports of nausea or vomiting noted. Denies chest pain or shortness of breath. Patient is afebrile. 01/31/2021 Patient is seen and evaluated and follow-up this morning again walking the halls stating that he feels better when he is up and about and continues to have rumbling noted in the abdomen and possibly could've had some flatus although not sure and denies bowel movement. Patient continues to request IV pain medication and nausea medication [id number] and will add oral [place] and discussed with the patient about limiting use of Dilaudid as he is not being sent home on this. Surgery has also made this known. Encouraged incentive spirometer use along with increased activity as tolerated. Patient is tolerating diet and being advanced to full liquids. Will repeat labs in the a.m. 02/01/2021 Patient states that he has never been in a situation where he has never had his pain controlled before. He is requesting an increase in his dilaudid. Patient is tolerating a full liquid diet. He denies any nausea, vomiting. Reports looser stools. He states that his abdomen is increasing in pain around his surgical incisional daily. There is some distention, what appears to be some purulent drainage shadowing from the surgical incisional dressing with some surrounding erythema. Pt states that he is only able to ambulate and use the IS shortly after receiving pain medication. He is receiving dilaudid 1 mg q3, norco 5 mg q4hr and toradol every 6 hours. Vital signs are stable today. WBC count within normal limits as well. Awaiting surgical input today. 02/02/2021 Patient is evaluated today, sitting in the chair. Toradol has been discontinued from surgical services. He had a acute abdominal x-ray yesterday and today which revealed nonobstructive bowel gas pattern. Patient denied an NG tube y ester evening, however states today that he would try anything at this point to have some pain relief. He is still complaining of some severe abdominal pain around the incision. Yesterday he did tell the RN and writing [employer] that he was having bowel movements, however he denies any BMs today and states that he has not had any in 3 days. Mylicon was added from surgical services. Diet was downgraded to ice chips and popsicles. 02/03/2021 Patient is seen and evaluated today and continues with abdominal pain and requesting an increase in medications. Patient states he is not having any bowel movements although staff reported him having BM x2. Patient's pain and increase in abdominal distention is causing him to have trouble getting up from the bed. Patient continues to walk the halls. PT/OT consulted. CBC within normal limits and will repeat labs. Patient diet being advanced to clear liquids. 02/04/2021 Patient is seen and evaluated this morning states he had a bowel movement and is passing gas. Patient has been up and walking and continues to have some discomfort noted at the site with surrounding tenderness and being placed on IV Zosyn and will monitor for improvement. Patient strongly encouraged to avoid IV narcotics and states he is attempting to continue with oral pain medications and avoid IV Dilaudid if possible. Patient is currently tolerating diet with no reports of increasing abdominal pain and diet being advanced to full liquids. Patient remains afebrile and will monitor closely with possible discharge in 24 hours per surgery recommendations. 02/05/2021 Patient is seen this morning continues to have some redness and tenderness with some drainage noted on the dressing changes and continued on IV Zosyn. Patient is afebrile and white blood count within normal limits at 5.4. Encouraged increased activity and continued oral intake with diet being advanced by surgery. Will repeat some a.m. labs and continue to follow along with surgery. Patient states he is not receiving adequate pain control and has been trying to avoid Dilaudid but the pain is unbearable. 02/06/2021 Patient is seen and evaluated this morning continues on IV Zosyn with some minimal redness and sensitivity noted at the surgical site. Surgery removed some kenny and small amount of purulent drainage noted. Per nursing staff during dressing change no drainage was noted on the dressings. Patient to continue with abdominal binder. Patient reports passing gas today although no bowel movement. Patient remains afebrile and white blood count is normal at 4.6. On 08/22/2020 Patient is seen in follow-up this morning currently walking the halls. Patient continues with abdominal discomfort and showing some improvement at the surgical site with some continued drainage noted on the dressing per nursing staff. Patient continued on IV Zosyn and will continue to monitor closely. Patient remains afebrile and denies any chest pain or shortness of breath. Patient to continue with abdominal binder and encouraged incentive spirometer and activity as tolerated. Will repeat labs in continue to monitor closely with surgery. Review of systems: Constitutional: No reports of fatigue, fever, or chills Cardiovascular: No reports of chest pain or palpitations Respiratory: No reports of shortness of breath or cough GI: No reports of nausea, vomiting, reports passing gas no bowel movement today. Continued abdominal tenderness at the surgical site with some redness an d noted at the site, some kenny were removed : No reports of dysuria or retention Neurovascular: reports of generalized weakness All medications have been reviewed Active Medications Hydrocodone Bitart/Acetaminophen (Hydrocodone/Apap 7.5-325mg 1 Each Tab) 1 each PO Q4HR PRN PRN Reason: MILD Pain Last Admin: 02/07/21 10:01 Dose: 1 each Documented by: Benzocaine/Menthol (Benzocaine/Menthol Lozeng 1 Each Lozenge) 1 each MUCOUS MEM Q1HR PRN PRN Reason: Sore Throat Clonazepam (Clonazepam 1 Mg Tab) 1 mg PO TID [facility] Last Admin: 02/07/21 08:13 Dose: 1 mg Documented by: Fluoxetine HCl (Fluoxetine Hcl 10 Mg Cap) 10 mg PO DAILY [facility] Last Admin: 02/07/21 08:13 Dose: 10 mg Documented by: Heparin Sodium (Porcine) (Heparin Sodium,Porcine/Pf 5,000 Unit/0.5 Ml Syringe) 5,000 unit SQ Q12HR [facility] Last Admin: 02/07/21 08:14 Dose: Not Given Documented by: Hydromorphone HCl (Hydromorphone 0.5 Mg/0.5 Ml Syringe) 0.5 mg IVP Q3HR PRN PRN Reason: Moderate Pain Stop: 02/26/21 17:16 Last Admin: 02/06/21 13:11 Dose: 0.5 mg Documented by: Hydromorphone HCl (Hydromorphone 1 Mg/Ml 1 Ml Syringe) 1 mg IVP Q3HR PRN PRN Reason: Severe Pain Stop: 02/26/21 17:16 Last Admin: 02/07/21 06:03 Dose: 1 mg Documented by: Ropivacaine 250 mg/Hydromorphone HCl 5 mg/ Sodium Chloride 250 mls @ 0 mls/hr EPIDURAL .Q0M PRN; Protocol PRN Reason: Pain Control Last Admin: 01/28/21 14:15 Dose: 7 mls Documented by: Piperacillin Sod/Tazobactam (Sod 3.375 gm/ Sodium Chloride) 100 mls @ 25 mls/hr IVPB Q8H [facility] Last Admin: 02/07/21 10:01 Dose: 25 mls/hr Documented by: Lamotrigine (Lamotrigine 100 Mg Tab) 100 mg PO DAILY [facility] Last Admin: 02/07/21 08:13 Dose: 100 mg Documented by: Naloxone HCl (Naloxone 0.4 Mg/Ml 1 Ml Vial) 0.2 mg IV Q2M PRN PRN Reason: Opioid Reversal Ondansetron HCl (Ondansetron 4 Mg/2 Ml Vial) 4 mg IVP Q8HR PRN PRN Reason: Nausea And Vomiting Stop: 02/26/21 17:16 Last Admin: 02/07/21 06:26 Dose: 4 mg Documented by: Pantoprazole Sodium (Pantoprazole 40 Mg/10 Ml Vial) 40 mg IV DAILY [facility] Stop: 02/27/21 09:01 Last Admin: 02/07/21 08:13 Dose: 40 mg Documented by: Simethicone (Simethicone 40 Mg/0.6 Ml Drops 2,000 Mg/30 Ml Bottle) 40 mg PO QID [facility] Last Admin: 02/07/21 12:46 Dose: 40 mg Documented by: Physical exam: Gen: This is a 50 year old male, awake, alert and oriented x3. Walking the halls HEENT: Head is atraumatic, normocephalic. Pupils equal, round. Sclerae is anicteric. NECK: Supple. No JVD. No lymphadenopathy. No thyromegaly. LUNGS: Clear to auscultation. No wheezes or rhonchi. No intercostal retractions. HEART: Regular rate and rhythm. No murmur. ABDOMEN: Soft. Mildly tender on palpation. surgical site has some surrounding redness at the kenny with some minimal swelling and appears slightly improved EXTREMITIES: No pedal edema. No calf tenderness. NEUROLOGICAL: Patient is awake, alert and oriented x3. Cranial nerves 2 through 12 are grossly intact. Assessment: abdominal pain with abdominal distention, x-ray showed non-obstructive bowel gas pattern, patient is having bowel movements and passing gas status post right colectomy, omentectomy, repair of incisional hernia, and lysis of adhesions Possible surgical site incisional cellulitis with some surrounding redness and swelling, patient remains afebrile and white blood count is within normal limits and patient is maintained on IV Zosyn, recommend to continue to observe for another 24 hours Crohns disease History of ileocolonic anastomosis stricture History of anxiety/depression, bipolar, PTSD GI prophylaxis DVT prophylaxis Full code Plan: Recommend to continue with current medications. Pain management per primary service. Patient continues to have some tenderness with increased redness and swelling at the surgical site with some surrounding cellulitis and maintained on IV Zosyn. Slight improvement with some mild serosanguineous drainage noted on the dressing. Patient is afebrile. Patient states he is passing gas and had a bowel movement last night and tolerating diet which is being advanced to low fiber diet per surgical services. Patient encouraged to continue with incentive spirometer at least 10 times every hour while awake and encouraged increased activity as tolerated. Will continue to monitor closely along with surgery. Repeat a.m. labs. Thank you for this consultation. Objective - Vital Signs Vital signs: Vital Signs Temp 97.5 F L 02/07/21 04:17 Pulse 58 L 02/07/21 04:17 Resp 16 02/07/21 04:17 BP 139/85 02/07/21 04:17 Pulse Ox 91 L 02/07/21 04:17 Intake & Output 02/06/21 02/07/21 02/07/21 18:59 06:59 18:59 Intake Total 100 Balance 100 Weight 99.337 kg Intake: Intake, IV Titration 100 Amount Piperacillin-Tazobactam 3 100 .375 gm In Sodium Chloride 0.9% 100 ml @ 25 mls/hr IVPB Q8H [facility] Rx#: [id number] Other: Voiding Method Toilet # Voids 2 # Bowel Movements 1 1 - Labs CBC & Chem 7: 02/06/21 05:42 02/06/21 05:42 Labs: Abnormal Lab Results - Last 24 Hours (Table) 02/06/21 Range/Units 05:42 Anion Gap 12.90 H (4.00-12.00) mmol/L BUN 3.1 L (9.0-27.0) mg/dL BUN/Creatinine Ratio 3.88 L (12.00-20.00) Ratio
[2021-02-07] MEDS: HYDROmorphone 0.5 MG/0.5 ML SYRINGE IVP PRN (15:12)
[2021-02-08] MEDS: HYDROcodone/APAP 7.5-325MG 1 EACH TAB PO PRN ×5 (02:09→22:22)
[2021-02-08] MEDS: PIPERACILLIN-TAZOBACTAM 3.375 GM in SODIUM CHLORIDE 0.9% 100 ML IVPB SCH ×3 (02:10→17:19)
[2021-02-08] MEDS: HYDROmorphone 1 MG/ML 1 ML SYRINGE IVP PRN ×4 (04:46→19:50)
[2021-02-08 07:15] LABS: Anisocytosis Moderate; Basophils % (A) 1 %; Eosinophils # (A) 0.3 k/uL (0-0.7); Eosinophils % (A) 6 %; HCT 35.2 % (39.0-53.0); HGB 10.5 gm/dL (13.0-17.5); Hypochromasia Marked; Lymphocytes % (A) 20 %; MCH 26.7 pg (25.0-35.0); MCHC 29.7 g/dL (31.0-37.0); MCV 89.9 fL (80.0-100.0); Mean Platelet Volume 7.6; Monocytes # (A) 0.3 k/uL (0-1.0); Monocytes % (A) 7 %; Neutrophils # (A) 3.1 k/uL (1.3-7.7); Neutrophils % (A) 64 %; Platelet Count 373 k/uL (150-450); RBC 3.92 m/uL (4.30-5.90); RDW 20.2 % (11.5-15.5); WBC 4.9 k/uL (3.8-10.6)
[2021-02-08 07:35] LABS: African American GFR (CKD) >90 (>60 ml/min/1.73 sqM); Anion Gap 6 mmol/L; Blood Urea Nitrogen 8 mg/dL (9-20); Calcium 9.9 mg/dL (8.4-10.2); Carbon Dioxide 33 mmol/L (22-30); Chloride 102 mmol/L (98-107); Glucose 97 mg/dL (74-99); Non-African American GFR(CKD) >90 (>60 ml/min/1.73 sqM); Sodium 141 mmol/L (137-145)
--- NOTE | 2021-02-08 09:39 | P.PN ---
Subjective Progress Note Date: 02/08/21 Principal diagnosis: Bowel obstruction Patient still complaining of mid incisional and right lower quadrant abdominal pain. Says it's gradually improving over the last 4 days. Still requiring Dilaudid however. White blood cell count is normal. He is afebrile without tachycardia. He is having bowel movement. Tolerating diet. Objective - Vital Signs Vital signs: Vital Signs Temp 98 F 02/08/21 04:40 Pulse 58 L 02/08/21 04:40 Resp 20 02/08/21 04:40 BP 140/53 02/08/21 04:40 Pulse Ox 93 L 02/08/21 04:40 Intake & Output 02/07/21 02/08/21 02/08/21 18:59 06:59 18:59 Intake Total 200 Balance 200 Intake: Oral 200 Other: # Voids 2 2 - Exam Abdomen: Soft, nondistended, incision with 2 small wounds both draining small amount of serosanguineous fluid, no significant erythema, minimal tenderness - Labs CBC & Chem 7: 02/08/21 06:52 02/08/21 06:52 Labs: Abnormal Lab Results - Last 24 Hours (Table) 02/08/21 02/08/21 Range/Units 06:52 06:52 RBC 3.92 L (4.30-5.90) m/uL Hgb 10.5 L (13.0-17.5) gm/dL Hct 35.2 L (39.0-53.0) % MCHC 29.7 L (31.0-37.0) g/dL RDW 20.2 H (11.5-15.5) % Carbon Dioxide 33 H (22-30) mmol/L BUN 8 L (9-20) mg/dL Assessment and Plan (1) Small bowel obstruction Narrative/Plan: Patient seems to be doing gradually better. Unfortunately still requiring heavy narcotic use. Continue diet as tolerated. Continue antibiotics. May shower daily. Possible discharge tomorrow or Wednesday. Current Visit: No Status: Acute Code(s): K56.609 - UNSP INTESTNL OBST, UNSP TO PARTIAL VERSUS COMPLETE OBST SNOMED Code(s): 255307783
[2021-02-08] MEDS: HEPARIN SODIUM,PORCINE/PF 5,000 UNIT/0.5 ML SYRINGE SQ SCH ×2 (09:51→19:57)
[2021-02-08] MEDS: lamoTRIgine 100 MG TAB PO SCH (10:18)
[2021-02-08] MEDS: FLUoxetine HCL 10 MG CAP PO SCH (10:18)
[2021-02-08] MEDS: SIMETHICONE 40 MG/0.6 ML DROPS 2,000 MG/30 ML BOTTLE PO SCH ×4 (10:19→22:24)
[2021-02-08] MEDS: PANTOPRAZOLE 40 MG/10 ML VIAL IV SCH (10:19)
[2021-02-08] MEDS: ONDANSETRON 4 MG/2 ML VIAL IVP PRN ×2 (10:31→19:49)
[2021-02-08] MEDS: clonazePAM 1 MG TAB PO SCH ×3 (10:32→22:22)
[2021-02-09] MEDS: PIPERACILLIN-TAZOBACTAM 3.375 GM in SODIUM CHLORIDE 0.9% 100 ML IVPB SCH ×3 (02:39→16:49)
[2021-02-09] MEDS: HYDROcodone/APAP 7.5-325MG 1 EACH TAB PO PRN ×5 (03:38→20:54)
[2021-02-09] MEDS: PANTOPRAZOLE 40 MG/10 ML VIAL IV SCH (08:15)
[2021-02-09] MEDS: clonazePAM 1 MG TAB PO SCH ×3 (08:15→20:54)
[2021-02-09] MEDS: HEPARIN SODIUM,PORCINE/PF 5,000 UNIT/0.5 ML SYRINGE SQ SCH ×2 (08:15→20:56)
[2021-02-09] MEDS: lamoTRIgine 100 MG TAB PO SCH (08:15)
[2021-02-09] MEDS: SIMETHICONE 40 MG/0.6 ML DROPS 2,000 MG/30 ML BOTTLE PO SCH ×4 (08:27→20:54)
--- NOTE | 2021-02-09 09:50 | P.PN ---
Subjective Progress Note Date: 02/09/21 Principal diagnosis: Bowel obstruction Patient still having pain although says he is only taking [place] today. Tolerating diet. No fevers. He is having bowel function. Appetite improved. Objective - Vital Signs Vital signs: Vital Signs Temp 98.2 F 02/09/21 04:45 Pulse 58 L 02/09/21 04:45 Resp 20 02/09/21 04:45 BP 134/84 02/09/21 04:45 Pulse Ox 94 L 02/09/21 04:45 Intake & Output 02/08/21 02/09/21 02/09/21 19:59 06:59 18:59 Intake Total Balance Intake: Oral Other: Voiding Method # Voids - Exam Abdomen: Soft, nondistended, incision with small amount of serosanguineous drainage at 2 separate sites, minimal erythema, mild incisional tenderness - Labs CBC & Chem 7: 02/08/21 06:52 02/08/21 06:52 Assessment and Plan (1) Small bowel obstruction Narrative/Plan: Patient seems to be improving. Continue monitoring incision site. Continue antibiotics. 2 new diet as tolerated. [place] for pain. Possible discharge tomorrow with home care. Current Visit: No Status: Acute Code(s): K56.609 - UNSP INTESTNL OBST, UNSP TO PARTIAL VERSUS COMPLETE OBST SNOMED Code(s): 071974723
[2021-02-09] MEDS: FLUoxetine HCL 10 MG CAP PO SCH (10:48)
--- NOTE | 2021-02-09 22:09 | P.PN ---
Subjective Progress Note Date: 02/08/21 Principal diagnosis: Right colectomy, omentectomy, repair of incisional hernia with lysis of adh This is a 50-year-old male who was recently admitted under surgical services and presented to the ER with continued abdominal pain and concern for possible bowel obstruction. CT of the abdomen is showing no suspicious changes to suggest bowel obstruction. Patient was recently admitted with this and ultimately transferred to [place] for further surgical evaluation as he was scheduled on 01/29/2021. Reportedly patient left [place] AGAINST MEDICAL ADVICE as he felt his pain was not being managed properly and also opted to not have surgery. Patient continued with abdominal discomfort and was instructed to report to the ER for further evaluation. She does have an extensive past medical history of Crohn's disease along with known ileocecal stricture and per patient has had multiple bowel surgeries. Patient was admitted to surgery and underwent right colectomy, omentectomy, repair of incisional hernia, and lysis of adhesions with Dr. Dela Cruz. We are consulted for medical management. 01/30/2021 Patient is seen and evaluated and follow-up this morning currently walking the halls and appears to be in no acute distress. Patient continues on clear liquids as he denies passing gas or having bowel movements as of yet. Patient reports to rumbling in the abdomen this morning. No further reports of nausea or vomiting noted. Denies chest pain or shortness of breath. Patient is afebrile. 01/31/2021 Patient is seen and evaluated and follow-up this morning again walking the halls stating that he feels better when he is up and about and continues to have rumbling noted in the abdomen and possibly could've had some flatus although not sure and denies bowel movement. Patient continues to request IV pain medication and nausea medication [id number] and will add oral [place] and discussed with the patient about limiting use of Dilaudid as he is not being sent home on this. Surgery has also made this known. Encouraged incentive spirometer use along with increased activity as tolerated. Patient is tolerating diet and being advanced to full liquids. Will repeat labs in the a.m. 02/01/2021 Patient states that he has never been in a situation where he has never had his pain controlled before. He is requesting an increase in his dilaudid. Patient is tolerating a full liquid diet. He denies any nausea, vomiting. Reports looser stools. He states that his abdomen is increasing in pain around his surgical incisional daily. There is some distention, what appears to be some purulent drainage shadowing from the surgical incisional dressing with some surrounding erythema. Pt states that he is only able to ambulate and use the IS shortly after receiving pain medication. He is receiving dilaudid 1 mg q3, norco 5 mg q4hr and toradol every 6 hours. Vital signs are stable today. WBC count within normal limits as well. Awaiting surgical input today. 02/02/2021 Patient is evaluated today, sitting in the chair. Toradol has been discontinued from surgical services. He had a acute abdominal x-ray yesterday and today which revealed nonobstructive bowel gas pattern. Patient denied an NG tube yesterday evening, however states today that he would try anything at this point to have some pain relief. He is still complaining of some severe abdominal pain around the incision. Yesterday he did tell the RN and writing RN [employer] that he was having bowel movements, however he denies any BMs today and states that he has not had any in 3 days. Mylicon was added from surgical services. Diet was downgraded to ice chips and popsicles. 02/03/2021 Patient is seen and evaluated today and continues with abdominal pain and requesting an increase in medications. Patient states he is not having any bowel movements although staff reported him having BM x2. Patient's pain and increase in abdominal distention is causing him to have trouble getting up from the bed. Patient continues to walk the halls. PT/OT consulted. CBC within normal limits and will repeat labs. Patient diet being advanced to clear liquids. 02/04/2021 Patient is seen and evaluated this morning states he had a bowel movement and is passing gas. Patient has been up and walking and continues to have some discomfort noted at the site with surrounding tenderness and being placed on IV Zosyn and will monitor for improvement. Patient strongly encouraged to avoid IV narcotics and states he is attempting to continue with oral pain medications and avoid IV Dilaudid if possible. Patient is currently tolerating diet with no reports of increasing abdominal pain and diet being advanced to full liquids. Patient remains afebrile and will monitor closely with possible discharge in 24 hours per surgery recommendations. 02/05/2021 Patient is seen this morning continues to have some redness and tenderness with some drainage noted on the dressing changes and continued on IV Zosyn. Patient is afebrile and white blood count within normal limits at 5.4. Encouraged increased activity and continued oral intake with diet being advanced by surgery. Will repeat some a.m. labs and continue to follow along with surgery. Patient states he is not receiving adequate pain control and has been trying to avoid Dilaudid but the pain is unbearable. 02/06/2021 Patient is seen and evaluated this morning continues on IV Zosyn with some minimal redness and sensitivity noted at the surgical site. Surgery removed some kenny and small amount of purulent drainage noted. Per nursing staff d uring dressing change no drainage was noted on the dressings. Patient to continue with abdominal binder. Patient reports passing gas today although no bowel movement. Patient remains afebrile and white blood count is normal at 4.6. 02/07/2021 Patient is seen in follow-up this morning currently walking the halls. Patient continues with abdominal discomfort and showing some improvement at the surgical site with some continued drainage noted on the dressing per nursing staff. Patient continued on IV Zosyn and will continue to monitor closely. Patient remains afebrile and denies any chest pain or shortness of breath. Patient to continue with abdominal binder and encouraged incentive spirometer and activity as tolerated. Will repeat labs in continue to monitor closely with surgery. 02/08/2021 patient is currently in the surgical unit. Awake alert oriented x3. Able to get up from the bed. Still complaining of pain over the abdominal incision site., But is improving. Patient has been afebrile. Denied any complaints of chest pain or shortness of breath. Patient did have a bowel event. Patient is being continued on antibiotics in the form of Zosyn. Current medications reviewed. Review of systems: Constitutional: No reports of fatigue, fever, or chills Cardiovascular: No reports of chest pain or palpitations Respiratory: No reports of shortness of breath or cough GI: No reports of nausea, vomiting, reports passing gas no bowel movement today. Continued abdominal tenderness at the surgical site with some redness and noted at the site, some kenny were removed : No reports of dysuria or retention Neurovascular: reports of generalized weakness All medications have been reviewed Objective - Vital Signs Vital signs: Vital Signs Temp 97.9 F 02/08/21 12:20 Pulse 67 02/08/21 12:20 Resp 18 02/08/21 12:20 BP 134/71 02/08/21 12:20 Pulse Ox 95 02/08/21 12:20 Intake & Output 02/08/21 02/08/21 02/09/21 06:59 18:59 05:59 Intake Total 200 Balance 200 Intake: Oral 200 Other: Voiding Method Toilet # Voids 2 2 - Exam Physical exam: Gen: This is a 50 year old male, awake, alert and oriented x3. Walking the halls HEENT: Head is atraumatic, normocephalic. Pupils equal, round. Sclerae is anicteric. NECK: Supple. No JVD. No lymphadenopathy. No thyromegaly. LUNGS: Clear to auscultation. No wheezes or rhonchi. No intercostal retractions. HEART: Regular rate and rhythm. No murmur. ABDOMEN: Soft. Mildly tender on palpation. surgical site has some surrounding redness at the kenny with some minimal swelling and appears slightly improved EXTREMITIES: No pedal edema. No calf tenderness. NEUROLOGICAL: Patient is awake, alert and oriented x3. Cranial nerves 2 through 12 are grossly intact. - Labs CBC & Chem 7: 02/08/21 06:52 02/08/21 06:52 Labs: Abnormal Lab Results - Last 24 Hours (Table) 02/08/21 02/08/21 Range/Units 06:52 06:52 RBC 3.92 L (4.30-5.90) m/uL Hgb 10.5 L (13.0-17.5) gm/dL Hct 35.2 L (39.0-53.0) % MCHC 29.7 L (31.0-37.0) g/dL RDW 20.2 H (11.5-15.5) % Carbon Dioxide 33 H (22-30) mmol/L BUN 8 L (9-20) mg/dL Assessment and Plan Assessment: Assessment: status post right colectomy, omentectomy, repair of incisional hernia, and lysis of adhesions Possible surgical site incisional cellulitis with some surrounding redness and swelling, patient remains afebrile and white blood count is within normal limits and patient is maintained on IV Zosyn. abdominal pain with abdominal distention, x-ray showed non-obstructive bowel gas pattern, patient is having bowel movements and passing gas. Improved now. Crohns disease History of ileocolonic anastomosis stricture History of anxiety/depression, bipolar, PTSD GI prophylaxis DVT prophylaxis Full code Plan: Recommend to continue with current medications. Pain management per primary service. Patient continues to have some tenderness with increased redness and swelling at the surgical site with some surrounding cellulitis and maintained on IV Zosyn. Slight improvement with some mild serosanguineous drainage noted on the dressing. Patient is afebrile. Patient states he is passing gas and had a bowel movement last night and tolerating diet which is being advanced to low fiber diet per surgical services. Patient encouraged to continue with incentive spirometer at least 10 times every hour while awake and encouraged increased activity as tolerated. Will continue to monitor closely along with surgery. Thank you for this consultation.
--- NOTE | 2021-02-09 22:11 | P.PN ---
Subjective Progress Note Date: 02/09/21 Principal diagnosis: Right colectomy, omentectomy, repair of incisional hernia with lysis of adh This is a 50-year-old male who was recently admitted under surgical services and presented to the ER with continued abdominal pain and concern for possible bowel obstruction. CT of the abdomen is showing no suspicious changes to suggest bowel obstruction. Patient was recently admitted with this and ultimately transferred to [place] for further surgical evaluation as he was scheduled on 01/29/2021. Reportedly patient left [place] AGAINST MEDICAL ADVICE as he felt his pain was not being managed properly and also opted to not have surgery. Patient continued with abdominal discomfort and was instructed to report to the ER for further evaluation. She does have an extensive past medical history of Crohn's disease along with known ileocecal stricture and per patient has had multiple bowel surgeries. Patient was admitted to surgery and underwent right colectomy, omentectomy, repair of incisional hernia, and lysis of adhesions with Dr. Dela Cruz. We are consulted for medical management. 01/30/2021 Patient is seen and evaluated and follow-up this morning currently walking the halls and appears to be in no acute distress. Patient continues on clear liquids as he denies passing gas or having bowel movements as of yet. Patient reports to rumbling in the abdomen this morning. No further reports of nausea or vomiting noted. Denies chest pain or shortness of breath. Patient is afebrile. 01/31/2021 Patient is seen and evaluated and follow-up this morning again walking the halls stating that he feels better when he is up and about and continues to have rumbling noted in the abdomen and possibly could've had some flatus although not sure and denies bowel movement. Patient continues to request IV pain medication and nausea medication [id number] and will add oral [place] and discussed with the patient about limiting use of Dilaudid as he is not being sent home on this. Surgery has also made this known. Encouraged incentive spirometer use along with increased activity as tolerated. Patient is tolerating diet and being advanced to full liquids. Will repeat labs in the a.m. 02/01/2021 Patient states that he has never been in a situation where he has never had his pain controlled before. He is requesting an increase in his dilaudid. Patient is tolerating a full liquid diet. He denies any nausea, vomiting. Reports looser stools. He states that his abdomen is increasing in pain around his surgical incisional daily. There is some distention, what appears to be some purulent drainage shadowing from the surgical incisional dressing with some surrounding erythema. Pt states that he is only able to ambulate and use the IS shortly after receiving pain medication. He is receiving dilaudid 1 mg q3, norco 5 mg q4hr and toradol every 6 hours. Vital signs are stable today. WBC count within normal limits as well. Awaiting surgical input today. 02/02/2021 Patient is evaluated today, sitting in the chair. Toradol has been discontinued from surgical services. He had a acute abdominal x-ray yesterday and today which revealed nonobstructive bowel gas pattern. Patient denied an NG tube yesterday evening, however states today that he would try anything at this point to have some pain relief. He is still complaining of some severe abdominal pain around the incision. Yesterday he did tell the RN and writing [employer] that he was having bowel movements, however he denies any BMs today and states that he has not had any in 3 days. Mylicon was added from surgical services. Diet was downgraded to ice chips and popsicles. 02/03/2021 Patient is seen and evaluated today and continues with abdominal pain and requesting an increase in medications. Patient states he is not having any bowel movements although staff reported him having BM x2. Patient's pain and increase in abdominal distention is causing him to have trouble getting up from the bed. Patient continues to walk the halls. PT/OT consulted. CBC within normal limits and will repeat labs. Patient diet being advanced to clear liquids. 02/04/2021 Patient is seen and evaluated this morning states he had a bowel movement and is passing gas. Patient has been up and walking and continues to have some discomfort noted at the site with surrounding tenderness and being placed on IV Zosyn and will monitor for improvement. Patient strongly encouraged to avoid IV narcotics and states he is attempting to continue with oral pain medications and avoid IV Dilaudid if possible. Patient is currently tolerating diet with no reports of increasing abdominal pain and diet being advanced to full liquids. Patient remains afebrile and will monitor closely with possible discharge in 24 hours per surgery recommendations. 02/05/2021 Patient is seen this morning continues to have some redness and tenderness with some drainage noted on the dressing changes and continued on IV Zosyn. Patient is afebrile and white blood count within normal limits at 5.4. Encouraged increased activity and continued oral intake with diet being advanced by surgery. Will repeat some a.m. labs and continue to follow along with surgery. Patient states he is not receiving adequate pain control and has been trying to avoid Dilaudid but the pain is unbearable. 02/06/2021 Patient is seen and evaluated this morning continues on IV Zosyn with some minimal redness and sensitivity noted at the surgical site. Surgery removed some kenny and small amount of purulent drainage noted. Per nursing staff d uring dressing change no drainage was noted on the dressings. Patient to continue with abdominal binder. Patient reports passing gas today although no bowel movement. Patient remains afebrile and white blood count is normal at 4.6. 02/07/2021 Patient is seen in follow-up this morning currently walking the halls. Patient continues with abdominal discomfort and showing some improvement at the surgical site with some continued drainage noted on the dressing per nursing staff. Patient continued on IV Zosyn and will continue to monitor closely. Patient remains afebrile and denies any chest pain or shortness of breath. Patient to continue with abdominal binder and encouraged incentive spirometer and activity as tolerated. Will repeat labs in continue to monitor closely with surgery. 02/08/2021 patient is currently in the surgical unit. Awake alert oriented x3. Able to get up from the bed. Still complaining of pain over the abdominal incision site., But is improving. Patient has been afebrile. Denied any complaints of chest pain or shortness of breath. Patient did have a bowel event. Patient is being continued on antibiotics in the form of Zosyn. 02/09/2021 Patient is currently sitting in the chair. Abdominal pain did improve compared to yesterday. Patient was able to shower today. Not requiring IV narcotic pain medications. Patient is able to pass flatus and did have a bowel movement. Able to tolerate low fiber diet. No fever no chills. Laboratory data reviewed. No complaints of chest pain or shortness of breath. Current medications reviewed. Review of systems: Constitutional: No reports of fatigue, fever, or chills Cardiovascular: No reports of chest pain or palpitations Respiratory: No reports of shortness of breath or cough GI: No reports of nausea, vomiting, reports passing gas no bowel movement today. Continued abdominal tenderness at the surgical site with some redness and noted at the site, some kenny were removed : No reports of dysuria or retention Neurovascular: reports of generalized weakness All medications have been reviewed Objective - Vital Signs Vital signs: Vital Signs Temp 98.5 F 02/09/21 13:43 Pulse 64 02/09/21 13:43 Resp 16 02/09/21 13:43 BP 120/67 02/09/21 13:43 Pulse Ox 95 02/09/21 13:43 Intake & Output 02/08/21 02/09/21 02/09/21 19:59 06:59 18:59 Intake Total 240 Output Total 1400 Balance -1160 Intake: Oral 240 Output: Urine 1400 Other: Voiding Method Toilet # Voids 4 - Exam Physical exam: Gen: This is a 50 year old male, awake, alert and oriented x3. Walking the halls HEENT: Head is atraumatic, normocephalic. Pupils equal, round. Sclerae is anicteric. NECK: Supple. No JVD. No lymphadenopathy. No thyromegaly. LUNGS: Clear to auscultation. No wheezes or rhonchi. No intercostal retractions. HEART: Regular rate and rhythm. No murmur. ABDOMEN: Soft. Mildly tender on palpation. surgical site has some surrounding redness at the kenny with some minimal swelling and appears slightly improved EXTREMITIES: No pedal edema. No calf tenderness. NEUROLOGICAL: Patient is awake, alert and oriented x3. Cranial nerves 2 through 12 are grossly intact. - Labs CBC & Chem 7: 02/08/21 06:52 02/08/21 06:52 Assessment and Plan Assessment: Assessment: status post right colectomy, omentectomy, repair of incisional hernia, and lysis of adhesions Possible surgical site incisional cellulitis with some surrounding redness and swelling, patient remains afebrile and white blood count is within normal limits and patient is maintained on IV Zosyn. abdominal pain with abdominal distention, x-ray showed non-obstructive bowel gas pattern, patient is having bowel movements and passing gas. Improved now. Crohns disease History of ileocolonic anastomosis stricture History of anxiety/depression, bipolar, PTSD GI prophylaxis DVT prophylaxis Full code Plan: Recommend to continue with current medications. Pain management per primary s ervice. Patient continues to have some tenderness with increased redness and swelling at the surgical site with some surrounding cellulitis and maintained on IV Zosyn. Slight improvement with some mild serosanguineous drainage noted on the dressing. Patient is afebrile. Patient states he is passing gas and had a bowel movement last night and tolerating diet which is being advanced to low fiber diet per surgical services. Patient encouraged to continue with incentive spirometer at least 10 times every hour while awake and encouraged increased activity as tolerated. Will continue to monitor closely along with surgery. Thank you for this consultation.
[2021-02-10] MEDS: PIPERACILLIN-TAZOBACTAM 3.375 GM in SODIUM CHLORIDE 0.9% 100 ML IVPB SCH ×2 (02:06→10:34)
[2021-02-10] MEDS: HYDROcodone/APAP 7.5-325MG 1 EACH TAB PO PRN ×3 (02:06→10:59)
[2021-02-10 06:17] LABS: Anisocytosis Moderate; Basophils % (A) 1 %; Eosinophils # (A) 0.3 k/uL (0-0.7); Eosinophils % (A) 6 %; HCT 37.2 % (39.0-53.0); Hypochromasia Marked; Lymphocytes # (A) 1.1 k/uL (1.0-4.8); Lymphocytes % (A) 21 %; MCH 26.3 pg (25.0-35.0); MCHC 29.6 g/dL (31.0-37.0); MCV 88.9 fL (80.0-100.0); Mean Platelet Volume 7.3; Monocytes # (A) 0.4 k/uL (0-1.0); Monocytes % (A) 7 %; Neutrophils # (A) 3.5 k/uL (1.3-7.7); Neutrophils % (A) 64 %; Platelet Count 435 k/uL (150-450); RBC 4.19 m/uL (4.30-5.90); RDW 20.1 % (11.5-15.5); WBC 5.4 k/uL (3.8-10.6)
[2021-02-10] MEDS: HEPARIN SODIUM,PORCINE/PF 5,000 UNIT/0.5 ML SYRINGE SQ SCH (08:27)
[2021-02-10] MEDS: lamoTRIgine 100 MG TAB PO SCH (08:27)
[2021-02-10] MEDS: clonazePAM 1 MG TAB PO SCH (08:27)
[2021-02-10] MEDS: SIMETHICONE 40 MG/0.6 ML DROPS 2,000 MG/30 ML BOTTLE PO SCH (08:27)
[2021-02-10] MEDS: FLUoxetine HCL 10 MG CAP PO SCH (08:27)
[2021-02-10] MEDS: PANTOPRAZOLE 40 MG/10 ML VIAL IV SCH (08:27)
[2021-02-10 10:52] LABS: African American GFR (CKD) 106.6 (60.0-200.0); Anion Gap 11.2 mmol/L (4.00-12.00); BUN/Creat Ratio 9.45 Ratio (12.00-20.00); Calcium 9.5 mg/dL (8.7-10.3); Carbon Dioxide 26.1 mmol/L (21.6-31.8); Potassium 4.5 mmol/L (3.5-5.5)
--- NOTE | 2021-02-10 12:44 | P.DS ---
Providers Date of admission: 01/27/21 17:16 Expected date of discharge: 02/10/21 Attending physician: Vel Dela Cruz Consults: 01/29/21 08:25 Consult Physician Routine Consulting Provider: Ilya Way Consult Reason/Comments: medical management Do you want consulting provider notified?: Yes Primary care physician: John Cevallos, Hospital Course: Discharge diagnosis 1. 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 Incisional cellulitis, unexpected 3. 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 Patient chronically has been dealing with this right lower quadrant abdominal pain. He reports that it's painful to have bowel movements. He is no longer having the blood in his stools. He denies any nausea or vomiting. CAT scan of the abdomen shows no evidence of bowel obstruction at this time. Patient presents to the hospital for surgical intervention. Patient is status post right colectomy, omentectomy, repair of incisional hernia and lysis of adhesions for small bowel obstruction due to ileocolonic anastomosis stricture. Patient tolerated surgery well. During his hospitalization he did develop cellulitis at the incision site. He has had minimal drainage from the incision. He is tolerating diet. His pain is controlled. He has been up and ambulating. He is having bowel movements. He is afebrile. He is stable for discharge. Patient will be discharged home with oral antibiotics and home care. He is stable for discharge. Please refer to chart for any further details. Physician Airplane Dispatch Clerk note has been reviewed by physician. Signing provider agrees with the documented findings, assessment, and plan of care. Patient Condition at Discharge: Stable Plan - Discharge Summary Discharge Rx Participant: No New Discharge Prescriptions: New Levofloxacin [Levaquin] 500 mg PO DAILY 7 Days #7 tab metroNIDAZOLE [Flagyl] 500 mg PO Q8HR 7 Days #21 tab HYDROcodone/APAP 7.5-325MG [Brigantine 7.5-325] 1 tab PO Q6HR PRN 3 Days #12 tab PRN Reason: Pain No Action azaTHIOprine [Imuran] 50 mg PO BID lamoTRIgine [LaMICtal] 100 mg PO DAILY clonazePAM 1 mg PO TID Vitamin B Complex 1 cap PO DAILY Multivitamins, Thera [Multivitamin (formulary)] 1 tab PO DAILY hydrOXYzine pamoate [Vistaril] 25 mg PO TID PRN PRN Reason: sleep/itching Chromium Picolinate 200 mcg PO DAILY Cholecalciferol [Vitamin D3 (10 Mcg = 400 Iu)] 10 mcg PO DAILY [place]-3 Fatty Acids/Fish Oil [Fish Oil 1,000 mg Softgel] 1 cap PO DAILY Vitamin E 400 unit PO DAILY Diphenoxylate HCl/Atropine [Lomotil 2.5-0.025 mg Tablet] 1 tab PO QID PRN MDD 8 tabs PRN Reason: Diarrhea Aspirin EC [Ecotrin] 325 mg PO DAILY Acetaminophen Tab [Tylenol Tab] 500 mg PO Q6H PRN PRN Reason: Pain Ondansetron [Zofran] 4 mg PO QID PRN PRN Reason: Nausea Dicyclomine HCl 20 mg PO TID PRN PRN Reason: Gi Upset FLUoxetine HCL [PROzac] 10 mg PO DAILY Ascorbic Acid [Vitamin C] 250 mg PO DAILY Cyanocobalamin [Vitamin B-12] 1,000 mcg PO DAILY #60 tablet Pantoprazole Sodium [Protonix] 40 mg PO BID 14 Days #28 tablet. Sucralfate [Carafate] 1 gm PO ACHS PRN PRN Reason: Gi Upset Discharge Medication List azaTHIOprine [Imuran] 50 mg PO BID 03/25/20 [History] clonazePAM 1 mg PO TID 03/25/20 [History] lamoTRIgine [LaMICtal] 100 mg PO DAILY 03/25/20 [History] Ascorbic Acid [Vitamin C] 250 mg PO DAILY 10/31/20 [History] Cholecalciferol [Vitamin D3 (10 Mcg = 400 Iu)] 10 mcg PO DAILY 10/31/20 [History] Chromium Picolinate 200 mcg PO DAILY 10/31/20 [History] FLUoxetine HCL [PROzac] 10 mg PO DAILY 10/31/20 [History] Multivitamins, Thera [Multivitamin (formulary)] 1 tab PO DAILY 10/31/20 [History] [place]-3 Fatty Acids/Fish Oil [Fish Oil 1,000 mg Softgel] 1 cap PO DAILY 10/31/20 [History] Vitamin B Complex 1 cap PO DAILY 10/31/20 [History] hydrOXYzine pamoate [Vistaril] 25 mg PO TID PRN 10/31/20 [History] Cyanocobalamin [Vitamin B-12] 1,000 mcg PO DAILY #60 tablet 11/03/20 [Rx] Pantoprazole Sodium [Protonix] 40 mg PO BID 14 Days #28 tablet. 11/04/20 [Rx] Aspirin EC [Ecotrin] 325 mg PO DAILY 01/15/21 [History] Diphenoxylate HCl/Atropine [Lomotil 2.5-0.025 mg Tablet] 1 tab PO QID PRN MDD 8 tabs 01/15/21 [History] Vitamin E 400 unit PO DAILY 01/15/21 [History] Acetaminophen Tab [Tylenol Tab] 500 mg PO Q6H PRN 01/27/21 [History] Dicyclomine HCl 20 mg PO TID PRN 01/27/21 [History] Ondansetron [Zofran] 4 mg PO QID PRN 01/27/21 [History] Sucralfate [Carafate] 1 gm PO ACHS PRN 01/27/21 [History] HYDROcodone/APAP 7.5-325MG [Brigantine 7.5-325] 1 tab PO Q6HR PRN 3 Days #12 tab 02/10/21 [Rx] Levofloxacin [Levaquin] 500 mg PO DAILY 7 Days #7 tab 02/10/21 [Rx] metroNIDAZOLE [Flagyl] 500 mg PO Q8HR 7 Days #21 tab 02/10/21 [Rx] Follow up Appointment(s)/Referral(s): John Cevallos DO [Primary Care Provider] - 1-2 days (Patient to make appointment with doctor for follow) Martha Gipson MD [STAFF PHYSICIAN] - 1 Week Vel Dela Cruz MD [STAFF PHYSICIAN] - 1 Week Activity/Diet/Wound Care/Special Instructions: No driving while taking Brigantine No lifting over 10 pounds Shower daily. No soaking or tub baths for 2 weeks Very light activity until you are reevaluated at your follow up appointment with your surgeon Discharge Disposition: HOME WITH HOME HEALTH SERVICES
[2021-02-10 13:23] VITALS: BP 118/71; PULSE 57; RESP 17; TEMP 98.5
== END 2021-02-10 16:20 | disposition home health service (06) | DRG 330 ==
LOC: OR 12:38 → 5NMEDONC 17:16
PROVIDERS: ADMIT Surgery; ATTEND Surgery
PROC: 0DBU0ZZ Excision of Omentum, Open Approach (ICD-10-PCS; 2021-01-28)
PROC: 0WQF0ZZ Repair Abdominal Wall, Open Approach (ICD-10-PCS; 2021-01-28)
PROC: 0DNH0ZZ Release Cecum, Open Approach (ICD-10-PCS; 2021-01-28)
PROC: 0DTF0ZZ Resection of Right Large Intestine, Open Approach (ICD-10-PCS; principal; 2021-01-28 11:00)
DX: K91.89 Other postprocedural complications and disorders of digestive system (principal); K50.912 Crohn's disease, unspecified, with intestinal obstruction; K56.7 Ileus, unspecified; T81.41XA Infection following a procedure, superficial incisional surgical site, initial encounter; L03.311 Cellulitis of abdominal wall; Z20.822 Contact with and (suspected) exposure to COVID-19; K43.2 Incisional hernia without obstruction or gangrene; G89.29 Other chronic pain; F43.10 Post-traumatic stress disorder, unspecified; F31.9 Bipolar disorder, unspecified; Z79.82 Long term (current) use of aspirin; Z79.899 Other long term (current) drug therapy; F41.9 Anxiety disorder, unspecified; F32.9 Major depressive disorder, single episode, unspecified
CPT/HCPCS: 74018; 74019; 74177; 80048; 80053; 82150; 83605; 83690; 83735; 84132; 85025; 85610; 85730; 87635; 88305; 88307; 94760; 96374; 96375; 99285

== ENCOUNTER 2021-12-04 13:30 | Observation (INO) | payer BC ==
[2021-12-04 15:41] LABS: Basophils # (A) 0.1 k/uL (0-0.2); Basophils % (A) 1 %; Eosinophils % (A) 1 %; HCT 42.9 % (39.0-53.0); HGB 14.2 gm/dL (13.0-17.5); Lymphocytes # (A) 1.1 k/uL (1.0-4.8); Lymphocytes % (A) 23 %; MCH 29.1 pg (25.0-35.0); MCV 88.2 fL (80.0-100.0); Mean Platelet Volume 7.2; Monocytes # (A) 0.3 k/uL (0-1.0); Monocytes % (A) 7 %; Neutrophils # (A) 3.1 k/uL (1.3-7.7); Neutrophils % (A) 66 %; Platelet Count 256 k/uL (150-450); RBC 4.86 m/uL (4.30-5.90); RDW 14.5 % (11.5-15.5); WBC 4.6 k/uL (3.8-10.6)
[2021-12-04 15:51] LABS: ALT 20 U/L (4-49); AST 22 U/L (17-59); African American GFR (CKD) >90 (>60 ml/min/1.73 sqM); Albumin 4.8 g/dL (3.5-5.0); Alkaline Phosphatase 77 U/L (38-126); Anion Gap 14 mmol/L; Blood Urea Nitrogen 12 mg/dL (9-20); Calcium 10.1 mg/dL (8.4-10.2); Carbon Dioxide 27 mmol/L (22-30); Chloride 99 mmol/L (98-107); Glucose 90 mg/dL (74-99); INR 0.9 (<1.2); Magnesium 1.7 mg/dL (1.6-2.3); Non-African American GFR(CKD) >90 (>60 ml/min/1.73 sqM); Partial Thromboplastin Time 22.3 sec (22.0-30.0); Potassium 4.4 mmol/L (3.5-5.1); Prothrombin Time 9.9 sec (9.0-12.0); Sodium 140 mmol/L (137-145); Total Bilirubin 0.2 mg/dL (0.2-1.3); Total Protein 7.7 g/dL (6.3-8.2)
--- NOTE | 2021-12-04 17:30 | XR ---
EXAMINATION TYPE: XR chest 2V DATE OF EXAM: 12/04/2021 COMPARISON: 11/01/2020 HISTORY: Chest pain TECHNIQUE: Frontal and lateral views of the chest are obtained. FINDINGS: There is no focal air space opacity, pleural effusion, or pneumothorax seen. The cardiac silhouette size is within normal limits. The osseous structures are intact. IMPRESSION: No acute cardiopulmonary process.
--- NOTE | 2021-12-04 18:29 | ED ---
Chest Pain HPI - General Chief Complaint: Chest Pain Stated Complaint: ulcers bleeding Time Seen by Provider: 12/04/21 17:40 Source: patient Mode of arrival: ambulatory Limitations: no limitations - History of Present Illness Initial Comments: Patient is a 51-year-old male presenting with chief complaint of chest pain. Patient states chest pain is been ongoing for the last 2 days, and is located in the substernal region. He states that today the pain was worse so he presented for evaluation. It is associated with exertional dyspnea. Patient has felt weak and shaky. Patient is concerned that he may have some bleeding ulcers, he has a history of Crohn's disease and bleeding GI ulcers. He denies palpitations, fever, chills, nausea, vomiting, abdominal pain, sore throat, lightheadedness, dizziness, headache, vision or hearing changes, diaphoresis. - Related Data Home Medications Medication Instructions Recorded Confirmed azaTHIOprine [Imuran] 100 mg PO DAILY 03/25/20 12/04/21 clonazePAM 1 mg PO TID 03/25/20 12/04/21 lamoTRIgine [LaMICtal] 100 mg PO DAILY 03/25/20 12/04/21 Ascorbic Acid [Vitamin C] 250 mg PO DAILY 10/31/20 12/04/21 Cholecalciferol [Vitamin D3 (10 10 mcg PO DAILY 10/31/20 12/04/21 Mcg = 400 Iu)] Chromium Picolinate 200 mcg PO DAILY 10/31/20 12/04/21 Multivitamins, Thera [Multivitamin 1 tab PO DAILY 10/31/20 12/04/21 (formulary)] [employer] [place]-3 Fatty Acids/Fish Oil [Fish 1 cap PO DAILY 10/31/20 12/04/21 Oil 1,000 mg Softgel] hydrOXYzine pamoate [Vistaril] 25 mg PO TID PRN 10/31/20 12/04/21 Aspirin EC [Ecotrin] 325 mg PO DAILY 01/15/21 12/04/21 Diphenoxylate HCl/Atropine 1 - 3 tab PO QID MDD 8 tabs 01/15/21 12/04/21 [Lomotil 2.5-0.025 mg Tablet] Vitamin E 400 unit PO DAILY 01/15/21 12/04/21 Ondansetron [Zofran] 4 mg PO Q8H PRN 01/27/21 12/04/21 Cholestyramine (with Sugar) 4 gm PO BID 12/04/21 12/04/21 [Cholestyramine Packet] Dicyclomine HCl 20 mg PO QID PRN 12/04/21 12/04/21 FLUoxetine HCL 20 mg PO BID 12/04/21 12/04/21 Ferrous Sulfate [Feosol] 325 mg PO DAILY 12/04/21 12/04/21 Hyoscyamine Sulfate [Levbid] 0.375 mg PO BID PRN 12/04/21 12/04/21 Lidocaine 5% Patch [Lidoderm] 1 patch TOPICAL DAILY 12/04/21 12/04/21 Ondansetron Odt [Zofran Odt] 4 mg TRANSLINGU BID PRN 12/04/21 12/04/21 Pantoprazole Sodium [Protonix] 40 mg PO BID 12/04/21 12/04/21 Previous Rx's Medication Instructions Recorded Cyanocobalamin [Vitamin B-12] 1,000 mcg PO DAILY #60 tablet 11/03/20 Allergies Allergy/AdvReac Type Severity Reaction Status Date / Time No Known Allergies Allergy Verified 12/04/21 20:41 Review of Systems ROS Statement: Those systems with pertinent positive or pertinent negative responses have been documented in the HPI. ROS Other: All systems not noted in ROS Statement are negative. EKG Findings - EKG Comments: EKG Findings:: Sinus rhythm rate of 71. GA interval 175. QRS duration 92. QT/QTc 429/451. No acute changes when compared to old EKG. Past Medical History Additional Past Medical History / Comment(s): Crohn's History of Any Multi-Drug Resistant Organisms: None Reported Past Surgical History: Bowel Resection Additional Past Surgical History / Comment(s): bowel resection. Past Anesthesia/Blood Transfusion Reactions: No Reported Reaction Past Psychological History: Anxiety, Bipolar, Depression, PTSD Smoking Status: Never smoker Past Alcohol Use History: None Reported Past Drug Use History: None Reported General Exam Limitations: no limitations General appearance: alert, in no apparent distress Head exam: Present: atraumatic, normocephalic, normal inspection Eye exam: Present: normal appearance, EOMI. Absent: scleral icterus, periorbital swelling Neck exam: Present: normal inspection Respiratory exam: Present: normal lung sounds bilaterally. Absent: respiratory distress, wheezes, rales, rhonchi, stridor Cardiovascular Exam: Present: regular rate, normal rhythm, normal heart sounds. Absent: systolic murmur, diastolic murmur, rubs, gallop, clicks Neurological exam: Present: alert, oriented X3, CN II-XII intact Psychiatric exam: Present: normal affect, normal mood Skin exam: Present: warm, dry, intact, normal color. Absent: rash Course Vital Signs 12/04/21 12/04/21 12/04/21 14:02 15:09 18:35 Temperature 98.0 F Pulse Rate 76 74 75 Respiratory 16 20 Rate Blood Pressure 134/87 134/82 132/92 O2 Sat by Pulse 99 98 98 Oximetry 12/04/21 19:00 Temperature Pulse Rate 77 Respiratory 17 Rate Blood Pressure 119/95 O2 Sat by Pulse 99 Oximetry Chest Pain [facility] Patient is a 51-year-old male presenting with chief complaint of chest pain and exertional dyspnea. Symptoms started a few days ago. Physical examination is unremarkable. EKG shows no acute changes, no ST deviation. No leukocytosis. Troponin is WNL. Electrolytes are WNL. Coags are WNL. Chest x-ray shows no acute process. Given the patient's presentation and the nature of his chest pain, I believe he would benefit from observation for trending of troponins and cardiac evaluation. I spoke with Dr. Montgomery who agreed to admit the patient. I discussed this case with my attending Dr. Becker. Disposition Clinical Impression: Chest pain Disposition: ADMITTED IP TO THIS [facility] Condition: Fair Time of Disposition: 18:28 Decision to Admit Reason: Admit from EC Decision Date: 12/04/21 Decision Time: 18:29
[2021-12-04] MEDS ORDERED: NALOXONE 0.4 MG/ML 1 ML VIAL IV PRN (18:56)
[2021-12-04] MEDS ORDERED: KETOROLAC 15 MG/ML 1 ML VIAL IVP PRN (18:56)
[2021-12-04] MEDS: MORPHINE SULFATE 4 MG/ML SYRINGE IV PRN (20:19)
[2021-12-04] MEDS: SODIUM CHLORIDE 0.9% 1,000 ML IV SCH (20:24)
[2021-12-05] MEDS: MORPHINE SULFATE 4 MG/ML SYRINGE IV PRN ×5 (00:12→20:52)
--- NOTE | 2021-12-05 04:02 | P.HPIM ---
History of Present Illness H&P Date: 12/04/21 The patient is a 51-year-old male with a PMH of Crohn's disease who presents to the emergency room with multiple complaints including dyspnea on exertion, dysphagia, and odynophagia. The patient reports that over the past several weeks, he has been experiencing worsening dysphagia. He reports a constant globus sensation with gradually worsening oral intake due to the odynophagia. Patient states that the symptoms are in line with when he was previously diagnosed with esophageal and gastric ulcers related to his Crohn's disease. He reports that the dysphagia occasionally feels that the discomfort, substernal, with a strong globus sensation, rated at a 5 out of 10, worsened with food, with no alleviating factors. Patient also reports that his excess tolerance is been gradually worsening and he now has to rest a few minutes after walking a single flight of stairs, which is very unusual for him. He reports previously following with Dr. Gipson for his Crohn's disease and having undergone multiple upper and lower endoscopies. Patient reports chronic diarrhea up to 12-15 times daily. Denied fever, chills, palpitations, cough. Chest x-ray in the emergency room was unremarkable. EKG revealed sinus rhythm at 71 bpm Q waves in leads 2, 3, aVF with T-wave inversion in lead 3 (some changes new as compared to prior EKG from 2020). Laboratory evaluation was unremarkable including troponin less than 0.012. Review of systems: Pertinent positives and negatives as discussed in HPI, a complete review of systems was performed and all other systems are negative. Physical examination: General: non toxic, no distress, appears at stated age, obese Derm: no unusual rashes/lesions, warm Head: atraumatic, normocephalic, symmetric Eyes: EOMI, no lid lag, anicteric sclera, pupils equal round reactive to light ENT: Nose and ears atraumatic Neck: No cervical lymphadenopathy, trachea midline, supple Mouth: no lip lesion, mucus membranes moist Cardiovascular: S1S2 reg, no murmur, positive dorsalis pedis pulse bilateral, no edema Lungs: CTA bilateral, no rhonchi, no rales, no accessory muscle use Abdominal: soft, nontender to palpation, no guarding Ext: muscle strength 5 out of 5 in all 4 extremities grossly, no gross muscle atrophy, no contractures, Neuro: CN II-XI grossly intact, no gross focal neuro deficits Psych: Alert, oriented, appropriate affect Assessment/plan Dysphagia and odynophagia with history of esophageal ulcers -Surgery consult for possible upper endoscopy -GI services not available at this time -Protonix for now Chest discomfort with dyspnea on exertion and EKG changes -Cardiac consult -Cardiac monitoring Crohn's disease -Continue home meds DVT prophylaxis -Heparin subcu The patient is admitted with an anticipated less than 2 midnight stay for alex luation of dysphagia CODE STATUS: Full Code Discussed with: Patient Anticipated discharge date: in am Anticipated discharge place: Home Past Medical History Additional Past Medical History / Comment(s): Crohn's History of Any Multi-Drug Resistant Organisms: None Reported Past Surgical History: Bowel Resection Additional Past Surgical History / Comment(s): bowel resection. Past Anesthesia/Blood Transfusion Reactions: No Reported Reaction Past Psychological History: Anxiety, Bipolar, Depression, PTSD Smoking Status: Never smoker Past Alcohol Use History: None Reported Past Drug Use History: None Reported - Past Family History Mother Family Medical History: Hypertension Medications and Allergies Home Medications Medication Instructions Recorded Confirmed Type azaTHIOprine [Imuran] 100 mg PO DAILY 03/25/20 12/04/21 History clonazePAM 1 mg PO TID 03/25/20 12/04/21 History lamoTRIgine [LaMICtal] 100 mg PO DAILY 03/25/20 12/04/21 History Ascorbic Acid [Vitamin C] 250 mg PO DAILY 10/31/20 12/04/21 History Cholecalciferol [Vitamin D3 (10 10 mcg PO DAILY 10/31/20 12/04/21 History Mcg = 400 Iu)] Chromium Picolinate 200 mcg PO DAILY 10/31/20 12/04/21 History Multivitamins, Thera [Multivitamin 1 tab PO DAILY 10/31/20 12/04/21 History (formulary)] [place]-3 Fatty Acids/Fish Oil [Fish 1 cap PO DAILY 10/31/20 12/04/21 History Oil 1,000 mg Softgel] hydrOXYzine pamoate [Vistaril] 25 mg PO TID PRN 10/31/20 12/04/21 History Cyanocobalamin [Vitamin B-12] 1,000 mcg PO DAILY #60 tablet 11/03/20 12/04/21 Rx Aspirin EC [Ecotrin] 325 mg PO DAILY 01/15/21 12/04/21 History Diphenoxylate HCl/Atropine 1 - 3 tab PO QID MDD 8 tabs 01/15/21 12/04/21 History [Lomotil 2.5-0.025 mg Tablet] Vitamin E 400 unit PO DAILY 01/15/21 12/04/21 History Ondansetron [Zofran] 4 mg PO Q8H PRN 01/27/21 12/04/21 History Cholestyramine (with Sugar) 4 gm PO BID 12/04/21 12/04/21 History [Cholestyramine Packet] Dicyclomine HCl 20 mg PO QID PRN 12/04/21 12/04/21 History FLUoxetine HCL 20 mg PO BID 12/04/21 12/04/21 History Ferrous Sulfate [Feosol] 325 mg PO DAILY 12/04/21 12/04/21 History Hyoscyamine Sulfate [Levbid] 0.375 mg PO BID PRN 12/04/21 12/04/21 History Lidocaine 5% Patch [Lidoderm] 1 patch TOPICAL DAILY 12/04/21 12/04/21 History Ondansetron Odt [Zofran Odt] 4 mg TRANSLINGU BID PRN 12/04/21 12/04/21 History Pantoprazole Sodium [Protonix] 40 mg PO BID 12/04/21 12/04/21 History Allergies Allergy/AdvReac Type Severity Reaction Status Date / Time No Known Allergies Allergy Verified 12/04/21 20:41 Physical Exam Vitals: Vital Signs Temp Pulse Resp BP Pulse Ox 12/04/21 19:00 77 17 119/95 99 12/04/21 18:35 75 20 132/92 98 12/04/21 15:09 74 134/82 98 12/04/21 14:02 98.0 F 76 16 134/87 99 Intake and Output 12/04/21 12/04/21 12/05/21 14:59 22:59 06:59 Other: # Voids 1 Weight 103.419 kg 103.419 kg Results CBC & Chem 7: 12/04/21 15:07 12/04/21 15:07 Thrombosis Risk Factor Assmnt - Choose All That Apply Each Factor Represents 1 point: Age 41-60 years, Obesity (BMI >25) Thrombosis Risk Factor Assessment Total Risk Factor Score: 2 Thrombosis Risk Factor Assessment Level: Low Risk
[2021-12-05 08:59] LABS: Basophils # (A) 0.03 X 10*3/uL (0.00-0.10); Basophils % (A) 0.7 %; Eosinophils # (A) 0.12 X 10*3/uL (0.04-0.35); Eosinophils % (A) 2.6 %; HCT 38.6 % (39.6-50.0); HGB 12.3 g/dL (13.0-17.0); Immature Grans, Automated 0.2 %; Lymphocytes # (A) 1.53 X 10*3/uL (0.90-5.00); Lymphocytes % (A) 33.6 %; MCH 28.6 pg (27.0-32.0); MCHC 31.9 g/dL (32.0-37.0); MCV 89.8 fL (80.0-97.0); Mean Platelet Volume 10.4 fL (9.5-12.2); Monocytes % (A) 13.2 %; NRBC Per 100 WBC 0 /100 WBCS (0.0-0.0); Neutrophils # (A) 2.27 X 10*3/uL (1.80-7.70); Neutrophils % (A) 49.7 %; Platelet Count 232 X 10*3/uL (140-440); RDW 14.7 % (11.5-14.5); WBC 4.56 X 10*3/uL (4.50-10.00)
[2021-12-05] MEDS ORDERED: DICYCLOMINE 10 MG CAP PO PRN (09:00)
[2021-12-05] MEDS: SODIUM CHLORIDE 0.9% 1,000 ML IV SCH ×2 (09:02→20:55)
[2021-12-05 09:21] LABS: African American GFR (CKD) 113.4 (60.0-200.0); Albumin 4.3 g/dL (3.8-4.9); Albumin/Globulin Ratio 2.15 (1.60-3.17); Anion Gap 7.9 mmol/L (10.00-18.00); BUN/Creat Ratio 16.56 Ratio (12.00-20.00); Blood Urea Nitrogen 14.9 mg/dL (9.0-27.0); Calcium 9.4 mg/dL (8.7-10.3); Carbon Dioxide 30.1 mmol/L (20.0-27.5); Non-African American GFR(CKD) 97.9 (60.0-200.0); Potassium 4.4 mmol/L (3.5-5.5); Total Bilirubin 0.4 mg/dL (0.30-1.20); Total Protein 6.3 g/dL (6.2-8.2)
[2021-12-05] MEDS ORDERED: hydrOXYzine pamoate 25 MG CAP PO PRN (09:26)
[2021-12-05] MEDS: CHOLESTYRAMINE (WITH SUGAR) 4 GM PACKET PO SCH ×2 (09:35→20:36)
[2021-12-05] MEDS: HEPARIN SODIUM,PORCINE/PF 5,000 UNIT/0.5 ML SYRINGE SQ SCH ×4 (09:55→23:01)
[2021-12-05] MEDS: PANTOPRAZOLE 40 MG/10 ML VIAL IVP SCH ×2 (09:55→20:54)
[2021-12-05] MEDS: FLUoxetine HCL 20 MG CAP PO SCH ×2 (09:56→20:54)
[2021-12-05] MEDS: lamoTRIgine 100 MG TAB PO SCH (09:56)
[2021-12-05] MEDS: clonazePAM 1 MG TAB PO SCH ×3 (09:56→21:01)
[2021-12-05] MEDS: methylPREDNISolone SOD SUCCI 125 MG/2 ML VIAL IV SCH ×3 (09:56→23:33)
[2021-12-05] MEDS: ASPIRIN 325 MG TAB PO SCH (09:56)
[2021-12-05] MEDS: azaTHIOprine 50 MG TAB PO SCH (09:56)
[2021-12-05] MEDS: HYDROcodone/APAP 5-325MG 1 EACH TAB PO PRN ×2 (10:22→17:55)
--- NOTE | 2021-12-05 11:04 | P.CRDCN ---
History of Present Illness History of present illness: HISTORY OF PRESENT ILLNESS: This is a 51-year-old male with a past medical history significant for gastric ulcers and Crohn's disease. 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 We have been asked to see the patient in consultation for chest pain. Patient examined at the bedside. Patient states for the past 2 days he has been having discomfort in the middle of his chest and in between his shoulder blades. He reports it feels like he swallowed a rock and it is stuck in his throat. He states he has had this feeling before when he was diagnosed with gastric ulcers. He reports having some shortness of breath with exertion recently as well. At the time of my examination, the patient is complaining of epigastric pain. The patient reports he had a stress test completed within the last year and states it was negative to his knowledge * EKG reveals sinus mechanism with no signs of acute ischemia * Chest xray negative for acute process * Laboratory data: W BC 4.56. Hemoglobin 12.3. Platelet count 232. Sodium 140. Potassium 4.4. BUN 14. Creatinine 0.9. Troponin negative 3 * Current home cardiac medications include aspirin 325 mg daily * Most recent echocardiogram obtained in November 2020 revealed ejection fraction 55-60%, trace MR, trace TR REVIEW OF SYSTEMS: At the time of my exam: CONSTITUTIONAL: Denies fever or chills. HEENT: Denies blurred vision, vision changes, or eye pain. Denies hemoptysis CARDIOVASCULAR: Denies chest pain. Denies orthopnea. Denies PND. Denies palpitations RESPIRATORY: Denies shortness of breath. GASTROINTESTINAL: Denies abdominal pain. Denies nausea or vomiting. HEMATOLOGIC: Denies bleeding disorders. GENITOURINARY: Denies any blood in urine. SKIN: Denies pruitis. Denies rash. PHYSICAL EXAM: VITAL SIGNS: Reviewed. GENERAL: Well-developed in no acute distress. HEENT: Head is normocephalic. Pupils are equal, round. Sclerae anicteric. Mucous membranes of the mouth are moist. Neck supple. No JVD or thyromegaly LUNGS: Respirations even and unlabored. Lungs essentially clear to auscultation bilaterally. HEART: Regular rate and rhythm. S1 and S2 heard. ABDOMEN: Soft. Nondistended. Nontender. EXTREMITIES: Normal range of motion. No clubbing or cyanosis. Peripheral pulses intact. No lower extremity edema NEUROLOGIC: Awake and alert. Oriented x 3. ASSESSMENT: Chest pain Shortness of breath with exertion History of gastric ulcers History of Crohn's disease PLAN: An acute coronary event has been ruled out Obtain 2-D echo to assess cardiac structure and function Patient's symptoms appear to be GI related. General surgery has been consulted. Patient may follow up on an outpatient basis and will plan for outpatient stress testing. Nurse practitioner note has been reviewed by physician. Signing provider agrees with the documented findings, assessment, and plan of care. Past Medical History Additional Past Medical History / Comment(s): Crohn's History of Any Multi-Drug Resistant Organisms: None Reported Past Surgical History: Bowel Resection Additional Past Surgical History / Comment(s): bowel resection. Past Anesthesia/Blood Transfusion Reactions: No Reported Reaction Past Psychological History: Anxiety, Bipolar, Depression, PTSD Smoking Status: Never smoker Past Alcohol Use History: None Reported Past Drug Use History: None Reported - Past Family History Mother Family Medical History: Hypertension Medications and Allergies Home Medications Medication Instructions Recorded Confirmed Type azaTHIOprine [Imuran] 100 mg PO DAILY 03/25/20 12/04/21 History clonazePAM 1 mg PO TID 03/25/20 12/04/21 History lamoTRIgine [LaMICtal] 100 mg PO DAILY 03/25/20 12/04/21 History Ascorbic Acid [Vitamin C] 250 mg PO DAILY 10/31/20 12/04/21 History Cholecalciferol [Vitamin D3 (10 10 mcg PO DAILY 10/31/20 12/04/21 History Mcg = 400 Iu)] Chromium Picolinate 200 mcg PO DAILY 10/31/20 12/04/21 History Multivitamins, Thera [Multivitamin 1 tab PO DAILY 10/31/20 12/04/21 History (formulary)] [place]-3 Fatty Acids/Fish Oil [Fish 1 cap PO DAILY 10/31/20 12/04/21 History Oil 1,000 mg Softgel] hydrOXYzine pamoate [Vistaril] 25 mg PO TID PRN 10/31/20 12/04/21 History Cyanocobalamin [Vitamin B-12] 1,000 mcg PO DAILY #60 tablet 11/03/20 12/04/21 Rx Aspirin EC [Ecotrin] 325 mg PO DAILY 01/15/21 12/04/21 History Diphenoxylate HCl/Atropine 1 - 3 tab PO QID MDD 8 tabs 01/15/21 12/04/21 History [Lomotil 2.5-0.025 mg Tablet] Vitamin E 400 unit PO DAILY 01/15/21 12/04/21 History Ondansetron [Zofran] 4 mg PO Q8H PRN 01/27/21 12/04/21 History Cholestyramine (with Sugar) 4 gm PO BID 12/04/21 12/04/21 History [Cholestyramine Packet] Dicyclomine HCl 20 mg PO QID PRN 12/04/21 12/04/21 History FLUoxetine HCL 20 mg PO BID 12/04/21 12/04/21 History Ferrous Sulfate [Feosol] 325 mg PO DAILY 12/04/21 12/04/21 History Hyoscyamine Sulfate [Levbid] 0.375 mg PO BID PRN 12/04/21 12/04/21 History Lidocaine 5% Patch [Lidoderm] 1 patch TOPICAL DAILY 12/04/21 12/04/21 History Ondansetron Odt [Zofran Odt] 4 mg TRANSLINGU BID PRN 12/04/21 12/04/21 History Pantoprazole Sodium [Protonix] 40 mg PO BID 12/04/21 12/04/21 History Allergies Allergy/AdvReac Type Severity Reaction Status Date / Time No Known Allergies Allergy Verified 12/04/21 20:41 Physical Exam Vitals: Vital Signs Temp Pulse Pulse Resp BP BP Pulse Ox 12/05/21 03:10 98.0 F 55 L 18 123/68 97 12/04/21 19:00 77 17 119/95 99 12/04/21 18:35 75 20 132/92 98 12/04/21 15:09 74 134/82 98 12/04/21 14:02 98.0 F 76 16 134/87 99 Intake and Output 12/04/21 12/05/21 12/05/21 22:59 06:59 14:59 Other: # Voids 1 1 Weight 103.419 kg Results 12/05/21 04:45 12/05/21 04:45 Cardiac Enzymes 12/04/21 12/04/21 12/04/21 Range/Units 15:07 15:07 20:43 AST 22 (17-59) U/L Troponin I <0.012 <0.012 (0.000-0.034) ng/mL 12/05/21 Range/Units 00:13 AST (17-59) U/L Troponin I <0.012 (0.000-0.034) ng/mL Coagulation 12/04/21 Range/Units 15:07 PT 9.9 (9.0-12.0) sec APTT 22.3 (22.0-30.0) sec CBC 12/04/21 Range/Units 15:07 WBC 4.6 (3.8-10.6) k/uL RBC 4.86 (4.30-5.90) m/uL Hgb 14.2 (13.0-17.5) gm/dL Hct 42.9 (39.0-53.0) % Plt Count 256 (150-450) k/uL Comprehensive Metabolic Panel 12/04/21 Range/Units 15:07 Sodium 140 (137-145) mmol/L Potassium 4.4 (3.5-5.1) mmol/L Chloride 99 (98-107) mmol/L Carbon Dioxide 27 (22-30) mmol/L BUN 12 (9-20) mg/dL Creatinine 0.79 (0.66-1.25) mg/dL Glucose 90 (74-99) mg/dL Calcium 10.1 (8.4-10.2) mg/dL AST 22 (17-59) U/L ALT 20 (4-49) U/L Alkaline Phosphatase 77 (38-126) U/L Total Protein 7.7 (6.3-8.2) g/dL Albumin 4.8 (3.5-5.0) g/dL Current Medications Generic Name Dose Route Start Last Admin Trade Name Freq PRN Reason Stop Dose Admin Aspirin 325 mg 12/05/21 09:00 Aspirin 325 Mg Tab PO DAILY [facility] Azathioprine 100 mg 12/05/21 09:00 Azathioprine 50 Mg Tab PO DAILY JAVIER Dicyclomine HCl 20 mg 12/05/21 09:00 Dicyclomine 10 Mg Cap PO QID PRN GI Upset Fluoxetine HCl 20 mg 12/05/21 09:00 Fluoxetine Hcl 20 Mg Cap PO BID JAVIER Heparin Sodium (Porcine) 5,000 unit 12/05/21 08:00 Heparin Sodium,Porcine/Pf 5,000 Unit/0.5 Ml Syringe SQ Q8HR JAVIER Sodium Chloride 1,000 mls @ 75 mls/hr 12/04/21 19:00 12/04/21 20:24 Saline 0.9% IV 75 mls/hr .[id number] JAVIER Administration Lamotrigine 100 mg 12/05/21 09:00 Lamotrigine 100 Mg Tab PO DAILY JAVIER Morphine Sulfate 4 mg 12/04/21 18:56 12/05/21 04:12 Morphine Sulfate 4 Mg/Ml Syringe IV 4 mg Q4HR PRN Administration Severe Pain (Scale 7 to 10) Naloxone HCl 0.2 mg 12/04/21 18:56 Naloxone 0.4 Mg/Ml 1 Ml Vial IV Q2M PRN Opioid Reversal Pantoprazole Sodium 40 mg 12/05/21 09:00 Pantoprazole 40 Mg/10 Ml Vial IVP BID JAVIER Intake and Output 12/04/21 12/05/21 12/05/21 22:59 06:59 14:59 Other: # Voids 1 1 Weight 103.419 kg 12/04/21 15:07 12/04/21 15:07
[2021-12-05] MEDS: MAG HYDROX/AL HYDROX/SIMETH 30 ML, diphenhydrAMINE ELIXIR 75 MG, LIDOCAINE VISCOUS 2% 3... PO PRN ×6 (11:51→17:55)
--- NOTE | 2021-12-05 12:51 | P.PN ---
Subjective Progress Note Date: 12/05/21 (delayed charting seen at 0830) Principal diagnosis: painful swallowing Patient is a 51-year-old with history of Crohn's disease status post multiple resections currently on Stelara and Imuran follows with Dr. Hernandez and history of multiple bowel resections who presented to the emergency department with a feeling of central chest pain associated with odynophagia. He reports that he has a history of Crohn's disease affecting his esophagus and upper GI tract. He reports that he was recently started on stelara a but has been having a lot of muscle cramping and he is unsure if he should continue on this medication. He reports that he has been trying to get a hold of Dr. Hernandez's office but has been underwent successful for guidance on what to do with his difficulty swallowing. Reviewed last EGD from October 2020 which demonstrated mild antral gastritis. On arrival to the ER here he underwent an extensive evaluation. Initial vital signs were within normal limits. Laboratory analysis was unremarkable. EKG did not show any signs of acute ischemia. Troponins were trended and remained negative. Cardiology was consulted who feels patient is appropriate for out patient evaluation of dyspnea on exertion and feels that his chest pain is likely related to a his inability to swallow. Currently awaiting general surgery evaluation is GI is not available at this time. Patient seen and examined at bedside. He recounts the information is listed above. He continues to have some pain in the center of his chest. He states he isn't taking his Protonix. Denies any nausea or vomiting. General: nontoxic, no distress, appears at stated age Derm: warm, dry Head: atraumatic, normocephalic, symmetric Eyes: EOMI, no lid lag, anicteric sclera Mouth: no lip lesion, mucus membranes moist, troat pharyngeal erythema, no ulcerations or thrush Cardiovascular: S1S2 reg, no murmur, positive posterior tibial pulse bilateral, Lungs: CTA bilateral, no rhonchi, no rales , no accessory muscle use Abdominal: soft, nontender to palpation, no guarding, no appreciable orga nomegaly Ext: no gross muscle atrophy, no edema, no contractures Neuro: CN II-XI grossly intact, no focal neuro deficits Psych: Alert, oriented, appropriate affect Assessment/plan: Dysphagia and odynophagia with hx of crohn's effective esophagus - Await surgery recs - IV PPI - start steroids for possible crohn's flair, continue azothioprine -GI services not available at this time Dyspnea on exertion -Cardio recs - Troponins negative - Await echo Active Medications Generic Name Dose Route Start Last Admin Trade Name Michi PRN Reason Stop Dose Admin Hydrocodone Bitart/Acetaminophen 1 each 12/05/21 09:06 12/05/21 10:22 Hydrocodone/Apap 5-325mg 1 Each Tab PO 1 each Q6HR PRN Administration Moderate Pain Aspirin 325 mg 12/05/21 09:00 12/05/21 09:56 Aspirin 325 Mg Tab PO 325 mg DAILY JAVIER Administration Azathioprine 100 mg 12/05/21 09:00 12/05/21 09:56 Azathioprine 50 Mg Tab PO 100 mg DAILY JAVIER Administration Cholestyramine Resin 4 gm 12/05/21 10:00 12/05/21 09:35 Cholestyramine (With Sugar) 4 Gm Packet PO Not Given BID JAVIER Clonazepam 1 mg 12/05/21 09:30 12/05/21 09:56 Clonazepam 1 Mg Tab PO 1 mg TID JAVIER Administration Al Hydroxide/Mg Hydroxide 30 0 ml 12/05/21 10:00 12/05/21 11:51 ml/ Diphenhydramine HCl 75 mg/ PO 5 ml Lidocaine HCl 30 ml TID PRN Administration dysphagia Dicyclomine HCl 20 mg 12/05/21 09:00 Dicyclomine 10 Mg Cap PO QID PRN GI Upset Fluoxetine HCl 20 mg 12/05/21 09:00 12/05/21 09:56 Fluoxetine Hcl 20 Mg Cap PO 20 mg BID JAVIER Administration Heparin Sodium (Porcine) 5,000 unit 12/05/21 08:00 12/05/21 10:13 Heparin Sodium,Porcine/Pf 5,000 Unit/0.5 Ml Syringe SQ Not Given Q8HR JAVIER Hydroxyzine Pamoate 25 mg 12/05/21 09:26 Hydroxyzine Pamoate 25 Mg Cap PO TID PRN sleep/itching, ANXIETY Sodium Chloride 1,000 mls @ 75 mls/hr 12/04/21 19:00 12/05/21 09:02 Saline 0.9% IV 75 mls/hr .[id number] JAVIER Administration Lamotrigine 100 mg 12/05/21 09:00 12/05/21 09:56 Lamotrigine 100 Mg Tab PO 100 mg DAILY JAVIER Administration Methylprednisolone Sodium Succinate 60 mg 12/05/21 09:15 12/05/21 09:56 Methylprednisolone Sod Succi 125 Mg/2 Ml Vial IV 60 mg Q8HR JAVIER Administration Morphine Sulfate 4 mg 12/04/21 18:56 12/05/21 09:01 Morphine Sulfate 4 Mg/Ml Syringe IV 4 mg Q4HR PRN Administration Severe Pain (Scale 7 to 10) Naloxone HCl 0.2 mg 12/04/21 18:56 Naloxone 0.4 Mg/Ml 1 Ml Vial IV Q2M PRN Opioid Reversal Pantoprazole Sodium 40 mg 12/05/21 09:00 12/05/21 09:55 Pantoprazole 40 Mg/10 Ml Vial IVP 40 mg BID JAVIER Administration Objective - Vital Signs Vital signs: Vital Signs Temp 98.2 F 12/05/21 07:00 Pulse 63 12/05/21 07:00 Resp 18 12/05/21 09:56 BP 144/90 12/05/21 07:00 Pulse Ox 97 12/05/21 07:00 FiO2 Intake & Output 12/04/21 12/05/21 12/05/21 18:59 06:59 18:59 Weight 103.419 kg 103.419 kg Other: # Voids 1 - Labs CBC & Chem 7: 12/05/21 04:45 12/05/21 04:45 Labs: Abnormal Lab Results - Last 24 Hours (Table) 12/05/21 12/05/21 Range/Units 04:45 04:45 RBC 4.30 L (4.40-5.60) X 10*6/uL Hgb 12.3 L (13.0-17.0) g/dL Hct 38.6 L (39.6-50.0) % MCHC 31.9 L (32.0-37.0) g/dL RDW 14.7 H (11.5-14.5) % Carbon Dioxide 30.1 H (20.0-27.5) mmol/L Anion Gap 7.90 L (10.00-18.00) mmol/L
--- NOTE | 2021-12-05 17:02 | P.GSCN ---
History of Present Illness Consult date: 12/05/21 History of present illness: REASON FOR CONSULTATION: Painful swallowing HISTORY OF PRESENT ILLNESS: The patient is a 51 year old male who comes in with over 3 days of painful swallowing. "It feels like ulcers in the chest as I had before." He reports taking antacids regularly. He has personal history of Crohn's disease. He has history of laparotomy and colon resection for complications from Crohn's disease with Dr. Dela Cruz less than 1 year ago, January 2021. He can eat however but feels like sharp food in the throat. No fevers or chills. He is admitted for chest pain. General surgery is consulted for painful swallowing. PAST MEDICAL HISTORY: See list and reviewed PAST SURGICAL HISTORY: See list and reviewed MEDICATIONS: See list and reviewed ALLERGIES: See list and reviewed SOCIAL HISTORY: See list and reviewed FAMILY HISTORY: See list and reviewed REVIEW OF ORGAN SYSTEMS: CONSTITUTIONAL: No fevers or chills. No recent weight loss. EYES: Denies any trouble with vision. No glasses. HEENT: No difficulties with hearing. No nosebleeds. Has difficulty swallowing. RESPIRATORY: Denies pneumonia. Denies any troubles with breathing or dyspnea on exertion. CARDIOVASCULAR: Denies any chest pain, palpitations, or recent heart attacks. GASTROINTESTINAL: Has Crohn's disease with prior bowel obstruction and resection. Has chronic nausea. Has irritable bowel syndrome. Has gastroesophageal reflux disease. GENITOURINARY: Denies any blood in urine or increased urinary frequency. NEUROLOGICAL: Denies any numbness or tingling along the distal extremities. Has seizure disorders. MUSCULOSKELETAL: Denies any back pain, stiffness or joint arthritis. SKIN: No current skin cancer. No rash. PSYCHIATRIC: Has current depression. No suicidal thoughts. Has post traumatic stress disorder. Has bipolar disorder. Has anxiety. ENDOCRINE: Denies current thyroid disorders. Denies any blood sugar glucose intolerance. HEME/LYMPHATIC: Denies any lumps and bumps around the neck. No recent deep venous thrombosis. ALLERGY/IMMUNOLOGY: No immunoglobulin therapy. No immune deficiencies. BREAST: Denies current breast lumps, pain or nipple discharge. PHYSICAL EXAM: VITALS: Reviewed CONSTITUTIONAL: Well developed and in no acute distress. EYES: Conjuctivae without sclera icterus. Extraocular movements grossly intact. HEAD, EARS, NOSE, THROAT: Moist buccal mucosa. Head is atraumatic, normocephalic. Hears conversational speech. No nasal drainage. NECK: Supple. No JV distention. No thyroidomegaly. RESPIRATORY: Non-labored respirations and equal bilateral excursions. No gross wheezes. CARDIOVASCULAR: Palpable 2+ radial pulses. ABDOMEN: Nontender LYMPH: No neck lymphadenopathy. MUSCULOSKELETAL: Nail and fingers with good capillary refill. SKIN: Warm and well perfused with good skin turgor. NEUROLOGIC: Cranial nerves II through XII grossly intact. No focal or lateralizing signs. PSYCH: Appropriate affect. Alert and oriented to person, place and time. Displays appropriate insight. CLINCAL LABS: Reviewed. WBC normal at 4.5. Hgb low 12.3. COVID negative. ECHO: Left ventricular function in normal limits at 55 to 60%. RECORDS: previous old records reviewed from January 2021 with ileocolectomy for bowel obstruction. ASSESSMENT: 1. Odynophagia 2. Gastroesophageal reflux disease. 3. Crohn's disease 4. Chest pain PLAN: 1. At this time, may start liquid diet as he can tolerate liquids. 2. For painful swallowing, may use liquid Carafate. 3. Alternatively, may benefit from upper endoscopy as candidiasis of the esophagus may give similar symptoms. 4. I discussed with the patient that clinical dietetic technician is out of town. 5. May have outpatient endoscopy. Otherwise no acute surgical intervention at this time. Thank you for this kind consultation. Past Medical History Additional Past Medical History / Comment(s): Crohn's History of Any Multi-Drug Resistant Organisms: None Reported Past Surgical History: Bowel Resection Additional Past Surgical History / Comment(s): bowel resection. Past Anesthesia/Blood Transfusion Reactions: No Reported Reaction Past Psychological History: Anxiety, Bipolar, Depression, PTSD Smoking Status: Never smoker Past Alcohol Use History: None Reported Past Drug Use History: None Reported - Past Family History Mother Family Medical History: Hypertension Medications and Allergies Home Medications Medication Instructions Recorded Confirmed Type azaTHIOprine [Imuran] 100 mg PO DAILY 03/25/20 12/04/21 History clonazePAM 1 mg PO TID 03/25/20 12/04/21 History lamoTRIgine [LaMICtal] 100 mg PO DAILY 03/25/20 12/04/21 History Ascorbic Acid [Vitamin C] 250 mg PO DAILY 10/31/20 12/04/21 History Cholecalciferol [Vitamin D3 (10 10 mcg PO DAILY 10/31/20 12/04/21 History Mcg = 400 Iu)] Chromium Picolinate 200 mcg PO DAILY 10/31/20 12/04/21 History Multivitamins, Thera [Multivitamin 1 tab PO DAILY 10/31/20 12/04/21 History (formulary)] [place]-3 Fatty Acids/Fish Oil [Fish 1 cap PO DAILY 10/31/20 12/04/21 History Oil 1,000 mg Softgel] hydrOXYzine pamoate [Vistaril] 25 mg PO TID PRN 10/31/20 12/04/21 History Cyanocobalamin [Vitamin B-12] 1,000 mcg PO DAILY #60 tablet 11/03/20 12/04/21 Rx Aspirin EC [Ecotrin] 325 mg PO DAILY 01/15/21 12/04/21 History Diphenoxylate HCl/Atropine 1 - 3 tab PO QID MDD 8 tabs 01/15/21 12/04/21 History [Lomotil 2.5-0.025 mg Tablet] Vitamin E 400 unit PO DAILY 01/15/21 12/04/21 History Ondansetron [Zofran] 4 mg PO Q8H PRN 01/27/21 12/04/21 History Cholestyramine (with Sugar) 4 gm PO BID 12/04/21 12/04/21 History [Cholestyramine Packet] Dicyclomine HCl 20 mg PO QID PRN 12/04/21 12/04/21 History FLUoxetine HCL 20 mg PO BID 12/04/21 12/04/21 History Ferrous Sulfate [Feosol] 325 mg PO DAILY 12/04/21 12/04/21 History Hyoscyamine Sulfate [Levbid] 0.375 mg PO BID PRN 12/04/21 12/04/21 History Lidocaine 5% Patch [Lidoderm] 1 patch TOPICAL DAILY 12/04/21 12/04/21 History Ondansetron Odt [Zofran Odt] 4 mg TRANSLINGU BID PRN 12/04/21 12/04/21 History Pantoprazole Sodium [Protonix] 40 mg PO BID 12/04/21 12/04/21 History Allergies Allergy/AdvReac Type Severity Reaction Status Date / Time No Known Allergies Allergy Verified 12/04/21 20:41 Surgical - Exam Vital Signs Temp Pulse Resp BP Pulse Ox 98.0 F 76 16 134/87 99 12/04/21 14:02 12/04/21 14:02 12/04/21 14:02 12/04/21 14:02 12/04/21 14:02 Results - Labs 12/05/21 04:45 12/05/21 04:45 Abnormal Lab Results - Last 24 Hours (Table) 12/05/21 12/05/21 Range/Units 04:45 04:45 RBC 4.30 L (4.40-5.60) X 10*6/uL Hgb 12.3 L (13.0-17.0) g/dL Hct 38.6 L (39.6-50.0) % MCHC 31.9 L (32.0-37.0) g/dL RDW 14.7 H (11.5-14.5) % Carbon Dioxide 30.1 H (20.0-27.5) mmol/L Anion Gap 7.90 L (10.00-18.00) mmol/L Diabetes panel 12/05/21 Range/Units 04:45 Sodium 140 (135-145) mmol/L Potassium 4.4 (3.5-5.5) mmol/L Chloride 102 (96-109) mmol/L Carbon Dioxide 30.1 H (20.0-27.5) mmol/L BUN 14.9 (9.0-27.0) mg/dL Creatinine 0.9 (0.6-1.5) mg/dL Glucose 90 (70-110) mg/dL Calcium 9.4 (8.7-10.3) mg/dL AST 18 (14-35) U/L ALT 20 (10-49) U/L Alkaline Phosphatase 66 (41-126) U/L Total Protein 6.3 (6.2-8.2) g/dL Albumin 4.3 (3.8-4.9) g/dL Calcium panel 12/05/21 Range/Units 04:45 Calcium 9.4 (8.7-10.3) mg/dL Albumin 4.3 (3.8-4.9) g/dL Pituitary panel 12/05/21 Range/Units 04:45 Sodium 140 (135-145) mmol/L Potassium 4.4 (3.5-5.5) mmol/L Chloride 102 (96-109) mmol/L Carbon Dioxide 30.1 H (20.0-27.5) mmol/L BUN 14.9 (9.0-27.0) mg/dL Creatinine 0.9 (0.6-1.5) mg/dL Glucose 90 (70-110) mg/dL Calcium 9.4 (8.7-10.3) mg/dL Adrenal panel 12/05/21 Range/Units 04:45 Sodium 140 (135-145) mmol/L Potassium 4.4 (3.5-5.5) mmol/L Chloride 102 (96-109) mmol/L Carbon Dioxide 30.1 H (20.0-27.5) mmol/L BUN 14.9 (9.0-27.0) mg/dL Creatinine 0.9 (0.6-1.5) mg/dL Glucose 90 (70-110) mg/dL Calcium 9.4 (8.7-10.3) mg/dL Total Bilirubin 0.40 (0.30-1.20) mg/dL AST 18 (14-35) U/L ALT 20 (10-49) U/L Alkaline Phosphatase 66 (41-126) U/L Total Protein 6.3 (6.2-8.2) g/dL Albumin 4.3 (3.8-4.9) g/dL
--- NOTE | 2021-12-05 17:04 | CA ---
Transthoracic Echo Report Name: Abelardo Garza Age: 51 Gender: M : 1970 Exam Date: 12/05/2021 11:02 Exam Location: [place] [facility] Ht (in): 71 Wt (lb): 228 Ordering Physician: Yeni Mcrae Attending/Referring Phys: [id number], Clementina Roll Forming Machine Operator Kimberly Doss RDCS Procedure CPT: Indications: LV function Cardiac Hx: Technical Quality: Fair Contrast 1: Total Dose (mL): Contrast 2: Total Dose (mL): MEASUREMENTS (Male / Female) Normal Values 2D ECHO LV Diastolic Diameter PLAX 4.4 cm 4.2 - 5.9 / 3.9 - 5.3 cm LV Systolic Diameter PLAX 2.7 cm IVS Diastolic Thickness 1.3 cm 0.6 - 1.0 / 0.6 - 0.9 cm LVPW Diastolic Thickness 1.2 cm 0.6 - 1.0 / 0.6 - 0.9 cm LV Relative Wall Thickness 0.6 RV Internal Dim ED PLAX 3.3 cm LA Volume 67.0 cm??? 18 - 58 / 22 - 52 cm??? M-MODE Aortic Root Diameter MM 3.0 cm LA Systolic Diameter MM 3.9 cm LA Ao Ratio MM 1.3 AV Cusp Separation MM 2.0 cm DOPPLER AV Peak Velocity 130.4 cm/s AV Peak Gradient 6.8 mmHg LVOT Peak Velocity 104.9 cm/s LVOT Peak Gradient 4.4 mmHg MV Area PHT 3.1 cm??? Mitral E Point Velocity 100.7 cm/s Mitral A Point Velocity 77.5 cm/s Mitral E to A Ratio 1.3 MV Deceleration Time 242.4 ms MV E' Velocity 8.0 cm/s Mitral E to MV E' Ratio 12.6 FINDINGS Left Ventricle Mildly increased septal wall thickness. Normal Left ventricular size, systolic function with no obvious regional wall motion abnormalities. Normal Left ventricular diastolic filling pattern. Left ventricular ejection fraction is estimated at 55-60 %. Right Ventricle Normal right ventricular size and function. Right ventricular systolic pressure within normal limits. Right Atrium Normal right atrial size. Left Atrium Mildly increased left atrial volume. Mildly increased left atrial area. Mitral Valve Structurally normal mitral valve. No mitral stenosis, regurgitation or prolapse. Aortic Valve Trileaflet aortic valve. No aortic valve stenosis or regurgitation. Tricuspid Valve Structurally normal tricuspid valve. Mild tricuspid regurgitation. Pulmonic Valve Structurally normal pulmonic valve. Trace pulmonic regurgitation. Pericardium No pericardial effusion. Aorta Normal size aortic root and proximal ascending aorta. CONCLUSIONS Mild LVH Normal left ventricular ejection fraction 55-60% No mitral regurgitation Mild tricuspid regurgitation No pericardial effusion Previewed by: Dr. Stuart Lopes DO (Electronically Signed) Final Date: 05 December 2021 17:03
[2021-12-06] MEDS: HYDROcodone/APAP 5-325MG 1 EACH TAB PO PRN ×2 (00:09→10:58)
[2021-12-06 04:30] VITALS: RESP 18
[2021-12-06] MEDS: MORPHINE SULFATE 4 MG/ML SYRINGE IV PRN ×2 (04:43→09:01)
[2021-12-06] MEDS: MAG HYDROX/AL HYDROX/SIMETH 30 ML, diphenhydrAMINE ELIXIR 75 MG, LIDOCAINE VISCOUS 2% 3... PO PRN ×3 (08:16)
[2021-12-06] MEDS ORDERED: HYOSCYAMINE SULFATE 0.375 MG TAB.ER.12H PO PRN (08:36)
[2021-12-06] MEDS: HEPARIN SODIUM,PORCINE/PF 5,000 UNIT/0.5 ML SYRINGE SQ SCH (08:37)
[2021-12-06] MEDS: clonazePAM 1 MG TAB PO SCH (08:44)
[2021-12-06] MEDS: FLUoxetine HCL 20 MG CAP PO SCH (08:44)
[2021-12-06] MEDS: methylPREDNISolone SOD SUCCI 125 MG/2 ML VIAL IV SCH (08:44)
[2021-12-06] MEDS: azaTHIOprine 50 MG TAB PO SCH (08:44)
[2021-12-06] MEDS: ASPIRIN 325 MG TAB PO SCH (08:45)
[2021-12-06] MEDS: PANTOPRAZOLE 40 MG/10 ML VIAL IVP SCH (08:45)
[2021-12-06] MEDS: lamoTRIgine 100 MG TAB PO SCH (08:45)
[2021-12-06] MEDS: CHOLESTYRAMINE (WITH SUGAR) 4 GM PACKET PO SCH (08:45)
[2021-12-06 08:56] VITALS: BP 122/78; PULSE 76; TEMP 98.2
[2021-12-06] MEDS ORDERED: LIDOCAINE 5% PATCH TOPICAL SCH (09:00)
[2021-12-06] MEDS: SODIUM CHLORIDE 0.9% 1,000 ML IV SCH (10:47)
--- NOTE | 2021-12-06 11:13 | P.DS ---
Providers Date of admission: 12/04/21 18:56 Expected date of discharge: 12/06/21 Attending physician: Charu Montgomery DO Consults: 12/04/21 18:56 Consult Physician Urgent Consulting Provider: [facility] Consult Reason/Comments: chest pain Do you want consulting provider notified?: Yes 12/05/21 04:00 Consult Physician Urgent Consulting Provider: Hollie Schulte Consult Reason/Comments: Dysphagia, Odynophagia Do you want consulting provider notified?: Yes Primary care physician: John Cevallos DO Hospital Course: Discharge Diagnosis: Dysphagia Globus sensation Crohn's exacerbation GERD Hospital Course: Patient is a 51-year-old with history of Crohn's disease status post multiple resections currently on Stelara and Imuran follows with Dr. Gipson and history of multiple bowel resections who presented to the emergency department with a feeling of central chest pain associated with odynophagia. He reports that he has a history of Crohn's disease affecting his esophagus and upper GI tract. He reports that he was recently started on stelara a but has been having a lot of muscle cramping and he is unsure if he should continue on this medication. He reports that he has been trying to get a hold of Dr. Hernandez's office but has been underwent successful for guidance on what to do with his difficulty swallowing. Reviewed last EGD from October 2020 which demonstrated mild antral gastritis. On arrival to the ER here he underwent an extensive evaluation. Initial vital signs were within normal limits. Laboratory analysis was unremarkable. EKG did not show any signs of acute ischemia. Troponins were trended and remained negative. Cardiology was consulted who feels patient is appropriate for outpatient evaluation of dyspnea on exertion and feels that his chest pain is likely related to a his inability to swallow. He was seen by surgery who did not recommend inpatient EGD. He was able to tolerate a regular diet. His pain had improved and was tolerable with her [place], viscous lidocaine, and prednisone. Antiemetics surgery who recommended outpatient scope with GI. He was determined stable for discharge home. Echocardiogram: EF 55-60%, mild tricuspid regurgitation, mild LVH Follow-up: Resume Carafate, prescription given, continue cold solution for his sore throat and esophageal pain, continue with prednisone taper for possible Crohn's exacerbation affecting the esophagus. Continue with PPI. He will attempt to follow-up with Dr. Gipson. Unable to get in to the office in a timely fashion will call Dr. Jolly. Patient seen and examined at bedside. States that the cold solution really helped with his upper throat and esophageal pain. He feels as though this is consistent with the pain he had last time his crohn's was effecting his esophagous and it improved with Protonix, carafate, and prednisone he would like to follow-up as outpatient. Vital signs reviewed and stable. General: nontoxic, no distress, appears at stated age Derm: warm, dry Head: atraumatic, normocephalic, symmetric Eyes: EOMI, no lid lag, anicteric sclera Mouth: no lip lesion, mucus membranes moist Cardiovascular: S1S2 reg, no murmur, positive posterior tibial pulse bilateral, Lungs: CTA bilateral, no rhonchi, no rales , no accessory muscle use Abdominal: soft, nontender to palpation, no guarding, no appreciable organomegaly Ext: no gross muscle atrophy, no edema, no contractures Neuro: CN II-XI grossly intact, no focal neuro deficits Psych: Alert, oriented, appropriate affect A total of 37 minutes of time were spent preparing this complex discharge summary. Patient was discharged on 12/06/21. Patient Condition at Discharge: Fair Plan - Discharge Summary Discharge Rx Participant: No New Discharge Prescriptions: New HYDROcodone/APAP 5-325MG [[place] 5-325] 1 each PO Q6HR PRN #12 tab PRN Reason: Moderate Pain Sucralfate [Carafate] 1 gm PO ACHS #120 tab predniSONE [Deltasone] 60 mg PO DAILY #18 tab Continue azaTHIOprine [Imuran] 100 mg PO DAILY lamoTRIgine [LaMICtal] 100 mg PO DAILY clonazePAM 1 mg PO TID Multivitamins, Thera [Multivitamin (formulary)] 1 tab PO DAILY hydrOXYzine pamoate [Vistaril] 25 mg PO TID PRN PRN Reason: sleep/itching, ANXIETY Chromium Picolinate 200 mcg PO DAILY Cholecalciferol [Vitamin D3 (10 Mcg = 400 Iu)] 10 mcg PO DAILY [place]-3 Fatty Acids/Fish Oil [Fish Oil 1,000 mg Softgel] 1 cap PO DAILY Vitamin E 400 unit PO DAILY Diphenoxylate HCl/Atropine [Lomotil 2.5-0.025 mg Tablet] 1 - 3 tab PO QID MDD 8 tabs Aspirin EC [Ecotrin] 325 mg PO DAILY Ondansetron Odt [Zofran ODT] 4 mg TRANSLINGU BID PRN PRN Reason: Nausea Pantoprazole Sodium [Protonix] 40 mg PO BID Hyoscyamine Sulfate [Levbid] 0.375 mg PO BID PRN PRN Reason: Spasms Ferrous Sulfate [Feosol] 325 mg PO DAILY Ascorbic Acid [Vitamin C] 250 mg PO DAILY Cyanocobalamin [Vitamin B-12] 1,000 mcg PO DAILY #60 tablet Lidocaine 5% Patch [Lidoderm 5% Patch] 1 patch TOPICAL DAILY FLUoxetine HCL 20 mg PO BID Dicyclomine HCl 20 mg PO QID PRN PRN Reason: Gi Upset Cholestyramine (with Sugar) [Cholestyramine Packet] 4 gm PO BID Discontinued Ondansetron [Zofran] 4 mg PO Q8H PRN PRN Reason: Nausea Discharge Medication List azaTHIOprine [Imuran] 100 mg PO DAILY 03/25/20 [History] clonazePAM 1 mg PO TID 03/25/20 [History] lamoTRIgine [LaMICtal] 100 mg PO DAILY 03/25/20 [History] Ascorbic Acid [Vitamin C] 250 mg PO DAILY 10/31/20 [History] Cholecalciferol [Vitamin D3 (10 Mcg = 400 Iu)] 10 mcg PO DAILY 10/31/20 [History] Chromium Picolinate 200 mcg PO DAILY 10/31/20 [History] Multivitamins, Thera [Multivitamin (formulary)] 1 tab PO DAILY 10/31/20 [History] [place]-3 Fatty Acids/Fish Oil [Fish Oil 1,000 mg Softgel] 1 cap PO DAILY 10/31/20 [History] hydrOXYzine pamoate [Vistaril] 25 mg PO TID PRN 10/31/20 [History] Cyanocobalamin [Vitamin B-12] 1,000 mcg PO DAILY #60 tablet 11/03/20 [Rx] Aspirin EC [Ecotrin] 325 mg PO DAILY 01/15/21 [History] Diphenoxylate HCl/Atropine [Lomotil 2.5-0.025 mg Tablet] 1 - 3 tab PO QID MDD 8 tabs 01/15/21 [History] Vitamin E 400 unit PO DAILY 01/15/21 [History] Cholestyramine (with Sugar) [Cholestyramine Packet] 4 gm PO BID 12/04/21 [History] Dicyclomine HCl 20 mg PO QID PRN 12/04/21 [History] FLUoxetine HCL 20 mg PO BID 12/04/21 [History] Ferrous Sulfate [Feosol] 325 mg PO DAILY 12/04/21 [History] Hyoscyamine Sulfate [Levbid] 0.375 mg PO BID PRN 12/04/21 [History] Lidocaine 5% Patch [Lidoderm 5% Patch] 1 patch TOPICAL DAILY 12/04/21 [History] Ondansetron Odt [Zofran ODT] 4 mg TRANSLINGU BID PRN 12/04/21 [History] Pantoprazole Sodium [Protonix] 40 mg PO BID 12/04/21 [History] HYDROcodone/APAP 5-325MG [[place] 5-325] 1 each PO Q6HR PRN #12 tab 12/06/21 [Rx] Sucralfate [Carafate] 1 gm PO ACHS #120 tab 12/06/21 [Rx] predniSONE [Deltasone] 60 mg PO DAILY #18 tab 12/06/21 [Rx] Follow up Appointment(s)/Referral(s): Hima Jolly MD [Medical Doctor] - 1 Week (if unable to get in with Dr. Gipson ) Martha Gipson MD [STAFF PHYSICIAN] - 1 Week John Cevallos DO [Primary Care Provider] - 1-2 days Activity/Diet/Wound Care/Special Instructions: Activity: as tolerated Diet: low acid, low residual Special Instructions: return if difficulty swallowing gets worse If you cannot get it with Dr. Gipson then call Dr. Jolly Discharge Disposition: HOME SELF-CARE
--- NOTE | 2021-12-06 11:53 | P.PN ---
Subjective Progress Note Date: 12/06/21 Principal diagnosis: Odynophagia Patient feels better today. Says the IV Protonix has helped. He says he has had episodes like this approximate 5 times in the past. Last upper and lower endoscopy one year ago. Tolerating solid food for breakfast. Objective - Vital Signs Vital signs: Vital Signs Temp 98.2 F 12/06/21 07:00 Pulse 76 12/06/21 07:00 Resp 18 12/06/21 07:00 BP 122/78 12/06/21 07:00 Pulse Ox 97 12/06/21 07:00 FiO2 Intake & Output 12/05/21 12/06/21 12/06/21 18:59 06:59 18:59 Intake Total 240 Balance 240 Intake: Oral 240 Other: # Voids 2 2 - Exam Abdomen: Soft, nontender, nondistended - Labs CBC & Chem 7: 12/05/21 04:45 12/05/21 04:45 Assessment and Plan (1) Chest pain Narrative/Plan: Patient seems to be doing better at this time. He would like to go home today. Continue softer diet. Continue antiacids post discharge. Follow-up with GI as outpatient. Current Visit: Yes Status: Acute Code(s): R07.9 - CHEST PAIN, UNSPECIFIED SNOMED Code(s): 43786815
[2021-12-06] MEDS ORDERED: SUCRALFATE 1 GM TAB PO SCH (12:30)
== END 2021-12-06 12:30 | disposition home or self-care (01) ==
LOC: EC 13:30 → 6NMEDSUR 18:56
PROVIDERS: ADMIT Internal Medicine; ATTEND Internal Medicine
DX: R13.10 Dysphagia, unspecified (principal); K50.90 Crohn's disease, unspecified, without complications; K21.9 Gastro-esophageal reflux disease without esophagitis; F31.9 Bipolar disorder, unspecified; F43.10 Post-traumatic stress disorder, unspecified; F32.A Depression, unspecified; R07.9 Chest pain, unspecified; F41.9 Anxiety disorder, unspecified; E66.9 Obesity, unspecified; K58.9 Irritable bowel syndrome, unspecified; I37.1 Nonrheumatic pulmonary valve insufficiency; I07.1 Rheumatic tricuspid insufficiency; Z79.899 Other long term (current) drug therapy; Z79.82 Long term (current) use of aspirin; Z82.49 Family history of ischemic heart disease and other diseases of the circulatory system; Z90.49 Acquired absence of other specified parts of digestive tract; Z20.822 Contact with and (suspected) exposure to COVID-19; Z68.31 Body mass index [BMI] 31.0-31.9, adult
CPT/HCPCS: 96376 ×2; 96361; 96375 ×2; 96374; 99285; 36415; 93005; 93306; 80053 ×2; 83735; 84484 ×2; 85025 ×2; 85610; 85730; 87635; 71046; G0378 ×3; J7500 ×2; J2270 ×3; J2930 ×2; J1885; C9113 ×2

== ENCOUNTER 2021-12-13 11:23 | Inpatient (IN) | payer BC ==
[2021-12-13] MEDS ORDERED: methylPREDNISolone SOD SUCCI 125 MG/2 ML VIAL IV STA (13:34)
[2021-12-13] MEDS ORDERED: PANTOPRAZOLE 40 MG/10 ML VIAL IVP STA (13:34)
[2021-12-13] MEDS ORDERED: HYDROmorphone 0.5 MG/0.5 ML SYRINGE IVP STA (13:35)
--- NOTE | 2021-12-13 13:42 | ED ---
General Adult HPI - General Chief complaint: GI Bleed Stated complaint: blood in stool Time Seen by Provider: 12/13/21 13:24 Source: patient, RN notes reviewed, old records reviewed Mode of arrival: wheelchair Limitations: no limitations - History of Present Illness Initial comments: 51-year-old male history of Crohn's presenting with chief complaint of abdominal pain, and multiple bloody stools. Patient states these are dark blood, no concurrent stool. He states is been ongoing for the past several hours throughout the morning. This is associated with crampy abdominal pain. No fevers. - Related Data Home Medications Medication Instructions Recorded Confirmed azaTHIOprine [Imuran] 100 mg PO DAILY 03/25/20 12/04/21 clonazePAM 1 mg PO TID 03/25/20 12/04/21 lamoTRIgine [LaMICtal] 100 mg PO DAILY 03/25/20 12/04/21 Ascorbic Acid [Vitamin C] 250 mg PO DAILY 10/31/20 12/04/21 Cholecalciferol [Vitamin D3 (10 10 mcg PO DAILY 10/31/20 12/04/21 Mcg = 400 Iu)] Chromium Picolinate 200 mcg PO DAILY 10/31/20 12/04/21 Multivitamins, Thera [Multivitamin 1 tab PO DAILY 10/31/20 12/04/21 (formulary)] [place]-3 Fatty Acids/Fish Oil [Fish 1 cap PO DAILY 10/31/20 12/04/21 Oil 1,000 mg Softgel] hydrOXYzine pamoate [Vistaril] 25 mg PO TID PRN 10/31/20 12/04/21 Aspirin EC [Ecotrin] 325 mg PO DAILY 01/15/21 12/04/21 Diphenoxylate HCl/Atropine 1 - 3 tab PO QID MDD 8 tabs 01/15/21 12/04/21 [Lomotil 2.5-0.025 mg Tablet] Vitamin E 400 unit PO DAILY 01/15/21 12/04/21 Cholestyramine (with Sugar) 4 gm PO BID 12/04/21 12/04/21 [Cholestyramine Packet] Dicyclomine HCl 20 mg PO QID PRN 12/04/21 12/04/21 FLUoxetine HCL 20 mg PO BID 12/04/21 12/04/21 Ferrous Sulfate [Feosol] 325 mg PO DAILY 12/04/21 12/04/21 Hyoscyamine Sulfate [Levbid] 0.375 mg PO BID PRN 12/04/21 12/04/21 Lidocaine 5% Patch [Lidoderm 5% 1 patch TOPICAL DAILY 12/04/21 12/04/21 Patch] Ondansetron Odt [Zofran ODT] 4 mg TRANSLINGU BID PRN 12/04/21 12/04/21 Pantoprazole Sodium [Protonix] 40 mg PO BID 12/04/21 12/04/21 Previous Rx's Medication Instructions Recorded Cyanocobalamin [Vitamin B-12] 1,000 mcg PO DAILY #60 tablet 11/03/20 HYDROcodone/APAP 5-325MG [[place] 1 each PO Q6HR PRN #12 tab 12/06/21 5-325] Sucralfate [Carafate] 1 gm PO ACHS #120 tab 12/06/21 predniSONE [Deltasone] 60 mg PO DAILY #18 tab 12/06/21 Allergies Allergy/AdvReac Type Severity Reaction Status Date / Time No Known Allergies Allergy Verified 12/13/21 11:38 Review of Systems ROS Statement: Those systems with pertinent positive or pertinent negative responses have been documented in the HPI. ROS Other: All systems not noted in ROS Statement are negative. Past Medical History Additional Past Medical History / Comment(s): Crohn's History of Any Multi-Drug Resistant Organisms: None Reported Past Surgical History: Bowel Resection Additional Past Surgical History / Comment(s): bowel resection. Past Anesthesia/Blood Transfusion Reactions: No Reported Reaction Past Psychological History: Anxiety, Bipolar, Depression, PTSD Smoking Status: Never smoker Past Alcohol Use History: None Reported Past Drug Use History: None Reported - Past Family History Mother Family Medical History: Hypertension General Exam Limitations: no limitations General appearance: alert, in no apparent distress Head exam: Present: atraumatic, normocephalic Eye exam: Present: normal appearance, PERRL ENT exam: Present: normal exam Neck exam: Present: normal inspection. Absent: tenderness, meningismus Respiratory exam: Present: normal lung sounds bilaterally. Absent: respiratory distress, wheezes Cardiovascular Exam: Present: regular rate, normal rhythm GI/Abdominal exam: Present: soft, tenderness. Absent: distended Rectal exam: Absent: black stool, bloody stool, hemorrhoids Extremities exam: Present: normal inspection, normal capillary refill. Absent: pedal edema Neurological exam: Present: alert, oriented X3, CN II-XII intact. Absent: motor sensory deficit Skin exam: Present: warm, dry, pallor Course Vital Signs 12/13/21 11:38 Temperature 98 F Pulse Rate 99 Respiratory 18 Rate Blood Pressure 118/77 O2 Sat by Pulse 99 Oximetry Medical Decision Making - Medical Decision Making 51-year-old male with abdominal pain, rectal bleeding, history of Crohn's colitis. Patient has had multiple episodes of bloody stool. Hemodynamics are stable, he has mild generalized tenderness on abdominal exam. I did initiate IV steroids, IV fluids and pain control. Hemoglobin is stable for this patient, mild anemia. Normal electrolytes. Patient will be admitted for pain control, IV steroids, IV fluids. Case discussed with Dr. Schwab - Lab Data Result diagrams: 12/13/21 14:01 12/13/21 14:01 Lab Results 12/13/21 12/13/21 12/13/21 Range/Units 14:01 14:01 14:01 WBC 11.4 H (3.8-10.6) k/uL RBC 4.58 (4.30-5.90) m/uL Hgb 12.9 L (13.0-17.5) gm/dL Hct 41.2 (39.0-53.0) % MCV 89.9 (80.0-100.0) fL MCH 28.2 (25.0-35.0) pg MCHC 31.4 (31.0-37.0) g/dL RDW 15.0 (11.5-15.5) % Plt Count 346 (150-450) k/uL MPV 7.7 Neutrophils % 85 % Lymphocytes % 11 % Monocytes % 4 % Eosinophils % 0 % Basophils % 0 % Neutrophils # 9.7 H (1.3-7.7) k/uL Lymphocytes # 1.2 (1.0-4.8) k/uL Monocytes # 0.4 (0-1.0) k/uL Eosinophils # 0.0 (0-0.7) k/uL Basophils # 0.0 (0-0.2) k/uL PT 10.6 (9.0-12.0) sec INR 1.0 (<1.2) APTT 20.3 L (22.0-30.0) sec Sodium 140 (137-145) mmol/L Potassium 4.9 (3.5-5.1) mmol/L Chloride 103 (98-107) mmol/L Carbon Dioxide 23 (22-30) mmol/L Anion Gap 14 mmol/L BUN 28 H (9-20) mg/dL Creatinine 0.87 (0.66-1.25) mg/dL Est GFR (CKD-EPI)AfAm >90 (>60 ml/min/1.73 sqM) Est GFR (CKD-EPI)NonAf >90 (>60 ml/min/1.73 sqM) Glucose 124 H (74-99) mg/dL Calcium 10.2 (8.4-10.2) mg/dL Total Bilirubin 0.4 (0.2-1.3) mg/dL AST 18 (17-59) U/L ALT 17 (4-49) U/L Alkaline Phosphatase 63 (38-126) U/L Total Protein 7.3 (6.3-8.2) g/dL Albumin 4.8 (3.5-5.0) g/dL Blood Type Blood Type Recheck Bld Type Recheck Status Antibody Screen Spec Expiration Date 12/13/21 Range/Units 14:01 WBC (3.8-10.6) k/uL RBC (4.30-5.90) m/uL Hgb (13.0-17.5) gm/dL Hct (39.0-53.0) % MCV (80.0-100.0) fL MCH (25.0-35.0) pg MCHC (31.0-37.0) g/dL RDW (11.5-15.5) % Plt Count (150-450) k/uL MPV Neutrophils % % Lymphocytes % % Monocytes % % Eosinophils % % Basophils % % Neutrophils # (1.3-7.7) k/uL Lymphocytes # (1.0-4.8) k/uL Monocytes # (0-1.0) k/uL Eosinophils # (0-0.7) k/uL Basophils # (0-0.2) k/uL PT (9.0-12.0) sec INR (<1.2) APTT (22.0-30.0) sec Sodium (137-145) mmol/L Potassium (3.5-5.1) mmol/L Chloride (98-107) mmol/L Carbon Dioxide (22-30) mmol/L Anion Gap mmol/L BUN (9-20) mg/dL Creatinine (0.66-1.25) mg/dL Est GFR (CKD-EPI)AfAm (>60 ml/min/1.73 sqM) Est GFR (CKD-EPI)NonAf (>60 ml/min/1.73 sqM) Glucose (74-99) mg/dL Calcium (8.4-10.2) mg/dL Total Bilirubin (0.2-1.3) mg/dL AST (17-59) U/L ALT (4-49) U/L Alkaline Phosphatase (38-126) U/L Total Protein (6.3-8.2) g/dL Albumin (3.5-5.0) g/dL Blood Type A Positive Blood Type Recheck A Pos Bld Type Recheck Status No Antibody Screen NEGATIVE Spec Expiration Date 12/16/20212300 Disposition Clinical Impression: Crohn's disease, Abdominal pain Disposition: ADMITTED IP TO THIS HOSP Condition: Stable Is patient prescribed a controlled substance at d/c from ED?: No Referrals: John Cevallos DO [Primary Care Provider] - 1-2 days Time of Disposition: 15:25
[2021-12-13 14:08] LABS: Basophils % (A) 0 %; Eosinophils % (A) 0 %; HCT 41.2 % (39.0-53.0); HGB 12.9 gm/dL (13.0-17.5); Lymphocytes # (A) 1.2 k/uL (1.0-4.8); Lymphocytes % (A) 11 %; MCH 28.2 pg (25.0-35.0); MCHC 31.4 g/dL (31.0-37.0); MCV 89.9 fL (80.0-100.0); Mean Platelet Volume 7.7; Monocytes # (A) 0.4 k/uL (0-1.0); Monocytes % (A) 4 %; Neutrophils # (A) 9.7 k/uL (1.3-7.7); Neutrophils % (A) 85 %; Platelet Count 346 k/uL (150-450); RBC 4.58 m/uL (4.30-5.90); WBC 11.4 k/uL (3.8-10.6)
[2021-12-13 14:17] LABS: ALT 17 U/L (4-49); AST 18 U/L (17-59); African American GFR (CKD) >90 (>60 ml/min/1.73 sqM); Albumin 4.8 g/dL (3.5-5.0); Alkaline Phosphatase 63 U/L (38-126); Anion Gap 14 mmol/L; Blood Urea Nitrogen 28 mg/dL (9-20); Calcium 10.2 mg/dL (8.4-10.2); Carbon Dioxide 23 mmol/L (22-30); Chloride 103 mmol/L (98-107); Glucose 124 mg/dL (74-99); Non-African American GFR(CKD) >90 (>60 ml/min/1.73 sqM); Potassium 4.9 mmol/L (3.5-5.1); Sodium 140 mmol/L (137-145); Total Bilirubin 0.4 mg/dL (0.2-1.3); Total Protein 7.3 g/dL (6.3-8.2)
[2021-12-13 14:18] LABS: Prothrombin Time 10.6 sec (9.0-12.0)
[2021-12-13 14:32] LABS: Partial Thromboplastin Time 20.3 sec (22.0-30.0)
[2021-12-13] MEDS ORDERED: HYDROmorphone 1 MG/ML 1 ML SYRINGE IVP STA (15:22)
[2021-12-13] MEDS ORDERED: ACETAMINOPHEN TAB 325 MG TAB PO PRN (15:23)
[2021-12-13] MEDS ORDERED: NALOXONE 0.4 MG/ML 1 ML VIAL IV PRN ×2 (15:23→17:35)
[2021-12-13] MEDS: ONDANSETRON 4 MG/2 ML VIAL IVP PRN (16:20)
[2021-12-13] MEDS: SODIUM CHLORIDE 0.9% 1,000 ML IV SCH (17:08)
[2021-12-13] MEDS: methylPREDNISolone SOD SUCCI 125 MG/2 ML VIAL IV SCH ×2 (17:08→22:34)
[2021-12-13] MEDS ORDERED: hydrOXYzine pamoate 25 MG CAP PO PRN (17:43)
[2021-12-13] MEDS ORDERED: HYOSCYAMINE SULFATE 0.375 MG TAB.ER.12H PO PRN (17:43)
--- NOTE | 2021-12-13 17:50 | P.HPIM ---
History of Present Illness H&P Date: 12/13/21 Chief Complaint: rectal bleeding 51-year-old male history of Crohn's status post multiple resections currently on Stelara and Imuran, globus sensation, dysphagia and odynophagia presenting with chief complaint of abdominal pain, and multiple bloody stools. Patient states these are dark blood, no concurrent stool. He also saw some coffee-ground material in the blood. He had numerous episodes, stopped counting. All started yesterday. He has chronic abdominal pain secondary to Crohn disease located in the right lower quadrant at this time he started to have pain located in the upper left area of the abdomen. She denied having any chills. No fevers. No chest pain or shortness of breath. Evaluation in the emergency department revealed normal vital signs, his hem oglobin was 12. He was subsequently admitted for further evaluation and management. Review of Systems Complete review of system performed, pertinent positives HPI, otherwise negative Past Medical History Additional Past Medical History / Comment(s): Crohn's History of Any Multi-Drug Resistant Organisms: None Reported Past Surgical History: Bowel Resection Additional Past Surgical History / Comment(s): bowel resection. Past Anesthesia/Blood Transfusion Reactions: No Reported Reaction Past Psychological History: Anxiety, Bipolar, Depression, PTSD Smoking Status: Never smoker Past Alcohol Use History: None Reported Past Drug Use History: None Reported - Past Family History Mother Family Medical History: Hypertension Medications and Allergies Home Medications Medication Instructions Recorded Confirmed Type azaTHIOprine [Imuran] 100 mg PO DAILY 03/25/20 12/13/21 History clonazePAM 1 mg PO TID 03/25/20 12/13/21 History lamoTRIgine [LaMICtal] 100 mg PO DAILY 03/25/20 12/13/21 History Ascorbic Acid [Vitamin C] 250 mg PO DAILY 10/31/20 12/13/21 History Cholecalciferol [Vitamin D3 (10 10 mcg PO DAILY 10/31/20 12/13/21 History Mcg = 400 Iu)] Chromium Picolinate 200 mcg PO DAILY 10/31/20 12/13/21 History Multivitamins, Thera [Multivitamin 1 tab PO DAILY 10/31/20 12/13/21 History (formulary)] [place]-3 Fatty Acids/Fish Oil [Fish 1 cap PO DAILY 10/31/20 12/13/21 History Oil 1,000 mg Softgel] hydrOXYzine pamoate [Vistaril] 25 mg PO TID PRN 10/31/20 12/13/21 History Cyanocobalamin [Vitamin B-12] 1,000 mcg PO DAILY #60 tablet 11/03/20 12/13/21 Rx Aspirin EC [Ecotrin] 325 mg PO DAILY 01/15/21 12/13/21 History Diphenoxylate HCl/Atropine 1 - 3 tab PO QID MDD 8 tabs 01/15/21 12/13/21 History [Lomotil 2.5-0.025 mg Tablet] Vitamin E 400 unit PO DAILY 01/15/21 12/13/21 History Cholestyramine (with Sugar) 4 gm PO BID 12/04/21 12/13/21 History [Cholestyramine Packet] Dicyclomine HCl 20 mg PO QID PRN 12/04/21 12/13/21 History FLUoxetine HCL 20 mg PO BID 12/04/21 12/13/21 History Ferrous Sulfate [Feosol] 325 mg PO DAILY 12/04/21 12/13/21 History Hyoscyamine Sulfate [Levbid] 0.375 mg PO BID PRN 12/04/21 12/13/21 History Lidocaine 5% Patch [Lidoderm 5% 1 patch TOPICAL DAILY 12/04/21 12/13/21 History Patch] Ondansetron Odt [Zofran ODT] 4 mg TRANSLINGU BID PRN 12/04/21 12/13/21 History Pantoprazole Sodium [Protonix] 40 mg PO BID 12/04/21 12/13/21 History Sucralfate [Carafate] 1 gm PO ACHS #120 tab 12/06/21 12/13/21 Rx HYDROcodone/APAP 7.5-325MG [[place] 1 tab PO QID PRN 12/13/21 12/13/21 History 7.5-325] predniSONE [Deltasone] See Taper PO DIRECTED 12/13/21 12/13/21 History Allergies Allergy/AdvReac Type Severity Reaction Status Date / Time No Known Allergies Allergy Verified 12/13/21 16:29 Physical Exam Vitals: Vital Signs Temp Pulse Resp BP Pulse Ox 12/13/21 11:38 98 F 99 18 118/77 99 Intake and Output 12/13/21 12/13/21 12/13/21 06:59 14:59 22:59 Other: Weight 100.244 kg Constitutional: No acute distress, conversant, pleasant Eyes:Anicteric sclerae, moist conjunctiva, no lid-lag, PERRLA, ENMT: Oropharynx clear, no erythema, exudates Neck: Supple, FROM, no masses, or JVD, No carotid bruits, No thyromegaly Lungs: Clear to auscultation, Clear to percussion, Normal respiratory effort, no accessory muscle use Cardiovascular: Heart regular in rate and rhythm, No murmurs, gallops, or rubs, No peripheral edema Abdominal: Soft, tender in the left upper abdomen in the right lower quadrant, no guarding, rebound or rigidity, Normoactive bowel sounds, No hepatomegaly, No splenomegaly, No palpable mass Skin: Normal temperature, tone, texture, turgor, no induration, No subcutaneous nodules, No rash, lesions, No ulcers Extremities: No digital cyanosis, No clubbing, Pedal pulses intact and symmetrical, Radial pulses intact and symmetrical, No calf tenderness Psychiatric: Alert and oriented to person, place and time, appropriate affect, intact judgement Neuro: Muscles Strength 5/5 in all 4 extremities, Sensation to light touch grossly present throughout, Cranial nerves II-XII grossly intact, no focal sensory deficits Results CBC & Chem 7: 12/13/21 14:01 12/13/21 14:01 Labs: Abnormal Lab Results - Last 24 Hours (Table) 12/13/21 12/13/21 12/13/21 Range/Units 14:01 14:01 14:01 WBC 11.4 H (3.8-10.6) k/uL Hgb 12.9 L (13.0-17.5) gm/dL Neutrophils # 9.7 H (1.3-7.7) k/uL APTT 20.3 L (22.0-30.0) sec BUN 28 H (9-20) mg/dL Glucose 124 H (74-99) mg/dL Assessment and Plan Plan: Crohn disease exacerbation Rectal bleeding Monitor hgb Start high-dose steroids with Solu-Medrol 80 mg every 8 hours. Consult GI when available on Wednesday CT abdomen and pelvis with by mouth and IV contrast. Pain control with Dilaudid Hold aspirin IV fluids Continue Imuran Clear liquid diet Chronic Anxiety History of small bowel obstruction Monitor. Resume medications Admit to inpatient, expected length of stay more than 2 midnights
[2021-12-13] MEDS: DICYCLOMINE 10 MG CAP PO SCH ×2 (18:27→22:34)
[2021-12-13] MEDS: azaTHIOprine 50 MG TAB PO SCH (18:29)
[2021-12-13] MEDS: PANTOPRAZOLE 40 MG TABLET PO SCH (19:22)
[2021-12-13] MEDS: FLUoxetine HCL 20 MG CAP PO SCH (19:22)
[2021-12-13] MEDS: SUCRALFATE 1 GM TAB PO SCH (19:22)
[2021-12-13] MEDS: HYDROmorphone 1 MG/ML 1 ML SYRINGE IVP PRN ×2 (19:25→22:35)
[2021-12-13] MEDS: IOPAMIDOL CONTRAST (ORAL USE) VIAL PO PRN ×2 (20:19→21:47)
[2021-12-13] MEDS: clonazePAM 1 MG TAB PO SCH (22:34)
--- NOTE | 2021-12-13 23:19 | CT ---
EXAMINATION TYPE: CT abdomen pelvis w con DATE OF EXAM: 12/13/2021 COMPARISON: 01/27/2021 HISTORY: rectal bleeding and crohns CT DLP: 1677.8 mGycm Automated exposure control for dose reduction was used. CONTRAST: Performed with IV Contrast, patient injected with 100ml mL of Isovue 300. Images obtained from the diaphragm to the floor the pelvis with the oral and IV contrast. The lung bases are clear. No pleural effusion. Heart size is normal. No pericardial effusion. Liver s pleen and stomach pancreas gallbladder appear normal. The bile ducts are not dilated. There is no adrenal mass. Kidneys have normal size. No hydronephrosis. Ureters are not dilated. No re troperitoneal adenopathy. Bladder distends smoothly. No inguinal hernia. No free fluid in the pelvis. No pelvic mass. There is no mesenteric edema. No ascites or free air. No sign of a bowel obstruction. There is normal contrast opacification of the bowel. No intestinal wall thickening. Appendix not seen. No sign of th ickened appendix. The lumbar vertebrae have normal alignment. There is vacuum disc at L5-S1. No compression fracture. B dio pelvis is intact. The hip joints are intact. Sacroiliac joints are intact. IMPRESSION: Negative CT scan abdomen and pelvis. No adverse change compared to old exam.
[2021-12-14] MEDS: ONDANSETRON 4 MG/2 ML VIAL IVP PRN ×3 (02:58→22:05)
[2021-12-14] MEDS: HYDROmorphone 1 MG/ML 1 ML SYRINGE IVP PRN ×5 (02:58→22:05)
[2021-12-14] MEDS: SODIUM CHLORIDE 0.9% 1,000 ML IV SCH ×2 (07:03→18:14)
[2021-12-14] MEDS: FERROUS SULFATE 325 MG TAB PO SCH (07:29)
[2021-12-14] MEDS: SUCRALFATE 1 GM TAB PO SCH ×4 (07:29→20:16)
[2021-12-14] MEDS: MULTIVITAMINS, THERA 1 EACH TAB PO SCH (07:29)
[2021-12-14] MEDS: clonazePAM 1 MG TAB PO SCH ×3 (07:29→20:16)
[2021-12-14] MEDS: PANTOPRAZOLE 40 MG TABLET PO SCH ×2 (07:29→20:16)
[2021-12-14] MEDS: lamoTRIgine 100 MG TAB PO SCH (07:29)
[2021-12-14] MEDS: DICYCLOMINE 10 MG CAP PO SCH ×4 (07:29→20:16)
[2021-12-14] MEDS: ASCORBIC ACID 500 MG TAB PO SCH (07:29)
[2021-12-14] MEDS: PANTOPRAZOLE 40 MG/10 ML VIAL IV SCH (07:30)
[2021-12-14] MEDS: azaTHIOprine 50 MG TAB PO SCH (07:30)
[2021-12-14] MEDS: CYANOCOBALAMIN 500 MCG TAB PO SCH (07:30)
[2021-12-14] MEDS: FLUoxetine HCL 20 MG CAP PO SCH ×2 (07:30→20:16)
[2021-12-14] MEDS: methylPREDNISolone SOD SUCCI 125 MG/2 ML VIAL IV SCH ×2 (07:37→16:05)
[2021-12-14] MEDS: CHOLECALCIFEROL 10 MCG (400 IU) TABLET PO SCH (07:38)
[2021-12-14 11:36] LABS: Basophils # (A) 0.03 X 10*3/uL (0.00-0.10); Basophils % (A) 0.3 %; Eosinophils # (A) 0 X 10*3/uL (0.04-0.35); Eosinophils % (A) 0 %; HCT 36.8 % (39.6-50.0); HGB 11.8 g/dL (13.0-17.0); Immature Grans, Automated 1.7 %; Lymphocytes # (A) 1.32 X 10*3/uL (0.90-5.00); Lymphocytes % (A) 12.7 %; MCH 28.6 pg (27.0-32.0); MCHC 32.1 g/dL (32.0-37.0); MCV 89.1 fL (80.0-97.0); Mean Platelet Volume 10.1 fL (9.5-12.2); Monocytes # (A) 0.26 X 10*3/uL (0.20-1.00); Monocytes % (A) 2.5 %; NRBC Per 100 WBC 0 /100 WBCS (0.0-0.0); Neutrophils % (A) 82.8 %; Platelet Count 304 X 10*3/uL (140-440); RBC 4.13 X 10*6/uL (4.40-5.60); RDW 14.8 % (11.5-14.5); WBC 10.39 X 10*3/uL (4.50-10.00)
[2021-12-14 11:54] LABS: African American GFR (CKD) 118.9 (60.0-200.0); Albumin 4.8 g/dL (3.8-4.9); Albumin/Globulin Ratio 2.25 (1.60-3.17); Anion Gap 12.1 mmol/L (10.00-18.00); BUN/Creat Ratio 24.41 Ratio (12.00-20.00); Blood Urea Nitrogen 19.6 mg/dL (9.0-27.0); Calcium 9.9 mg/dL (8.7-10.3); Carbon Dioxide 25.8 mmol/L (20.0-27.5); Globulin 2.1 g/dL (1.6-3.3); Magnesium 2.2 mg/dL (1.5-2.4); Non-African American GFR(CKD) 102.6 (60.0-200.0); Potassium 4.9 mmol/L (3.5-5.5); Total Bilirubin 0.5 mg/dL (0.30-1.20); Total Protein 6.9 g/dL (6.2-8.2)
--- NOTE | 2021-12-14 11:58 | P.PN ---
Subjective Progress Note Date: 12/14/21 Principal diagnosis: abdominal pain and rectal bleeding Patient continues to have very frequent episodes of rectal bleeding. Stools turning into black color. Still having bright red blood as well. The abdominal pain is still the same however it is controlled with pain medications. He denied nausea or vomiting. No fevers. Objective - Vital Signs Vital signs: Vital Signs Temp 97.6 F 12/14/21 08:00 Pulse 76 12/14/21 08:00 Resp 18 12/14/21 08:00 BP 117/70 12/14/21 08:00 Pulse Ox 97 12/14/21 08:00 FiO2 Intake & Output 12/13/21 12/14/21 12/14/21 18:59 06:59 18:59 Weight 100.244 kg Other: Voiding Method Toilet # Voids 2 2 - Exam Constitutional: No acute distress, conversant, pleasant Eyes:Anicteric sclerae, moist conjunctiva, no lid-lag, PERRLA, ENMT: Oropharynx clear, no erythema, exudates Neck: Supple, FROM, no masses, or JVD, No carotid bruits, No thyromegaly Lungs: Clear to auscultation, Clear to percussion, Normal respiratory effort, no accessory muscle use Cardiovascular: Heart regular in rate and rhythm, No murmurs, gallops, or rubs, No peripheral edema Abdominal: Soft, tender in the left upper abdomen in the right lower quadrant, no guarding, rebound or rigidity, Normoactive bowel sounds, No hepatomegaly, No splenomegaly, No palpable mass Skin: Normal temperature, tone, texture, turgor, no induration, No subcutaneous nodules, No rash, lesions, No ulcers Extremities: No digital cyanosis, No clubbing, Pedal pulses intact and symmetrical, Radial pulses intact and symmetrical, No calf tenderness Psychiatric: Alert and oriented to person, place and time, appropriate affect, intact judgement Neuro: Muscles Strength 5/5 in all 4 extremities, Sensation to light touch grossly present throughout, Cranial nerves II-XII grossly intact, no focal sensory deficits - Labs CBC & Chem 7: 12/14/21 07:26 12/14/21 07:26 Labs: Abnormal Lab Results - Last 24 Hours (Table) 12/13/21 12/13/21 12/13/21 Range/Units 14:01 14:01 14:01 WBC 11.4 H (3.8-10.6) k/uL RBC (4.40-5.60) X 10*6/uL Hgb 12.9 L (13.0-17.5) gm/dL Hct (39.6-50.0) % RDW (11.5-14.5) % Immature Gran # (0.00-0.04) X 10*3/uL Neutrophils # 9.7 H (1.3-7.7) k/uL Eosinophils # (0.04-0.35) X 10*3/uL APTT 20.3 L (22.0-30.0) sec BUN 28 H (9-20) mg/dL BUN/Creatinine Ratio (12.00-20.00) Ratio Glucose 124 H (74-99) mg/dL AST (14-35) U/L 12/14/21 12/14/21 Range/Units 07:26 07:26 WBC 10.39 H (3.8-10.6) k/uL RBC 4.13 L (4.40-5.60) X 10*6/uL Hgb 11.8 L (13.0-17.5) gm/dL Hct 36.8 L (39.6-50.0) % RDW 14.8 H (11.5-14.5) % Immature Gran # 0.18 H (0.00-0.04) X 10*3/uL Neutrophils # 8.60 H (1.3-7.7) k/uL Eosinophils # 0 L (0.04-0.35) X 10*3/uL APTT (22.0-30.0) sec BUN (9-20) mg/dL BUN/Creatinine Ratio 24.41 H (12.00-20.00) Ratio Glucose 123 H (74-99) mg/dL AST 13 L (14-35) U/L Assessment and Plan Plan: Crohn disease exacerbation Rectal bleeding Monitor hgb, currently stable Continue high-dose steroids with Solu-Medrol 80 mg every 8 hours. Consult GI when available on Wednesday CT abdomen and pelvis did not show any acute intra-abdominal abnormalities Pain control with Dilaudid Hold aspirin IV fluids Continue Imuran Clear liquid diet Chronic Anxiety History of small bowel obstruction Monitor. Resume medications
[2021-12-14 12:24] LABS: INR 0.96 (0.90-1.11); Prothrombin Time 10.9 sec (9.9-11.9)
[2021-12-15] MEDS: methylPREDNISolone SOD SUCCI 125 MG/2 ML VIAL IV SCH ×3 (01:06→17:25)
[2021-12-15] MEDS: HYDROmorphone 1 MG/ML 1 ML SYRINGE IVP PRN ×6 (02:19→21:37)
[2021-12-15] MEDS: azaTHIOprine 50 MG TAB PO SCH (08:01)
[2021-12-15] MEDS: lamoTRIgine 100 MG TAB PO SCH (08:02)
[2021-12-15] MEDS: clonazePAM 1 MG TAB PO SCH ×3 (08:02→21:38)
[2021-12-15] MEDS: CYANOCOBALAMIN 500 MCG TAB PO SCH (08:02)
[2021-12-15] MEDS: DICYCLOMINE 10 MG CAP PO SCH ×4 (08:02→21:38)
[2021-12-15] MEDS: FLUoxetine HCL 20 MG CAP PO SCH ×2 (08:02→21:38)
[2021-12-15] MEDS: FERROUS SULFATE 325 MG TAB PO SCH (08:03)
[2021-12-15] MEDS: PANTOPRAZOLE 40 MG TABLET PO SCH (08:03)
[2021-12-15] MEDS: MULTIVITAMINS, THERA 1 EACH TAB PO SCH (08:03)
[2021-12-15] MEDS: SUCRALFATE 1 GM TAB PO SCH ×4 (08:03→21:38)
[2021-12-15] MEDS: ASCORBIC ACID 500 MG TAB PO SCH ×2 (08:03→08:05)
[2021-12-15] MEDS: PANTOPRAZOLE 40 MG/10 ML VIAL IV SCH ×2 (09:35→21:37)
[2021-12-15] MEDS: ONDANSETRON 4 MG/2 ML VIAL IVP PRN ×2 (09:39→17:30)
[2021-12-15] MEDS: CHOLECALCIFEROL 10 MCG (400 IU) TABLET PO SCH (10:23)
[2021-12-15 10:30] LABS: Basophils # (A) 0.03 X 10*3/uL (0.00-0.10); Basophils % (A) 0.3 %; Eosinophils # (A) 0 X 10*3/uL (0.04-0.35); Eosinophils % (A) 0 %; HCT 32.2 % (39.6-50.0); HGB 10.4 g/dL (13.0-17.0); Immature Grans, Automated 4.1 %; Lymphocytes # (A) 0.81 X 10*3/uL (0.90-5.00); Lymphocytes % (A) 7.8 %; MCHC 32.3 g/dL (32.0-37.0); MCV 89.7 fL (80.0-97.0); Mean Platelet Volume 10.4 fL (9.5-12.2); Monocytes # (A) 0.35 X 10*3/uL (0.20-1.00); Monocytes % (A) 3.4 %; NRBC Per 100 WBC 0 /100 WBCS (0.0-0.0); Neutrophils # (A) 8.73 X 10*3/uL (1.80-7.70); Neutrophils % (A) 84.4 %; Platelet Count 281 X 10*3/uL (140-440); RBC 3.59 X 10*6/uL (4.40-5.60); RDW 14.6 % (11.5-14.5); WBC 10.34 X 10*3/uL (4.50-10.00)
[2021-12-15 10:46] LABS: Anion Gap 10.7 mmol/L (10.00-18.00); BUN/Creat Ratio 18.83 Ratio (12.00-20.00); Blood Urea Nitrogen 11.3 mg/dL (9.0-27.0); Calcium 9.2 mg/dL (8.7-10.3); Carbon Dioxide 26.3 mmol/L (20.0-27.5); Magnesium 2.2 mg/dL (1.5-2.4); Non-African American GFR(CKD) 115.6 (60.0-200.0); Potassium 4.5 mmol/L (3.5-5.5)
[2021-12-15] MEDS: SODIUM CHLORIDE 0.9% 1,000 ML IV SCH ×2 (12:27→17:38)
[2021-12-15] MEDS ORDERED: PEG 3350 (236 GM/BTL) + LYTES 4,000 ML BOTTLE PO ONE (14:00)
--- NOTE | 2021-12-15 14:34 | P.PN ---
Subjective Progress Note Date: 12/15/21 Principal diagnosis: Rectal Bleeding Hospital Course: 51-year-old male with history of Crohn's status post multiple resections currently on Stelera and Imuran, dysphagia, abdominal fissure presenting with complaints of abdominal pain and hematochezia. Since being admitted, patient continues to have multiple bloody bowel movements with the slight drop in hem oglobin. CT abdomen pelvis was unremarkable for any acute changes. Patient remains hemodynamically stable, but complains of worsening pain. GI consulted. Subjective: Patient seen and examined at bedside. No acute events overnight. He continues to have severe abdominal pain diffusely. He continues to have multiple bowel movements with fadia blood. He denies any urinary complaints, shortness of breath, chest pain. Pertinent positives and negatives as discussed above, a complete review of systems was performed and all other systems are negative. Vitals Signs Reviewed. General: nontoxic, in mild distress, appears at stated age Derm: warm, dry Head: atraumatic, normocephalic, symmetric Eyes: EOMI, no lid lag, anicteric sclera Mouth: no lip lesion, mucus membranes moist Cardiovascular: S1S2 reg, no murmur Lungs: CTA bilateral, no rhonchi, no rales , no accessory muscle use Abdominal: soft, mild tenderness to palpation in all quadrants, no guarding, no appreciable organomegaly Ext: no gross muscle atrophy, no edema, no contractures Neuro: CN II-XI grossly intact, no focal neuro deficits Psych: Alert, oriented, appropriate affect Assessment and Plan: Crohn's disease exacerbation Rectal bleeding -On IV steroids -PPI -Continue Imuran -GI consult -Clear liquid diet -Serial abdominal exams -CT - no acute process Anemia -Secondary to rectal bleeding -Hemoglobin slowly down trending Chronic problems: History of small bowel obstruction Anxiety -Continue home medications F: Normal saline at 75 mL an hour E: Replete as needed N: Clear liquid A: As tolerated DVT ppx: Patient ambulatory Code status: Full Code Anticipated discharge place: Home Anticipated discharge time: 2-3 days Objective - Vital Signs Vital signs: Vital Signs Temp 98.3 F 12/15/21 08:00 Pulse 79 12/15/21 08:00 Resp 18 12/15/21 08:00 BP 146/62 12/15/21 08:00 Pulse Ox 97 12/15/21 08:00 FiO2 Intake & Output 12/14/21 12/15/21 12/15/21 18:59 06:59 18:59 Intake Total 300 Balance 300 Intake: Oral 300 Other: Voiding Method Toilet Toilet # Voids 4 2 # Bowel Movements 1 - Labs CBC & Chem 7: 12/15/21 05:48 12/15/21 05:48 Labs: Abnormal Lab Results - Last 24 Hours (Table) 12/15/21 12/15/21 Range/Units 05:48 05:48 WBC 10.34 H (4.50-10.00) X 10*3/uL RBC 3.59 L (4.40-5.60) X 10*6/uL Hgb 10.4 L (13.0-17.0) g/dL Hct 32.2 L (39.6-50.0) % RDW 14.6 H (11.5-14.5) % Immature Gran # 0.42 H (0.00-0.04) X 10*3/uL Neutrophils # 8.73 H (1.80-7.70) X 10*3/uL Lymphocytes # 0.81 L (0.90-5.00) X 10*3/uL Eosinophils # 0 L (0.04-0.35) X 10*3/uL Glucose 125 H (70-110) mg/dL
--- NOTE | 2021-12-15 15:14 | P.CONS ---
History of Present Illness - Reason for Consult Consult date: 12/15/21 Crohn's exacerbation Requesting physician: Karthikeyan E Sheet - Chief Complaint Rectal bleeding - History of Present Illness This is a 51-year-old white male who presented to the emergency department with complaints of lower GI bleed. States he has had blood in his stool since Wednesday at 7:30 in the morning. He states it started out as more of a dark red and has now lightened to more of a bright red. He states he is having bowel movements/rectal bleeding 20-30 a day. Patient has a past medical history of Crohn's disease diagnosed in 1997. He is currently under the care of Dr. Gipson. He is currently on Stelara He has a history of a bowel resection and perforati on with repair. Most recently 01/29/2020 when he underwent right colectomy, omentectomy, repair of incisional hernia and lysis of adhesions with . His last EGD and colonoscopy was done by Dr. Gipson on 11/02/2020. EGD with findings of mild antral gastritis and colonoscopy revealed tight stricture at the edge of chronic anastomosis in the right colon with several erosions and ulcerations with deformity, status post multiple biopsies. Rest of colon appeared normal. Biopsies came back positive for chronic with active colitis. He is currently denying any severe abdominal pain, but describes it as a discomfort more in his chest and left lower abdomen. States it feels like he has active ulcerations. He denies any nausea or vomiting. He was admitted a week ago and discharged on 93 for concerns for epigastric pain and discomfort and had a cardiac evaluation at that time. On admission he was noted to have a hemoglobin of 12.9 with a drop to 10.4 this morning. He continues to have active bloody bowel movements/rectal bleeding. Denies any nausea or vomiting. Patient had CT abdomen and pelvis have had no acute findings. Review of Systems REVIEW OF SYSTEMS: CARDIOPULMONARY: No chest pain or shortness of breath. Gastrointestinal: Burning sensation in epigastric region, abdominal pressure and left lower quadrant.. No nausea or vomiting. No hematemesis, coffee-ground emesis. Rectal bleeding, diarrhea up to 20-30 per day GENITOURINARY: No dysuria or hematuria. MUSCULOSKELETAL: Reports normal range of motion., Joint pain. SKIN: No rashes. No jaundice. ENDOCRINE: No chills, fevers. No excessive weight gain or loss. No polydipsia or polyuria. PSYCHIATRIC: Unremarkable. NEUROLOGY: No change in mental status. Denies dizziness, headache. ENT: Vision unremarkable. CONSTITUTIONAL: States a 6 pound weight loss in the last 1 day. Past Medical History Additional Past Medical History / Comment(s): Crohn's History of Any Multi-Drug Resistant Organisms: None Reported Past Surgical History: Bowel Resection Additional Past Surgical History / Comment(s): bowel resection. Past Anesthesia/Blood Transfusion Reactions: No Reported Reaction Past Psychological History: Anxiety, Bipolar, Depression, PTSD Smoking Status: Never smoker Past Alcohol Use History: None Reported Past Drug Use History: None Reported - Past Family History Mother Family Medical History: Hypertension Medications and Allergies Home Medications Medication Instructions Recorded Confirmed Type azaTHIOprine [Imuran] 100 mg PO DAILY 03/25/20 12/13/21 History clonazePAM 1 mg PO TID 03/25/20 12/13/21 History lamoTRIgine [LaMICtal] 100 mg PO DAILY 03/25/20 12/13/21 History Ascorbic Acid [Vitamin C] 250 mg PO DAILY 10/31/20 12/13/21 History Cholecalciferol [Vitamin D3 (10 10 mcg PO DAILY 10/31/20 12/13/21 History Mcg = 400 Iu)] Chromium Picolinate 200 mcg PO DAILY 10/31/20 12/13/21 History Multivitamins, Thera [Multivitamin 1 tab PO DAILY 10/31/20 12/13/21 History (formulary)] [place]-3 Fatty Acids/Fish Oil [Fish 1 cap PO DAILY 10/31/20 12/13/21 History Oil 1,000 mg Softgel] hydrOXYzine pamoate [Vistaril] 25 mg PO TID PRN 10/31/20 12/13/21 History Cyanocobalamin [Vitamin B-12] 1,000 mcg PO DAILY #60 tablet 11/03/20 12/13/21 Rx Aspirin EC [Ecotrin] 325 mg PO DAILY 01/15/21 12/13/21 History Diphenoxylate HCl/Atropine 1 - 3 tab PO QID MDD 8 tabs 01/15/21 12/13/21 History [Lomotil 2.5-0.025 mg Tablet] Vitamin E 400 unit PO DAILY 01/15/21 12/13/21 History Cholestyramine (with Sugar) 4 gm PO BID 12/04/21 12/13/21 History [Cholestyramine Packet] Dicyclomine HCl 20 mg PO QID PRN 12/04/21 12/13/21 History FLUoxetine HCL 20 mg PO BID 12/04/21 12/13/21 History Ferrous Sulfate [Feosol] 325 mg PO DAILY 12/04/21 12/13/21 History Hyoscyamine Sulfate [Levbid] 0.375 mg PO BID PRN 12/04/21 12/13/21 History Lidocaine 5% Patch [Lidoderm 5% 1 patch TOPICAL DAILY 12/04/21 12/13/21 History Patch] Ondansetron Odt [Zofran ODT] 4 mg TRANSLINGU BID PRN 12/04/21 12/13/21 History Pantoprazole Sodium [Protonix] 40 mg PO BID 12/04/21 12/13/21 History Sucralfate [Carafate] 1 gm PO ACHS #120 tab 12/06/21 12/13/21 Rx HYDROcodone/APAP 7.5-325MG [[place] 1 tab PO QID PRN 12/13/21 12/13/21 History 7.5-325] predniSONE [Deltasone] See Taper PO DIRECTED 12/13/21 12/13/21 History Allergies Allergy/AdvReac Type Severity Reaction Status Date / Time No Known Allergies Allergy Verified 12/13/21 16:29 Physical Exam Vitals: Vital Signs Temp Pulse Resp BP Pulse Ox 12/15/21 08:00 98.3 F 79 18 146/62 97 12/15/21 01:44 97.8 F 75 16 121/70 97 12/14/21 18:23 97.4 F L 66 17 128/74 98 Intake and Output 12/14/21 12/15/21 12/15/21 22:59 06:59 14:59 Intake Total 300 Balance 300 Intake: Oral 300 Other: Voiding Method Toilet Toilet # Voids 4 2 # Bowel Movements 1 General appearance: The patient is alert, oriented, appears in no acute distress. HET: Head is normocephalic and atraumatic. Conjunctiva pink. Sclera anicteric. Neck: Supple without lymphadenopathy. Trachea midline. Heart: S1 S2. Regular rate and rhythm. Lungs: Clear to auscultation. Abdomen: Soft, epigastric tenderness, left mid to lower quadrant tenderness, nondistended with bowel sounds. No guarding or rigidity. Skin: No rashes. No jaundice. Extremities: Normal skin color and turgor. No pedal edema. Neurological: No focal deficits. Alert and oriented x3. Results CBC & Chem 7: 12/15/21 05:48 12/15/21 05:48 Labs: Abnormal Lab Results - Last 24 Hours (Table) 12/15/21 12/15/21 Range/Units 05:48 05:48 WBC 10.34 H (4.50-10.00) X 10*3/uL RBC 3.59 L (4.40-5.60) X 10*6/uL Hgb 10.4 L (13.0-17.0) g/dL Hct 32.2 L (39.6-50.0) % RDW 14.6 H (11.5-14.5) % Immature Gran # 0.42 H (0.00-0.04) X 10*3/uL Neutrophils # 8.73 H (1.80-7.70) X 10*3/uL Lymphocytes # 0.81 L (0.90-5.00) X 10*3/uL Eosinophils # 0 L (0.04-0.35) X 10*3/uL Glucose 125 H (70-110) mg/dL CT scan - abdomen: report reviewed (Negative computed tomography scan abdomen and pelvis. No adverse change compared to old exam.) Assessment and Plan (1) Rectal bleeding Narrative/Plan: 51-year-old male with a long-standing history of Crohn's disease presented to the emergency department with complaints of rectal bleeding. He's had rectal bleeding since Wednesday at 7:30. He is having multiple episodes per day 20-30. Currently follows with Dr. Gipson, on [facility]. She is complaining of epigastric discomfort and burning. States he's had history of esophageal ulcers seen on EGD done by Dr. Neal in 2019. His most recent EGD and colonoscopy was October [id number] by Dr. Gipson. EGD showed mild gastritis colonoscopy states stricture near anastomosis, and ulcerations. Plan for EGD colonoscopy tomorrow. Will start colon prep this afternoon. Current Visit: Yes Status: Acute Code(s): K62.5 - HEMORRHAGE OF ANUS AND RECTUM SNOMED Code(s): 36013564 (2) Crohn's disease Current Visit: Yes Status: Acute Code(s): K50.90 - CROHN'S DISEASE, UNSPECIFIED, WITHOUT COMPLICATIONS SNOMED Code(s): 54990242 Plan: 1. Continue symptomatic and supportive care 2. Clear liquid diet, nothing by mouth after midnight 3. Repeat CBC this evening 1800, again daily 4. Transfuse for hemoglobin less than 7 5. Avoid NSAIDs, anticoagulation 6. Protonix 40 mg twice a day 7. Bowel prep this evening 8. Land for EGD and colonoscopy tomorrow. Procedure discussed with patient including risks and benefits. Patient seemingly understands and agrees to procedure. Thank you for this consultation, we will continue to follow. Dr. Minh Gipson I agree with the dictator's note, documented as a scribe by Louise Macias.
[2021-12-15 18:44] LABS: HCT 34.9 % (39.0-53.0); HGB 11.2 gm/dL (13.0-17.5); MCH 29.1 pg (25.0-35.0); MCHC 32.1 g/dL (31.0-37.0); MCV 90.4 fL (80.0-100.0); Mean Platelet Volume 7.4; Platelet Count 303 k/uL (150-450); RBC 3.86 m/uL (4.30-5.90); RDW 15.1 % (11.5-15.5); WBC 12.7 k/uL (3.8-10.6)
[2021-12-16] MEDS: methylPREDNISolone SOD SUCCI 125 MG/2 ML VIAL IV SCH ×3 (00:16→16:56)
[2021-12-16] MEDS: LACTATED RINGERS 1,000 ML IV SCH ×2 (00:18→16:56)
[2021-12-16] MEDS: HYDROmorphone 1 MG/ML 1 ML SYRINGE IVP PRN ×7 (00:29→21:03)
[2021-12-16] MEDS: ONDANSETRON 4 MG/2 ML VIAL IVP PRN ×3 (03:24→21:14)
[2021-12-16] MEDS: PANTOPRAZOLE 40 MG/10 ML VIAL IV SCH ×2 (07:20→21:04)
[2021-12-16] MEDS: clonazePAM 1 MG TAB PO SCH ×3 (08:52→21:58)
[2021-12-16] MEDS: DICYCLOMINE 10 MG CAP PO SCH ×4 (08:52→21:58)
[2021-12-16] MEDS: azaTHIOprine 50 MG TAB PO SCH (08:52)
[2021-12-16] MEDS: CHOLECALCIFEROL 10 MCG (400 IU) TABLET PO SCH (08:53)
[2021-12-16] MEDS: MULTIVITAMINS, THERA 1 EACH TAB PO SCH (08:53)
[2021-12-16] MEDS: ASCORBIC ACID 500 MG TAB PO SCH (08:53)
[2021-12-16] MEDS: FERROUS SULFATE 325 MG TAB PO SCH (08:53)
[2021-12-16] MEDS: lamoTRIgine 100 MG TAB PO SCH (08:53)
[2021-12-16] MEDS: CYANOCOBALAMIN 500 MCG TAB PO SCH (08:53)
[2021-12-16] MEDS: FLUoxetine HCL 20 MG CAP PO SCH ×2 (08:53→21:58)
[2021-12-16] MEDS: SUCRALFATE 1 GM TAB PO SCH ×4 (08:55→21:58)
[2021-12-16] MEDS: SODIUM CHLORIDE 0.9% 1,000 ML IV SCH ×2 (09:43→13:48)
[2021-12-16 10:33] LABS: HCT 33.5 % (39.6-50.0); HGB 10.4 g/dL (13.0-17.0); MCH 28.6 pg (27.0-32.0); Mean Platelet Volume 11.4 fL (9.5-12.2); NRBC Per 100 WBC 0.5 /100 WBCS (0.0-0.0); Platelet Count 201 X 10*3/uL (140-440); RBC 3.64 X 10*6/uL (4.40-5.60); RDW 14.8 % (11.5-14.5); WBC 14.26 X 10*3/uL (4.50-10.00)
[2021-12-16] MEDS ORDERED: PROPOFOL 10 MG/ML 20 ML VIAL IV ONE (12:12)
[2021-12-16] MEDS ORDERED: LIDOCAINE 2% INJ 20 MG/ML (2 ML VIAL) ONE (12:12)
[2021-12-16] MEDS ORDERED: IV FLUID CONTINUATION 1,000 ML IV ONE (12:29)
--- NOTE | 2021-12-16 12:37 | P.PCN ---
Date of Procedure: 12/16/21 Procedure(s) Performed: Brief history: Patient is a pleasant 79-year-old white male admitted to the hospital with acute GI bleed. He had multiple episodes of dark colored stool followed by bright red blood per rectum. Initial hemoglobin was 12 g/d and subsequently dropped to 10 g/dL. History of Crohn's disease and status post right colon resection for stricturing disease in November 2020. Is presently maintained on stelara injections every 8 weeks. Procedure performed: Esophagogastroduodenoscopy with biopsy Colonoscopy with biopsy Preoperative diagnosis: Acute GI bleed History of Crohn's ileocolitis Anesthesia: [facility] Procedure: After informed consent was obtained from the patient was brought into the endoscopy unit and IV sedation was administered by anesthesia under continuous monitoring. Initially upper endoscopy was done. The Olympus GF 160 video endoscope was inserted inserted into the mouth and esophagus intubated without any difficulty and was gradually advanced into the stomach and duodenum and carefully examined. The bulb and second part of the duodenum appeared normal. Biopsies were done from the duodenum to rule out celiac disease. The scope was then withdrawn into the stomach adequately insufflated with air and upon careful examination the antrum had mild gastritis and biopsies were done from this area. The body, cardia and fundus appeared normal. The scope was then withdrawn into the esophagus. The GE junction was located at 40 cm to the incisors. It appeared regular with no erythema erosions or ulcerations. Rest of the esophagus appeared normal. Patient tolerated the procedure well. At this time the patient continued to remain sedation. Initial digital rectal examination was normal. Olympus CF 160 video colonoscope was then inserted into the rectum and gradually advanced to the right colon without any difficulty. The ileocolic anastomosis had mild erythema noted and no erosions or ulcerations seen. The distal ileum appeared normal. Biopsies were done at the anastomosis. Mucosa of the transverse colon, descending colon, sigmoid colon and rectum appeared normal. Retroflexion was performed in the rectum and weight 2 internal hemorrhoids were noted. Patient tolerated the procedure well. Impression: 1. Upper endoscopy revealed mild antral gastritis but no evidence of esophagitis or peptic ulcer disease 2. Colonoscopy revealed mild erythema of the ileocolic anastomosis in the right colon and grade 2 internal hemorrhoids. No active bleeding noted. Recommendations: Findings of this examination were discussed with the patient .. At this time advance diet as tolerated. Most likely the bleeding is from internal hemorrhoid s which has resolved . He will continue with stelara injections every 8 weeks.
--- NOTE | 2021-12-16 13:19 | P.PN ---
Subjective Progress Note Date: 12/16/21 Principal diagnosis: Rectal Bleeding Hospital Course: 51-year-old male with history of Crohn's status post multiple resections currently on Stelera and Imuran, dysphagia, abdominal fissure presenting with complaints of abdominal pain and hematochezia. Since being admitted, patient continues to have multiple bloody bowel movements with the slight drop in hem oglobin. CT abdomen pelvis was unremarkable for any acute changes. Patient remains hemodynamically stable, but complains of worsening pain. GI consulted - Plan for EGD and colonoscopy. Subjective: Patient seen and examined at bedside. No acute events overnight. He continues to have severe abdominal pain diffusely but improving. He continues to have multiple bowel movements with fadia blood but it has improved with bowel prep. He denies any urinary complaints, shortness of breath, chest pain. Pertinent positives and negatives as discussed above, a complete review of systems was performed and all other systems are negative. Vitals Signs Reviewed. General: nontoxic, in mild distress, appears at stated age Derm: warm, dry Head: atraumatic, normocephalic, symmetric Eyes: EOMI, no lid lag, anicteric sclera Mouth: no lip lesion, mucus membranes moist Cardiovascular: S1S2 reg, no murmur Lungs: CTA bilateral, no rhonchi, no rales , no accessory muscle use Abdominal: soft, mild tenderness to palpation in all quadrants, no guarding, no appreciable organomegaly Ext: no gross muscle atrophy, no edema, no contractures Neuro: CN II-XI grossly intact, no focal neuro deficits Psych: Alert, oriented, appropriate affect Assessment and Plan: Crohn's disease exacerbation Rectal bleeding -On IV steroids -PPI -Continue Imuran -GI consult - pending EGD and colonoscopy -NPO -Serial abdominal exams -CT - no acute process Anemia -Secondary to rectal bleeding -Hemoglobin stable Chronic problems: History of small bowel obstruction Anxiety -Continue home medications F: Normal saline at 100 mL an hour E: Replete as needed N: NPO A: As tolerated DVT ppx: Patient ambulatory Code status: Full Code Anticipated discharge place: Home Anticipated discharge time: 2-3 days Objective - Vital Signs Vital signs: Vital Signs Temp 97.4 F L 12/16/21 08:00 Pulse 62 12/16/21 08:00 Resp 16 12/16/21 08:00 BP 137/75 12/16/21 08:00 Pulse Ox 100 12/16/21 08:00 FiO2 Intake & Output 12/15/21 12/16/21 12/16/21 18:59 06:59 18:59 Intake Total 900 200 Balance 900 200 Intake: IV 900 200 Sodium Chloride 0.9% 1, 900 000 ml @ 75 mls/hr IV . [id number] [facility] Rx#:[id number] Other: Voiding Method Toilet Toilet Toilet - Labs CBC & Chem 7: 12/16/21 06:59 12/15/21 05:48 Labs: Abnormal Lab Results - Last 24 Hours (Table) 12/15/21 12/16/21 Range/Units 18:20 06:59 WBC 12.7 H 14.26 H (3.8-10.6) k/uL RBC 3.86 L 3.64 L (4.30-5.90) m/uL Hgb 11.2 L 10.4 L (13.0-17.5) gm/dL Hct 34.9 L 33.5 L (39.0-53.0) % MCHC 31.0 L (32.0-37.0) g/dL RDW 14.8 H (11.5-14.5) % Absolute Nucleated RBC 0.07 H (0.00-0.00) X 10*3/uL NRBC/100 WBC Diff 0.5 H (0.0-0.0) /100 WBCS
[2021-12-16] MEDS: HYDROcodone/APAP 7.5-325MG 1 EACH TAB PO PRN (18:26)
[2021-12-17] MEDS: HYDROmorphone 1 MG/ML 1 ML SYRINGE IVP PRN (00:23)
[2021-12-17] MEDS: methylPREDNISolone SOD SUCCI 125 MG/2 ML VIAL IV SCH ×2 (00:23→07:42)
[2021-12-17] MEDS: SODIUM CHLORIDE 0.9% 1,000 ML IV SCH ×2 (00:35→09:15)
[2021-12-17 02:05] VITALS: RESP 14
[2021-12-17] MEDS: HYDROcodone/APAP 7.5-325MG 1 EACH TAB PO PRN ×2 (05:59→12:20)
[2021-12-17] MEDS: clonazePAM 1 MG TAB PO SCH (07:39)
[2021-12-17] MEDS: ASCORBIC ACID 500 MG TAB PO SCH (07:39)
[2021-12-17] MEDS: lamoTRIgine 100 MG TAB PO SCH (07:40)
[2021-12-17] MEDS: CYANOCOBALAMIN 500 MCG TAB PO SCH (07:40)
[2021-12-17] MEDS: FERROUS SULFATE 325 MG TAB PO SCH (07:41)
[2021-12-17] MEDS: FLUoxetine HCL 20 MG CAP PO SCH (07:41)
[2021-12-17] MEDS: SUCRALFATE 1 GM TAB PO SCH ×2 (07:41→12:20)
[2021-12-17] MEDS: MULTIVITAMINS, THERA 1 EACH TAB PO SCH (07:41)
[2021-12-17] MEDS: azaTHIOprine 50 MG TAB PO SCH (07:42)
[2021-12-17] MEDS: DICYCLOMINE 10 MG CAP PO SCH ×2 (07:42→12:20)
[2021-12-17] MEDS: PANTOPRAZOLE 40 MG/10 ML VIAL IV SCH (07:42)
[2021-12-17] MEDS: ONDANSETRON 4 MG/2 ML VIAL IVP PRN (07:55)
[2021-12-17 08:19] VITALS: BP 156/81; PULSE 76; TEMP 98.4
[2021-12-17] MEDS: CHOLECALCIFEROL 10 MCG (400 IU) TABLET PO SCH (09:15)
[2021-12-17 10:21] LABS: HCT 35.7 % (39.0-53.0); HGB 11.4 gm/dL (13.0-17.5); Hypochromasia Slight; MCH 29.5 pg (25.0-35.0); MCHC 31.9 g/dL (31.0-37.0); MCV 92.5 fL (80.0-100.0); Mean Platelet Volume 7.7; Platelet Count 343 k/uL (150-450); RBC 3.86 m/uL (4.30-5.90); RDW 15.2 % (11.5-15.5); WBC 14.4 k/uL (3.8-10.6)
--- NOTE | 2021-12-17 12:04 | P.DS ---
Providers Date of admission: 12/13/21 15:24 Expected date of discharge: 12/17/21 Attending physician: Danielle Schwab MD Consults: 12/15/21 12:48 Consult Physician Urgent Consulting Provider: Martha Gipson Consult Reason/Comments: Crohn's flare Do you want consulting provider notified?: Yes Primary care physician: John Cevallos DO Hospital Course: Discharge Diagnosis: Crohn's disease exacerbation Rectal bleeding Normocytic Anemia Internal hemorrhoids Gastritis Hospital Course: 51-year-old male with history of Crohn's disease status post prior resection currently on Stelera and Imuran presented initially for hematochezia and abdominal pain. Lab work was noted for slight hemoglobin drop to 10.4, improved to 11.4 at discharge. He was started on IV steroids, and PPI. Patient was evaluated by gastroenterology. He had an upper endoscopy and colonoscopy with results below. At discharge patient denied any further rectal bleeding. He has follow-up with gastroenterology tomorrow. Patient already has prednisone at home, continue the taper. Further management for Crohn's disease deferred to outpatient gastroenterology. Upper endoscopy revealed mild antral gastritis and no evidence of esophagitis or peptic ulcer disease Colonoscopy revealed mild erythema of the ileocolic anastomosis in the right colon and grade 2 internal hemorrhoids, no active bleeding Patient seen and examined at bedside. Vital signs reviewed and stable. General: nontoxic, no distress, appears at stated age Derm: warm, dry Head: atraumatic, normocephalic, symmetric Eyes: EOMI, no lid lag, anicteric sclera Mouth: no lip lesion, mucus membranes moist Cardiovascular: S1S2 reg, no murmur Lungs: CTA bilateral, no rhonchi, no rales , no accessory muscle use Abdominal: soft, mild tenderness to palpation in all quadrants, no guarding, no appreciable organomegaly Ext: no gross muscle atrophy, no edema, no contractures Neuro: CN II-XI grossly intact, no focal neuro deficits Psych: Alert, oriented, appropriate affect A total of 35 minutes of time were spent preparing this complex discharge summary. Patient was discharged on 12/17/21 at 11:51. Patient Condition at Discharge: Stable Plan - Discharge Summary New Discharge Prescriptions: Continue azaTHIOprine [Imuran] 100 mg PO DAILY lamoTRIgine [LaMICtal] 100 mg PO DAILY clonazePAM 1 mg PO TID Multivitamins, Thera [Multivitamin (formulary)] 1 tab PO DAILY hydrOXYzine pamoate [Vistaril] 25 mg PO TID PRN PRN Reason: sleep/itching, ANXIETY Chromium Picolinate 200 mcg PO DAILY Cholecalciferol [Vitamin D3 (10 Mcg = 400 Iu)] 10 mcg PO DAILY Jamul-3 Fatty Acids/Fish Oil [Fish Oil 1,000 mg Softgel] 1 cap PO DAILY Vitamin E 400 unit PO DAILY Diphenoxylate HCl/Atropine [Lomotil 2.5-0.025 mg Tablet] 1 - 3 tab PO QID MDD 8 tabs Aspirin EC [Ecotrin] 325 mg PO DAILY Ondansetron Odt [Zofran ODT] 4 mg TRANSLINGU BID PRN PRN Reason: Nausea Pantoprazole Sodium [Protonix] 40 mg PO BID Hyoscyamine Sulfate [Levbid] 0.375 mg PO BID PRN PRN Reason: Spasms Ferrous Sulfate [Feosol] 325 mg PO DAILY HYDROcodone/APAP 7.5-325MG [[place] 7.5-325] 1 tab PO QID PRN PRN Reason: Pain Ascorbic Acid [Vitamin C] 250 mg PO DAILY Cyanocobalamin [Vitamin B-12] 1,000 mcg PO DAILY #60 tablet Lidocaine 5% Patch [Lidoderm 5% Patch] 1 patch TOPICAL DAILY FLUoxetine HCL 20 mg PO BID Dicyclomine HCl 20 mg PO QID PRN PRN Reason: Gi Upset Cholestyramine (with Sugar) [Cholestyramine Packet] 4 gm PO BID Sucralfate [Carafate] 1 gm PO ACHS #120 tab predniSONE [Deltasone] See Taper PO DIRECTED Discharge Medication List azaTHIOprine [Imuran] 100 mg PO DAILY 03/25/20 [History] clonazePAM 1 mg PO TID 03/25/20 [History] lamoTRIgine [LaMICtal] 100 mg PO DAILY 03/25/20 [History] Ascorbic Acid [Vitamin C] 250 mg PO DAILY 10/31/20 [History] Cholecalciferol [Vitamin D3 (10 Mcg = 400 Iu)] 10 mcg PO DAILY 10/31/20 [History] Chromium Picolinate 200 mcg PO DAILY 10/31/20 [History] Multivitamins, Thera [Multivitamin (formulary)] 1 tab PO DAILY 10/31/20 [History] Jamul-3 Fatty Acids/Fish Oil [Fish Oil 1,000 mg Softgel] 1 cap PO DAILY 10/31/20 [History] hydrOXYzine pamoate [Vistaril] 25 mg PO TID PRN 10/31/20 [History] Cyanocobalamin [Vitamin B-12] 1,000 mcg PO DAILY #60 tablet 11/03/20 [Rx] Aspirin EC [Ecotrin] 325 mg PO DAILY 01/15/21 [History] Diphenoxylate HCl/Atropine [Lomotil 2.5-0.025 mg Tablet] 1 - 3 tab PO QID MDD 8 tabs 01/15/21 [History] Vitamin E 400 unit PO DAILY 01/15/21 [History] Cholestyramine (with Sugar) [Cholestyramine Packet] 4 gm PO BID 12/04/21 [History] Dicyclomine HCl 20 mg PO QID PRN 12/04/21 [History] FLUoxetine HCL 20 mg PO BID 12/04/21 [History] Ferrous Sulfate [Feosol] 325 mg PO DAILY 12/04/21 [History] Hyoscyamine Sulfate [Levbid] 0.375 mg PO BID PRN 12/04/21 [History] Lidocaine 5% Patch [Lidoderm 5% Patch] 1 patch TOPICAL DAILY 12/04/21 [History] Ondansetron Odt [Zofran ODT] 4 mg TRANSLINGU BID PRN 12/04/21 [History] Pantoprazole Sodium [Protonix] 40 mg PO BID 12/04/21 [History] Sucralfate [Carafate] 1 gm PO ACHS #120 tab 12/06/21 [Rx] HYDROcodone/APAP 7.5-325MG [[place] 7.5-325] 1 tab PO QID PRN 12/13/21 [History] predniSONE [Deltasone] See Taper PO DIRECTED 12/13/21 [History] Follow up Appointment(s)/Referral(s): John Cevallos DO [Primary Care Provider] - 1-2 days Martha Gipson MD [STAFF PHYSICIAN] - 1 Week Patient Instructions/Handouts: Rectal Bleeding (GEN) Activity/Diet/Wound Care/Special Instructions: Please see Dr. Tumma as soon as possible for crohn's disease. Discharge Disposition: HOME SELF-CARE
== END 2021-12-17 13:58 | disposition home or self-care (01) | DRG 394 ==
LOC: EC 11:23 → 4SSUR 15:24
PROVIDERS: ADMIT Internal Medicine; ATTEND Internal Medicine
PROC: 0DB68ZX Excision of Stomach, Via Natural or Artificial Opening Endoscopic, Diagnostic (ICD-10-PCS; principal; 2021-12-16 07:30)
PROC: 0DBL8ZX Excision of Transverse Colon, Via Natural or Artificial Opening Endoscopic, Diagnostic (ICD-10-PCS; 2021-12-16 07:30)
DX: K64.1 Second degree hemorrhoids (principal); K50.80 Crohn's disease of both small and large intestine without complications; R13.10 Dysphagia, unspecified; F31.9 Bipolar disorder, unspecified; F43.10 Post-traumatic stress disorder, unspecified; G89.29 Other chronic pain; F41.9 Anxiety disorder, unspecified; D50.0 Iron deficiency anemia secondary to blood loss (chronic); K29.70 Gastritis, unspecified, without bleeding; Z90.49 Acquired absence of other specified parts of digestive tract; Z79.82 Long term (current) use of aspirin; Z79.899 Other long term (current) drug therapy; Z79.52 Long term (current) use of systemic steroids; Z87.19 Personal history of other diseases of the digestive system
CPT/HCPCS: 36415; 43239; 45380; 74177; 80048; 80053; 83605; 83735; 85025; 85027; 85610; 85652; 85730; 86140; 86850; 86900; 86901; 88305; 88342; 93005; 96374; 96375; 96376; 99285

== ENCOUNTER → 2022-02-17 | Outpatient (CLI) | payer BC ==
[2022-02-17 22:44] LABS: Basophils # (A) 0.04 X 10*3/uL (0.00-0.10); Basophils % (A) 0.8 %; Eosinophils # (A) 0.14 X 10*3/uL (0.04-0.35); Eosinophils % (A) 2.9 %; HCT 35.6 % (39.6-50.0); HGB 10.4 g/dL (13.0-17.0); Immature Grans, Automated 0.2 %; Lymphocytes # (A) 1.41 X 10*3/uL (0.90-5.00); Lymphocytes % (A) 29.1 %; MCH 24.5 pg (27.0-32.0); MCHC 29.2 g/dL (32.0-37.0); MCV 83.8 fL (80.0-97.0); Mean Platelet Volume 9.8 fL (9.5-12.2); Monocytes # (A) 0.52 X 10*3/uL (0.20-1.00); Monocytes % (A) 10.7 %; NRBC Per 100 WBC 0 /100 WBCS (0.0-0.0); Neutrophils # (A) 2.72 X 10*3/uL (1.80-7.70); Neutrophils % (A) 56.3 %; Platelet Count 346 X 10*3/uL (140-440); RBC 4.25 X 10*6/uL (4.40-5.60); RDW 14.7 % (11.5-14.5); WBC 4.84 X 10*3/uL (4.50-10.00)
[2022-02-17 23:10] LABS: ALT 23 U/L (10-49); AST 14 U/L (14-35); African American GFR (CKD) 123.5 (60.0-200.0); Albumin 4.7 g/dL (3.8-4.9); Albumin/Globulin Ratio 2.35 (1.60-3.17); Alkaline Phosphatase 74 U/L (41-126); BUN/Creat Ratio 13.17 Ratio (12.00-20.00); Blood Urea Nitrogen 9.6 mg/dL (9.0-27.0); C Reactive Protein <0.30 mg/dL (0.00-0.80); Calcium 9.9 mg/dL (8.7-10.3); Carbon Dioxide 24.9 mmol/L (20.0-27.5); Chloride 105 mmol/L (96-109); Glucose 98 mg/dL (70-110); Non-African American GFR(CKD) 106.6 (60.0-200.0); Potassium 4.2 mmol/L (3.5-5.5); Sodium 142 mmol/L (135-145); Total Bilirubin <0.15 mg/dL (0.30-1.20); Total Protein 6.6 g/dL (6.2-8.2)
== END | disposition home or self-care (01) ==
LOC: LABWHC1 16:18
PROVIDERS: ATTEND Internal Medicine Gastroenterology
DX: K50.90 Crohn's disease, unspecified, without complications (principal)
CPT/HCPCS: 36415; 80053; 84153; 84443; 85025; 86140

== ENCOUNTER 2024-03-24 11:38 | Day surgery (SDC) | payer BC ==
[2024-03-23 09:21] VITALS: BMI 32.1
[2024-03-24] MEDS: IV FLUID CONTINUATION 1,000 ML IV ONE (12:22)
[2024-03-24] MEDS: LACTATED RINGERS 1,000 ML IV SCH (12:41)
[2024-03-24 12:49] VITALS: RESP 16; TEMP 97
[2024-03-24] MEDS ORDERED: PROPOFOL 10 MG/ML 20 ML VIAL IV ONE (13:18)
--- NOTE | 2024-03-24 13:37 | P.PCN ---
Date of Procedure: 03/24/24 Procedure(s) Performed: BRIEF HISTORY: Patient is a 54-year-old pleasant white male scheduled for an elective colonoscopy as a part of evaluation of longstanding hiistory of Crohn's ileitis. He status post right colon resection for stricturing disease in November 2020. Last colonoscopy December 2021 revealed mild erythema of the colon anastomosis but no stricture. Patient presently maintained on Skyrizi for the last 4 months. PROCEDURE PERFORMED: Colonoscopy with biopsy.. PREOPERATIVE DIAGNOSIS: History of Crohn's ileitis diagnosed in 1997 IV sedation per Anesthesia. PROCEDURE: After informed consent was obtained, the patient, was brought into the endoscopy unit. IV sedation was administered by Anesthesia under continuous monitoring. Digital rectal examination was normal. Initially the Olympus CF-160 flexible video colonoscope was then inserted in the rectum, gradually advanced into the right colon with ileocolic anastomosis was visualized and appeared normal. It was widely patent. The scope was advanced into the distal ileum and i 20 cm of the distal ileum was visualized that appeared normal. There was mild erythema of the ileocolic anastomosis which was biopsied. Mucosa of the transverse colon, descending colon, sigmoid colon, and rectum appeared normal. Retroflexion was performed in the rectum and small internal hemorrhoids were seen. The patient tolerated the procedure well. IMPRESSION: Normal-appearing colon from rectum to ileocolic anastomosis in the right colon Patent ileocolic anastomosis Mild erythema of the ileocolic anastomosis but no stricture noted Normal-appearing distal ileum RECOMMENDATIONS: Findings of this examination were discussed with the patient as well as his family. He was advised to follow with the biopsy results. He will continue with Skyrizi and follow-up in the office in 6 weeks..
[2024-03-24 13:52] VITALS: BP 115/79; PULSE 64
== END 2024-03-24 14:07 | disposition home or self-care (01) ==
LOC: ORWHC2ENDO 11:38
PROVIDERS: ATTEND Internal Medicine Gastroenterology
DX: K50.00 Crohn's disease of small intestine without complications (principal); G47.33 Obstructive sleep apnea (adult) (pediatric); F41.9 Anxiety disorder, unspecified; F31.9 Bipolar disorder, unspecified; Z79.899 Other long term (current) drug therapy; Z88.8 Allergy status to other drugs, medicaments and biological substances; Z88.6 Allergy status to analgesic agent; Z98.890 Other specified postprocedural states; Z90.49 Acquired absence of other specified parts of digestive tract
CPT/HCPCS: 88305; 45380; J2704